=== PATIENT | male | born 1955 | race Caucasian/White ===

== ENCOUNTER 2018-06-02 15:22 | Outpatient (REF) | payer MEDICAID, SELFPAY ==
[2018-06-02 22:09] LABS: Anion Gap 8.7 mmol/L (3-11); BUN 23 mg/dL (7-18); CO2 32.3 mmol/L (21.0-32.0); CREATININE 1.41 mg/dL (0.70-1.30); Calcium 9.1 mg/dL (8.5-10.1); Chloride 97 mmol/L (98-107); Glucose 105 mg/dL (70-100); Sodium 138 mmol/L (136-145)
[2018-06-02 23:30] LABS: Potassium 2.8 mmol/L (3.5-5.1)
== END 2018-06-02 15:42 ==
LOC: NCHCN 15:22
PROVIDERS: PCP Internal Medicine; Visit Provider Internal Medicine
DX: I10 Essential (primary) hypertension (principal)
CPT/HCPCS: 80048

== ENCOUNTER 2019-07-18 10:21 | Outpatient (REF) | payer MEDICARE, SELFPAY ==
[2019-07-18 21:45] LABS: Anion Gap 7.8 mmol/L (3-11); BUN 19 mg/dL (7-18); CO2 28.2 mmol/L (21.0-32.0); CREATININE 1.02 mg/dL (0.70-1.30); Calcium 9.6 mg/dL (8.5-10.1); Chloride 104 mmol/L (98-107); Glucose 97 mg/dL (74-106); Potassium 4.5 mmol/L (3.5-5.1); Sodium 140 mmol/L (136-145)
== END 2019-07-18 10:41 ==
LOC: NCHCN 10:21
PROVIDERS: PCP Internal Medicine; Visit Provider Internal Medicine
DX: I10 Essential (primary) hypertension (principal); N40.0 Benign prostatic hyperplasia without lower urinary tract symptoms; M10.9 Gout, unspecified; N52.9 Male erectile dysfunction, unspecified
CPT/HCPCS: 80048

== ENCOUNTER 2019-09-12 19:37 | Outpatient (REF) | payer MEDICARE, SELFPAY ==
[2019-09-12 21:02] LABS: Uric Acid 7.8 mg/dL (3.5-7.2)
== END 2019-09-12 19:57 ==
LOC: NCHCN 19:37
PROVIDERS: PCP Internal Medicine; Visit Provider Nurse Practitioner Family
DX: M79.646 Pain in unspecified finger(s) (principal)
CPT/HCPCS: 84550

== ENCOUNTER 2019-09-21 09:30 | Outpatient (CLI) | payer MEDICARE, SELFPAY ==
--- NOTE | 2019-09-21 08:45 | DI.RAD_ITS ---
EXAM: XR FINGER RT RING INDICATION: RRF pain. COMPARISON: No exams were available for comparison TECHNIQUE: 2D digital imaging was performed. FINDINGS: There is a tiny osseous density adjacent to the head of the proximal phalanx of the right ring finger which may represent a small avulsed fracture. There is also deformity involving the base of the mid dle phalanx and a fracture cannot be excluded. There is soft tissue swelling of the ring finger. Pl ease correlate clinically.
== END 2019-09-21 09:50 ==
PROVIDERS: PCP Internal Medicine; Referring Provider Nurse Practitioner Family; Visit Provider Orthopaedic Surgery
DX: M79.644 Pain in right finger(s) (principal); M20.091 Other deformity of right finger(s); M79.89 Other specified soft tissue disorders; M10.9 Gout, unspecified; I10 Essential (primary) hypertension
CPT/HCPCS: 99203; 99214; 73140

== ENCOUNTER 2019-10-14 10:32 | Outpatient (REF) | payer MEDICARE, SELFPAY ==
[2019-10-14 13:19] LABS: ALT 32 U/L (16-63); AST 20 U/L (15-37); Albumin 3.8 g/dL (3.4-5.0); Alkaline Phosphatase 60 U/L (46-116); Anion Gap 6.7 mmol/L (3-11); BUN 14 mg/dL (7-18); Bilirubin, Total 0.6 mg/dL (0.2-1.0); CO2 29.3 mmol/L (21.0-32.0); CREATININE 1.06 mg/dL (0.70-1.30); Calcium 8.8 mg/dL (8.5-10.1); Chloride 104 mmol/L (98-107); Glucose 96 mg/dL (74-106); Potassium 4.4 mmol/L (3.5-5.1); Sodium 140 mmol/L (136-145); Uric Acid 6.7 mg/dL (3.5-7.2)
== END 2019-10-14 10:52 ==
LOC: NCHCN 10:32
PROVIDERS: PCP Internal Medicine; Visit Provider Nurse Practitioner Family
DX: E78.5 Hyperlipidemia, unspecified (principal); I10 Essential (primary) hypertension; M10.9 Gout, unspecified; M79.646 Pain in unspecified finger(s)
CPT/HCPCS: 80053; 84550

== ENCOUNTER 2021-06-03 12:19 | Outpatient (REF) | payer MEDICARE, SELFPAY ==
[2021-06-03 14:44] LABS: ALT 39 U/L (16-63); AST 16 U/L (15-37); Albumin 3.7 g/dL (3.4-5.0); Alkaline Phosphatase 62 U/L (46-116); Anion Gap 9.3 mmol/L (3-11); BUN 14 mg/dL (7-18); Bilirubin, Total 0.6 mg/dL (0.2-1.0); CO2 28.7 mmol/L (21.0-32.0); CREATININE 1.2 mg/dL (0.70-1.30); Calcium 8.9 mg/dL (8.5-10.1); Calculated LDL 198 mg/dL (<100); Chloride 105 mmol/L (98-107); Cholesterol 266 mg/dL (<200); Glucose 98 mg/dL (74-106); HDL Cholesterol 45 mg/dL (40-60); Potassium 4.4 mmol/L (3.5-5.1); Sodium 143 mmol/L (136-145); Total Protein 6.7 g/dL (6.4-8.2); Triglyceride 117 mg/dL (<150)
== END 2021-06-03 12:20 | disposition home or self-care (01) ==
LOC: NCHCN 12:19
PROVIDERS: PCP Internal Medicine; Visit Provider Nurse Practitioner Family
DX: Z12.5 Encounter for screening for malignant neoplasm of prostate (principal); I10 Essential (primary) hypertension; E78.5 Hyperlipidemia, unspecified; N40.0 Benign prostatic hyperplasia without lower urinary tract symptoms
CPT/HCPCS: 80053; 80061; 84153

== ENCOUNTER → 2021-07-04 10:55 | Outpatient (BNVA) | payer MEDICARE, MEDICAID, SELFPAY | PROVIDERS: PCP Nurse Practitioner Family; Referring Provider Internal Medicine; Visit Provider Urology | DX: R35.0 Frequency of micturition (principal); R39.89 Other symptoms and signs involving the genitourinary system; R97.20 Elevated prostate specific antigen [PSA] | CPT/HCPCS: 99214 ==

== ENCOUNTER 2021-08-12 15:10 | Outpatient (REF) | payer MEDICARE, MEDICAID, SELFPAY ==
[2021-08-12 22:42] LABS: PSA, Diagnostic 7.1 ng/mL (0.0-4.5)
== END 2021-08-12 15:11 | disposition home or self-care (01) ==
LOC: NCHCN 15:10
PROVIDERS: PCP Nurse Practitioner Family; Visit Provider Nurse Practitioner Family
DX: R97.20 Elevated prostate specific antigen [PSA] (principal)
CPT/HCPCS: 84153

== ENCOUNTER → 2021-08-29 09:48 | Outpatient (BNVA) | payer MEDICARE, MEDICAID, SELFPAY | PROVIDERS: PCP Nurse Practitioner Family; Referring Provider Nurse Practitioner Family; Visit Provider Nurse Practitioner Gerontology | DX: N40.1 Benign prostatic hyperplasia with lower urinary tract symptoms (principal); R39.89 Other symptoms and signs involving the genitourinary system; R97.20 Elevated prostate specific antigen [PSA] | CPT/HCPCS: 99214 ==

== ENCOUNTER 2021-11-27 04:42 | Outpatient (CLI) | payer MEDICARE, MEDICAID, SELFPAY ==
[2021-11-28 17:51] LABS: Free PSA/PSA Ratio 0.26 ratio
== END 2021-11-27 04:43 | disposition home or self-care (01) ==
LOC: LBO 04:43
PROVIDERS: PCP Nurse Practitioner Family; Visit Provider Nurse Practitioner Gerontology
DX: R97.20 Elevated prostate specific antigen [PSA] (principal)
CPT/HCPCS: 36415; 84154

== ENCOUNTER → 2021-12-04 08:24 | Outpatient (BNVA) | payer MEDICARE, MEDICAID, SELFPAY | PROVIDERS: PCP Nurse Practitioner Family; Visit Provider Nurse Practitioner Gerontology | DX: N40.1 Benign prostatic hyperplasia with lower urinary tract symptoms (principal); R35.1 Nocturia; R97.20 Elevated prostate specific antigen [PSA] | CPT/HCPCS: 99214 ==

== ENCOUNTER → 2022-01-16 14:51 | Outpatient (BNVA) | payer MEDICARE, MEDICAID, SELFPAY | PROVIDERS: PCP Nurse Practitioner Family; Referring Provider Nurse Practitioner Family; Visit Provider Nurse Practitioner Gerontology | DX: N40.1 Benign prostatic hyperplasia with lower urinary tract symptoms (principal); R35.0 Frequency of micturition; R30.0 Dysuria; R97.20 Elevated prostate specific antigen [PSA] | CPT/HCPCS: 51798; 99214 ==

== ENCOUNTER 2022-01-16 17:17 | Outpatient (REF) | payer MEDICARE, MEDICAID, SELFPAY ==
[2022-01-16 18:19] LABS: Bilirubin Negative (Negative); Blood Negative (Negative); Clarity Clear (Clear); Glucose Negative (Negative); Ketones Negative (Negative); Leukocyte Esterase Negative (Negative); Nitrite Negative (Negative); Specific Gravity >= 1.030 (1.005-1.025); Urobilinogen 0.2 EU/dL (Up TO 0.2); pH 5.5 (5-8)
== END 2022-01-16 17:18 | disposition home or self-care (01) ==
LOC: LBN 17:17
PROVIDERS: PCP Nurse Practitioner Family; Visit Provider Nurse Practitioner Gerontology
DX: R39.89 Other symptoms and signs involving the genitourinary system (principal)
CPT/HCPCS: 81003; 87086

== ENCOUNTER 2022-03-12 03:18 | Outpatient (CLI) | payer MEDICARE, MEDICAID, SELFPAY ==
[2022-03-12 18:15] LABS: PSA, Screening 9.9 ng/mL (<=4.5)
== END 2022-03-12 03:19 | disposition home or self-care (01) ==
LOC: LBO 03:18
PROVIDERS: PCP Nurse Practitioner Family; Visit Provider Nurse Practitioner Gerontology
DX: N40.0 Benign prostatic hyperplasia without lower urinary tract symptoms (principal); R97.20 Elevated prostate specific antigen [PSA]; Z12.5 Encounter for screening for malignant neoplasm of prostate
CPT/HCPCS: 36415; 84153

== ENCOUNTER → 2022-03-26 11:17 | Outpatient (BNVA) | payer MEDICARE, MEDICAID, SELFPAY | PROVIDERS: PCP Nurse Practitioner Family; Referring Provider Nurse Practitioner Family; Visit Provider Nurse Practitioner Gerontology | DX: N40.1 Benign prostatic hyperplasia with lower urinary tract symptoms (principal); R35.0 Frequency of micturition; R97.20 Elevated prostate specific antigen [PSA] | CPT/HCPCS: 36415; 51798; 99215 ==

== ENCOUNTER 2022-03-26 15:22 | Outpatient (REF) | payer MEDICARE, SELFPAY | END 2022-03-26 15:23 | disposition home or self-care (01) | LOC: LBN 15:22 | PROVIDERS: PCP Nurse Practitioner Family; Visit Provider Nurse Practitioner Gerontology | DX: R39.9 Unspecified symptoms and signs involving the genitourinary system (principal); R97.20 Elevated prostate specific antigen [PSA] | CPT/HCPCS: 82565 ==

== ENCOUNTER → 2022-04-30 09:00 | Outpatient (BNVA) | payer MEDICARE, MEDICAID, SELFPAY | PROVIDERS: PCP Nurse Practitioner Family; Referring Provider Nurse Practitioner Family; Visit Provider Nurse Practitioner Gerontology | DX: N40.1 Benign prostatic hyperplasia with lower urinary tract symptoms (principal); R39.89 Other symptoms and signs involving the genitourinary system; R97.20 Elevated prostate specific antigen [PSA]; N42.89 Other specified disorders of prostate | CPT/HCPCS: 99215 ==

== ENCOUNTER 2022-05-23 00:39 | Outpatient (CLI) | payer MEDICARE, MEDICAID, SELFPAY ==
--- OUTSIDE RECORDS SUMMARY | 2022-05-23 00:43 | XMS_ITS | Clinical Summary ---
:1955 Author Organization [facility] Address [address] [place] [address] Care Team Providers Name Role Phone Whitney Parker MD Primary Care Provider Encounters Date Type Specialty Care Team Description 03/12/2022 Lab Requisition Clinical Laboratory Outr Resulting Lab , Provider from Last 3 Months Social History Tobacco Use Types Packs/Day Years Used Date Never Assessed Sex Assigned at Date Recorded Not on file Plan of Treatment Health Maintenance Due Date Last Done Comments Hepatitis C Screen 1955 COVID-19 Vaccine (#1) 1955 Fall Risk Screening 2018 Procedures Procedure Name Priority Date/Time Associated Comments Diagnosis PSA TOTAL, Routine 03/12/2022 9:27 EDT Results for this DIAGNOSTIC procedure are i n the results section. from Last 3 Months Results (ABNORMAL) PSA TOTAL, DIAGNOSTIC (03/12/2022 9:27 EDT) Pathologist Sig nature PSA 9.9 (H) <=4.5 ng/mL [facility] Specimen Blood - Venous blood (substance) Narrative [facility] - 03/12/2022 18:10 EDT NOTE: Serum PSA concentration should not be in terpreted as absolute evidence for the presence or absence of malignant disease. Assayed on Siemens ADVIA Centaur XPT usi ng chemiluminescent technology.??Values obtained by using different assay methods cannot be used interchangeably. Performing Organization Address City/State/ZIP Code Phon e Number [facility] [address] [place] [address] SERVICES from Last 3 Months Care Teams Acoustic Intelligence Specialist Relationship Specialty Start Date End Date Whitney Parker MD PCP - General 04/12/13 [address] [place] [address]
--- OUTSIDE RECORDS SUMMARY | 2022-05-23 00:43 | XMS_ITS | Encounter Summary ---
:1955 Author Organization [facility] Address [address] [place] [address] Care Team Providers Name Role Phone Whitney Parker MD Primary Care Provider Encounter Details Date Type Department Care Team Description 03/12/2022 Lab Requisition [facility] Outr Resulting Lab, Pathology & Laboratory Provider [facility] [address] [id number] Social History Tobacco Use Types Packs/Day Years Used Date Never Assessed Sex Assigned at Date Recorded Not on file documented as of this encounter Plan of Treatment Not on filedocumented as of this encounter Procedures Procedure Name Priority Date/Time Associated Comments Diagnosis PSA TOTAL, Routine 03/12/2022 9:27 EDT Results for this DIAGNOSTIC procedure are i n the results section. documented in this encounter Results (ABNORMAL) PSA TOTAL, DIAGNOSTIC (03/12/2022 9:27 EDT) Pathologist Sig nature PSA 9.9 (H) <=4.5 ng/mL [facility] Specimen Blood - Venous blood (substance) Narrative [facility] - 03/12/2022 18:10 EDT NOTE: Serum PSA concentration should not be in terpreted as absolute evidence for the presence or absence of malignant disease. Assayed on Siemens ADVIA Centaur XPT usi ng chemiluminescent technology.??Values obtained by using different assay methods cannot be used interchangeably. Performing Organization Address City/State/ZIP Code Phon e Number [facility] [address] [place] [address] SERVICES documented in this encounter Visit Diagnoses Not on filedocumented in this encounter Care Teams Measurement And Sensing Technician Relationship Specialty Start Date End Date Whitney Parker MD PCP - General 04/12/13 [address] [place] [address] documented as of this encounter
--- OUTSIDE RECORDS SUMMARY | 2022-05-23 00:43 | XMS_ITS | Encounter Summary ---
:1955 Author Organization [facility] Address [address] [place] [address] Care Team Providers Name Role Phone Whitney Parker MD Primary Care Provider Encounter Details Date Type Department Care Team Description 06/03/2021 Lab Requisition [facility] Outr Resulting Lab, Pathology & Laboratory Provider [facility] [address] [id number] Social History Tobacco Use Types Packs/Day Years Used Date Never Assessed Sex Assigned at Date Recorded Not on file documented as of this encounter Plan of Treatment Not on filedocumented as of this encounter Procedures Procedure Name Priority Date/Time Associated Comments Diagnosis PSA TOTAL, Routine 06/03/2021 9:50 EDT Results for this DIAGNOSTIC procedure are i n the results section. documented in this encounter Results (ABNORMAL) PSA TOTAL, DIAGNOSTIC (06/03/2021 9:50 EDT) Pathologist Sig nature PSA 8.0 (H) 0.0 - 4.5 ng/mL [facility] Specimen Blood - Venous blood (substance) Narrative [facility] - 06/03/2021 22:22 EDT NOTE: Serum PSA concentration should not be in terpreted as absolute evidence for the presence or absence of malignant disease. Assayed on Siemens ADVIA Centaur XPT usi ng chemiluminescent technology.??Values obtained by using different assay methods cannot be used interchangeably. Performing Organization Address City/State/ZIP Code Phon e Number [facility] [address] [place] [address] SERVICES documented in this encounter Visit Diagnoses Not on filedocumented in this encounter Care Teams Template Checker Relationship Specialty Start Date End Date Whitney Parker MD PCP - General 04/12/13 [address] [place] [address] documented as of this encounter
--- OUTSIDE RECORDS SUMMARY | 2022-05-23 00:44 | XMS_ITS | Encounter Summary ---
:1955 Author Organization [facility] Address [address] [place] [address] Care Team Providers Name Role Phone Unavailable Primary Care Provider Unavailable Encounter Details Date Type Department Care Team Description 09/09/2005 Results Only [facility] - Steven Hernadez MD conversion [address] [place] [phone] Social History Tobacco Use Types Packs/Day Years Used Date Never Assessed Sex Assigned at Date Recorded Not on file documented as of this encounter Plan of Treatment Not on filedocumented as of this encounter Procedures Procedure Name Priority Date/Time Associated Diagnosis Comme nts SURGICAL PATHOLOGY Routine 09/09/2005 0:00 EST Re sults for this procedure are i n the results section. documented in this encounter Results SURGICAL PATHOLOGY (09/09/2005 0:00 EST) Pathology Report: SURGICAL PATHOLOGY REPORT [facility] Reports generated via electronic interface contain ken ginal data; LAB however they are lacking the format of the original re port. Caution should be taken when reading/interpreting unfo rmatted reports. Name: ? DHRUV MAJANO ? Accession #: ? [id number] ? : ? 1955 (Age: 50) ??M ? Collect Date: ? 09/09/2005 ? Location: ? [facility] ? Receive Date: ? 006 ? Provider: EVE SMITH MD Copy to: JORGE CARO MD ? Final Pathologic Diagnosis: A. ?Colon, 21 cm, polyp, biopsies: 1. ?Hyperplastic polyp. B. ?Colon, 17 cm, polyp, biopsy: 1. ?Tubular adenoma. C. ?Colon, 14 cm, polyp, biopsy: 1. ?Cauterized hyperplastic polyp. D. ?Colon, 12 cm, polyp, biopsy: 1. ?Colonic muc hernando with prominent lymphoid aggregate and focal surface hyperplastic changes. E. ?Colon, 8 cm, polyp, biopsy: 1. ?Colonic mucosa with no specific patho logic features. Document reviewed and electronically signed by: Vipul Bales MD Report ??Date: 09/12/2005 18:35 By the signature above, the attending physician certif ies that he/she has personally conducted a gross and/or microscopic examin ation of the described specimens and rendered or confirmed the above diagnosi s. Specimen(s) Received: A. ?Bx polyp 21 cm B. ?Bx polyp 17 cm C. ?Bx polyp 14 cm D. ?Bx polyp 12 cm E. ?Bx polyp 8 cm Clinical History: ? Follow up polyps, h/o tubular adenoma ([id number]) Gross Description: ? Received in Hollande' s fixative labelled Bird and bx polyp 21 cm are three craft-pink irregular soft tissue fra gments ranging from 0.2 x 0.2 x 0.1 cm to 0.3 x 0.2 x 0.2 cm. ??The specimen is entirely subm itted as (A). ?? Received in Hollande's fixative labelled Bird and b x polyp 17 cm is a craft-pink 0.3 x 0.2 x 0.2 cm soft tissue fragment. ??Th e specimen is entirely submitted as (B). Received in Hollande's fixat eren labelled Bird and polyp 14 cm is a craft-pink 0.3 x 0.2 x 0.2 cm soft tiss ue fragment. ??The specimen is entirely submitted as (C). ?? Received in Hollande's fixat eren labelled Bird and polyp 12 cm is a craft-pink 0.4 x 0.2 x 0.2 cm soft tiss ue fragment. ??The specimen is entirely submitted as (D). Received in Hollande's fixative labelled Bird and polyp 8 cm is a craft-pink 0.5 x 0.2 x 0.2 cm soft tiss ue fragment. ??The specimen is entirely submitted as (E). ??(Laina Garcia)/g End of Report Specimen Performing Organization Address City/State/ZIP Code Phon e Number [facility] [address] [place] [address] SERVICES [facility] [address] [place] [address] documented in this encounter Visit Diagnoses Not on filedocumented in this encounter
--- OUTSIDE RECORDS SUMMARY | 2022-05-23 00:44 | XMS_ITS | Encounter Summary ---
:1955 Author Organization [facility] system Address [address] [place] [address] Care Team Providers Name Role Phone Whitney Parker MD Primary Care Provider Encounter Details Date Type Department Care Team Description 08/14/2017 Results Only [facility]- Radha James DO [phone] [facility] [place], [place] [address] (Wo rk) Social History Tobacco Use Types Packs/Day Years Used Date Never Assessed Sex Assigned at Date Recorded Not on file documented as of this encounter Plan of Treatment Not on filedocumented as of this encounter Procedures Procedure Name Priority Date/Time Associated Diagnosis Comme [facility] SURGICAL PATHOLOGY Routine 08/14/2017 17:27 Resul ts for this EST procedure are i n the results section. documented in this encounter Results SURGICAL PATHOLOGY (08/14/2017 17:27 EST) Pathology Report: SURGICAL PATHOLOGY REPORT [facility] Reports generated via electronic interface contain ken ginal data; LABORATORY however they are lacking the format of the original re port. SERVICES Caution should be taken when reading/interpreting unfo rmatted reports. Name: ? DHRUV MAJANO ? Accession #: ? [id number] ? : ? 1955 (Age: 62) ??M ? Collect Date: ? 08/14/2017 ? Location: ? [facility] ? Receive Date: ? 08/14/19 18 ? Provider: RADHA OLMEDO DO Copy to: GABY VASQUEZ MD ? Final Pathologic Diagnosis: COLON, DISTAL SIGMOID POLYP, BIOPSY: - Colonic mucosa with prominent lymphoid aggregate. Se e comment. Comment: Deeper sections of this biopsy have been examined. Dr. Beltran 08/17/2017 6:04 PM Document reviewed and electronically signed by: AUBRIE BELTRAN MD Report ??Date: 08/18/2017 15:11 By the signature above, the attending physician certif ies that he/she has personally conducted a gross and/or microscopic examin ation of the described specimens and rendered or confirmed the above diagnosi s. Specimen(s) Received: Distal sigmoid polyp Clinical History: Hx of colon polyp; clinical diagnosis code: Z86.010 Gross Description: ? Received in formalin labelled with proper patient identification (initials B, D) and distal sigmoid co manny polyp is a single pink-craft tissue fragment (0.4 x 0.2 x 0.2 cm). Submitted intact in block 1. BE Ray ([facility]) 08/17/2017 7:36 AM End of Report Specimen Performing Organization Address City/State/ZIP Code Phon e Number [facility] [address] [place] [address] SERVICES documented in this encounter Visit Diagnoses Not on filedocumented in this encounter Care Teams Healthcare Or Medical Relationship Specialty Start Date End Date Whitney Parker MD PCP - General 04/12/13 [address] [place] [phone] documented as of this encounter
--- OUTSIDE RECORDS SUMMARY | 2022-05-23 00:44 | XMS_ITS | Encounter Summary ---
:1955 Author Organization [facility] Address [address] [place] [address] Care Team Providers Name Role Phone Whitney Parker MD Primary Care Provider Encounter Details Date Type Department Care Team Description 08/14/2017 Hospital Encounter [facility]- Latanya Unknown, Provider, [facility] [address] [facility] [phone] [place] [address] (Work) [phone] Social History Tobacco Use Types Packs/Day Years Used Date Never Assessed Sex Assigned at Date Recorded Not on file documented as of this encounter Discharge Disposition Disposition Code Departure Means Destination Home or Self Custodial documented in this encounter Plan of Treatment Not on filedocumented as of this encounter Visit Diagnoses Not on filedocumented in this encounter Care Teams Extension Course Counselor Relationship Specialty Start Date End Date Whitney Parker MD PCP - General 04/12/13 [address] [place] [address] documented as of this encounter
--- OUTSIDE RECORDS SUMMARY | 2022-05-23 00:44 | XMS_ITS | Encounter Summary ---
:1955 Author Organization [facility] [place] [address] Care Team Providers Name Role Phone RovertoCristel Nicci GREEN Primary Care Provider [phone] Reason for Referral Diagnostic Test (Routine) - Closed Specialty Diagnoses / Procedures Referred By Contact Refer red To Contact Radiology Diagnoses Elevated PSA Viktoriya Hendrickson APRN [facility] Rad Mri Procedures MRI Pelvis wwo (Prostate) [address] [place] [phone] Referral ID Status Reason Start Date Expiration Date Visits V isits Requested Authorized [id number] Closed Specialty 03/31/2022 10/01/2023 1 1 Service Requested Reason for Visit Diagnostic Test (Routine) - Closed Specialty Diagnoses / Procedures Referred By Contact Refer red To Contact Radiology Diagnoses Elevated PSA Viktoriya Hendrickson APRN [facility] Rad Mri Procedures MRI Pelvis wwo (Prostate) [address] [place] [id number] Referral ID Status Reason Start Date Expiration Date Visits V isits Requested Authorized [id number] Closed Specialty 03/31/2022 10/01/2023 1 1 Service Requested Encounter Details Date Type Department Care Team Description 04/16/2022 Hospital Encounter MRI at [facility] Viktoriya Hendrickson, Elevated PSA [facility] CHEMICAL EDUCATOR[address] [address] [place] [phone] (Wo rk) Social History Tobacco Use Types Packs/Day Years Used Date Never Assessed Sex Assigned at Date Recorded Not on file documented as of this encounter Plan of Treatment Not on filedocumented as of this encounter Procedures Procedure Name Priority Date/Time Associated Diagnosis Comme nts MRI PELVIS WWO Routine 04/16/2022 6:55 PM Elevated PSA Results for this (PROSTATE) EDT procedure are i n the results section. documented in this encounter Results MRI Pelvis wwo (Prostate) (04/16/2022 6:55 PM EDT) Anatomical Region Laterality Modality Pelvis Magnetic Resonance Specimen (Source) Anatomical Location Collection Method / Collectio n Time Received Time / Laterality Volume Impressions 04/17/2022 9:10 AM EDT Lesion 1 PZ: PI-RADS 5. Clinically signi ficant cancer is highly likely to be present. T2 location: axial series 11, i mage 20; sagittal ??series 10, image 21. Segmented in UroNav. PI-RADS v2.1 Assessment Categories PI-RADS 1 -- Very low (clinically signif icant cancer is highly unlikely to be present) PI-RADS 2 -- Low (clinically significant cancer is unlikely to be present) PI-RADS 3 -- Intermediate (the presence of clinically significant cancer is equivocal) PI-RADS 4 -- High (clinically significan t cancer is likely to be present) PI-RADS 5 -- Very high (clinically signi ficant cancer is highly likely to be present) References: Mekhoa S1, Lluvia JH1, Multani S1, Smi th C1, Carvajal J1, Czarniecki M1, Gold S1, Becerra G1, Rayn K1, Joey MJ1, Rosalio BJ1, Sebastian PA1, Seng PL1, Grayson B1. ??A Grading System for the Assessment of Ris k of Extraprostatic Extension of Prostate Cancer at Multiparametric MRI. Radiology. 2019 Oct;290(3):709-719. doi: 10.1148/radiol.4371624707. Epub 2018Aug 24. Thank you for letting us participate in the care of this patient. ??If you are a health care provider and have any questi ons regarding this report, please contact the number below. ??For patients who have questions please contact the health career and technology education teacher that requested your imaging first. ? Narrative 04/17/2022 9:10 AM EDT EXAMINATION: MRI PELVIS WWO (PROSTATE) CLINICAL HISTORY: Elevated PSA REASON FOR PROSTATE EXAM: HAS PATIENT HAD PREVIOUS BIOPSY?:No, MOST RECENT PSA LEVEL:9.9 CATHERINE SCORE: TECHNIQUE: Multiparametric MRI of the pr ostate prior to and following IV administration of 20 cc of Dotarem contr ast. ?? QUALITY: Meets PI-RADS technical criteri a. COMPARISON: None FINDINGS: Prostate dimensions: 6.3 x 5.8 x 6.5cm. Estimated prostate volume: 110cc (X x Y x Z x 0.52) PSA density: 0.09 (PSA/prostate volume > 0.15 susp, 0.25 highly susp) Peripheral zone: Lesion 1. Right posterior medial mid gla nd T2: Circumscribed, homogenous moderately hyp ointense mass, 1.6 x 1 cm axially, 1.8 cm craniocaudally. PI-RADs: 5. DWI: ??Focal markedly hypointense on ADC and markedly hyperintense on high b-value DWI. PI-RADs: 5. DCE-MRI: (+) focal early enhancement whi ch corresponds to the suspicious finding on T2WI and/or DWI.. ? Combined PI-RADs: 5. Transition zone: T2: Typical encapsulate d and homogenous circumscribed nodules. Median lobe hypertrophy. No focal lesions. Combined PI-RADs: 2. Extraprostatic disease: Seminal vesicle involvement:No Lymphadenopathy:No Sphincter involvement:No Bladder involvement:No Osseous metastases: No . MRI-derived Extraprostatic extension ris k: Grade 1: 24.3% (Curvilinear contact length) Other findings: None. Procedure Note Law Portillo MD - 04/17/2022For matting of this note might be different from the original. EXAMINATION: MRI PELVIS WWO (PROSTATE) CLINICAL HISTORY: Elevated PSA REASON FOR PROSTATE EXAM: HAS PATIENT HAD PREVIOUS BIOPSY?:No, MOST RECENT PSA LEVEL:9.9 CATHERINE SCORE: TECHNIQUE: Multiparametric MRI of the pr ostate prior to and following IV administration of 20 cc of Dotarem contr ast. QUALITY: Meets PI-RADS technical criteri a. COMPARISON: None FINDINGS: Prostate dimensions: 6.3 x 5.8 x 6.5cm. Estimated prostate volume: 110cc (X x Y x Z x 0.52) PSA density: 0.09 (PSA/prostate volume > 0.15 susp, 0.25 highly susp) Peripheral zone: Lesion 1. Right posterior medial mid gla nd T2: Circumscribed, homogenous moderately hyp ointense mass, 1.6 x 1 cm axially, 1.8 cm craniocaudally. PI-RADs: 5. DWI: Focal markedly hypointense on ADC a nd markedly hyperintense on high b-value DWI. PI-RADs: 5. DCE-MRI: (+) focal early enhancement whi ch corresponds to the suspicious finding on T2WI and/or DWI.. Combined PI-RADs: 5. Transition zone: T2: Typical encapsulate d and homogenous circumscribed nodules. Median lobe hypertrophy. No focal lesions. Combined PI-RADs: 2. Extraprostatic disease: Seminal vesicle involvement:No Lymphadenopathy:No Sphincter involvement:No Bladder involvement:No Osseous metastases: No . MRI-derived Extraprostatic extension ris k: Grade 1: 24.3% (Curvilinear contact length) Other findings: None. IMPRESSION Lesion 1 PZ: PI-RADS 5. Clinically signi ficant cancer is highly likely to be present. T2 location: axial series 11, i mage 20; sagittal series 10, image 21. Segmented in UroNav. PI-RADS v2.1 Assessment Categories PI-RADS 1 -- Very low (clinically signif icant cancer is highly unlikely to be present) PI-RADS 2 -- Low (clinically significant cancer is unlikely to be present) PI-RADS 3 -- Intermediate (the presence of clinically significant cancer is equivocal) PI-RADS 4 -- High (clinically significan t cancer is likely to be present) PI-RADS 5 -- Very high (clinically signi ficant cancer is highly likely to be present) References: Mehralivand S1, Lluvia JH1, Multani S1, Smi th C1, Carvajal J1, Czarniecki M1, Gold S1, Becerra G1, Rayn K1, Cook MJ1, Wood BJ1, Cortes PA1, Choyke PL1, Turkbejulio cesar B1. A Grading System for the Assessment of Ris k of Extraprostatic Extension of Prostate Cancer at Multiparametric MRI. Radiology. 2019 Oct;290(3):709-719. doi: 10.1148/radiol.2638618470. Epub 2018Aug 24. Thank you for letting us participate in the care of this patient. If you are a health care provider and have any questi ons regarding this report, please contact the number below. For patients w ho have questions please contact the health career and technology education teacher that requested your imaging first. Viktoriya Hendrickson APRN [facility] ORDERABLES documented in this encounter Visit Diagnoses Diagnosis Elevated PSA Elevated prostate specific antigen (PSA) documented in this encounter Administered Medications Inactive Administered Medications - up to 3 most recent administrations Medication Order MAR Action Action Date Dose Rate Site gadoterate meglumine (Dotarem) Given 04/16/2022 8:05 PM EDT 20 m Ls (0.5 mMol/mL) injection solution 0-100 mL 0-100 mL, Intravenous, ONCE PRN, 1 dose, Starting on Thu04/16/22 at 2004, Until Thu04/16/22 at 2004, Per Protocol, Radiology Contrast, Routine documented in this encounter Care Teams Muff Winder Relationship Specialty Start Date End Date Cristel Layne APRN PCP - General Family Medicine 03/31/22 [address] [place] [address] documented as of this encounter
--- OUTSIDE RECORDS SUMMARY | 2022-05-23 00:44 | XMS_ITS | Encounter Summary ---
:1955 Author Organization [facility] Address [address] [place] [address] Care Team Providers Name Role Phone Whitney Parker MD Primary Care Provider Encounter Details Date Type Department Care Team Description 06/17/2017 Results Only [facility]- Radha James DO [phone] [facility] [place], [place] [address] (Wo rk) Social History Tobacco Use Types Packs/Day Years Used Date Never Assessed Sex Assigned at Date Recorded Not on file documented as of this encounter Plan of Treatment Not on filedocumented as of this encounter Procedures Procedure Name Priority Date/Time Associated Diagnosis Comme [facility] SURGICAL PATHOLOGY Routine 06/17/2017 20:51 Resul ts for this EST procedure are i n the results section. documented in this encounter Results SURGICAL PATHOLOGY (06/17/2017 20:51 EST) Pathology Report: SURGICAL PATHOLOGY REPORT [facility] Reports generated via electronic interface contain ken ginal data; LABORATORY however they are lacking the format of the original re port. SERVICES Caution should be taken when reading/interpreting unfo rmatted reports. Name: ? DHRUV MAJANO ? Accession #: ? [id number] ? : ? 1955 (Age: 62) ??M ? Collect Date: ? 06/17/2017 ? Location: ? [facility] ? Receive Date: ? 017 ? Provider: RADHA OLMEDO DO Copy to: GABY VASQUEZ MD ? Final Pathologic Diagnosis: BREAST, LEFT, MASS, EXCISION: - Gynecomastia. Document reviewed and electronically signed by: ANDRÉS CHANCE MD Report ??Date: 06/26/2017 17:13 By the signature above, the attending physician certif ies that he/she has personally conducted a gross and/or microscopic examin ation of the described specimens and rendered or confirmed the above diagnosi s. Specimen(s) Received: Left breast mass Clinical History: Left breast mass; clinical diagnosis code: ??N63.0 Gross Description: ? Received in formalin labelled with proper patient identification (initials B, D) and left breast mass are two unoriented pieces of cauterized fibrofatty tissue (9.7 g, 5.2 x 3.6 x 2.2 cm in aggregate). The outer surfaces are inked blue. The cut surfaces are craft-pink rubbery and fibrot ic with no discernible lesion. The specimens are submitted entirely as follow s: BLOCK SMART 1- ??smaller piece, and, perpendicular 2-3- ??smaller piece, opposite end, perpendicular 4-5- ??smaller piece, central sections 6- ??larger piece, and, perpendicular 7-8- ??larger piece, opposite and perpendicular 9-12- ??larger piece, central sections Time removed from patient: ??06/17/2017 1005 hours Time in formalin: ??06/17/2017 1005 hours Time out of formalin: ??06/18/2017 1900 hrs. BE Sánchez ([facility]) 06/18/2017 2:45 PM End of Report Specimen Performing Organization Address City/State/ZIP Code Phon e Number [facility] [address] [place] [address] SERVICES documented in this encounter Visit Diagnoses Not on filedocumented in this encounter Care Teams Sheet Metal Apprentice Relationship Specialty Start Date End Date Whitney Parker MD PCP - General 04/12/13 [address] [place] [address] documented as of this encounter
--- OUTSIDE RECORDS SUMMARY | 2022-05-23 00:44 | XMS_ITS | Encounter Summary ---
:1955 Author Organization [facility] Address [address] [place] [address] Care Team Providers Name Role Phone Whitney Parker MD Primary Care Provider Encounter Details Date Type Department Care Team Description 04/11/2013 Results Only [facility] Don Herrera MD Laboratory Services - [address] [place] [address] [facility] [place] [address] [phone] Social History Tobacco Use Types Packs/Day Years Used Date Never Assessed Sex Assigned at Date Recorded Not on file documented as of this encounter Plan of Treatment Not on filedocumented as of this encounter Procedures Procedure Name Priority Date/Time Associated Diagnosis Comme [facility] SURGICAL PATHOLOGY Routine 04/11/2013 11:27 Resul ts for this EDT procedure are i n the results section. documented in this encounter Results SURGICAL PATHOLOGY (04/11/2013 11:27 EDT) Pathology Report: SURGICAL PATHOLOGY REPORT [facility] Reports generated via electronic interface contain ken ginal data; LAB however they are lacking the format of the original re port. Caution should be taken when reading/interpreting unfo rmatted reports. Name: ? DHRUV MAJANO ? Accession #: ? [id number] ? : ? 1955 (Age: 57) ??M ? Collect Date: ? 04/11/2013 ? Location: ? [facility] ? Receive Date: ? 013 ? Provider: DON HERRERA MD Copy to: WHITNEY PARKER MD ? Final Pathologic Diagnosis: A. COLON, TRANSVERSE, ? ??POLYPS, BIOPSIES: - ??Polypoid fragments of co lonic mucosa with prominent lymphoid aggregates and surface hyperplastic changes. B. COLON, SIGMOID, POLYPS, BIOPSIES: - ??Tubular adenoma. - ??Cauterized colonic mucos a with features suggestive of hyperplastic polyp(s). Document reviewed and electronically signed by: GLORIA KENNEY MD Report ??Date: 04/14/2013 15:34 By the signature above, the attending physician certif ies that he/she has personally conducted a gross and/or microscopic examin ation of the described specimens and rendered or confirmed the above diagnosi s. Specimen(s) Received: A. ? transverse colon polyps x3 B. ? Sigmoid polyps x3 Clinical History: H/O colon adenomas Gross Description: A. ?Received in formalin labelled with proper p atient identification (initials B, D) and 1. transverse colon polyps x3 are three pink-craft tissues (0.4 x 0.2 x 0.2 cm to 0.6 x 0.3 x 0.2 cm). Entirely s ubmitted in A1. B. ?Received in formalin labelled with proper p atient identification (initials B, D) and 2. sigm oid polyps x3 are four pink-craft tissues (0.3 x 0.2 x 0.2 cm to 0.5 x 0.5 x 0.2 cm). Entirely submitted in B1 and B2. Sera Lazo 04/12/2013 02:31 PM End of Report Specimen Performing Organization Address City/State/ZIP Code Phon e Number [facility] [address] [place] [address] SERVICES [facility] [address] [place] [address] documented in this encounter Visit Diagnoses Not on filedocumented in this encounter Care Teams Primary Care Pediatrician Relationship Specialty Start Date End Date Whitney Parker MD PCP - General 04/12/13 [address] [place] [address] documented as of this encounter
--- OUTSIDE RECORDS SUMMARY | 2022-05-23 00:44 | XMS_ITS | Clinical Summary ---
:1955 Author Organization [facility] [place] [address] Care Team Providers Name Role Phone Cristel Layne NORMA Primary Care Provider [phone] Encounters Date Type Specialty Care Team Description 04/16/2022 Hospital Encounter Radiology Viktoriya Hendrickson, APR N Elevated PSA from Last 3 Months Social History Tobacco Use Types Packs/Day Years Used Date Never Assessed Sex Assigned at Date Recorded Not on file Plan of Treatment Health Maintenance Due Date Last Done Comments Covid-19 Vaccine (#1) 1955 Hepatitis C Screening 1971 Lipid Screening 1971 Tdap adult 1972 Tetanus vaccine 1972 Colonoscopy 1998 Zoster vaccine (1 of 2) 2003 Advance Directive 2008 Pneumoccocal Vaccine: 65+ (1 - PCV) 2018 Influenza (Flu) vaccine (1 of 1 - Influenza standard 04/03/2022 series) Procedures Procedure Name Priority Date/Time Associated Diagnosis Comme nts MRI PELVIS WWO Routine 04/16/2022 6:55 PM Elevated PSA Results for this (PROSTATE) EDT procedure are i n the results section. ORDS - PROVIDER 03/31/2022 12:00 AM Resul ts for this CARE SCAN EDT procedure are i n the results section. from Last 3 Months Results MRI Pelvis wwo (Prostate) (04/16/2022 6:55 [...] is highly likely to be present) References: Robby S1, Lluvia JH1, Multani S1, Smi th C1, Carvajal J1, Czarniecki M1, Gold S1, Becerra G1, Raykiya K1, Joey MJ1, Rosalio BJ1, Sebastian PA1, Seng PL1, Grayson B1. ??A Grading System for the Assessment of Ris k of Extraprostatic Extension of Prostate Cancer at Multiparametric MRI. Radiology. 2019 Mar;290(3):709-719. doi: 10.1148/radiol.7163535947. Epub 2018Aug 24. Thank you for letting us participate in the care of this patient. ??If you are a health care provider and have any questi ons regarding this report, please contact the number below. ??For patients who have questions please contact the health medicare compliance auditor that requested your imaging first. ? Electronically signed by: Law wilson MD, [facility] ([phone]), at 04/17/2022 9:10 AM Narrative 04/17/2022 9:10 AM EDT EXAMINATION: MRI [...] is highly likely to be present) References: Robby S1, Lluvia JH1, Multani S1, Smi th C1, Carvajal J1, Czarnieckpatience M1, Gold S1, Becerra G1, Rayn K1, Joey MJ1, Rosalio BJ1, Cortes PA1, Seng PL1, Grayson B1. A Grading System for the Assessment of Ris k of Extraprostatic Extension of Prostate Cancer at Multiparametric MRI. Radiology. 2019 Oct;290(3):709-719. doi: 10.1148/radiol.6030051199. Epub 2018Aug 24. Thank you for letting us participate in the care of this patient. If you are a health care provider and have any questi ons regarding this report, please contact the number below. For patients w ho have questions please contact the health medicare compliance auditor that requested your imaging first. Viktoriyakiersten Personmitchazeem NORMA IMG MRI ORDERABLES SCAN DOC: ORDS - PROVIDER CARE (03/31/2022 12:00 AM EDT) Narrative 03/31/2022 12:00 AM EDT This result has an attachment that is no t available. Ordered by an unspecified provider. Scanning Provider MEDIA MGR SCAN EXT ORDR/RSLT from Last 3 Months Insurance Payer Benefit Plan / Subscriber ID Effective Phone Address T ype Group Dates MEDICARE MEDICARE PART A [id number] 2018-Pres [phone] [facility] [place] [phone] [facility] [id number] 2021-Pres [phone] [address] MEDICARE MEDICARE ent [address] [place], [place] [address] Care Teams Nickel Operator Relationship Specialty Start Date End Date Cristel Layne APRN PCP - General Family Medicine 03/31/22 [address] [place], [place] [id number]
--- NOTE | 2022-05-23 07:00 | DI.US_ITS ---
Exam(s) US PROSTATE BIOPSY EXAM: US PROSTATE BIOPSY CLINICAL HISTORY: elevated psa, prostate nodule, abnormal MRI,r97.20 TECHNIQUE: Ultrasound performed using standard protocol. COMPARISON: US CAROTID ULTRASOUND from 07/23/2015 FINDINGS: Ultrasound guidance was provided during prostate biopsy performed by the urologist. The radiologist was not present for this procedure. IMPRESSION: DATA REPOSITORY:
--- NOTE | 2022-05-23 09:15 | PROST_PTH ---
PATIENT: Vincent Oswald LOC: [facility] U#:[id number] AGE/SX: 66/M ROOM: RE05/23/[address]: Jomar Hensley MD : 1955 BED: DIS: 05/23/2022 SPEC #: [id number] RECD: 05/23/22 12:54 STATUS: YAMILE RE #: [id number] ISABELL: 05/23/22 09:[address]: Jomar Hensley DEPT: Surgical Specimen RECD BY: Francy Weaver ENTERED: 05/23/22 12:57 SP TYPE: PROST OTHR DR: Cristel Layne Tissues: 1 - PROSTATE NEEDLE BIOPSY 2 - PROSTATE NEEDLE BIOPSY 3 - PROSTATE NEEDLE BIOPSY 4 - PROSTATE NEEDLE BIOPSY 5 - PROSTATE NEEDLE BIOPSY 6 - PROSTATE NEEDLE BIOPSY 7 - PROSTATE NEEDLE BIOPSY 8 - PROSTATE NEEDLE BIOPSY 9 - PROSTATE NEEDLE BIOPSY 10 - PROSTATE NEEDLE BIOPSY 11 - PROSTATE NEEDLE BIOPSY 12 - PROSTATE NEEDLE BIOPSY Procedures: GROSS AND MICRO LEVEL 4 IMMUNOPEROXIDASE STAIN Comments: [id number]
--- NOTE | 2022-05-23 09:36 | W.PM.OP ---
Date of service: 05/23/22 Time of Service: 09:36 Operative Note Operative Note DATE OF PROCEDURE: 05/23/22 PRE-OP DIAGNOSIS: Elevated PSA POST-OP DIAGNOSIS: same PROCEDURE: Transrectal ultra sound guided biopsy of the prostate SURGEON: Jomar Hensley ANESTHESIA TYPE: Local By Surgeon Refer to Anesthesia Record ESTIMATED BLOOD LOSS: 10 PATHOLOGY: other (12 laterally directed biopsies of prostate) Patient was transported to: no change Patient's condition: stable Implants: none Indications: This is a 66-year-old gentleman who has a history of an elevated PSA which has been increasing over time. He has had a multiparameter prostate MRI which showed a highly suspicious area on the right posterior area of the prostate in the mid gland. He presents for ultrasound-guided biopsy of the prostate Findings: Hypoechoic area in the right mid gland peripheral zone Prostate volume 123 cc Procedure Description: The patient was brought to the radiology suite on 05/23/2022. He had been given a preprocedural antibiotic and mechanical bowel prep. He was placed in the left lateral position. Transrectal imaging of the prostate was performed using a variable megahertz transducer. The prostate was imaged in transverse and longitudinal planes. The prostatic volume was calculated at 123 cc. A hypoechoic area was seen in the peripheral zone on the right side of the prostate. The area was in the mid gland. No additional abnormal areas were identified. There were a few calcifications present in the transition zone. A periprosthetic nerve block was performed using 1% lidocaine. A total of 12 laterally directed biopsies were then taken from the prostate. Each of the biopsies was labeled and sent to pathology for permanent section. One of the biopsies was taken directly through the hypoechoic area previously described. The patient tolerated the procedure with no complications.
== END 2022-05-23 00:59 ==
PROVIDERS: PCP Nurse Practitioner Family; Visit Provider Urology
DX: C61 Malignant neoplasm of prostate (principal)
CPT/HCPCS: 88305; 76942; 88361

== ENCOUNTER → 2022-06-06 12:53 | Outpatient (BNVA) | payer MEDICARE, MEDICAID, SELFPAY | PROVIDERS: PCP Nurse Practitioner Family; Referring Provider Nurse Practitioner Family; Visit Provider Urology | DX: C61 Malignant neoplasm of prostate (principal) | CPT/HCPCS: 99215 ==

== ENCOUNTER 2022-07-21 16:30 | Outpatient (CLI) | payer MEDICARE, SELFPAY ==
[2022-07-22 12:07] LABS: PSA, Ultrasensitive 9.1 ng/mL (<= 4.5)
== END 2022-07-21 16:31 | disposition home or self-care (01) ==
LOC: LBO 16:31
PROVIDERS: PCP Nurse Practitioner Family; Visit Provider Radiology Radiation Oncology
DX: C61 Malignant neoplasm of prostate (principal)
CPT/HCPCS: 36415; 84153

== ENCOUNTER → 2022-11-27 14:53 | Outpatient (BNVA) | payer MEDICARE, SELFPAY | PROVIDERS: PCP Nurse Practitioner Family; Referring Provider Nurse Practitioner Family; Visit Provider Urology | DX: C61 Malignant neoplasm of prostate (principal) | CPT/HCPCS: 99213 ==

== ENCOUNTER 2022-11-27 17:33 | Outpatient (REF) | payer MEDICARE, SELFPAY ==
[2022-12-01 10:42] LABS: PSA, Ultrasensitive 12.7 ng/mL (<= 4.5)
== END 2022-11-27 17:34 | disposition home or self-care (01) ==
LOC: LBN 17:33
PROVIDERS: PCP Nurse Practitioner Family; Visit Provider Urology
DX: C61 Malignant neoplasm of prostate (principal)
CPT/HCPCS: 84153

== ENCOUNTER → 2022-12-11 10:58 | Outpatient (BNVA) | payer MEDICARE, SELFPAY | PROVIDERS: PCP Nurse Practitioner Family; Referring Provider Nurse Practitioner Family; Visit Provider Urology | DX: C61 Malignant neoplasm of prostate (principal) | CPT/HCPCS: 99214 ==

== ENCOUNTER 2023-02-05 12:30 | Outpatient (CLI) | payer MEDICARE, SELFPAY ==
[2023-02-05 20:15] LABS: PSA, Diagnostic 8.9 ng/mL (<=4.5)
== END 2023-02-05 12:31 | disposition home or self-care (01) ==
LOC: LBO 12:30
PROVIDERS: PCP Nurse Practitioner Family; Visit Provider Urology
DX: C61 Malignant neoplasm of prostate (principal)
CPT/HCPCS: 36415; 84153

== ENCOUNTER → 2023-02-19 13:29 | Outpatient (BNVA) | payer MEDICARE, SELFPAY | PROVIDERS: PCP Nurse Practitioner Family; Referring Provider Nurse Practitioner Family; Visit Provider Urology | DX: C61 Malignant neoplasm of prostate (principal) | CPT/HCPCS: 99442 ==

== ENCOUNTER 2023-04-17 13:52 | Outpatient (REF) | payer MEDICARE, SELFPAY ==
[2023-04-17 15:36] LABS: BUN 17 mg/dL (7-18); Calcium 9.1 mg/dL (8.5-10.1); Chloride 104 mmol/L (98-107); Estimated GFR 81.47 (mL/min/1.73m2); Folate 13.3 ng/mL (8.6-20.0); Glucose 96 mg/dL (74-106); Magnesium 1.7 mg/dL (1.8-2.4); Potassium 4.5 mmol/L (3.5-5.1); Sodium 139 mmol/L (136-145); Vitamin B12 362 pg/mL (193-986)
[2023-04-23 02:00] LABS: Thiamine (Vitamin B1), WB 180 nmol/L (70-180)
== END 2023-04-17 13:53 | disposition home or self-care (01) ==
LOC: NCHCN 13:52
PROVIDERS: PCP Nurse Practitioner Family; Visit Provider Nurse Practitioner Family
DX: E78.5 Hyperlipidemia, unspecified (principal); M10.9 Gout, unspecified; F10.20 Alcohol dependence, uncomplicated; K21.9 Gastro-esophageal reflux disease without esophagitis; M25.50 Pain in unspecified joint; C61 Malignant neoplasm of prostate; E66.9 Obesity, unspecified; I10 Essential (primary) hypertension
CPT/HCPCS: 80048; 82607; 82746; 83735; 84425

== ENCOUNTER 2023-05-13 14:11 | Outpatient (CLI) | payer MEDICARE, SELFPAY ==
[2023-05-13 19:24] LABS: PSA, Diagnostic 10.2 ng/mL (<=4.5)
== END 2023-05-13 14:12 | disposition home or self-care (01) ==
LOC: LBO 14:11
PROVIDERS: PCP Nurse Practitioner Family; Visit Provider Urology
DX: C61 Malignant neoplasm of prostate (principal)
CPT/HCPCS: 36415; 84153

== ENCOUNTER → 2023-05-22 08:51 | Outpatient (BNVA) | payer MEDICARE, SELFPAY | PROVIDERS: PCP Nurse Practitioner Family; Referring Provider Nurse Practitioner Family; Visit Provider Urology | DX: R39.89 Other symptoms and signs involving the genitourinary system (principal); C61 Malignant neoplasm of prostate; R97.20 Elevated prostate specific antigen [PSA] | CPT/HCPCS: 55700; 76942 ==

== ENCOUNTER 2023-05-22 09:33 | Outpatient (REF) | payer MEDICARE, SELFPAY ==
--- NOTE | 2023-05-22 09:20 | PROST_PTH ---
PATIENT: Vincent Oswald LOC: N U#:[id number] AGE/SX: 67/M ROOM: RE05/22/[address]: Jomar Hensley MD : 1955 BED: DIS: 05/22/2023 SPEC #: [id number] RECD: 05/22/23 12:25 STATUS: YAMILE RE #: [id number] ISABELL: 05/22/23 09:[address]: Jomar Hensley DEPT: Surgical Specimen RECD BY: Francy Weaver ENTERED: 05/22/23 12:27 SP TYPE: PROST OTHR DR: Cristel Layne Tissues: 1 - PROSTATE NEEDLE BIOPSY 2 - PROSTATE NEEDLE BIOPSY 3 - PROSTATE NEEDLE BIOPSY 4 - PROSTATE NEEDLE BIOPSY 5 - PROSTATE NEEDLE BIOPSY 6 - PROSTATE NEEDLE BIOPSY 7 - PROSTATE NEEDLE BIOPSY 8 - PROSTATE NEEDLE BIOPSY 9 - PROSTATE NEEDLE BIOPSY 10 - PROSTATE NEEDLE BIOPSY 11 - PROSTATE NEEDLE BIOPSY 12 - PROSTATE NEEDLE BIOPSY Procedures: GROSS AND MICRO LEVEL 4 IMMUNOPEROXIDASE STAIN Comments: [id number]
== END 2023-05-22 09:34 | disposition home or self-care (01) ==
LOC: LBN 09:33
PROVIDERS: PCP Nurse Practitioner Family; Visit Provider Urology
DX: C61 Malignant neoplasm of prostate (principal)
CPT/HCPCS: 88305; 88361

== ENCOUNTER → 2023-06-05 10:55 | Outpatient (BNVA) | payer MEDICARE, SELFPAY | PROVIDERS: PCP Nurse Practitioner Family; Referring Provider Nurse Practitioner Family; Visit Provider Urology | DX: C61 Malignant neoplasm of prostate (principal); R39.89 Other symptoms and signs involving the genitourinary system | CPT/HCPCS: 99214 ==

== ENCOUNTER 2023-08-26 02:54 | Outpatient (CLI) | payer MEDICARE, SELFPAY ==
[2023-08-26 23:01] LABS: PSA, Diagnostic 7.1 ng/mL (<=6.5)
== END 2023-08-26 02:55 | disposition home or self-care (01) ==
LOC: LBO 02:55
PROVIDERS: PCP Nurse Practitioner Family; Visit Provider Urology
DX: C61 Malignant neoplasm of prostate (principal)
CPT/HCPCS: 36415; 84153

== ENCOUNTER → 2023-09-04 07:50 | Outpatient (BNVA) | payer MEDICARE, SELFPAY | PROVIDERS: PCP Nurse Practitioner Family; Referring Provider Nurse Practitioner Family; Visit Provider Urology | DX: C61 Malignant neoplasm of prostate (principal); L98.9 Disorder of the skin and subcutaneous tissue, unspecified | CPT/HCPCS: 96402; J9217 ==

== ENCOUNTER → 2023-10-06 07:55 | Outpatient (BNVA) | payer MEDICARE, SELFPAY | PROVIDERS: PCP Nurse Practitioner Family; Referring Provider Nurse Practitioner Family; Visit Provider Urology | DX: C61 Malignant neoplasm of prostate (principal) | CPT/HCPCS: 99213 ==

== ENCOUNTER → 2023-11-17 08:57 | Outpatient (BNVA) | payer MEDICARE, SELFPAY | PROVIDERS: PCP Nurse Practitioner Family; Visit Provider Urology ==

== ENCOUNTER 2023-11-17 11:11 | Outpatient (CLI) | payer MEDICARE, SELFPAY ==
[2023-11-17 17:55] LABS: PSA, Diagnostic 5.4 ng/mL (<=6.5)
== END 2023-11-17 11:12 | disposition home or self-care (01) ==
LOC: LBO 11:13
PROVIDERS: PCP Nurse Practitioner Family; Visit Provider Urology
DX: C61 Malignant neoplasm of prostate (principal); N40.1 Benign prostatic hyperplasia with lower urinary tract symptoms; R97.20 Elevated prostate specific antigen [PSA]
CPT/HCPCS: 36415; 99213; 84153

== ENCOUNTER 2024-04-04 13:53 | Outpatient (REF) | payer MEDICARE, SELFPAY ==
--- OUTSIDE RECORDS SUMMARY | 2024-04-04 13:55 | XMS_ITS | Encounter Summary ---
Author Organization [facility] Address [address] [place] [address] Care Team Providers Care Operational Intelligence Analyst Name Role Phone Whitney Parker MD Primary Care Provider [phone] Encounter Details Date Type Department Care Team (Late st Contact Info) Description 08/14/2017 Results Only [facility]- [facility] [phone] Radha Baig, DO [address] [place] [address] Social History Tobacco Use Types Packs/Day Years Used Date Smoking Tobacco: Never Assessed Sex and Gender Information Value Date Recorded Sex Assigned at Not on file Gender Identity Not on file Sexual Orientation Not on file documented as of this encounter Plan of Treatment Not on file documented as of this encounter Procedures Procedure Name Priority Date/Time Associated Diagnosis Comments SURGICAL PATHOLOGY Routine 08/14/2017 17 :27 EST documented in this encounter Results * SURGICAL PATHOLOGY (08/14/2017 17:27 EST) Pathology Report: SURGICAL PATHOLOGY REPORT Reports generated via electronic interface contain original data; however they are lacking the format of the original report. Caution should be taken when reading/interpret ing unformatted reports. Name: ? DHRUV OSWALD ? Accession #: ? [id number] ? : ? 1955 (Age: 62) ??M ? Collect Date: ? 08/14/2017 ? Location: ? [facility] ? Receive Date: ? 08/14/2017 ? Provider: RADHA BAIG DO Copy to: GABY VASQUEZ MD ? Final Pathologic Diagnosis: COLON, DISTAL SIGMOID POLYP, BIOPSY: - Colonic mucosa with prominent lymphoid aggregate. See comment. Comment: Deeper sections of this biopsy have been examined. Dr. Beltran 08/17/2017 6:04 PM Document reviewed and electronically signed by: AUBRIE BELTRAN MD Report ??Date: 08/18/2017 15:11 By the signature above, the attending physician certifies that he/she has personally conducted a gross and/or microscopic examination of the described specimens and rendered or confirmed the above diagnosis. Specimen(s) Received: Distal sigmoid polyp Clinical History: Hx of colon polyp; clinical diagnosis code: Z86.010 Gross Description: ? Received in formalin labelled with proper patient identification (initials B, D) and distal sigmoid colon polyp is a single pink-craft tissue fragment (0.4 x 0.2 x 0.2 cm). Submitted intact in block 1. BE Ray (ASCP) 08/17/2017 7:36 AM End of Report [facility] 08/14/2017 17:2 7 EST 08/14/2017 17:27 EST Radha Baig DO PATHOLOGY ORDERABLES [facility] [address] [place] [address] documented in this encounter Visit Diagnoses Not on filedocumented in this encounter Care Teams Operational Intelligence Analyst Relationship Specialty Start Date End Date Whitney Parker MD [address] [place] [address] PCP - General 04/12/13 documented as of this encounter
--- OUTSIDE RECORDS SUMMARY | 2024-04-04 13:55 | XMS_ITS | Encounter Summary ---
Author Organization [facility] Address [address] [place] [address] Care Team Providers Care Economic Analyst Name Role Phone Whitney Parker MD Primary Care Provider [phone] Encounter Details Date Type Department Care Team (Late st Contact Info) Description 11/17/2023 Lab Requisition [facility] Pathology & Laboratory Medicine - [address] [address] Outr Resulting Lab, Provider Social History Tobacco Use Types Packs/Day Years Used Date Smoking Tobacco: Never Assessed Interpersonal Safety Answer Date Record ed Physically Hurt Never 03/04/2020 Verbally Threaten Not on file 03/04/2020 Sex and Gender Information Value Date Recorded Sex Assigned at Not on file Gender Identity Not on file Sexual Orientation Not on file documented as of this encounter Plan of Treatment Not on file documented as of this encounter Procedures Procedure Name Priority Date/Time Associated Diagnosis Comments PSA TOTAL, DIAGNOSTIC Routine 11/17/2023 9:52 EDT documented in this encounter Results * PSA TOTAL, DIAGNOSTIC (11/17/2023 9:52 EDT) PSA 5.4 <=6.5 ng/mL 11/17/2023 17:50 EDT [facility] Blood VENOUS BLOOD / Unknown 11/17/2023 9:52 EDT 11/17/2023 16:46 EDT Narrative [facility] - 11/17/2023 17:50 EDT NOTE: Serum PSA concentration should not be interpreted as absolute evidence for the presence or absence of malignant disease. Assayed on Siemens ADVIA Centaur XPT using chemiluminescent technology.??Values obtained by using different assay methods cannot be used interchangeably. Provider Outr Resulting Lab CHEMISTRY & BLOOD GAS ORDERABLES [facility] [address] [place] [address] documented in this encounter Visit Diagnoses Not on filedocumented in this encounter Care Teams Economic Analyst Relationship Specialty Start Date End Date Whitney Parker MD [address] [place] [phone] PCP - General 04/12/13 documented as of this encounter
--- OUTSIDE RECORDS SUMMARY | 2024-04-04 13:55 | XMS_ITS | Encounter Summary ---
Author Organization [facility] Address [address] [place] [address] Care Team Providers Care Early Childhood Education Worker Name Role Phone Whitney Parker MD Primary Care Provider [phone] Encounter Details Date Type Department Care Team (Late st Contact Info) Description 05/23/2022 Lab Requisition [facility] Pathology & Laboratory Medicine - [address] [address] Jomar Hensley MD [address] [place] [phone] Elevated prostate specific antigen (PSA) Social History Tobacco Use Types Packs/Day Years [...] Priority Date/Time Associated Diagnosis Comments SURGICAL PATHOLOGY Today 05/23/2022 9:15 EDT documented in this encounter Results * SURGICAL PATHOLOGY (05/23/2022 9:15 EDT) Note to Patient The following pathology results have been interpreted by your pathologist and may be available to you before your health provider has had the opportunity to review them. Please allow time for your provider to receive these results and explore management options, if applicable. 05/27/2022 11:56 EDT [facility] Final Diagnosis A. PROSTATE, RIGHT MID LATERAL, BIOPSY (1): - Atypical gland, suspicious for Wilbur pattern 3 adenocarcinoma (0.4 mm in 15.6 mm core). - Detached minute benign colorectal crypt. B. PROSTATE, RIGHT BASE LATERAL, BIOPSY (1): - Benign prostatic tissue. C. PROSTATE, RIGHT BASE MEDIAL, BIOPSY (1): - Benign prostatic tissue. D. PROSTATE, RIGHT MID MEDIAL, BIOPSY (1): - Prostatic adenocarcinoma, acinar type. - Core (14.2 mm): 3 + 3 = 6 (Grade Group 1), 1.5 mm (10% of core) E. PROSTATE, RIGHT APEX LATERAL, BIOPSY (1): - Focal atrophy. - Benign colorectal mucosa. F. PROSTATE, RIGHT APEX MEDIAL, BIOPSY (1): - Benign prostatic tissue. - Benign colorectal mucosa. G. PROSTATE, LEFT BASE LATERAL, BIOPSY (1): - Prostatic adenocarcinoma, acinar type. - Core (8.6 mm): 3 + 3 = 6 (Grade Group 1), 2.1 mm (25% of core) - Benign colorectal mucosa. - Benign urothelium. H. PROSTATE, LEFT BASE MEDIAL, BIOPSY (1): - Prostatic adenocarcinoma, acinar type. - Core (9.7 mm): 3 + 3 = 6 (Grade Group 1), 0.7 mm (10% of core) I. PROSTATE, LEFT MID LATERAL, BIOPSY (2): - Prostatic adenocarcinoma, acinar type, involving 1 of 2 cores; overall 5% involvement. - Core 1 (6.1 mm): 3 + 3 = 6 (Grade Group 1), 0.6 mm (10% of core) Atypical glands - Core 2 (7.8 mm): Focal atrophy J. PROSTATE, LEFT MID MEDIAL, BIOPSY (1): - Focal atrophy and focal chronic inflammation. K. PROSTATE, LEFT APEX LATERAL, BIOPSY (1): - Focal atrophy and focal chronic inflammation. - Benign colorectal mucosa. L. PROSTATE, LEFT APEX MEDIAL, BIOPSY (1): - Prostatic adenocarcinoma, acinar type. - Core (10.5 mm): 3 + 3 = 6 (Grade Group 1), 1.3 mm (15% of core) Overall Grade Group: Group 1 New Prostate Cancer Grading System*: This system was developed based on a study of greater than 20,000 prostate cancer cases treated with radical prostatectomy and greater than 5000 cases treated by radiation therapy. The system was developed to provide a smaller number of grades with the most significant prognostic differences, with Group 1 having the best prognosis and Group 5 the worst prognosis. The highest grade group is reported for each biopsy series on a patient. Grade Group 1 ([place] score ?6) Grade Group 2 (Wilbur score 3+4=7) Grade Group 3 ([place] score 4+3=7) Grade Group 4 ([place] score 8) Grade Group 5 (Wilbur scores 9-10) * Efren GARSIA et al: A Contemporary Prostate Cancer Grading System: A Validated Alternative to the Wilbur Score. Eur Uro 2015 69(3):428-435 05/27/2022 11:56 [facility] Diagnosis Comment Immunohistochemical study was performed on (G) and (I) to characterize atypical glands, and the immunoreactivity profiles support the diagnoses. IMMUNOHISTOCHEMISTRY: ANTIBODY(CLONE)(BLOCK ):RESULT PIN-4 (CK HMW + P63 + AMACR(RM)) (34BE12, 4A4, 13H4, Biocare) (G1): Basal cell markers: Negative AMACR: Positive PIN-4 (CK HMW + P63 + AMACR(RM)) (34BE12, 4A4, 13H4, Biocare) (I1): Basal cell markers: Negative AMACR: Weak positive NOTE: One or more of the reagents used in immunoperoxidase testing in this case may not have been cleared or approved by the U.S. Food and Drug Administration (FDA). The FDA has determined that such clearance or approval is not necessary. These tests are used for clinical purposes. They should not be regarded as investigational or for research. These reagents' performance characteristics have been determined by [facility] and/or by the referring laboratory. The positive and negative controls worked appropriately. If immunoperoxidase staining has been performed on alcohol fixed cytology specimens, which has not been fully validated, the assays should be interpreted with caution and correlated with clinical data. This laboratory is certified under the Clinical Laboratory Improvement Amendments of 1988 (CLIA-88) as qualified to perform high complexity clinical laboratory testing. 05/27/2022 11:56 [facility] Attestation There was significan t resident/fellow involvement in the diagnostic evaluation of this case. By the signature below, the attending physician certifies that they have personally conducted a gross and/or microscopic examination of the described specimens and rendered or confirmed the above diagnosis. 05/27/2022 11:56 [facility] at 1156 Clinical History Elevated PSA 9.9 with abnormal prostate MRI right posterior lateral 05/27/2022 11:56 [facility] Gross Description A. Received in formalin labelled with proper patient identification (initials B, D) and 1. RT mid lateral is a single craft-white tissue core (1.6 cm in length by less than 0.1 cm in diameter). Submitted intact in A1. B. Received in formalin labelled with proper patient identification (initials B, D) and 2. RT base lateral is a single craft-white tissue core (1.2 cm in length by less than 0.1 cm in diameter). Submitted intact in B1. C. Received in formalin labelled with proper patient identification (initials B, D) and 3. RT base medial is a single craft-white tissue core (1.0 cm in length by less than 0.1 cm in diameter). Submitted intact in C1. D. Received in formalin labelled with proper patient identification (initials B, D) and 4. RT mid medial is a single craft-white tissue core (1.6 cm in length by less than 0.1 cm in diameter). Submitted intact in D1. E. Received in formalin labelled with proper patient identification (initials B, D) and 5. RT apex lateral is a single craft-white tissue core (1.0 cm in length by less than 0.1 cm in diameter). Submitted intact in E1. F. Received in formalin labelled with proper patient identification (initials B, D) and 6. RT apex medial is a single craft-white tissue core (1.7 cm in length by less than 0.1 cm in diameter). Submitted intact in F1. G. Received in formalin labelled with proper patient identification (initials B, D) and 7. LT base lateral is a single craft-white tissue core (1.1 cm in length by less than 0.1 cm in diameter). Submitted intact in G1. H. Received in formalin labelled with proper patient identification (initials B, D) and 8. LT base medial is a single craft-white tissue core (0.9 cm in length by less than 0.1 cm in diameter). Submitted intact in H1. I. Received in formalin labelled with proper patient identification (initials B, D) and 9. LT mid lateral are two craft-white tissue cores (0.8 cm and 0.7 cm in length, and each less than 0.1 cm in diameter). Entirely submitted in I1. J. Received in formalin labelled with proper patient identification (initials B, D) and 10. LT mid medial is a single craft-white tissue core (1.3 cm in length x 0.1 cm in diameter). Submitted intact in J1. K. Received in formalin labelled with proper patient identification (initials B, D) and 11. LT apex lateral is a single craft-white tissue core (1.4 cm in length x 0.1 cm in diameter). Submitted intact in K1. L. Received in formalin labelled with proper patient identification (initials B, D) and 12. LT apex medial is a single craft-white tissue core (1.0 cm in length by less than 0.1 cm in diameter). Submitted intact in L1. BINA DRAKE 05/24/2022 14:15 05/27/2022 11:56 T [facility] Resident/Fell ow: Jeremi Lea MD 05/27/2022 11:56 [facility] Performing Lab [facility] 05/27/2022 11:56 T [facility] Scanned Images 05/27/2022 11:56 [facility] Tissue ENTIRE APEX OF PROSTATE / Unknown 05/23/2022 9:15 EDT 05/23/2022 19:53 EDT Tissue specimen (specimen) BASE OF PROSTATE / Unknown 05/23/2022 9:15 EDT 05/23/2022 19:53 EDT Tissue specimen (specimen) BASE OF PROSTATE / Unknown 05/23/2022 9:15 EDT 05/23/2022 19:53 EDT Tissue specimen (specimen) MIDDLE REGION OF PROSTATE / Unknown 05/23/2022 9:15 EDT 05/23/2022 19:53 EDT Tissue specimen (specimen) STRUCTURE OF APEX OF PROSTATE / Unknown 05/23/2022 9:15 EDT 05/23/2022 19:53 EDT Tissue specimen (specimen) STRUCTURE OF APEX OF PROSTATE / Unknown 05/23/2022 9:15 EDT 05/23/2022 19:53 EDT Tissue specimen (specimen) BASE OF PROSTATE / Unknown 05/23/2022 9:15 EDT 05/23/2022 19:53 EDT Tissue specimen (specimen) BASE OF PROSTATE / Unknown 05/23/2022 9:15 EDT 05/23/2022 19:53 EDT Tissue specimen (specimen) LEFT LATERAL MIDDLE PERIPHERAL ZONE OF PROSTATE / Unknown 05/23/2022 9:15 EDT 05/23/2022 19:53 EDT Tissue specimen (specimen) MIDDLE REGION OF PROSTATE / Unknown 05/23/2022 9:15 EDT 05/23/2022 19:53 EDT Tissue specimen (specimen) ENTIRE LEFT LATERAL LOBE OF PROSTATE / Unknown 05/23/2022 9:15 EDT 05/23/2022 19:53 EDT Tissue specimen (specimen) STRUCTURE OF APEX OF PROSTATE / Unknown 05/23/2022 9:15 EDT 05/23/2022 19:53 EDT Jomar Hensley MD PATHOLOGY ORDERAB LES [facility] [address] [place] [address] documented in this encounter Visit Diagnoses Diagnosis Elevated prostate specific antigen (PSA) documented in this encounter Care Teams Early Childhood Education Worker Relationship Specialty Start Date End Date Whitney Parker MD [address] [place] [address] PCP - General 04/12/13 documented as of this encounter
--- OUTSIDE RECORDS SUMMARY | 2024-04-04 13:55 | XMS_ITS | Referral Summary ---
Author Organization [facility] Address [address] [place] [address] Care Team Providers Care Wood Preparation Supervisor Name Role Phone Whitney Parker MD Primary Care Provider [phone] Social History Tobacco Use Types Packs/Day Years Used Date Smoking Tobacco: Never Assessed Interpersonal Safety Answer Date Record ed Physically Hurt Never 03/04/2020 Verbally Threaten Not on file 03/04/2020 Sex and Gender Information Value Date Recorded Sex Assigned at Not on file Gender Identity Not on file Sexual Orientation Not on file Plan of Treatment Not on file Care Teams Wood Preparation Supervisor Relationship Specialty Start Date End Date Whitney Parker MD [address] [place] [address] PCP - General 04/12/13
--- OUTSIDE RECORDS SUMMARY | 2024-04-04 13:55 | XMS_ITS | Encounter Summary ---
Author Organization [facility] Address [address] [place] [address] Care Team Providers Care Home Builder Name Role Phone Whitney Parker MD Primary Care Provider [phone] Encounter Details Date Type Department Care Team (Late st Contact Info) Description 02/05/2023 Lab Requisition [facility] Pathology & Laboratory Medicine - [address] [id number] Outr Resulting Lab, Provider Social History Tobacco [...] Associated Diagnosis Comments PSA TOTAL, DIAGNOSTIC Routine 02/05/2023 11:10 EDT documented in this encounter Results * (ABNORMAL) PSA TOTAL, DIAGNOSTIC (02/05/2023 11:10 EDT) PSA 8.9(H) <=4.5 ng/mL 02/05/2023 20:10 EDT [facility] Blood VENOUS BLOOD / Unknown 02/05/2023 11:10 EDT 02/05/2023 17:58 EDT Narrative [facility] - 02/05/2023 20:10 EDT NOTE: Serum PSA concentration should not be interpreted as absolute evidence for the presence or absence of malignant disease. Assayed on Siemens ADVIA [employer] XPT using chemiluminescent technology.??Values obtained by using different assay methods cannot be used interchangeably. Provider Outr Resulting Lab CHEMISTRY & BLOOD GAS ORDERABLES [facility] [address] [place] [address] documented in this encounter Visit Diagnoses Not on filedocumented in this encounter Care Teams Home Builder Relationship Specialty Start Date End Date Whitney Parker MD [address] [place] [address] PCP - General 04/12/13 documented as of this encounter
--- OUTSIDE RECORDS SUMMARY | 2024-04-04 13:55 | XMS_ITS | Encounter Summary ---
Author Organization [facility] Address [address] [place] [address] Care Team Providers Care Design Engineer Products Name Role Phone Unavailable Primary Care Provider Jesus e Encounter Details Date Type Department Care Team (Late st Contact Info) Description 09/09/2005 Results Only [facility] - Maple conversion [address] [place] [address] Steven Allen MD [address] [place] [phone] Social History Tobacco Use Types Packs/Day Years Used Date Smoking Tobacco: Never Assessed Sex and Gender Information Value Date Recorded Sex Assigned at Not on file Gender Identity Not on file Sexual Orientation Not on file documented as of this encounter Plan of Treatment Not on file documented as of this encounter Procedures Procedure Name Priority Date/Time Associated Diagnosis Comments SURGICAL PATHOLOGY Routine 09/09/2005 0:00 EST documented in this encounter Results * SURGICAL PATHOLOGY (09/09/2005 0:00 EST) Pathology Report: SURGICAL PATHOLOGY REPORT Reports generated via electronic interface contain original data; however they are lacking the format of the original report. Caution should be taken when reading/interpreti ng unformatted reports. Name: ? DHRUV MAJANO ? Accession #: ? [id number] ? : ? 1955 (Age: 50) ??M ? Collect Date: ? 09/09/2005 ? Location: ? [facility] ? Receive Date: ? 09/10/2005 ? Provider: EVE ALLEN MD Copy to: JORGE CARO MD ? Final Pathologic Diagnosis: A. ?Colon, 21 cm, polyp, biopsies: 1. ?Hyperplastic polyp. B. ?Colon, 17 cm, polyp, biopsy: 1. ?Tubular adenoma. C. ?Colon, 14 cm, polyp, biopsy: 1. ?Cauterized hyperplastic polyp. D. ?Colon, 12 cm, polyp, biopsy: 1. ?Colonic mucosa with prominent lymphoid aggregate and focal surface hyperplastic changes. E. ?Colon, 8 cm, polyp, biopsy: 1. ?Colonic mucosa with no specific pathologic features. Document reviewed and electronically signed by: Vipul Bales MD Report ??Date: 09/12/2005 18:35 By the signature above, the attending physician certifies that he/she has personally conducted a gross and/or microscopic examination of the described specimens and rendered or confirmed the above diagnosis. Specimen(s) Received: A. ?Bx polyp 21 cm B. ?Bx polyp 17 cm C. ?Bx polyp 14 cm D. ?Bx polyp 12 cm E. ?Bx polyp 8 cm Clinical History: ? Follow up polyps, h/o tubular adenoma ([id number]) Gross Description: ? Received in Hollande's fixative labelled Bird and bx polyp 21 cm are three craft-pink irregular soft tissue fragments ranging from 0.2 x 0.2 x 0.1 cm to 0.3 x 0.2 x 0.2 cm. ??The specimen is entirely submitted as (A). ?? Received in Hollande's fixative labelled Bird and bx polyp 17 cm is a craft-pink 0.3 x 0.2 x 0.2 cm soft tissue fragment. ??The specimen is entirely submitted as (B). Received in Hollande's fixative labelled Bird and polyp 14 cm is a craft-pink 0.3 x 0.2 x 0.2 cm soft tissue fragment. ??The specimen is entirely submitted as (C). ?? Received in Hollande's fixative labelled Bird and polyp 12 cm is a craft-pink 0.4 x 0.2 x 0.2 cm soft tissue fragment. ??The specimen is entirely submitted as (D). Received in Hollande's fixative labelled Bird and polyp 8 cm is a craft-pink 0.5 x 0.2 x 0.2 cm soft tissue fragment. ??The specimen is entirely submitted as (E). ??(Laina Garcia)/g End of Report ROBI RENE 09/09/2005 09/10/2005 15: 24 EST Steven Allen MD PATHOLOGY ORDERABLES Performing Organization Address City/State/[facility] Co de Phone Number ROBI RENE [address] [place] [address] documented in this encounter Visit Diagnoses Not on filedocumented in this encounter
--- OUTSIDE RECORDS SUMMARY | 2024-04-04 13:55 | XMS_ITS | Encounter Summary ---
Author Organization [facility] Address [address] [place] [address] Care Team Providers Care Paper Pattern Folder Name Role Phone Whitney Parker MD Primary Care Provider [phone] Encounter Details Date Type Department Care Team (Late st Contact Info) Description 03/12/2022 Lab Requisition [facility] Pathology & Laboratory Medicine - [address] [address] Outr Resulting Lab, Provider Social History Tobacco [...] Associated Diagnosis Comments PSA TOTAL, DIAGNOSTIC Routine 03/12/2022 9:27 EDT documented in this encounter Results * (ABNORMAL) PSA TOTAL, DIAGNOSTIC (03/12/2022 9:27 EDT) PSA 9.9(H) <=4.5 ng/mL 03/12/2022 18:[address] [facility] Blood VENOUS BLOOD / Unknown 03/12/2022 9:27 EDT 03/12/2022 17:34 EDT [address] [facility] - 03/12/2022 18:10 EDT NOTE: Serum PSA concentration should not be interpreted as absolute evidence for the presence or absence of malignant disease. Assayed on Siemens ADVIA [employer]ashiol[employer]aur XPT using chemiluminescent technology.??Values obtained by using different assay methods cannot be used interchangeably. Provider Outr Resulting Lab CHEMISTRY & BLOOD GAS ORDERABLES [facility] [address] [place] [address] documented in this encounter Visit Diagnoses Not on filedocumented in this encounter Care Teams Paper Pattern Folder Relationship Specialty Start Date End Date Whitney Parker MD [address] [place] [address] PCP - General 04/12/13 documented as of this encounter
--- OUTSIDE RECORDS SUMMARY | 2024-04-04 13:55 | XMS_ITS | Clinical Summary ---
Author Organization [facility] Address [facility] [place] [address] Care Team Providers Care Legal Transcriptionist Name Role Phone Cristel Layne Nicci GREEN Primary Care Provider [phone] Allergies Active Allergy Reactions Criticality Noted Date Comments Lisinopril Other (See Comments) Medium 07/21/2022 Lip Swelling Losartan Rash Low 07/21/2022 Terazosin Medium 07/21/2022 Medications Medication Sig Dispensed Refills Start Date End Date Status allopurinoL (Zyloprim) 100 mg Tablet Take 100 mg by mouth every 4 hours as needed. Active finasteride (Proscar) 5 mg Tablet Take 1 tablet by mouth daily. 90 tablet 3 07/21/2022 Active Active Problems Problem Noted Date Diagnosed Date Heart murmur, aortic 07/21/2022 Obesity 07/21/2022 Gastroesophageal reflux 07/21/2022 BPH (benign prostatic hyperplasia) 07/21/2022 Malignant neoplasm of prostate 07/20/2022 Cancer Staging:Clinical:Stage I(cT1c, cN0, cM0, PSA: 9.9, Grade Group: 1) - Signed by Joshua Stein MD on 07/20/2022 Encounters Date Type Department Care Team Description 03/23/2024 7:30 AM EDT - 03/23/2024 9:15 AM EDT Surgery Main OR at [address] [phone] Vito Charles MD CYSTO, LASER TURP (WRVU 12.15) 03/23/2024 7:23 AM EDT Anesthesia Event Main OR at [address] [phone] Jeremi Degroot, Brandon Katz, PERFUME COMPOUNDER 03/23/2024 6:24 AM EDT - 03/23/2024 10:05 AM EDT Hospital Encounter PACU at [address] [phone] Vito Charles MD Discharge Disposition: Home 03/14/2024 8:15 AM EDT Telephone Pre Admission Testing at [address] [address] 02/18/2024 1:20 PM EDT [place] [address] Vito Charles MD Benign prostatic hyperplasia, unspecified whether lower urinary tract symptoms present; Malignant neoplasm of prostate 02/18/2024 Travel 02/15/2024 Travel from Last 3 Months Family History Medical History Relation Comments Lung Cancer Father Heart Disease Mother Relation Status Comments Father Mother Social History Tobacco Use Types Packs/Day Years Used Date Smoking Tobacco: Never Smokeless Tobacco: Never Tobacco Cessation:Counseling Given: Not Answered Alcohol Use Standard Drinks/Week Comments Yes 10 (1 standard drink = 0.6 oz pu re alcohol) rum, 2-3 drinks a night Overall Financial Resource Strain (CARDIA) Answe r Date Recorded How hard is it for you to pa y for the very basics like food, housing, medical care, and heating? Not very hard 07/21/2022 Hunger Vital Sign Answer Date Recorded Within the past 12 months, y ou worried that your food would run out before you got the money to buy more. Never true 07/21/20 22 Within the past 12 months, t he food you bought just didn't last and you didn't have money to get more. Never true 07/21/2022 PRAPARE - Transportation Answer Date Re corded In the past 12 months, has l ack of transportation kept you from medical appointments or from getting medications? No 07/21/2022 Lack of Transportation (Non-Medical) Not on file 07/21/2022 Housing Stability Vital Sign Answer Catracho e Recorded In the last 12 months, was t here a time when you were not able to pay the mortgage or rent on time? No 07/21/2022 In the last 12 months, how many places have you lived? 1 07/21/2022 In the last 12 months, was t here a time when you did not have a steady place to sleep or slept in a nursing home (including now)? No 07/21/2022 Sex and Gender Information Value Date Recorded Sex Assigned at Not on file Gender Identity Not on file Sexual Orientation Not on file Last Filed Vital Signs Vital Sign Reading Time Taken Comments Blood Pressure 161/87 03/23/2024 9:50 AM EDT Pulse 50 03/23/2024 9:45 AM EDT Temperature 35.8 ??C (96.5 ??F) 03/23/2024 8:42 AM ED T Respiratory Rate 15 03/23/2024 9:45 AM EDT Oxygen Saturation 96% 03/23/2024 9:50 AM EDT Inhaled Oxygen Concentration - - Weight 105.1 kg (231 lb 9.6 oz) 03/23/2024 6:39 AM EDT Height 177.8 cm (5' 10) 03/23/2024 6:39 AM EDT Body Mass Index 33.23 03/23/2024 6:39 AM EDT Plan of Treatment Health Maintenance Due Date Last Done Comments CT Colonography 1955 Colonoscopy 1955 Colorectal Cancer Screening 1955 FIT DNA 1955 FIT 1955 Sigmoidoscopy (10 year) with FIT yearly 1955 Sigmoidoscopy 1955 Hepatitis C Screening 1971 Lipid Screening 1971 Tdap adult 1972 Tetanus vaccine 1972 Diabetes Screening (HgbA1C or Glucose) 1993 Zoster vaccine (1 of 2) 2003 Advance Directive 2008 Pneumoccocal Vaccine: 65+ (1 of 1 - PCV) 2018 Covid-19 Vaccine (1 - 2022-24 season) 2023 Influenza (Flu) vaccine (1 o f 1 - Influenza standard series) 04/03/2024 Procedures Procedure Name Priority Date/Time Associated Diagnosis Comments MODIFIER,GREENLIGHT LASER 03/23/2024 7:23 AM EDT BPH Laser Vaporization Surgery Prostate, Complete ([address]1933) 03/23/2024 7:23 AM EDT BPH URINE CULTURE Routine 02/18/2024 6:17 PM EDT Benign prostatic hyperplasia, unspecified whether lower urinary tract symptoms present from Last 3 Months Results * Urine culture Clean Catch Urine (02/18/2024 6:17 PM EDT) Urine Culture No growth (Less than 1,000 cfu/ml). [facility] Clean Catch Urine 02/18/2024 6:17 PM EDT 02/18/2024 6:17 PM EDT Narrative Resulting Agency Comment Spec In Lab Vito Charles MD MICROBIOLOGY - GENER AL ORDERABLES [facility] [address] [phone] from Last 3 Months Care Teams Legal Transcriptionist Relationship Specialty Start Date End Date Cristel Layne APRN [address] [place] [address] PCP - General Family Medicine 03/31/22
--- OUTSIDE RECORDS SUMMARY | 2024-04-04 13:55 | XMS_ITS | Encounter Summary ---
Author Organization [facility] Address [address] [place] [address] Care Team Providers Care Comedian Name Role Phone Whitney Parker MD Primary Care Provider [phone] Encounter Details Date Type Department Care Team (Latest Contact Info) Description 08/14/2017 11:11 EST - 08/14/2017 23:59 EST Hospital Encounter [address] [address] Unknown, Provider, Discharge Disposition: Home or Self Care Social History Tobacco Use Types Packs/Day Years Used Date Smoking Tobacco: Never Assessed Sex and Gender Information Value Date Recorded Sex Assigned at Not on file Gender Identity Not on file Sexual Orientation Not on file documented as of this encounter Discharge Disposition Disposition Code Departure Means Destination Home or Self Fdc documented in this encounter Plan of Treatment Not on file documented as of this encounter Visit Diagnoses Not on filedocumented in this encounter Care Teams Comedian Relationship Specialty Start Date End Date Whitney Parker MD [address] [place] [address] PCP - General 04/12/13 documented as of this encounter
--- OUTSIDE RECORDS SUMMARY | 2024-04-04 13:55 | XMS_ITS | Encounter Summary ---
Author Organization [facility] Address [address] [place] [address] Care Team Providers Care Cold Molding Press Operator Name Role Phone Whitney Parker MD Primary Care Provider Encounter Details Date Type Department Care Team (Late st Contact Info) Description 07/23/2022 Lab Requisition [facility] Pathology & Laboratory Medicine - [address] [address] Joshua Stein MD [address] [place] [address] [phone] Encounter for other general examination Social History Tobacco Use Types Packs/Day Years [...] Procedure Name Priority Date/Time Associated Diagnosis Comments HISTORICAL CASE UPDATE Today 07/23/2022 10:27 EST Encounter for other general examination documented in this encounter Results * HISTORICAL CASE UPDATE (07/23/2022 10:27 EST) Amendment Comment Report from [email or web address] [place] Specimen ID: [id number] Decipher Accession ID: [id number] Decipher Score: 0.45 Genomic Risk: intermediate 09/02/2022 7:07 EST EXTERNAL LAB Addendum Comment At the request of Dr. Joshua Stein, a block from [id number] (G1) was sent to [facility] for testing. Block (G1) was deemed insufficient; therefore, an additional block is requested and sent for testing. For Decipher results, please see scanned report in EPIC. 09/02/2022 7:07 EST EXTERNAL LAB Original (G1, L1) 09/02/2022 7:07 EST EXTERNAL LAB Original Case Specimen Source Prostate 09/02/2022 7:07 EST [facility] Original Case Date of Service 05/23/2022 09/02/2022 7:07 [facility] Attestation By the signature below, the attending physician certifies that they have 1) personally conducted a gross and/or microscopic examination of the described specimen(s), and/or personally interpreted the results of laboratory testing of the described specimen(s), and 2) personally rendered or confirmed the above diagnosis. 09/02/2022 7:07 [facility] at 0706 Surgical pathology service (qualifier value) ENTIRE PROSTATE / Unknown 07/23/2022 10:27 EST 07/23/2022 10:29 EST Surgical pathology service (qualifier value) DOCUMENTATION PROCEDURE / Unknown 07/23/2022 10:27 EST 07/23/2022 10:29 EST Surgical pathology service (qualifier value) DOCUMENTATION PROCEDURE / Unknown 07/23/2022 10:27 EST 07/23/2022 10:29 EST Surgical pathology service (qualifier value) DOCUMENTATION PROCEDURE / Unknown 07/23/2022 10:27 EST 07/23/2022 10:29 EST Surgical pathology service (qualifier value) DOCUMENTATION PROCEDURE / Unknown 07/23/2022 10:27 EST 07/23/2022 10:29 EST Surgical pathology service (qualifier value) DOCUMENTATION PROCEDURE / Unknown 07/23/2022 10:27 EST 07/23/2022 10:29 EST Surgical pathology service (qualifier value) BASE OF PROSTATE / Unknown 07/23/2022 10:27 EST 07/23/2022 10:29 EST Surgical pathology service (qualifier value) DOCUMENTATION PROCEDURE / Unknown 07/23/2022 10:27 EST 08/15/2022 11:39 EST Surgical pathology service (qualifier value) DOCUMENTATION PROCEDURE / Unknown 07/23/2022 10:27 EST 08/15/2022 11:39 EST Surgical pathology service (qualifier value) DOCUMENTATION PROCEDURE / Unknown 07/23/2022 10:27 EST 08/15/2022 11:39 EST Surgical pathology service (qualifier value) DOCUMENTATION PROCEDURE / Unknown 07/23/2022 10:27 EST 08/15/2022 11:39 EST Surgical pathology service (qualifier value) PROSTATIC STRUCTURE / Unknown 07/23/2022 10:27 EST 08/15/2022 11:39 EST Joshua Stein MD PATHOLOGY ORDERABLES EXTERNAL LAB [facility] [address] [place] [address] documented in this encounter Visit Diagnoses Diagnosis Encounter for other general examination documented in this encounter Care Teams Cold Molding Press Operator Relationship Specialty Start Date End Date Whitney Parker MD [address] [place] [address] PCP - General 04/12/13 documented as of this encounter
--- OUTSIDE RECORDS SUMMARY | 2024-04-04 13:55 | XMS_ITS | Encounter Summary ---
Author Organization [facility] Address [address] [place] [address] Care Team Providers Care Support Assistant Name Role Phone Whitney Parker MD Primary Care Provider [phone] Encounter Details Date Type Department Care Team (Late st Contact Info) Description 06/17/2017 Results Only [facility] [phone] Radha Baig, DO [address] [place] [address] Social History Tobacco Use Types [...] Date/Time Associated Diagnosis Comments SURGICAL PATHOLOGY Routine 06/17/2017 20 :51 EST documented in this encounter Results * SURGICAL PATHOLOGY (06/17/2017 20:51 EST) Pathology Report: SURGICAL PATHOLOGY REPORT Reports generated via electronic interface contain original data; however they are lacking the format of the original report. Caution should be taken when reading/interpret ing unformatted reports. Name: ? DHRUV OSWALD ? Accession #: ? [id number] ? : ? 1955 (Age: 62) ??M ? Collect Date: ? 06/17/2017 ? Location: ? [facility] ? Receive Date: ? 06/17/2017 ? Provider: RADHA BAIG DO Copy to: [...] or confirmed the above diagnosis. Specimen(s) Received: Left breast mass Clinical History: Left breast mass; clinical diagnosis code: ??N63.0 Gross Description: ? Received in formalin labelled with proper patient identification (initials B, D) and left breast mass are two unoriented pieces of cauterized fibrofatty tissue (9.7 g, 5.2 x 3.6 x 2.2 cm in aggregate). The outer surfaces are inked blue. The cut surfaces are craft-pink rubbery and fibrotic with no discernible lesion. The specimens are submitted entirely as follows: BLOCK SMART 1- ??smaller piece, and, perpendicular 2-3- ??smaller piece, opposite end, perpendicular 4-5- ??smaller piece, central sections 6- ??larger piece, and, perpendicular 7-8- ??larger piece, opposite and perpendicular 9-12- ??larger piece, central sections Time removed from patient: ??06/17/2017 1005 hours Time in formalin: ??06/17/2017 1005 hours Time out of formalin: ??06/18/2017 1900 hrs. BE Sánchez ([facility]) 06/18/2017 2:45 PM End of Report [facility] 06/17/2017 20:5 1 EST 06/17/2017 20:51 EST Radha Baig DO PATHOLOGY ORDERABLES [facility] [address] [place] [address] documented in this encounter Visit Diagnoses Not on filedocumented in this encounter Care Teams Support Assistant Relationship Specialty Start Date End Date Whitney Parker MD [address] [place] [address] PCP - General 04/12/13 documented as of this encounter
--- OUTSIDE RECORDS SUMMARY | 2024-04-04 13:55 | XMS_ITS | Encounter Summary ---
Author Organization [facility] Address [address] [place] [address] Care Team Providers Care Crate Builder Name Role Phone Whitney Parker MD Primary Care Provider [phone] Encounter Details Date Type Department Care Team (Late st Contact Info) Description 05/13/2023 Lab Requisition [facility] Pathology & Laboratory Medicine - [address] [address] Outr Resulting Lab, Provider Social History Tobacco [...] Associated Diagnosis Comments PSA TOTAL, DIAGNOSTIC Routine 05/13/2023 10:30 EDT documented in this encounter Results * (ABNORMAL) PSA TOTAL, DIAGNOSTIC (05/13/2023 10:30 EDT) PSA 10.2(H) <=4.5 ng/mL 05/13/2023 19:19 EDT [facility] Blood VENOUS BLOOD / Unknown 05/13/2023 10:30 EDT 05/13/2023 17:06 EDT Narrative [facility] - 05/13/2023 19:19 EDT NOTE: Serum PSA concentration should not be interpreted as absolute evidence for the presence or absence of malignant disease. Assayed on Siemens ADVIA Limitlesslaneaur XPT using chemiluminescent technology.??Values obtained by using different assay methods cannot be used interchangeably. Provider Outr Resulting Lab CHEMISTRY & BLOOD GAS ORDERABLES [facility] [address] [place] [address] documented in this encounter Visit Diagnoses Not on filedocumented in this encounter Care Teams Crate Builder Relationship Specialty Start Date End Date Whitney Parker MD [address] [place] [address] PCP - General 04/12/13 documented as of this encounter
--- OUTSIDE RECORDS SUMMARY | 2024-04-04 13:55 | XMS_ITS | Encounter Summary ---
Author Organization [facility] Address [address] [place] [address] Care Team Providers Care Residential Caregiver Name Role Phone Whitney Parker MD Primary Care Provider [phone] Encounter Details Date Type Department Care Team (Late st Contact Info) Description 05/22/2023 Lab Requisition [place] Pathology & Laboratory Medicine - [address] [address] Jomar Hensley MD [address] [place] [phone] Encounter for other general examination Social History [...] Date/Time Associated Diagnosis Comments SURGICAL PATHOLOGY Today 05/22/2023 9: 20 EDT Encounter for other general examination documented in this encounter Results * SURGICAL PATHOLOGY (05/22/2023 9:20 EDT) Note to Patient The following pathology results have been interpreted by your pathologist and may be available to you before your health provider has had the opportunity to review them. Please allow time for your provider to receive these results and explore management options, if applicable. 05/27/2023 7:15 EDT [facility] Final Diagnosis A. PROSTATE, RIGHT BASE LATERAL, BIOPSY: - Small focus of atypical gland, high-grade prostatic intraepithelial neoplasia (PIN) cannot be ruled out. B. PROSTATE, RIGHT BASE MEDIAL, BIOPSY: - Prostatic adenocarcinoma, acinar type, involving 40% (5.4 mm) of 1/1 core - Global Wilbur score: 3 + 4 = 7 (grade group 2), 40% [place] pattern 4 - Core (14.6 mm) C. PROSTATE, RIGHT MID LATERAL, BIOPSY: - Prostatic adenocarcinoma, acinar type, involving 45% (2.7 mm) of 1/1 core - Global Wilbur score: 3 + 3 = 6 (grade group 1) - Core (5.9 mm) D. PROSTATE, RIGHT MID MEDIAL, BIOPSY: - Focal atrophy and chronic inflammation. E. PROSTATE, RIGHT APEX LATERAL, BIOPSY: - Focal atrophy. F. PROSTATE, RIGHT APEX MEDIAL, BIOPSY: - Small focus of atypical small acinar proliferation ([place]), suspicious for Wilbur pattern 3 adenocarcinoma. - Core (9.9 mm): [place], 0.3 mm (3% of core) G. PROSTATE, LEFT BASE LATERAL, BIOPSY: - Small focus of atypical glands, suspicious for [place] patterns 3 and 4 adenocarcinoma. - Core (8.3 mm): Atypical glands, 0.2 mm (2.5% of core) H. PROSTATE, LEFT BASE MEDIAL. BIOPSY: - Prostatic adenocarcinoma, acinar type, involving 5% (1.0 mm) of 1/1 core - Global [place] score: 3 + 3 = 6 (grade group 1) - Core (15.8 mm) I. PROSTATE, LEFT MID LATERAL, BIOPSY: - Atypical small glands. See comment. J. PROSTATE, LEFT MID MEDIAL, BIOPSY: - Prostatic adenocarcinoma, acinar type, involving 15% (3.1 mm) of 1/1 core - Global Wilbur score: 3 + 4 = 7 (grade group 2), <5% Wilbur pattern 4 - Core (21.0 mm) K. PROSTATE, LEFT APEX LATERAL, BIOPSY: - Atypical glands suspicious for Wilbur pattern 3 adenocarcinoma. - Core (10.3 mm): Atypical glands, 0.1 mm (<1% of core) L. PROSTATE, LEFT APEX MEDIAL, BIOPSY: - Minute focus of atypical glands, suspicious but not diagnostic of adenocarcinoma. See comment. 05/27/2023 7:15 EDT [facility] Diagnosis Comment Specimen I (left mid lateral) shows 2 small foci of atypical small glands. One focus with a single atypical gland that shows negative immunoreactivity for basal cell markers and positive for AMACR (P504S) on immunohistochemical study. The immunoreactivity profile is suggestive of prostatic adenocarcinoma, however the number of gland (a single gland) is too small for definitive diagnosis. Another focus shows several atypical small glands in aggregate, some of them show patchy positive immunoreactivity for basal cell markers. Most of the atypical glands show weak AMACR (P504S) positivity. Because of positive immunoreactivity for basal cells, these atypical glands are not diagnosed as malignant. Specimen L (left apex medial) shows minute focus of atypical glands. On hematoxylin-eosin stain, these glands are suspicious for prostatic adenocarcinoma. Immunohistochemical study was attempted to characterize, but these atypical glands of interest were not present on the slide for immunohistochemistry, and no definitive diagnosis of malignancy was given to these glands. Immunohistochemical study was performed on (I1), (K1), (L1) to characterize atypical glands. IMMUNOHISTOCHEMISTRY: ANTIBODY(CLONE)(BLOCK ):RESULT PIN-4 (CK HMW + P63 + AMACR(RM)) (34BE12, 4A4, 13H4, Biocare) (I1): Basal cell markers: Negative in a single gland; patchy positive in an aggregate of atypical glands AMACR (P504S): Positive in a single gland; weak positive in an aggregate of atypical glands PIN-4 (CK HMW + P63 + AMACR(RM)) (34BE12, 4A4, 13H4, Biocare) (K1): Basal cell markers: Negative AMACR (P504S): Positive PIN-4 (CK HMW + P63 + AMACR(RM)) (34BE12, 4A4, 13H4, Biocare) (L1): Atypical cells of interest not present on slide NOTE: One or more of the reagents [...] performance characteristics have been determined by [facility] and/or by the referring laboratory. The positive and negative controls worked appropriately. If immunoperoxidase staining has been performed on alcohol fixed cytology specimens, which has not been fully validated, the assays should be interpreted with caution and correlated with clinical data. This laboratory is certified under the Clinical Laboratory Improvement Amendments of 1988 (CLIA-88) as qualified to perform high complexity clinical laboratory testing. 05/27/2023 7:15 [facility] Attestation There was significan t resident/fellow involvement in the diagnostic evaluation of this case. By the signature below, the attending physician certifies that they have personally conducted a gross and/or microscopic examination of the described specimens and rendered or confirmed the above diagnosis. 05/27/2023 7:15 [facility] at 0715 Clinical History Prostate cancer, prior biopsy 05/23/2022 05/27/2023 7:15 [facility] Gross Description A. Received in formalin labelled with proper patient identification (initials B, D) and 1. RT base Lat is a single craft-white tissue core (0.7 cm in length x less than 0.1 cm in diameter). Submitted intact in A1. B. Received in formalin labelled with proper patient identification (initials B, D) and 2. RT base med is a single craft-white tissue core (1.5 cm in length x 0.1 cm in diameter). Submitted intact in B1. C. Received in formalin labelled with proper patient identification (initials B, D) and 3. RT mid Lat is a single craft-white tissue core (0.6 cm in length x less than 0.1 cm in diameter). Submitted intact in C1. D. Received in formalin labelled with proper patient identification (initials B, D) and 4. RT mid med is a single craft-white tissue core (1.2 cm in length x 0.1 cm in diameter). Submitted intact in D1. E. Received in formalin labelled with proper patient identification (initials B, D) and 5. RT apex Lat is a single craft-white tissue core (2.0 cm in length x 0.1 cm in diameter). Submitted intact in E1. F. Received in formalin labelled with proper patient identification (initials B, D) and 6. RT apex med is a single craft-white tissue core (1.1 cm in length x less than 0.1 cm in diameter). Submitted intact in F1. G. Received in formalin labelled with proper patient identification (initials B, D) and 7. LT base Lat is a single craft-white tissue core (1.3 cm in length x less than 0.1 cm in diameter). Submitted intact in G1. H. Received in formalin labelled with proper patient identification (initials B, D) and 8. LT base med is a single craft-white tissue core (1.8 cm in length x less than 0.1 cm in diameter). Submitted intact in H1. I. Received in formalin labelled with proper patient identification (initials B, D) and 9. LT mid Lat are two craft-white tissue cores (1.4 cm and 0.6 cm in length, and each less than 0.1 cm in diameter). Entirely submitted in I1. J. Received in formalin labelled with proper patient identification (initials B, D) and 10. LT mid med is a single crfat-white tissue core (2.2 cm in length x 0.1 cm in diameter). Submitted intact in J1. K. Received in formalin labelled with proper patient identification (initials B, D) and 11. LT apex Lat is a single craft-white tissue core (1.5 cm in length x 0.1 cm in diameter). Submitted intact in K1. L. Received in formalin labelled with proper patient identification (initials B, D) and 12. LT apex med is a single craft-white tissue core (0.6 cm in length x less than 0.1 cm in diameter). Submitted intact in L1. Margarita Hernandez 05/23/2023 13:07 05/27/2023 7:15 T [facility] Resident/Fell ow: Jeremi Flores DO 05/27/2023 7:15 T [facility] Performing Lab [facility] 05/27/2023 7:15 T [facility] Scanned Images 05/27/2023 7:15 T [facility] Tissue STRUCTURE OF APEX OF PROSTATE / Unknown 05/22/2023 9:20 EDT 05/22/2023 17:23 EDT Tissue specimen (specimen) BASE OF PROSTATE / Unknown 05/22/2023 9:20 EDT 05/22/2023 17:23 EDT Tissue specimen (specimen) RIGHT LATERAL MIDDLE PERIPHERAL ZONE OF PROSTATE / Unknown 05/22/2023 9:20 EDT 05/22/2023 17:23 EDT Tissue specimen (specimen) MIDDLE REGION OF PROSTATE / Unknown 05/22/2023 9:20 EDT 05/22/2023 17:23 EDT Tissue specimen (specimen) STRUCTURE OF APEX OF PROSTATE / Unknown 05/22/2023 9:20 EDT 05/22/2023 17:23 EDT Tissue specimen (specimen) STRUCTURE OF APEX OF PROSTATE / Unknown 05/22/2023 9:20 EDT 05/22/2023 17:23 EDT Tissue specimen (specimen) BASE OF PROSTATE / Unknown 05/22/2023 9:20 EDT 05/22/2023 17:23 EDT Tissue specimen (specimen) BASE OF PROSTATE / Unknown 05/22/2023 9:20 EDT 05/22/2023 17:23 EDT Tissue specimen (specimen) LEFT LATERAL MIDDLE PERIPHERAL ZONE OF PROSTATE / Unknown 05/22/2023 9:20 EDT 05/22/2023 17:23 EDT Tissue specimen (specimen) MIDDLE REGION OF PROSTATE / Unknown 05/22/2023 9:20 EDT 05/22/2023 17:23 EDT Tissue specimen (specimen) ENTIRE LEFT LATERAL LOBE OF PROSTATE / Unknown 05/22/2023 9:20 EDT 05/22/2023 17:23 EDT Tissue specimen (specimen) STRUCTURE OF APEX OF PROSTATE / Unknown 05/22/2023 9:20 EDT 05/22/2023 17:23 EDT Jomar Hensley MD PATHOLOGY ORDERAB LES [facility] [address] [place] [address] documented in this encounter Visit Diagnoses Diagnosis Encounter for other general examination documented in this encounter Care Teams Residential Caregiver Relationship Specialty Start Date End Date Whitney Parker MD [address] [place] [phone] PCP - General 9/10/13 documented as of this encounter
--- OUTSIDE RECORDS SUMMARY | 2024-04-04 13:55 | XMS_ITS | Clinical Summary ---
Author Organization [facility] Address [address] [place] [address] Care Team Providers Care Japanese Tutor Name Role Phone Whitney Parker MD Primary Care Provider [phone] Social History Tobacco Use Types Packs/Day Years Used Date Smoking Tobacco: Never Assessed Interpersonal Safety Answer Date Record ed Physically Hurt Never 03/04/2020 Verbally Threaten Not on file 03/04/2020 Sex and Gender Information Value Date Recorded Sex Assigned at Not on file Gender Identity Not on file Sexual Orientation Not on file Plan of Treatment Health Maintenance Due Date Last Done Comments Hepatitis C Screen 1955 RSV Immunization ( o r 60+ Years) (1 - 1-dose 60+ series) 2013 Fall Risk Screening 2018 COVID-19 Vaccine ( season) 2023 Care Teams Japanese Tutor Relationship Specialty Start Date End Date Whiteny Parker MD [address] [place] [address] PCP - General 04/12/13
--- OUTSIDE RECORDS SUMMARY | 2024-04-04 13:55 | XMS_ITS | Encounter Summary ---
Author Organization [facility] Address [address] [place] [address] Care Team Providers Care Simulation Analyst Name Role Phone Whitney Parker MD Primary Care Provider [phone] Encounter Details Date Type Department Care Team (Late st Contact Info) Description 04/11/2013 Results Only [facility] Services - [facility] ([facility] [place]) [address], [place] [id number] Don Herrera MD [address], [place] [id number] Social History Tobacco Use Types Packs/Day Years Used Date Smoking Tobacco: Never Assessed Sex and Gender Information Value Date Recorded Sex Assigned at Not on file Gender Identity Not on file Sexual Orientation Not on file documented as of this encounter Plan of Treatment Not on file documented as of this encounter Procedures Procedure Name Priority Date/Time Associated Diagnosis Comments SURGICAL PATHOLOGY Routine 04/11/2013 11 :27 EDT documented in this encounter Results * SURGICAL PATHOLOGY (04/11/2013 11:27 EDT) Pathology Report: SURGICAL PATHOLOGY REPORT Reports generated via electronic interface contain original data; however they are lacking the format of the original report. Caution should be taken when reading/interpreti ng unformatted reports. Name: ? DHRUV MAJANO ? Accession #: ? [id number] ? : ? 1955 (Age: 57) ??M ? Collect Date: ? 04/11/2013 ? Location: ? [facility] ? Receive Date: ? 04/12/2013 ? Provider: DON HERRERA MD Copy to: WHITNEY PARKER MD ? Final Pathologic Diagnosis: A. COLON, TRANSVERSE, ? ??POLYPS, BIOPSIES: - ??Polypoid fragments of colonic mucosa with prominent lymphoid aggregates and surface hyperplastic changes. B. COLON, SIGMOID, POLYPS, BIOPSIES: - ??Tubular adenoma. - ??Cauterized colonic mucosa with features suggestive of hyperplastic polyp(s). Document reviewed and electronically signed by: GLORIA KENNEY MD Report ??Date: 04/14/2013 15:34 By the signature above, the attending physician certifies that he/she has personally conducted a gross and/or microscopic examination of the described specimens and rendered or confirmed the above diagnosis. Specimen(s) Received: A. ? transverse colon polyps x3 B. ? Sigmoid polyps x3 Clinical History: H/O colon adenomas Gross Description: A. ?Received in formalin labelled with proper patient identification (initials B, D) and 1. transverse colon polyps x3 are three pink-craft tissues (0.4 x 0.2 x 0.2 cm to 0.6 x 0.3 x 0.2 cm). Entirely submitted in A1. B. ?Received in formalin labelled with proper patient identification (initials B, D) and 2. sigmoid polyps x3 are four pink-craft tissues (0.3 x 0.2 x 0.2 cm to 0.5 x 0.5 x 0.2 cm). Entirely submitted in B1 and B2. Sera Lazo 04/12/2013 02:31 PM End of Report [facility] 04/11/2013 11:2 7 EDT 04/12/2013 11:27 EDT Don Herrera MD PATHOLOGY ORDERABLES [facility] [address] [place] [address] documented in this encounter Visit Diagnoses Not on filedocumented in this encounter Care Teams Simulation Analyst Relationship Specialty Start Date End Date Whitney Parker MD [address] [place] [address] PCP - General 04/12/13 documented as of this encounter
--- OUTSIDE RECORDS SUMMARY | 2024-04-04 13:55 | XMS_ITS | Encounter Summary ---
Author Organization [facility] Address [address] [place] [address] Care Team Providers Care Sign Writer Letterer Or Painter Name Role Phone Whitney Parker MD Primary Care Provider [phone] Encounter Details Date Type Department Care Team (Late st Contact Info) Description 06/03/2021 Lab Requisition [facility] Pathology & Laboratory Medicine - [address] [id number] Outr Resulting Lab, Provider Social History Tobacco [...] Associated Diagnosis Comments PSA TOTAL, DIAGNOSTIC Routine 06/03/2021 9:50 EDT documented in this encounter Results * (ABNORMAL) PSA TOTAL, DIAGNOSTIC (06/03/2021 9:50 EDT) PSA 8.0(H) 0.0 - 4.5 ng/mL 06/03/2021 22:22 EDT [facility] Blood VENOUS BLOOD / Unknown 06/03/2021 9:50 EDT 06/03/2021 21:06 EDT Narrative [facility] - 06/03/2021 22:22 EDT NOTE: Serum PSA concentration should not be interpreted as absolute evidence for the presence or absence of malignant disease. Assayed on Siemens [employer] Touch [employer] XPT using chemiluminescent technology.??Values obtained by using different assay methods cannot be used interchangeably. Provider Outr Resulting Lab CHEMISTRY & BLOOD GAS ORDERABLES [facility] [address] [place] [address] documented in this encounter Visit Diagnoses Not on filedocumented in this encounter Care Teams Sign Writer Letterer Or Painter Relationship Specialty Start Date End Date Whitney Parker MD [address] [place] [phone] PCP - General 04/12/13 documented as of this encounter
--- OUTSIDE RECORDS SUMMARY | 2024-04-04 13:55 | XMS_ITS | Encounter Summary ---
Author Organization [facility] Address [facility] [place] [address] Care Team Providers Care Unit Reactor Operator Name Role Phone Cristel Layne Nicci GREEN Primary Care Provider [phone] Encounter Details Date Type Department Care Team (Late st Contact Info) Description 03/23/2024 7:30 AM EDT - 03/23/2024 9:15 AM EDT Surgery Main OR at [address] [id number] Vito Charles MD [facility] [place] [address] CYSTO, LASER TURP (WRVU 12.15) Social History Tobacco Use Types Packs/Day Years Used Date Smoking Tobacco: Never Smokeless Tobacco: Never Alcohol Use Standard Drinks/Week Comments Yes 10 [...] place to sleep or slept in a fci (including now)? No 07/21/2022 Sex and Gender Information Value Date Recorded Sex Assigned at Not on file Gender Identity Not on file Sexual Orientation Not on file documented as of this encounter Last Filed Vital Signs Vital Sign Reading Time Taken Comments Blood Pressure 153/81 03/23/2024 9:15 AM EDT Pulse 52 03/23/2024 9:15 AM EDT Temperature 35.8 ??C (96.5 ??F) 03/23/2024 8:42 AM ED T Respiratory Rate 15 03/23/2024 9:15 AM EDT Oxygen Saturation 96% 03/23/2024 9:15 AM EDT Inhaled Oxygen Concentration - - Weight 105.1 kg (231 lb 9.6 oz) 03/23/2024 6:39 AM EDT Height 177.8 cm (5' 10) 03/23/2024 6:39 AM EDT Body Mass Index 33.23 03/23/2024 6:39 AM EDT documented in this encounter Discharge Instructions * Discharge Instructions* Aranza Lee RN - 03/23/2024 9:02 AM EDT Learning About Indwelling Urinary Catheter Care to Prevent Infection Overview A urinary catheter is a flexible plastic tube that's used to drain urine from your bladder when youcan't urinate on your own. The catheter allows urine to drain from the bladder into a bag. Two types of drainage bags may be used with a urinary catheter. A bedside bag is a large bag that you can hang on the side of your bed or on a chair. You can use it overnight or anytime you will be sitting or lying down for a long time. A leg bag is a small bag that you can use during the day. It is usually attached to your thigh or calf and hidden under your clothes. Having a urinary catheter increases your risk of getting a urinary tract infection. Germs may get on the catheter and cause an infection in your bladder or kidneys. The longer you have a catheter, the more likely it is that you will get an infection. You can help prevent this problem with good hygiene and careful handling of your catheter and drainage bags. How can you help prevent infection? Take care to stay clean Always wash your hands well before and after you handle your catheter. Clean the skin around the catheter daily using soap and water. Dry with a clean towel afterward. You can shower with your catheter and drainage bag in place unless your doctor told you not to. When you clean around the catheter, check the surrounding skin for signs of infection. Look for things like pus and irritated, swollen, red, or tender skin around the catheter. Be careful with your drainage bag Always keep the drainage bag below the level of your bladder. This will help keep urine from flowing back into your bladder. Check often to see that urine is flowing through the catheter into the drainage bag. Empty the drainage bag when it is half full. This will keep it from overflowing or backing up. When you empty the drainage bag, do not let the tubing or drain spout touch anything. Keep the cap that comes with the tubing, and cover the tip of the tubing when not in use. Be careful with your catheter Do not unhook the catheter from the drain tube until you are ready to change the tubing and bag. That could let germs get into the tube. Make sure that the catheter tubing does not get twisted or kinked. Do not tug or pull on the catheter. And make sure that the drainage bag does not drag or pull on the catheter. Do not put powder or lotion on the skin around the catheter. Talk with your doctor about your options for sexual intercourse while wearing a catheter. How do you empty the bag? If your doctor has asked you to keep a record, write down the amount of urine in the bag before youempty it. Wash your hands before and after you touch the bag. Remove the drain spout from its sleeve at the bottom of the drainage bag. Open the valve on the drain spout. Let the urine flow out into the toilet or a container. Be careful not to let the tubing or drain spout touch anything. After you empty the bag, close the valve. Then put the drain spout back into its sleeve at the bottom of the collection bag. How do you switch to a bedside bag for overnight use? Wash your hands before and after you handle the bags. Empty the leg bag that is attached to the tubing and catheter. Put a clean towel under the tubing attached to the leg bag. Use an alcohol wipe to clean the tip of the tubing attached to the bedside bag. To stop the flow of urine, pinch the catheter with your fingers just above the tubing connection. Use a twisting motion to disconnect the leg bag tubing from the catheter. Then securely connect the catheter to the tubing from the bedside bag. How do you clean a bedside bag? Many people clean their bedside bag in the morning if they switch to a leg bag. To clean a bedside drainage bag: Remove the bedside bag and attach the leg bag. Fill the bedside bag with 2 parts vinegar and 3 parts water. Let it stand for 20 minutes. Empty the bag, and let it air dry. When should you call for help? Call your doctor now or seek immediate medical care if: You have symptoms of a urinary infection. These may include: Pain or burning when you urinate. A frequent need to urinate without being able to pass much urine. Pain in the flank, which is just below the rib cage and above the waist on either side of the back. Blood in your urine. A fever. Your urine smells bad. You see large blood clots in your urine. No urine or very little urine is flowing into the bag for 4 or more hours. Watch closely for changes in your health, and be sure to contact your doctor if: The area around the catheter becomes irritated, swollen, red, or tender, or there is pus draining from it. Urine is leaking from the place where the catheter enters your body. Follow-up care is a gould part of your treatment and safety. Be sure to make and go to all appointments, and call your doctor if you are having problems. It's also a good idea to know your test resultsand keep a list of the medicines you take. Where can you learn more? Visit our health information library at https://www.[employer].net/dh/ You can also view health information on [employer], your personal patient account. Log in or sign uptoday. Learning About Removing a Keller Catheter at Home Overview An indwelling catheter helps drain your bladder. The most common type is a Keller catheter. The Keller catheter is a thin tube that goes into your urethra. It's held in your bladder by a smallballoon filled with fluid. The tube drains urine from your bladder into a bag or container. You mayhave had the catheter for a few days, weeks, or months. You can remove the catheter at home when your doctor says it's okay to remove it. How to get ready to remove a Keller catheter at home Before you remove your catheter, gather all of the supplies you will need, scissors and a towel. Empty the urine bag. You can empty it into the toilet or a container, as you normally do. Wash your hands. You can also wear disposable gloves if you want to. How to drain a Keller catheter's balloon- Make sure that you know which port is the balloon port. It's not the one where the urine usually comes out. 1.Remove the catheter securing device (the sticker device attached to your leg), be careful not to pull on the catheter once device is free. 2. Standing over toilet or sitting on the toilet cut the balloon port (which is the short tubing, not the one with urine flowing out) above the yellow plastic piece. 3. Allow the fluid to drain out. There is 30ml of fluid in the balloon, stay sitting or standing until liquid stops draining. The balloon in your bladder should be empty now, so that the keller catheter can come out. How to pull out a Keller catheter Gently pull the catheter out of your urethra as you take controlled breaths. Pull slowly and smoothly. Do not force the catheter out. Clean up. Wash your hands again. Throw away the catheter, the bag, and the absorbent pad, if you used one. You may also want to clean the area around your genitals again. How to care for yourself after you remove a Keller catheter Hydrate Urinate. Be prepared for some discomfort. Try a warm bath. When should you call for help? Call your doctor now or seek immediate medical care if: The catheter gets stuck or hurts when you remove it. The catheter looks like it's broken. You have problems urinating after the catheter comes out. You can't easily remove the catheter. Watch closely for changes in your health, and be sure to contact your doctor if you have any problems. * Patient Instructions* Vito Charles MD - 03/23/2024 8:41 AM EDT [facility] Urology Post-Operative Discharge Instructions PHOTO-SELECTIVE VAPORIZATION OF PROSTATE (PVP) Procedure: You have just had a photo-selective vaporization of the prostate, known as a PVP. During this procedure, the surgeon utilized a Greenlight laser to vaporize and remove prostate tissue. The purpose of this procedure is to widen the prostatic channel for easier passage of urine. Catheter - You may have the urge to urinate with the catheter in place. As long as there is urine going intothe bag, everything is functioning well. - You may have a bladder spasm that causes blood-tinged urine to leak around the catheter. As long as there is urine going into the bag, everything is functioning ok. - If no urine has drained into the bag for >1-2hrs, please call. - Remove your catheter by 7am on Thursday03/25/24. To do this, first cut the balloon port and wait for liquid to stop draining, then gently slide it out. Activity: For the first 4 weeks after surgery: Limit your exercise to short walks (< 3miles). Avoid jogging or heavy workouts. Avoid lifting objects >20 lbs. No strenuous yard work You may increase your level of activity after 4 weeks as long as urine is not bloody. Day after surgery: you may shower. 3 Days after surgery: you may drive as long as you are not taking narcotic medication. 1 Week after surgery: you may return to work. Please continue to follow lift restrictions. 3 Weeks after surgery: you may resume sexual activity. Diet: You may resume regular diet upon discharge from hospital. Drink at least 4 glasses of fluids daily for the first 6 weeks after surgery. Additional intake is necessary when blood is present in urine. Medication: Resume your daily medications the day after surgery. STOP tamsulosin Continue finasteride for 4 weeks, then STOP Please take Colace, a stool softener, twice a day as needed for constipation. Please take up to Tylenol 650 mg, every 6 hours as needed for pain control. NSAIDs can be taken in addition as needed (e.g. Ibuprofen 600mg every 8hrs with meals) Narcotics such as oxycodone are usually not required but can be used if necessary. Note: may cause constipation and drowsiness. Additional medication changes per Inpatient Team discharge instructions. In the next few weeks, you may experience some of the following signs or symptoms: Bleeding: Your urine may appear red due to blood originating from the lower urinary tract. It will range from pink to cranberry colored, which is normal. The bleeding may also be present at the beginning and/or at the end of urination. This may be present up to 6-8 weeks after surgery. As the internal wound heals, small amounts of bleeding are a normal part of the healing process. There is usually passage of small amount of clot/tissue with some bleeding 7-10 days after your surgery Please drink at least 4 glasses of water a day. This will dilute your urine and help prevent clots from forming. Avoid straining when moving your bowels as this puts pressure on the prostate and increase the riskof bleeding. Take a stool softener, such as Colace, as needed to minimize straining. When to be concerned: when urine is opaque red or persistent and difficult passage of large blood clots. Urination: You may also see brown or beige color pieces of tissue pass in your urine. This is a result of the normal healing process and is not cause for concern. You may have some urgency or frequency for the first few weeks. If these symptoms are severe, please call you doctor to discuss treatment options. Call your Doctor If: You are unable to pass your urine. You have a fever of 101 F or higher. You have pain which is not relieved by pain medication. Your urine becomes bloody (like the color of tomato juice). You are passing large blood clots in your urine. Follow Up: Please call [facility] at [phone] to make a routine follow-up appointment 4-6 weeks after your surgery. If you have any immediate questions or concerns, you may call the main [facility] line ([phone]) andask the link knitting machine operator for the ???Urology Resident electronics warfare technician?? . FOLLOW-UP APPOINTMENT Please see above. Call to make an appointment documented in this encounter Medications at Time of Discharge Medication Sig Dispensed Refills Start Date End Date allopurinoL (Zyloprim) 100 mg Tablet Take 100 mg by mouth every 4 hours as needed. finasteride (Proscar) 5 mg Tablet Take 1 tablet by mouth daily. 90 tablet 3 07/21/2022 documented as of this encounter Progress Notes * Aranza Lee RN - 03/23/2024 10:05 AM EDT The AVS/DC instructions have been reviewed at bedside with pt and family. Instructions included medications, activity, wound care, reportable signs and symptoms and follow up. Pt and family verbalizeunderstanding and were offered space for questions. No unanswered questions. PRN medications administered. Vital signs stable. Neuros benign, See flowsheets for all documentation per policy. Patient denies sob, cp, dizziness, lightheadedness, nausea and reports pain is currently at baseline/tolerable level. Pts pain assessed and pt reports pain tolerable at current level. Patient able to tolerate PO clears intake w/o cough or clearing and diet advanced per MD order. Patient able to ambulate and transfer. Patient able to demonstrate weight bearing status. IV removed, tip intact, pt states no discomfort at this time. No postop medications prescribed by MD, pt & family state understanding. Pt DC accompanied by staff to passenger side of vehicle. documented in this encounter H&P Notes * Vito Charles MD - 03/23/2024 7:20 AM EDT Patient Name: Vincent Oswald Patient Age: 68 y.o. Birthdate: 1955 Admit date: 03/23/2024 Attending Physician: Vito Charles MD History of Present Illness (carried forward for reference): Vincent Oswald is a 68 y.o. male who is referred for management of urinary symptoms. He was diagnosed with Worthington 6 prostate cancerin 05/2022. Consultation with radiation oncology and urology who both leaned toward recommending RALP instead of radiation given his BPH and LUTS. He was scheduled for RALP with Dr. Fry on 12/24/22, but canceled the procedure. He then followed with Dr. Hensley who did a repeat biopsy that found Wilbur 3+4 prostate cancer and was planning on ADT followed by radiation. He did not tolerate Lupron shots due to fatigue/myalgia/hot flashes. Now presents for consideration of a bladder outlet procedure prior to radiation. Denies dysuria or hematuria or urinary incontinence. He is currently taking flomax. IPSS score 17/35 (08/06/2/4//08/04); QOL 4/6. Prostate size on MRI was measured as 110cc. Bulky median lobe. Thick peripheral zone. 03/23/24 No changes to above Preop Ucx: no growth (02/18/24) Physical Examination: There were no vitals taken for this visit. Constitutional: The patient is well developed, well nourished, alert and oriented, and appears his stated age. Cardiovascular: Good peripheral pulses Respiratory: Breathing comfortably. No audible wheezes are appreciated. Abdomen: Mildly obese, soft, non-tender, non-distended. Extremities: Appear warm and well perfused. Neuro: Awake and alert. Oriented to person/place/time. No gross motor defects. PLAN Proceed with PVP as day surgery Remove catheter at home on POD2 Patient will wait 4 months to start radiation treatment Vito Charles MD 03/23/2024 7:22 AM documented in this encounter Miscellaneous Notes * Op Note - Vito Charles MD - 03/23/2024 7:38 AM EDT [facility] Operative Note [address] Patient Name: Vincent Oswald : [id number] MR#: [id number] Case Date: 03/23/2024 Case Scheduled Time: 0730 Surgeon: Surgeons and Role: * Vito Charles MD - Primary Preoperative diagnosis: BPH Postoperative diagnosis: BPH Procedure(s) (LRB): CYSTO, LASER TURP (WRVU 12.15) (N/A) MODIFIER,GREENLIGHT LASER (Midline) Anesthesia: Anesthesia type not filed in the log. Estimated Blood Loss: Specimens removed during surgery: None Drains: * No LDAs found * Surgical Closure: NA Disposition: awakened from anesthesia, extubated and taken to the recovery room in a stable condition, having suffered no apparent untoward event. Condition: doing well without problems Complications: None (Please see the Surgical Encounter Summary for any Implant and Specimen details pertinent to this patient.) Findings: Large trilobar prostate. Uncomplicated PVP Surgical Indications: 68M with Gleaston 3+4 prostate cancer and BPH who is awaiting radiation and presents for a bladder outlet procedure prior. Procedure Description: The patient was brought to the Procedure Room and placed in a supine position. General anesthesia was induced. Antibiotic prophylaxis was injected intravenously. The patient's position was changed tolithotomy and all the pressure sites were padded and protected. Prep and drape was performed in [facility] standard sterile fashion. With a 23.5French cystoscopy sheath and 30-degree lens, we entered the urethra. The entire urethra was scoped, which revealed Normal pendulous and bulbous urethra. We gently passed through this area without any mucosal disruption. The prostatic urethra was 6.0cm long and obstructed mainly due to elevated enlarged median lobe and coapting lateral lobes We entered the bladder. The bladder was scoped systematically. This revealed Moderate bladder trabeculation, otherwise unremarkable. Bladder mucosa was normal.. Ureteral orifices were in a normal shape and normal location. At this point, we used a Moxy Greenlight laser fiber with a setting of 120 to 180 cottrell for vaporization and 20 to 35 cottrell for coagulation, and started vaporizing the prostatic adenoma circumferentially from the bladder neck down to verumontanum. Special attention was drawn to avoid any thermal injury to the trigone and ureteral orifices proximally and external sphincter distally, by limiting the energy between the bladder neck and verumontanum. After adequate removal of obstructive prostatic adenoma and achieving adequate hemostasis, decision was made to conclude the procedure by removing the sheath and placing an 20 Hungarian 2-way Keller catheter. The drainage was clear. The patient tolerated the procedure very well and after adequate recovery, he was transferred to the Recovery Room in stable condition. ATTESTATION: I was present for the entirety of the case. No complication occurred throughout the procedure. TOTAL ENERGY USED: 334,167 joules. LASING TIME: 38 minutes and 51 seconds. TOTAL PROCEDURE TIME: 50 minutes. Vito Charles MD Section of Urology [facility] Office: [phone] Infection Bundle used? N/A Vito Charles MD 03/23/2024 documented in this encounter Plan of Treatment Not on file documented as of this encounter Procedures Procedure Name Priority Date/Time Associated Diagnosis Comments MODIFIER,GREENLIGHT LASER 2023 7:23 AM EDT BPH Laser Vaporization Surgery Prostate, Complete ([id number]) 03/23/2024 7:23 AM EDT BPH documented in this encounter Visit Diagnoses Not on filedocumented in this encounter Administered Medications Inactive Administered Medications - up to 3 most recent administrations Medication Order MAR Action Action Date Dose Rate Site acetaminophen (Tylenol) tablet 975 mg 975 mg, Oral, ONCE, 1 dose, On Thu03/23/24 at 0645, Prior to administration, confirm that patient has not taken acetaminophen within the preceding 8 hours. If patient has taken acetaminophen within the preceding 8 hours, hold dose & notify anesthesia. Administer with SIP of H2O only. Maximum dose of acetaminophen is 4,000 mg from all sources in 24 hours. When ordered for pain, acetaminophen should be given even when other ordered pain medications are included., Day of Surgery (Day of Procedure), Routine Given 03/23/2024 6:41 AM EDT 975 mg lactated ringers infusion 1,000 mL, Intravenous, CONTINUOUS, Starting on Thu03/23/24 at 0645, Until Thu03/23/24 at 1013, Day of Surgery (Day of Procedure) New Bag 03/23/2024 8:56 AM EDT New Bag 03/23/2024 8:40 AM EDT 1,000 mLs 125 mL/hr New Bag 03/23/2024 7:01 AM EDT 1,000 mLs 30 mL/hr lidocaine (Glydo) 2 % gel PRN, Starting on Thu03/23/24 at 0747, Until Thu03/23/24 at 1014, Intra-Operative (Intra-Procedure), Routine Given 03/23/2024 7:47 AM EDT 11 mLs documented in this encounter Active and Recently Administered Medications Times are shown in EDT. Scheduled Medication Order 03/21/2024 03/22/2024 03/23/2024 acetaminophen (Tylenol) tablet 975 mg (COMPLETED) 975 mg, Oral, ONCE, 1 dose, On Thu03/23/24 at 0645, Prior to administration, confirm that patient has not taken acetaminophen within the preceding 8 hours. If patient has taken acetaminophen within the preceding 8 hours, hold dose & notify anesthesia. Administer with SIP of H2O only. Maximum dose of acetaminophen is 4,000 mg from all sources in 24 hours. When ordered for pain, acetaminophen should be given even when other ordered pain medications are included., Day of Surgery (Day of Procedure), Routine 0641 (Given - Provid er: Nae Smith RN) ceFAZolin (Ancef) 2 g vial attach to sodium chloride 0.9% 100 mL Mini-Bag Plus (COMPLETED) 2 g, Intravenous, ONCE, 1 dose, On Thu03/23/24 at 0745, Administer over 30 Minutes, Indication for (Active or Suspected): Prophylaxis 0733 (New Bag - Prov ider: Jeremi Degroot CRNA) Continuous Medication Order 03/21/2024 03/22/2024 03/23/2024 lactated ringers infusion (CANCELED) 1,000 mL, Intravenous, CONTINUOUS, Starting on Thu03/23/24 at 0645, Until Thu03/23/24 at 1013, Day of Surgery (Day of Procedure) 0701 (New Bag - Prov ider: Nae Smith RN)0840 (New Bag - Provider: Aranza Lee RN - Comment: hung by SAMY Couch on admit to PACU)0855 (Paused - Provider: Jeremi Degroot CRNA - Comment: Switch to gravity)0856 (New Bag - Provider: Jeremi Degroot CRNA)1000 (Stopped - Provider: Aranza Lee RN) PRN Medication Order 03/21/2024 03/22/2024 03/23/2024 lidocaine (Glydo) 2 % gel (CANCELED) PRN, Starting on Thu03/23/24 at 0747, Until Thu03/23/24 at 1014, Intra-Operative (Intra-Procedure), Routine 0747 (Given - Provid er: Vito Charles MD - Comment: instilled at conclusion of cysto, prior to catheter insertion) documented in this encounter Care Teams Unit Reactor Operator Relationship Specialty Start Date End Date Cristel Layne APRN [address] [place] [address] PCP - General Family Medicine 03/31/22 documented as of this encounter
--- OUTSIDE RECORDS SUMMARY | 2024-04-04 13:55 | XMS_ITS | Encounter Summary ---
Author Organization [facility] Address [address] [place] [address] Care Team Providers Care Subway Operator Name Role Phone Whitney Parker MD Primary Care Provider [phone] Encounter Details Date Type Department Care Team (Late st Contact Info) Description 08/26/2023 Lab Requisition [facility] Pathology & Laboratory Medicine - [address] [id number] Outr Resulting Lab, Provider Social History Tobacco [...] Associated Diagnosis Comments PSA TOTAL, DIAGNOSTIC Routine 08/26/2023 12:34 EST documented in this encounter Results * (ABNORMAL) PSA TOTAL, DIAGNOSTIC (08/26/2023 12:34 EST) PSA 7.1(H) <=6.5 ng/mL 08/26/2023 22:56 EST [facility] Blood VENOUS BLOOD / Unknown 08/26/2023 12:34 EST 08/26/2023 21:22 EST Narrative [facility] - 08/26/2023 22:56 EST NOTE: Serum PSA concentration should not be interpreted as absolute evidence for the presence or absence of malignant disease. Assayed on Siemens ADVIA Xfireaur XPT using chemiluminescent technology.??Values obtained by using different assay methods cannot be used interchangeably. Provider Outr Resulting Lab CHEMISTRY & BLOOD GAS ORDERABLES [facility] [address] [place] [address] documented in this encounter Visit Diagnoses Not on filedocumented in this encounter Care Teams Subway Operator Relationship Specialty Start Date End Date Whitney Parker MD [address] [place] [id number] PCP - General 04/12/13 documented as of this encounter
--- OUTSIDE RECORDS SUMMARY | 2024-04-04 13:55 | XMS_ITS | Encounter Summary ---
Author Organization [facility] Address [address] [place] [address] Care Team Providers Care Spare Parts Clerk Name Role Phone Whitney Parker MD Primary Care Provider [phone] Encounter Details Date Type Department Care Team (Late st Contact Info) Description 08/12/2021 Lab Requisition [facility] Pathology & Laboratory Medicine - [address] [id number] Outr Resulting Lab, Provider Social History Tobacco [...] Associated Diagnosis Comments PSA TOTAL, DIAGNOSTIC Routine 08/12/2021 11:27 EST documented in this encounter Results * (ABNORMAL) PSA TOTAL, DIAGNOSTIC (08/12/2021 11:27 EST) PSA 7.1(H) 0.0 - 4.5 ng/mL 08/12/2021 22:37 EST [facility] Blood VENOUS BLOOD / Unknown 08/12/2021 11:27 EST 08/12/2021 21:21 EST Narrative [facility] - 08/12/2021 22:37 EST NOTE: Serum PSA concentration should not be interpreted as absolute evidence for the presence or absence of malignant disease. Assayed on Siemens ADVIA MyWantsaur XPT using chemiluminescent technology.??Values obtained by using different assay methods cannot be used interchangeably. Provider Outr Resulting Lab CHEMISTRY & BLOOD GAS ORDERABLES [facility] [address] [place] [address] documented in this encounter Visit Diagnoses Not on filedocumented in this encounter Care Teams Spare Parts Clerk Relationship Specialty Start Date End Date Whitney Parker MD [address] [place] [address] PCP - General 04/12/13 documented as of this encounter
--- OUTSIDE RECORDS SUMMARY | 2024-04-04 13:56 | XMS_ITS | Encounter Summary ---
[place] [address] Care Team Providers Care Consolidator Name Role Phone Cristel Layne APRN Primary Care Provider [phone] Reason for Referral * Consultation (Routine) - Authorized Specialty Diagnoses / Procedures Referred By Ok little Referred To Contact Urology Diagnoses Lower urinary tract symptoms (LUTS) Unspecified symptoms and signs involving the genitourinary system Malignant neoplasm of prostate Jomar Hensley MD [address] [place], [place] [address] [facility] [place] [address] Referral ID Status Reason Start Date Expiration Date Visits Requested Visits Authorized [id number] Authorized Consult, Test & Treat PCP Updated and/or Approved 11/17/2023 05/18/2024 6 6 Encounter Details Date Type Department Care Team (Latest Contact Info) Description 11/25/2023 Transcribe Orders eDH Incoming Referrals [phone] Jomar Hensley MD [address] [place], [place] [id number] Lower urinary tract symptoms (LUTS); History of prostate cancer; Unspecified symptoms and signs involving the genitourinary system; Malignant neoplasm of prostate Social History Tobacco Use Types Packs/Day Years Used Date Smoking Tobacco: Never Smokeless Tobacco: Never Alcohol Use Standard Drinks/Week Comments Yes 1 (1 standard drink = 0.6 oz pur e alcohol) rum, 2-3 drinks a night Overall [...] place to sleep or slept in a jail (including now)? No 07/21/2022 Sex and Gender Information Value Date Recorded Sex Assigned at Not on file Gender Identity Not on file Sexual Orientation Not on file documented as of this encounter Plan of Treatment Scheduled Referrals Name Type Priority Associated Diagnoses Orde r Schedule Referral to Urology Outpatient Referral Routine Lower urinary tract symptoms (LUTS) Unspecified symptoms and signs involving the genitourinary system Malignant neoplasm of prostate Ordered: 11/25/2023 documented as of this encounter Visit Diagnoses Diagnosis Lower urinary tract symptoms (LUTS) Other symptoms involving urinary system History of prostate cancer Personal history of malignant neoplasm of prostate Unspecified symptoms and signs involving the genitourinary system Malignant neoplasm of prostate documented in this encounter Care Teams Consolidator Relationship Specialty Start Date End Date Cristel Layne APRN [address] [place] [address] PCP - General Family Medicine 03/31/22 documented as of this encounter
--- OUTSIDE RECORDS SUMMARY | 2024-04-04 13:56 | XMS_ITS | Encounter Summary ---
Author Organization [facility] Address [facility] [place] [address] Care Team Providers Care Academic Dean Name Role Phone Cristel Layne APRN Primary Care Provider [phone] Encounter Details Date Type Department Care Team (Late st Contact Info) Description 03/14/2024 8:15 AM EDT Telephone Pre Admission Testing at [address] [address] Social History Tobacco Use Types Packs/Day Years [...] place to sleep or slept in a skilled nursing (including now)? No 07/21/2022 Sex and Gender Information Value Date Recorded Sex Assigned at Not on file Gender Identity Not on file Sexual Orientation Not on file documented as of this encounter Last Filed Vital Signs Vital Sign Reading Time Taken Comments Blood Pressure - - Pulse - - Temperature - - Respiratory Rate - - Oxygen Saturation - - Inhaled Oxygen Concentration - - Weight 101.2 kg (223 lb) 03/14/2024 8:00 AM EDT stated Height 177.8 cm (5' 10) 03/14/2024 8:00 AM EDT Body Mass Index 32 03/14/2024 8:00 AM EDT documented in this encounter Progress Notes * Barb Manley RN - 03/14/2024 8:13 AM EDT EXPOSURE: Have you been in contact with anyone suspected of or confirmed to have COVID-19 or any other communicable illness in the PAST 10 DAYS? No INFECTIOUS DISEASE SCREENING: In the past 10 days, have you had any of the following symptoms: [] Fever (subjective or documented fever) [] Chills [] Cough [] Shortness of breath or difficulty breathing [] Fatigue [] Muscle or body aches [] Headache [] New loss of taste or smell [] Sore throat [] Nausea or vomiting [] Diarrhea [x]NONE OF THE ABOVE Tested positive for Covid (within the past 6 weeks): No Upper respiratory symptoms: No Lower respiratory symptoms: No Other symptoms: no OTHER SCREENING Anticipated Disposition from PACU: Home/Same Day Discharge Transportation Plan To and From Hospital: Partner Fay Gamble Current Living Situation and Caregiver Support (Name, Relationship and Level of Engagement): Lives with Partner Fay Patient perceived Barriers to Discharge: None Patient Comments on health status: (recent hospital admission/illness etc) None Anticipated Post Op Home Support Needs: No Any Financial Concerns? No Any Medical or Medical Supply Concerns? No s understanding. Case Management [x] Patient reports unchanged d/c plan and services from previous office note, patient is planning on same day discharge. [] Patient does have first outpatient therapy appointment scheduled within a week of surgery [] Patient does not have first outpatient therapy appointment scheduled within a week of surgery documented in this encounter Plan of Treatment Not on file documented as of this encounter Visit Diagnoses Not on filedocumented in this encounter Care Teams Academic Dean Relationship Specialty Start Date End Date Cristel Layne APRN [address] [place] [address] PCP - General Family Medicine 03/31/22 documented as of this encounter
--- OUTSIDE RECORDS SUMMARY | 2024-04-04 13:56 | XMS_ITS | Encounter Summary ---
Author Organization [facility] Address [facility] [place] [address] Care Team Providers Care Jigger Artisan Name Role Phone Roverto Cristeljohn paul Grajeda APRN Primary Care Provider [phone] Encounter Details Date Type Department Care Team (Latest Contact Info) Description 08/14/2022 Travel Social History Tobacco Use Types Packs/Day Years [...] place to sleep or slept in a residential (including now)? No 07/21/2022 Sex and Gender Information Value Date Recorded Sex Assigned at Not on file Gender Identity Not on file Sexual Orientation Not on file documented as of this encounter Plan of Treatment Not on file documented as of this encounter Visit Diagnoses Not on filedocumented in this encounter Care Teams Jigger Artisan Relationship Specialty Start Date End Date Cristel Layne APRN [address] [place] [address] PCP - General Family Medicine 03/31/22 documented as of this encounter
--- OUTSIDE RECORDS SUMMARY | 2024-04-04 13:56 | XMS_ITS | Encounter Summary ---
Author Organization [place] [id number] Care Team Providers Care Drum Sprayer Name Role Phone Cristel Layne APRN Primary Care Provider [phone] Reason for Referral * Consultation (Routine) - Closed Specialty Diagnoses / Procedures Referred By Ok little Referred To Contact Urology Diagnoses Prostate cancer 06/10/22 - NEW DX PROSTATE CANCER Jomar Hensley MD [address] [place] [address] [facility] [place] [address] Referral ID Status Reason Start Date Expiration Date V isits Requested Visits Authorized [id number] Closed Consult, Test & Treat PCP Updated and/or Approved 06/09/2022 06/09/2023 6 6 Encounter Details Date Type Department Care Team (Late st Contact Info) Description 06/09/2022 Transcribe Orders eDH Incoming Referrals [phone] Jomar Hensley MD [address] [place] [address] Prostate cancer Social History Tobacco Use Types Packs/Day Years Used Date Smoking Tobacco: Never Assessed Sex and Gender Information Value Date Recorded Sex Assigned at Not on file Gender Identity Not on file Sexual Orientation Not on file documented as of this encounter Plan of Treatment Scheduled Referrals Name Type Priority Associated Diagnoses Orde r Schedule Referral to Urology Outpatient Referral Routine Prostate cancer Ordered: 06/09/2022 documented as of this encounter Visit Diagnoses Diagnosis Prostate cancer Malignant neoplasm of prostate documented in this encounter Care Teams Drum Sprayer Relationship Specialty Start Date End Date Cristel Layne APRN [address] [place] [address] PCP - General Family Medicine 03/31/22 documented as of this encounter
--- OUTSIDE RECORDS SUMMARY | 2024-04-04 13:56 | XMS_ITS | Encounter Summary ---
Author Organization [facility] Address [facility] [place] [address] Care Team Providers Care Courtesy Bus Driver Name Role Phone Roverto Cristeljohn paul Grajeda APRN Primary Care Provider [phone] Reason for Visit * Reason Onset Date Comments Prostate Cancer 09/12/2022 Encounter Details Date Type Department Care Team (Late st Contact Info) Description 09/12/2022 [place] [address] Ming Fry MD [facility] [place] [address] Malignant neoplasm of prostate; Lower urinary tract symptoms (LUTS); Prostate cancer Social History Tobacco Use Types [...] place to sleep or slept in a half-way (including now)? No 07/21/2022 Sex and Gender Information Value Date Recorded Sex Assigned at Not on file Gender Identity Not on file Sexual Orientation Not on file documented as of this encounter Patient Instructions * Patient Instructions* Ming Fry MD - 09/12/2022 3:05 PM EST Prostatectomy Patient Instructions Instructions Prior to Surgery Please stop taking any over the counter supplements one week before surgery. If you are on any blood thinners such as: Coumadin, Plavix, Aspirin, or Xarelto PLEASE check with the Urology Clinic if you did not receive any instructions on discontinuing them prior to surgery. Day Prior to Surgery Please shower 24 hours before AND the night before surgery. Please use a Chlorhexidene based antiseptic soap such as Hibiclens. You can buy Hibiclens over the counter at your pharmacy without a prescription or you can obtain it from the [facility] Same day program on the day of your preoperative visit. Bowel Preparation ?? Purchase one Fleets enema and take it the evening before surgery. ?? Please take only clear liquids by mouth from noon the day before surgery. ?? Continue to drink plenty of clear liquids to remain well hydrated for the remainder of the day and evening ?? Please take nothing by mouth from 2 hours before the time you have been told to report to the hospital. If you have any questions please call the [facility] at or documented in this encounter Progress Notes * Ming Fry MD - 09/12/2022 3:05 PM EST Received message from Dr. Stein and also spoke with the patient. His genomic test was more consistent with an intermediate risk prostate cancer and given his MRI findings PSA level and overall goodhealth he is decided he would like to proceed with treatment which I think is reasonable. We discussed outlet surgery followed by radiation versus radical prostatectomy and the pros and cons which we have previously reviewed. He would prefer radical prostatectomy which I think is a very reasonable choice. I will work on scheduling, he would ideally have this done in late December given his work schedule, I explained that we are booking into early December anyway at this point so that is completely reasonable sowe will get him on the books. I will plan to see him a few weeks prior to surgery for a telehealth visit to review the details ofthe procedure 1 more time before proceeding. documented in this encounter Plan of Treatment Not on file documented as of this encounter Visit Diagnoses Diagnosis Malignant neoplasm of prostate Lower urinary tract symptoms (LUTS) Other symptoms involving urinary system Prostate cancer Malignant neoplasm of prostate documented in this encounter Care Teams Courtesy Bus Driver Relationship Specialty Start Date End Date Cristel Layne APRN [address] [place] [address] PCP - General Family Medicine 03/31/22 documented as of this encounter
--- OUTSIDE RECORDS SUMMARY | 2024-04-04 13:56 | XMS_ITS | Encounter Summary ---
Author Organization [facility] [place] [address] Care Team Providers Care Loom Fixer Name Role Phone Cristel Layne APRN Primary Care Provider [phone] Encounter Details Date Type Department Care Team (Late st Contact Info) Description 07/18/2022 Telephone Radiation Oncology at [address] [address] Lilliam Restrepo Social History Tobacco Use Types Packs/Day Years Used Date Smoking Tobacco: Never Assessed Sex and Gender Information Value Date Recorded Sex Assigned at Not on file Gender Identity Not on file Sexual Orientation Not on file documented as of this encounter Miscellaneous Notes * Telephone Encounter - Lilliam Mayers - 07/18/2022 10:41 AM EST Nae left Vincent a voicemail on 07/11 to confirm he is aware of the time change on his appointment.She was unable to reach him so left him a voicemail and sent a letter with the updated time change. I left Vincent another voicemail today to confirm he is aware of the change. documented in this encounter Plan of Treatment Not on file documented as of this encounter Visit Diagnoses Not on filedocumented in this encounter Care Teams Loom Fixer Relationship Specialty Start Date End Date Cristel Layne APRN [address] [place], [place] [id number] PCP - General Family Medicine 03/31/22 documented as of this encounter
--- OUTSIDE RECORDS SUMMARY | 2024-04-04 13:56 | XMS_ITS | Encounter Summary ---
Author Organization [facility] Address [facility] [place] [address] Care Team Providers Care See Wheeler Name Role Phone Cristel Layne Nicci GREEN Primary Care Provider [phone] Encounter Details Date Type Department Care Team (Late st Contact Info) Description 03/23/2024 7:23 AM EDT Anesthesia Event Main OR at [address] [phone] Jeremi Degroot CRNA [address] [place] [address] [place] [address] Brandon Aparicio CRNA [place] [address] Anesthesia Record Procedure Summary Procedure Name Responsible Anesthesiologist Anesthesia Start Time Anesthesia Stop Time CYSTO, LASER TURP (WRVU 12.15) (Bladder) Jeremi Degroot CRNA 03/23/24 0723 03/23/24 0839 Events Date Time Event Comment 03/23/2024 0700 0723 AN Verify 0723 Start 0723 An Start Data 0730 An Induction 0731 An Intubation 0733 Anesthesia Ready 0837 Extubation/LMA Out 0837 an stop data 0838 Recovery or ICU Handoff Ilda ent care was transferred to the destination unit staff after review of the patient's medical history, current anesthetic/surgical status and plan, according to the Provider Handoff Checklist. 0839 Stop Meds Name Total IV Lidocaine 50 mg Propofol 600 mg Ondansetron 4 mg Dexamethasone 8 mg ceFAZolin (Ancef) 2 g vial a ttach to sodium chloride 0.9% 100 mL Mini-Bag Plus 2 g Propofol INF 154.44 mg lactated ringers infusion 1,000 mL * Agents Name O2 Air Desflurane (et) O2 Auxiliary Flowmeter 2 * Blood No blood administrations on file. Lines, Drains, and Airways Type Details Placement Removal Urethral Catheter 03/23/24; 0744; Urol ogic surgery; indwelling double lumen catheter; 100% silicone; 20; inserted at [facility] (inserted by Dr. Charles at conclusion of cysto laser TURP); 30; 30; intraurethral Xylocaine gel; drainage bag 03/23/24 0744 by Tanvi Chandra RN PIV 03/23/24; 0655; [id number] catheter system; 20 gauge; metacarpal vein (top of hand), right; Anatomical Landmarks; US Not Used; sm; distraction, tolerated well, appears comfortable; no longer indicated, catheter/device intact; 03/23/24; 1004 03/23/24 0655 by Nae Mccartney RN 03/23/24 1004 by Aranza Lee RN Supraglottic Mask Ventilation: Ang beltran (1); LMA Type: Unique; LMA Size: 5; Removal Date: 03/23/24; Removal Time: 0803/23/24 0731 by Jeremi Degroot CRNA 03/23/24 0837 by Jeremi Degroot RN HOME CARE documented in this encounter Social History Tobacco Use Types Packs/Day Years [...] place to sleep or slept in a group home (including now)? No 07/21/2022 Sex and Gender Information Value Date Recorded Sex Assigned at Not on file Gender Identity Not on file Sexual Orientation Not on file documented as of this encounter OR Notes * Anesthesia Postprocedure Evaluation - Jeremi Degroot CRNA - 03/23/2024 8:56 AM EDT Department of Anesthesiology Post-procedure Note Patient: Vincent Oswald Procedure Summary Date: 03/23/24 Room / Location: [facility] OR / [facility] MAIN OR Anesthesia Start: 722 Anesthesia Stop: 838 Procedures: CYSTO, LASER TURP (WRVU 1215) (Bladder) MODIFIER,GREENLIGHT LASER (Midline: Bladder) Diagnosis: (BPH) Surgeons: Vito Charles MD Responsible Provider: Jeremi Degroot CRNA Anesthesia Type: Not recorded ASA Status: Not recorded All Anesthesia Providers: SAMY Independent: Jeremi Degroot CRNA Vitals Value Taken Time BP 142/75 03/23/24 0850 Temp 35.8 ??C (96.5 ??F) 03/23/24 0842 Pulse 58 03/23/24 0855 Resp 20 03/23/24 0855 SpO2 99 % 03/23/24 0855 Pain Level 2 03/23/24 0852 Vitals shown include unfiled device data. Patient Location: PACU/[facility] Level of Consciousness: Awake and Alert Pain Management: Satisfactory Analgesia PONV: None Cardiovascular Status: At Baseline and Hemodynamically Stable Respiratory Status: At Baseline and Room Air Postoperative Fluid Status: Intravascular EUvolemia Possible Anesthetic Complications: NONE apparent at time of evaluation Final Primary Anesthesia Type: General (The anesthetic type performed was the same as planned.) Comments: Jeremi Degroot CRNA * Anesthesia Preprocedure Evaluation - Jeremi Degroot CRNA - 03/14/2024 9:41 AM EDT Pre-Anesthesia Evaluation for: Vincent Oswald a 68 y.o. male. Procedure(s): CYSTO, LASER TURP (WRVU 12.15) MODIFIER,GREENLIGHT LASER Patient Active Problem List Diagnosis Date Noted ??? Heart murmur, aortic 07/21/2022 ??? Obesity 07/21/2022 ??? Gastroesophageal reflux 07/21/2022 ??? BPH (benign prostatic hyperplasia) 07/21/2022 ??? Malignant neoplasm of prostate 07/20/2022 Past Medical History: Diagnosis Date ??? HTN (hypertension) ??? Hypercholesteremia ??? Hyperlipemia ??? Prostate cancer ??? Syncope ??? Tubular adenoma Past Surgical History: Procedure Laterality Date ??? COLONOSCOPY 08/14/2017 ??? KNEE ARTHROPLASTY Right ??? SOFT TISSUE BIOPSY gynecomastia Social History Tobacco Use ??? Smoking status: Never ??? Smokeless tobacco: Never Substance Use Topics ??? Alcohol use: Yes Alcohol/week: 10.0 standard drinks of alcohol Types: 10 Shots of liquor per week Comment: rum, 2-3 drinks a night Social History Substance and Sexual Activity Drug Use Never Allergies Allergen Reactions ??? Lisinopril Other (See Comments) Lip Swelling ??? Terazosin ??? Losartan Rash Medications: MAR and/or home medications have been reviewed. Physical Exam: Preprocedure Vitals Current as of 03/14/24 0941 No BP, pulse, respiration, SpO2, or temperature recorded. Height: 177.8 cm (5' 10) (03/14/24) Weight: 101.2 kg (223 lb) (03/14/24) BMI: 31.99 IBW: 73 kg (160 lb 15 oz) Airway Assessment: Mallampati: II TM distance: >3 FB Neck ROM: full Cardiovascular Assessment: system normal Pulmonary Assessment: pulmonary exam normal Dental Assessment: - normal exam Misc Assessment: Last Filed Perioperative Cognitive Screening None Anesthesia Plan: ASA 2 general, with a(n) intravenous induction Preliminary note based on chart review. This patient is scheduled for a PVP Past Medical History includes: Cardiovascular: HLD, HTN syncope r/t hypovolemia. Respiratory: Neurological: Endocrine: gout ( allopurinol) Gastrointestinal: prostate CA ( flomax, proscar_ Genitourinary: Hematology/Oncology: Musculoskeletal: Psychiatric/Social: EKG/Cardiac Testing: H&P/Pre-op PCP visit reviewed: Drug allergies: Lisinopril, terazosin, losartan Recent anesthetic record data: No recent anesthetic record to be reviewed. Medications reviewed: Labs: Most recent lab work 07/10/21- no concerns r/t anesthesia Plan for general anesthesia. Laina Aparicio CRNA NPO status verified Region - Other Informed Consent: Anesthetic plan and risks discussed with patient. Anesthesia Screening documented in this encounter Miscellaneous Notes * Addendum Note - Jeremi Degroot CRNA - 03/23/2024 9:58 AM EDT Addendum created 03/23/24957 by Jeremi Degroot CRNA Flowsheet accepted documented in this encounter Plan of Treatment Not on file documented as of this encounter Visit Diagnoses Not on filedocumented in this encounter Administered Medications Inactive Administered Medications - up to 3 most recent administrations Medication Order MAR Action Action Date Dose Rate Site ceFAZolin (Ancef) 2 g vial attach to sodium chloride 0.9% 100 mL Mini-Bag Plus 2 g, Intravenous, ONCE, 1 dose, On Thu03/23/24 at 0745, Administer over 30 Minutes, Indication for (Active or Suspected): Prophylaxis New Bag 03/23/2024 7:33 AM EDT 2 g dexAMETHasone (Decadron) injection Intravenous, PRN, Starting on Thu03/23/24 at 0742, Until Thu03/23/24 at 0855, Anesthesia Intra-op, Routine Given 03/23/2024 7:42 AM EDT 8 mg lactated ringers infusion 1,000 mL, Intravenous, CONTINUOUS, Starting on Thu03/23/24 at 0645, Until Thu03/23/24 at 1013, Day of Surgery (Day of Procedure) New Bag 03/23/2024 8:56 AM EDT New Bag 03/23/2024 8:40 AM EDT 1,000 mLs 125 mL/hr New Bag 03/23/2024 7:01 AM EDT 1,000 mLs 30 mL/hr lidocaine (pf) (Xylocaine) (20 mg/mL) 2% injection syringe Intravenous, PRN, Starting on Thu03/23/24 at 0730, Until Thu03/23/24 at 0855, Anesthesia Intra-op, Routine Given 03/23/2024 7:30 AM EDT 50 mg ondansetron (pf) (Zofran) (2 mg/mL) injection Intravenous, PRN, Starting on Thu03/23/24 at 0742, Until Thu03/23/24 at 0855, Anesthesia Intra-op, Routine Given 03/23/2024 7:42 AM EDT 4 mg propofoL (Diprivan) (10 mg/mL) infusion Intravenous, CONTINUOUS PRN, Starting on Thu03/23/24 at 0813, Until Thu03/23/24 at 0855, Anesthesia Intra-op, Routine New Bag 03/23/2024 8:13 AM EDT 100 mcg/kg/min 51.48 mL/hr propofoL (Diprivan) 10 mg/mL bolus injection (Anesthesia) Intravenous, PRN, Starting on Thu03/23/24 at 0730, Until Thu03/23/24 at 0855, Anesthesia Intra-op Given 03/23/2024 8:08 AM EDT 50 mg Given 03/23/2024 7:59 AM EDT 50 mg Given 03/23/2024 7:49 AM EDT 50 mg documented in this encounter Care Teams See Wheeler Relationship Specialty Start Date End Date Cristel Layne APRN [address] [place] [address] PCP - General Family Medicine 03/31/22 documented as of this encounter
--- OUTSIDE RECORDS SUMMARY | 2024-04-04 13:56 | XMS_ITS | Encounter Summary ---
Author Organization [facility] [place] [address] Care Team Providers Care Ell Tutor Name Role Phone Cristel Layne APRN Primary Care Provider [phone] Reason for Visit * Consultation (Routine) - Closed Specialty Diagnoses / Procedures Referred By Ok t Referred To Contact Urology Diagnoses Prostate cancer 06/10/22 - NEW DX PROSTATE CANCER Jomar Hensley MD [address] [place] [address] [facility] [place] [address] Referral ID Status Reason Start Date Expiration Date V isits Requested Visits Authorized [id number] Closed Consult, Test & Treat PCP Updated and/or Approved 06/09/2022 06/09/2023 6 6 Encounter Details Date Type Department Care Team (Late st Contact Info) Description 08/21/2022 3:00 PM EST Office Visit Hematology [place] [address] Ming Fry MD [facility] [place] [address] Malignant neoplasm of prostate Social History Tobacco [...] on file documented as of this encounter Progress Notes * Ming Fry MD - 08/21/2022 3:00 PM EST Images from the original note were not included. Patient Name: Vincent Oswald Date of Service: 08/21/2022 Referring Provider: [place] [address] Primary Care Provider: Cristel Layne APRN HPI: Vincent Oswald is a 67 y.o. y/o male here who presents today for evaluation of his newly diagnosed low risk prostate cancer. PSA History: 06/12/2022 - 8.0 Pathology: 06/12/2022 - TRUS Bx DIAGNOSIS CONSULTATION CASE Outside slides labeled [id number]; collection date, 05/23/2022. A - Prostatic core needle biopsy, right mid lateral: ? Microscopic atypical glandular focus, suspicious ? for grade 3 adenocarcinoma. B - Prostatic core needle biopsy, right base lateral: ? Benign prostatic tissue. C - Prostatic core needle biopsy, right base medial: ? Benign prostatic tissue. D - Prostatic core needle biopsy, right mid medial: ? Adenocarcinoma, grade group 1, [place] grade 3+3, ? involving 10% of the biopsy core. E - Prostatic core needle biopsy, right apex lateral: ? Benign prostatic tissue. F - Prostatic core needle biopsy, right apex medial: ? Benign prostatic tissue. G - Prostatic core needle biopsy, left lateral base: ? Adenocarcinoma, grade group 1, [place] grade 3+3, ? involving 25% of the biopsy core. H - Prostatic core needle biopsy, left base medial: ? Adenocarcinoma, grade group 1, [place] grade 3+3, ? involving 10% of the biopsy core. I - Prostatic core needle biopsies, left mid lateral: ? Adenocarcinoma, grade group 1, [place] grade 3+3, ? involving 1 of 2 core needle biopsies (approximately ? 5% of the total tissue submitted). J - Prostatic core needle biopsy, left mid medial: ? Benign prostatic tissue. K - Prostatic core needle biopsy, left apex lateral: ? Microscopic atypical glandular focus, suspicious ? for grade 3 adenocarcinoma. L - Prostatic core needle biopsy, left apex medial: ? Adenocarcinoma, grade group 1, Wilbur grade 3+3, ? involving 15% of the biopsy core. CR-0 Pertinent Imaging Studies, independently reviewed by myself and results discussed with the patient: 04/16/2022 - mpMRI showed a P5 leison in the posterior mid gland He is here to discuss treatment options. He has bothersome LUTS (frequency / urgency) Prostate IPSS and DIOGO(Pt Entered): last 5 values Prostate Today's Scores 07/21/2022 Sexual Health Inventory for Men 12 (Mild to Moderate ED) International Prostate Symptom Score 14 (Moderate LUTS) Appetite is good weight is stable. There is no bone pain. Past Medical History: Past Medical History: Diagnosis Date ??? HTN (hypertension) ??? Hypercholesteremia ??? Hyperlipemia ??? Prostate cancer ??? Syncope ??? Tubular adenoma Past Surgical History: Past Surgical History: Procedure Laterality Date ??? COLONOSCOPY 08/14/2017 ??? KNEE ARTHROPLASTY Right ??? SOFT TISSUE BIOPSY gynecomastia Family History: There is no family history of prostate cancer or other urologic malignancies. Social History: Social History Tobacco Use ??? Smoking status: Never ??? Smokeless tobacco: Never Vaping Use ??? Vaping Use: Never used Substance Use Topics ??? Alcohol use: Yes Alcohol/week: 1.0 standard drink Types: 1 Shots of liquor per week Comment: rum, 2-3 drinks a night ??? Drug use: Never Medications: Reviewed in EMR Allergies: Reviewed in EMR Systems review: REVIEW OF SYSTEMS 07/21/2022 Constitutional Weight gain Ear / nose / throat / mouth None of the above Eyes None of the above Respiratory None of the above Cardiovascular None of the above Gastrointestinal None of the above Skin, hair Dry skin Musculoskeletal Joint stiffness Neurological None of the above Hematologic / Lymphatic None of the above Genitourinary Frequent urination, Sexual problems, Dribbling, Decreased urinary flow Physical Exam: Vital Signs are reviewed. The patient appears healthy and in no distress. The skin is normal. Lab: Pertinent lab values are reviewed in the EMR and are per the HPI above. These were reviewed with the patient. Impression: #1: Low risk prostate cancer (Wilbur 3+3, PSA 8, cT1c) though fairly discrete tumor on mpMRI #2: Moderate LUTS #3: Minimal co-morbidity Plan: # Genomics with with Dr. Stein # If reassuring then I am OK with survellance +/- outlet surgery for LUTS # If genomics are concerning then recommend Surgery (RALP) vs TURP +EBRT I had a very lengthy and thorough discussion with Vincent Oswald regarding the characteristics of his cancer and the risks, benefits, rationale, implications and alternatives of the various management options. We either discussed or I gave access via [facility] to the below counseling information We spent the bulk of our time discussing three major options, which include radical prostatectomy, radiation therapy, and active surveillance with delayed curative intent. We discussed the rationale of radical prostatectomy performed via either a robotic or open technique. The concepts of the surgery are removal of the pelvic lymph nodes and prostate, with nerve-sparing as deemed appropriate. These have both diagnostic and therapeutic intent. When performed robotically it is through six small incisions and a 2.5 - 4 hour surgery associated with minimal blood loss, an overnight hospital stay, and 5-7 days of Johnson catheterization. Major risks of the surgery are rare but do include bleeding, infection, adjacent organ injury, lymphocele, positive margins, severe pain and standard operative risks such as myocardial infarction, stroke, DVT, pneumonia, PE and even a 0.2% chance of . We also discussed urinary incontinence following surgery. Approximately 10-20% of men will have nearly complete control of their urination when the catheter is removed, the median time to recovery is approximately 3-4 months but can take up to 12-18 months. Based on national data, approximately 85-90% of men will have control good urinary control at 2 years (may require safety pad etc. but are generally happy with voiding). In regards to sexual function, I explained the median time to recovery of functional erections is 6-8 months but can take up to 18 months. At 18 months following surgery, approximately 50% of men with quality erections prior to surgery who undergo aggressive bilateral nerve-sparing will have functional erections with or without medical therapy. Following surgery the PSA is expected to remain undetectable but if it does rise there is the possibility of salvage curative radiation therapy, if deemed appropriate. We also discussed the rationale of radiation therapy, which can be delivered via brachytherapy, external beam radiation therapy, or proton beam therapy. There is an excellent track record of success but can be associated with potential side effects which include urinary urgency, frequency, urethralstricture as well as the potential for erectile dysfunction and rectal irritation or frequency of jani wel movements. I explained there is an approximately 2% chance of serious bladder or rectal toxicity as well as a very low risk of inducing a secondary malignancy. The potential downside of radiationis the lack of complete pathologic review and lack of reliable salvage curative options. Active surveillance was described as a reasonable management strategy which has been associated with excellent short and intermediate term cancer control. The concept is to closely follow the cancer and intervene as needed at any meaningful sign of increased tumor volume or increased grade. Severalstudies have suggested delayed treatment has been associated with similar oncologic outcomes to immediate treatment in properly selected patients. Approximately 5% of patients per year require an intervention and discontinue active surveillance. I explained there is consistent data showing a 98% cancer-specific survival at 10 years following the diagnosis and in Very Low Risk patients there is less than 1% risk of progression to metastatic disease at 15 years but halfway data beyond this is not currently available. He understands there is a low but real chance of missing his window of curative opportunity. Lastly we discussed the rationale of a re-biopsy of his prostate if he is interested in this approach since approximately 20-30% of patients will have higher grade or higher volume disease which exclude them from considering active surveillance. At the completion of our discussion, multiple questions were answered to the best of my ability. Heappears to be very well informed about his cancer as well as the options. I explained to him there is no reynolds in making a decision, and the most important thing is that he feels comfortable and educated regarding his options and ultimate choice. I answered all the patient's questions to the best of my ability and he is satisfied with the plan as outlined above. I will be in touch with him regarding the above details and he knows that he can contact me at any time with any questions or concerns. documented in this encounter Plan of Treatment Scheduled Referrals Name Type Priority Associated Diagnoses Orde r Schedule Referral to Urology Outpatient Referral Routine Prostate cancer Ordered: 06/09/2022 documented as of this encounter Visit Diagnoses Diagnosis Malignant neoplasm of prostate documented in this encounter Care Teams Ell Tutor Relationship Specialty Start Date End Date Cristel Layne APRN [address] [place] [address] PCP - General Family Medicine 03/31/22 documented as of this encounter
--- OUTSIDE RECORDS SUMMARY | 2024-04-04 13:56 | XMS_ITS | Encounter Summary ---
Author Organization [facility] Address [facility] [place] [address] Care Team Providers Care Police Chief Deputy Name Role Phone Cristel Layne APRN Primary Care Provider [phone] Encounter Details Date Type Department Care Team (Latest Contact Info) Description 06/12/2022 4:41 PM EST - 06/12/2022 11:59 PM EST Hospital [place] [address] Discharge Disposition: Home Social History Tobacco Use Types Packs/Day Years Used Date Smoking Tobacco: Never Assessed Sex and Gender Information Value Date Recorded Sex Assigned at Not on file Gender Identity Not on file Sexual Orientation Not on file documented as of this encounter Medications at Time of Discharge Medication Sig Dispensed Refills Start Date End Date tamsulosin (Flomax) 0.4 mg Capsule Take 0.4 mg by mouth daily. 04/24/2022 03/23/2024 documented as of this encounter Plan of Treatment Not on file documented as of this encounter Procedures Procedure Name Priority Date/Time Associated Diagnosis Comments SURGICAL PATHOLOGY REPORT Routine 06/12/2022 4:41 PM EST documented in this encounter Results * Surgical Pathology Report (06/12/2022 4:41 PM EST) Final Diagnosis [id number] ? Location: [facility] The signing pathologist has (i) examined the relevant preparation(s) for the specimen(s) and (ii) rendered or confirmed the diagnosis(es). . ?Surgical Pathology DIAGNOSIS CONSULTATION CASE Outside slides labeled [id number]; collection date, 05/23/2022. A - Prostatic core needle biopsy, right mid lateral: ?Microscopic atypical glandular focus, suspicious ?for grade 3 adenocarcinoma. B - Prostatic core needle biopsy, right base lateral: ?Benign prostatic tissue. C - Prostatic core needle biopsy, right base medial: ?Benign prostatic tissue. D - Prostatic core needle biopsy, right mid medial: ?Adenocarcinoma, grade group 1, Goehner grade 3+3, ?involving 10% of the biopsy core. E - Prostatic core needle biopsy, right apex lateral: ?Benign prostatic tissue. F - Prostatic core needle biopsy, right apex medial: ?Benign prostatic tissue. G - Prostatic core needle biopsy, left lateral base: ?Adenocarcinoma, grade group 1, Wilbur grade 3+3, ?involving 25% of the biopsy core. H - Prostatic core needle biopsy, left base medial: ?Adenocarcinoma, grade group 1, Goehner grade 3+3, ?involving 10% of the biopsy core. I - Prostatic core needle biopsies, left mid lateral: ?Adenocarcinoma, grade group 1, Wilbur grade 3+3, ?involving 1 of 2 core needle biopsies (approximately ?5% of the total tissue submitted). J - Prostatic core needle biopsy, left mid medial: ?Benign prostatic tissue. K - Prostatic core needle biopsy, left apex lateral: ?Microscopic atypical glandular focus, suspicious ?for grade 3 adenocarcinoma. L - Prostatic core needle biopsy, left apex medial: ?Adenocarcinoma, grade group 1, Wilbur grade 3+3, ?involving 15% of the biopsy core. CR-0 Electronically signed by: ?Pietro SPENCER, Alirio Robbins Verified: ??06/23/2022 14:03 ??Pathologist Performed at: ??-[facility] Dept. of Pathology, [place] [address] Electrician Outside: Giles Paz MD, FCAP, ??CLIA Certificate: [id number] . DISCUSSION Scanned slides: [id number] D1-2 [id number] G1-2 [id number] H1-2 [id number] I1-2 [id number] K1-2 [id number] L1-2 SPECIMEN(S) SUBMITTED CONSULTATION CASE A - 26 slide(s) labeled [id number], collection date 05/23/2022. [id number] CARBON COPY: [facility] Surgical Pathology Department [facility], [facility], [address]nd Floor [address] [place], [place] ??[address] CLINICAL INFORMATION Elevated PSA 9.9 with abnormal prostate MRI right posterior lateral SPECIMEN PROCESSING [facility] ([facility]) pathology slide(s) are reviewed. ??Refer to Diagnosis and Specimen Submitted for specific case information. For the full text of the [facility] report(s) please refer to Non-DH Documentation Pathology in the electronic health record (eDH). 06/23/2022 2:03 PM EST [facility] Consult Case 06/12/2022 4:41 PM EST 06/12/2022 4:41 PM EST Joshua Stein MD PATHOLOGY/CYTOLOGY O RDERAISABEL Performing Organization Address City/State/[facility] Co de Phone Number [facility] [place] [phone] documented in this encounter Visit Diagnoses Not on filedocumented in this encounter Care Teams Police Chief Deputy Relationship Specialty Start Date End Date Cristel Layne APRN [address] [place] [address] PCP - General Family Medicine 03/31/22 documented as of this encounter
--- OUTSIDE RECORDS SUMMARY | 2024-04-04 13:56 | XMS_ITS | Encounter Summary ---
Author Organization [facility] Address [facility] [place] [address] Care Team Providers Care Upholsterer Inside Name Role Phone Roverto Cristeljohn paul Grajeda APRN Primary Care Provider [phone] [phone] Encounter Details Date Type Department Care Team (Latest Contact Info) Description 02/15/2024 Travel Social History Tobacco Use Types Packs/Day [...] place to sleep or slept in a intermediate (including now)? No 07/21/2022 Sex and Gender Information Value Date Recorded Sex Assigned at Not on file Gender Identity Not on file Sexual Orientation Not on file documented as of this encounter Plan of Treatment Not on file documented as of this encounter Visit Diagnoses Not on filedocumented in this encounter Care Teams Upholsterer Inside Relationship Specialty Start Date End Date Cristel Layne APRN [address] [place] [address] PCP - General Family Medicine 03/31/22 documented as of this encounter
--- OUTSIDE RECORDS SUMMARY | 2024-04-04 13:56 | XMS_ITS | Encounter Summary ---
Author Organization [facility] [place] [address] Care Team Providers Care Concrete Pouring Supervisor Name Role Phone Roverto Cristel Nicci GREEN Primary Care Provider [phone] [phone] Encounter Details Date Type Department Care Team (Late st Contact Info) Description 12/12/2022 [place] [id number] Ming Fry MD [facility] [place] [address] Social History Tobacco Use Types Packs/Day Years [...] place to sleep or slept in a prison (including now)? No 07/21/2022 Sex and Gender Information Value Date Recorded Sex Assigned at Not on file Gender Identity Not on file Sexual Orientation Not on file documented as of this encounter Miscellaneous Notes * Telephone Encounter - Padmini Turner - 12/12/2022 9:04 AM EDT PT called and stated he would like to postpone as he is going to be another bx with Dr. Olsen at end of summer and then go from there. He was supposed to be on for a Robotic Prostatectomy on 12/24. I am cancelling surgery at this time. Padmini documented in this encounter Plan of Treatment Not on file documented as of this encounter Visit Diagnoses Not on filedocumented in this encounter Care Teams Concrete Pouring Supervisor Relationship Specialty Start Date End Date Cristel Layne APRN [address] [place] [address] PCP - General Family Medicine 03/31/22 documented as of this encounter
--- OUTSIDE RECORDS SUMMARY | 2024-04-04 13:56 | XMS_ITS | Encounter Summary ---
Author Organization [facility] Address [facility] [place] [address] Care Team Providers Care Reliability Specialist Name Role Phone Roverto Cristeljohn paul Grajeda APRN Primary Care Provider [phone] [phone] Encounter Details Date Type Department Care Team (Latest Contact Info) Description 07/21/2022 Travel Social History Tobacco Use Types Packs/Day [...] place to sleep or slept in a senior living (including now)? No 07/21/2022 Sex and Gender Information Value Date Recorded Sex Assigned at Not on file Gender Identity Not on file Sexual Orientation Not on file documented as of this encounter Plan of Treatment Not on file documented as of this encounter Visit Diagnoses Not on filedocumented in this encounter Care Teams Reliability Specialist Relationship Specialty Start Date End Date Cristel Layne APRN [address] [place] [address] PCP - General Family Medicine 03/31/22 documented as of this encounter
--- OUTSIDE RECORDS SUMMARY | 2024-04-04 13:56 | XMS_ITS | Encounter Summary ---
Author Organization [facility] [place] [address] Care Team Providers Care Dynamite Cartridge Crimper Name Role Phone Cristle Layne APRN Primary Care Provider [phone] Reason for Visit * Consultation (Routine) - Closed Specialty Diagnoses / Procedures Referred By Contac t Referred To Contact Radiation Oncology Diagnoses Malignant neoplasm of prostate Malignant neoplasm of prostate Procedures consultation Jomar Hensley MD [address] [place] [address] St Rad Onc Office [address] [place] [phone] Referral ID Status Reason Start Date Expiration Date Visits Re quested Visits Authorized [id number] Closed 06/09/2022 06/09/2023 1 1 Encounter Details Date Type Department Care Team (Late st Contact Info) Description 07/21/2022 1:30 PM EST Office Visit Radiation Oncology at [address] [phone] Joshua Stein MD [address] [place] [address] [place] [address] Malignant neoplasm of prostate Social History Tobacco Use Types Packs/Day Years Used Date Smoking Tobacco: Never Smokeless Tobacco: Never Tobacco Cessation:Counseling Given: Not Answered Alcohol Use Standard Drinks/Week Comments Yes 1 [...] place to sleep or slept in a long-term (including now)? No 07/21/2022 Sex and Gender [...] - Inhaled Oxygen Concentration - - Weight 106.8 kg (235 lb 6.4 oz) 07/21/2022 1:00 PM EST Height - - Body Mass Index - - documented in this encounter Patient Instructions * Patient Instructions* Joshua Stein MD - 07/21/2022 1:30 PM EST Images from the original note were not included. Dear Mr. Oswald, Dr. Hensley asked for me to see you to discuss how radiation therapy can be used to treat your prostate cancer and this note is to recap our discussion regarding use of radiation treatments. As your radiation oncologist, I work closely with your other healthcare providers and most importantly, with you to make sure that the treatments we discuss and offer keep your personal preferences and goals in mind. We discussed the following next steps as part of your cancer evaluation and/or treatment: 1. The aggressiveness of your prostate cancer: You technically have low risk prostate cancer, which is a risk given to your cancer of coming back after treatment. This is based on three things 1. Your PSA (the blood test) was 9.9. PSA values below 10 are considered low risk and 10-20 are considered medium risk. 2. Your highest Keyser Group score was 1 (this is how aggressive your prostate cancer looks under the microscope). Keyser scores for cancer range from 1-5, and 1 is considered lowest risk, while 5 is highest risk. 3. How aggressive your prostate cancer felt when Dr. Hensley did the prostate exam (through the rectum) and how it looked on the MRI. He did not feel any cancer at all or see any evidence of cancer beyond the edge of the prostate. 2. Treatment Options for Low Risk prostate cancer: Overall, the decision to treat prostate cancer is based on both the risk that the cancer can kill you and your general overall health. There are several treatment options to consider, all with various advantages and disadvantages. A. One option is called 'active surveillance,' which means closely following your prostate cancer and treating it only if it becomes more aggressive. A typical active surveillance approach would involve repeated rectal exams (yearly) and PSA's (at least twice yearly), repeated biopsies (every 2 years or so, likely with an MRI). We would then watch your PSA closely and if it begins to rise quickly, if the rectal exam shows a prostate nodule, or if future biopsies show more aggressive disease, treatment would be offered and more strongly recommended than it is today. The benefit to this approach is that your prostate cancer may never become aggressive enough to shorten or even negatively impact your life. Avoiding treatment could spare you the side effects (and hassle) of going through radiation or surgery. If you are uncertain about proceeding with surveillance we could order a genetic test called [employer] Sport Highlights that gives us a score of 0-1 of how aggressive your prostate cancer seems to be. A lower score would be reassuring that we can safely watch this cancer. This is usually (but not always) covered by insurance, and costs about $400. If you choose to proceed with surveillance, the next step would be for me to refer you either back to Dr Hensley or to the Active Surveillance Clinic at [facility], which is run by our prostate cancer surgeons. B. External beam radiation or surgery: If you decline active surveillance and wish to pursue treatment, both radiation and surgery are excellent options with cure rates >90%. Our meeting here today is to review the external beam radiation option offered here, which involves daily radiation treatments, 5 days a week M- F for 5.5 weeks. C. Radioactive seed implants (brachytherapy): While the form of radiation which we offer here involves shooting radiation into your prostate from the outside, I can refer you to my colleague Dr. Mead in [place], who specializes in the placement of radioactive seeds into the prostate, which kitty one-time procedure. D. SBRT (radiosurgery): This is a relatively new way to treat prostate cancer, which involves just 5 very high dose radiation treatments. Side effects might be slightly higher with this treatment as compared to the 5.5 week approach. 3. Fiducial Marker and SpaceOAR gel implants: If you choose external beam radiation treatments, thefirst step is for you to return to our clinic so that we can place small gold markers (called fiducials) into the prostate, which help us visualize the prostate on a daily basis prior to treating youwith radiation. These small gold seeds are about the size of a grain of rice, and we will place oneinto each side of the prostate. At the same time as placing the prostate fiducial markers in your prostate, I will implant a gel called SpaceOAR, which involves an injection of the gel into the space between the prostate and rectum, to decrease the amount of radiation that goes to the rectum. These procedures will be performed here in our clinic, and our nursing team will provide you instructions with how to prepare yourself. 4. Radiation Therapy and Planning: Radiation therapy involves using high energy radiation which kills cancer but also normal healthy tissues. In order to make sure the radiation goes to the canceroustissues and to also avoid radiating the normal tissues, we design radiation beams beams into special shapes which come from various different directions. Because no two people and no two cancers are completely identical, the radiation plan we create for you will be unique to you and your body. In order to figure out how many beams to use, how much radiation to give, which angles they should come from, and how they should be shaped, we have asked you to undergo 2 mapping scans: one is done here in our department known as a CT simulation, or CT sim, for short. This is essentially a CAT-scan similar to scans which you may have received before, but slightly different in a few ways: First, it allows us to place you in the exact same position which you should expect to be placed during each of your radiation treatment sessions. Second, it lets us better understand where the radiation targets and the normal tissues that we want to avoid exist, in relation to each other and the radiation beams. The second scan is a prostate MRI which we do at [facility], that allows us to better see your prostate. Following these scans, we then perform additional calculations and measurements to create the absolute best plan possible for you. Depending on the complexity of the plan, these processes can take from just few hours to several days, and for that we ask for your patience. If you have any questions about the planning process or your custom radiation plan, I would be more than happy to review the plan with you during your first week of treatment. I anticipate you would receive 28 treatments total, daily Thursday-Thursday for 5.5 weeks. Your start date and time would be provided once the simulation scan is completed. During your radiation treatments, you can expect to see me once per week so that I can examine you to make sure you are tolerating radiation treatments and so that we can monitor your response to treatment. 5. Short Term Toxicity (Side Effects) of Radiation: We discussed some common temporary side effectsthat you may experience during radiation. Common side effects may include irritative symptoms of the bladder or prostate, which can result in more frequent urination or defecation. Other common side effects mahy include weakened urinary stream or burning with urination. If you experience any of these, please let us know so that we can help to treat them. These typically resolve within 4-6 weeks of completion radiation. 6. Senior Living Complications: These are more worrisome and are due to permanent damage of the radiated tissues, including the rectum/bowel, bladder, prostate and surrounding tissues. Potential serious injury is rare, but can include poor wound healing, bleeding, or destruction of healthy tissue that may require surgery to repair and may result in a colostomy (bag for defecation) or urostomy (bag for urination). There may be a slow, chcf decrease in your sexual function as well, which is partly due to the aging process but also partly due to radiation side effects. This is typically responsive to medications like Viagra. Finally, there is a risk that radiation to your prostate increases the chance of getting another cancer caused by radiation, possibly of the prostate, bladder, rectum or surrounding tissues. This risk is overall quite low (approximately 1% above your normal risk for each 10 years you are alive), but is something to be aware of. 7. Hormone therapy: For low risk prostate cancers such as yours, I do not routinely recommend a course of anti-testosterone therapy. However for patients with a PSA of 10 or higher (which you are very close to) and for patients with a large prostate, a short course of anti-testosterone treatment may be helpful in terms of increasing the effectiveness of radiation treatment and decreasing risk of urinary side effects described above. Another reason to consider anti- testosterone therapy may be based on Decipher testing (if you choose to do it), as a higher risk score would suggest you have a more aggressive prostate cancer than what we are seeing on biopsy and hormonal therapy would be helpful in treating it. A short course of anti testosterone therapy typically involves about 4-6 months of treatment, typically starting 2-3 months before radiation. This is usually given as a shot that lasts for 1 month at a time. The reason we recommend this is that the male hormone testosterone is used by prostate cancer as a fuel. By decreasing the body's production of testosterone, we can 'starve' the prostate cancer. The main side effects of hormone therapy include hot flashes, night sweats, weight gain, depressed mood, loss of sexual interest and impotence. There is also a very low risk of heart attack among men who have recently had a heart attack. These side effects usually reverse within 3-6 months of stopping the hormone therapy when testosterone recovers, although it can take up to a full year. Please do not hesitate to call me at [phone] with any other questions or concerns you have. IfI am not here, one of our radiation oncology nurses can assist you or help you get in touch with me. A Radiation Oncology doctor is also labor relations analyst after our normal hours and on weekends for urgent questions or concerns related to radiation treatments that can not wait until normal business hours. To reach the on-call doctor after-hours, just call and have the boom conveyor operator page the Radiation Oncologist labor relations analyst. And, as always, if you experience any life-threatening emergencies which any include the following,you need to seek emergency care immediately by calling 911: 1. Sudden and unexpected breathing difficulty without any exertion 2. Sudden onset of chest pain 3. Sudden onset of severe pain or uncontrolled pain 4. Sudden onset of severe weakness and/or unable to walk 5. Sudden new onset of a seizure 6. Fall resulting in injury 7. Uncontrollable bleeding Sincerely, Joshua Stein MD, MS Radiation Oncology documented in this encounter Progress Notes * Joshua Stein MD - 07/21/2022 1:30 PM EST Images from the original note were not included. Radiation Oncology Prostate Cancer Consult Note Joshua Stein MD, MS [facility] [phone] PATIENT IDENTIFICATION: PATIENT NAME: Vincent Oswald DATE OF : 1955 REFERRING PROVIDER: Jesus Hensley MD PRIMARY CARE PROVIDER: Cristel Layne APRN REASON FOR CONSULTATION : Cancer Staging Malignant neoplasm of prostate Staging form: Prostate, AJCC 8th Edition - Clinical: Stage I (cT1c, cN0, cM0, PSA: 9.9, Grade Group: 1) - Signed by Joshua Stein MD on 07/20/2022 HISTORY OF PRESENT ILLNESS: Vincent Oswald is a 67 y.o. male recently diagnosed with a low-risk prostate cancer. Presenting Symptoms / Duration: ePSA Prior consultations / recommendations: Dr Hensley office visit 06/06/22 - [facility] unremarkable; Patient would be a candidate for any of our definitive therapies including RP, EBRT or possibly even brachytherapy.... We also discussed an protocol. PSA History: 06/03/21 - 8.0 03/12/22 - 9.9 Pathology Results / Location: TRUS bx 05/23/22 Gl 3+3 x 5 (Bilat) Pertinent Imaging Studies: mpMRI 04/16/22 110 cc gland P5 lesion right / post / medial / mid PZ Gr1 risk HORACE, no LAD/SVI Vincent is here today to discuss radiation therapy for treatment of his recently diagnosed prostate cancer. REVIEW OF SYSTEMS: REVIEW OF SYSTEMS 07/21/2022 Constitutional Weight gain [...] urination, Sexual problems, Dribbling, Decreased urinary flow He has a lot of daytime urinary frequency / urgency which he finds very bothersome due to its impact on social functioning. He states that Dr Hensley has tested a PVR which showed that he able to void completely. Most recent colonoscopy was 2018. A comprehensive 14 point review of systems was conducted with this patient and is otherwise negative except as documented above. Baseline DIOGO and IPSS are as below: Prostate Scores and Responses 07/21/2022 Confidence, level - past 6 months Low Penetration - past 6 months Sometimes (about half the time) Penetration, maintain - past 6 months Sometimes (about half the time) Erection, maintain - past 6 months Difficult Sexual satisfaction - past 6 months Almost never or never Sexual Health in Men 12 (MILD TO MODERATE ED) Incomplete emptying Not at all Frequency More than half the time Intermittency Less than 1 time in 5 Urgency More than half the time Weak Stream More than half the time Straining Not at all Nocturia 1 time Quality of life Mixed - about equally satisfied and dissatisfied Total IPSS Score 14 (MODERATE LUTS) EPIC-PC Responses 07/21/2022 Urinary Incontinence Symptom Score 2 Urinary Irritation/Obstructive Symptom Score 2 Bowel Symptom Score 0 Vitality/Hormonal Symptom Score 0 Overall Prostate Cancer QOL Score 4 Urinary function problem Small problem Urinary control Occasional dribbling Urinary dripping/leakage problem Very small problem Weak urine stream/incomplete bladder emptying Small problem Rectal pain or urgency of bowel movements No problem Overall problems with your bowel movements No problem Bloody stools No problem Ability to reach orgasm Poor Quality of your erections Firm enough for masturbation and foreplay Problem with sexual function or lack of it Moderate problem Hot flashes or breast tenderness/enlargement No problem Feeling depressed No problem Lack of energy No problem PAST MEDICAL HISTORY Past Medical History: Diagnosis Date ??? HTN (hypertension) ??? Hypercholesteremia ??? Hyperlipemia ??? Prostate cancer ??? Syncope ??? Tubular adenoma Past Surgical History: Procedure Laterality Date ??? COLONOSCOPY 08/14/2017 ??? KNEE ARTHROPLASTY Right ??? SOFT TISSUE BIOPSY gynecomastia CONTRAINDICATIONS TO RADIATION THERAPY: None ?? Prior radiation therapy: No ?? Active Lupus: No ?? Systemic Scleroderma: No MEDICATIONS / ALLERGIES: Medications 07/21/22 1341 Medication Sig Taking? tamsulosin (Flomax) 0.4 mg Capsule Take 0.4 mg by mouth nightly. Yes allopurinoL (Zyloprim) 100 mg Tablet Take 100 mg by mouth every 4 hours as needed. Allergies Allergen Reactions ??? Lisinopril Other (See Comments) Lip Swelling ??? Terazosin ??? Losartan Rash SOCIAL HISTORY: [place]: [facility] Living Situation: Lives w g/f Transit [facility] to [facility]: 10 mins Employment history: Retired building supplies salesperson retail Smoking: Never Alcohol 3-4 rum cocktails / nt, more socially Illicits: Denies FAMILY HISTORY: Family History Problem Relation Age of Onset ??? Heart Disease Mother ??? Lung Cancer Father PHYSICAL EXAM Wt 106.8 kg (235 lb 6.4 oz) General: alert, well appearing, and in no distress sitting in exam room by himself [facility]: deferred TODAY'S PERFORMANCE STATUS: KPS Score ECOG Grade Definition XX 90-100 0 Fully active, able to carry on all pre-disease performance without restriction 70-80 1 Restricted in physically strenuous activity but ambulatory and able to carry out work of a light or sedentary nature, e.g., light house work, office work 50-60 2 Ambulatory and capable of all selfcare but unable to carry out any work activities; up and about more than 50% of waking hours 30-40 3 Capable of only limited selfcare; confined to bed or chair more than 50% of waking hours 10-20 4 Completely disabled; cannot carry on any selfcare; totally confined to bed or chair ASSESSMENT / PLAN: Vincent Oswald is a 67 y.o. man diagnosed with low-risk prostate cancer ([id number], Gl 3+3, PSA 9.9). Staging is complete though he has bothersome daytime LUTS. Today we reviewed the risks, benefits, rationale, implications and alternatives of the various management options, which include radical prostatectomy, radiation therapy, and active surveillance withdelayed curative intent. Regarding the latter, I reviewed details similar to Dr Hensley including molecular testing, a surveillance schedule, which would involve serial PSA and repeat biopsies in 1-2 years. He has a referral to see our surgeons - an appt w them is still pending, so we spent the remainder of the discussion focusing on radiation therapy. With regard to his radiation options, I reviewed primarily a course of moderately hypofractionated RT to the prostate if not standard fractionated therapy given his large gland size and LUTS. For those reasons, SBRT and brachytherapy were not discussed as first line treatment due to risk of added mo rbidity. A short course of ADT was discussed for prostate down-sizing prior to any radiotherapy. In the short term, I reviewed the common irritative bowel and bladder side effects associated with all forms of radiotherapy. In the chcf, I explained there is an approximately 2% chance of serious bladder or rectal toxicity as well as a very low risk of inducing a secondary malignancy. I alsoreviewed that with radiation there are few reliable salvage curative options. Logistics of external beam treatment were also reviewed, including the role of fiducial marker placement possibly with spaceOAR hydrogel placement (given risk of HORACE), simulation, and treatment. Logistics of brachytherapy were also reviewed, including the fact that I would refer his case to my collegue, Dr Mead at [facility] who routinely performs these implants. I also reviewed the role of short-term ADT and side effects associated with this treatment (per theresults of RTOG 0815). His PSA is technically on the border between low and medium risk disease, but given his gland size and LUTS at present a short course of ADT may lessen his risk of RT morbidity. We also discussed use of Decipher to assess molecular risk. If it returns as medium to high risk it would add further rationale to a short course of ADT. We reviewed side effects which can occur, including diminished libido, hot flashes, weight gain, mood swings, depression and/or osteoporosis. Clinical trials were also reviewed briefly. He is not a candidate for any currently open trials at [facility]. On balance, Vincent wishes to proceed with Decipher and likely a surveillance approach. Follow-up appointments will be made accordingly. He is also willing to meet with our urology team. He seems to be leaning towards a surveillance approach and if he does not receive RT would like to trial finasteride for prostate cytoreduction and improvement in LUTS. I discussed that it would be prudent to recheck PSA before starting this medication given it will depress his PSA going forward. All of his questions were answered to his satisfaction, and we have provided him with our contact information should any further questions or concerns arise. SUMMARY OF PLAN / RECOMMENDATION: 1. Intent of therapy: Curative 2. Clinical Trial Availability: No 3. Decipher --> RV to review results 4. Recheck PSA --> start proscar 5. Urology consultation Time Attestation: I certify spending at least 60 minutes in providing care to this patient today, 07/21/22 as reflected by the following activities: - review of his medical record in the chart, including interpretation of imaging, laboratory and pathologic studies referenced above - discussion of the above with the patient as part of shared medical decision making - documenting the outcome of today's visit as above JOSHUA STEIN MD, MS * Monse Reed RN - 07/21/2022 1:30 PM EST RADIATION ONCOLOGY NURSING INITIAL NURSING ASSESSMENT IDENTIFICATION: Vincent Oswald is a 67 y.o. year-old male with Proste Ca PRESENTING SYMPTOMS/CHIEF COMPLAINT: REVIEW OF SYSTEMS: Review of Systems - Oncology REVIEW OF SYSTEMS 07/21/2022 Constitutional Weight gain [...] urination, Sexual problems, Dribbling, Decreased urinary flow IN THE PAST 12 MONTHS HAVE YOU: Fallen more than one time? No Injured yourself as result of the fall? No Experienced difficulty with walking/problems with balance? No Do you use any assistive devices? No Any history of collagen vascular diseases:No Any Implanted Devices/Hardware: No If yes please put alert in ARIA patient summary Prior Radiotherapy: No Prior Chemotherapy: No Prior Hormone Therapy: No Other: Patient denies history of Scleroderma and Lupus LEARNING ASSESSMENT REVIEWED: Yes ADVANCED DIRECTIVE: Not discussed today. PAIN ASSESSMENT: [0] out of 10 *eD-H Adult PCS Flow Sheet if 4 or above SOCIAL ASSESSMENT: See [facility] social assessment information entered. Support Systems: yes, daughters Barriers to treatment: None Referrals/Interventions: damper worker visit on day per routine. RADIATION SPECIFIC TEACHING:Will provide the following information on day [facility] Radiation Therapy and You Site specific teaching : Other: PLAN: Per Answers for HPI/ROS submitted by the patient on 07/21/2022 Distress: 3 documented in this encounter Plan of Treatment Not on file documented as of this encounter Visit Diagnoses Diagnosis Malignant neoplasm of prostate documented in this encounter Care Teams Dynamite Cartridge Crimper Relationship Specialty Start Date End Date Cristel Layne APRN [address] [place] [address] PCP - General Family Medicine 03/31/22 documented as of this encounter
--- OUTSIDE RECORDS SUMMARY | 2024-04-04 13:56 | XMS_ITS | Encounter Summary ---
Author Organization [facility] Address [facility] [place] [address] Care Team Providers Care District Sales Representative Name Role Phone Roverto Cristeljohn paul Grajeda APRN Primary Care Provider +1 [phone] Encounter Details Date Type Department Care Team (Latest Contact Info) Description 02/18/2024 Travel Social History Tobacco Use Types Packs/Day [...] place to sleep or slept in a detention (including now)? No 07/21/2022 Sex and Gender Information Value Date Recorded Sex Assigned at Not on file Gender Identity Not on file Sexual Orientation Not on file documented as of this encounter Plan of Treatment Not on file documented as of this encounter Visit Diagnoses Not on filedocumented in this encounter Care Teams District Sales Representative Relationship Specialty Start Date End Date Cristel Layne APRN [address] [place] [address] PCP - General Family Medicine 03/31/22 documented as of this encounter
--- OUTSIDE RECORDS SUMMARY | 2024-04-04 13:56 | XMS_ITS | Encounter Summary ---
Author Organization [facility] Address [facility] [place] [address] Care Team Providers Care Managing Jeweler Name Role Phone Cristel Layne APRN Primary Care Provider [phone] [phone] Encounter Details Date Type Department Care Team (Late st Contact Info) Description 09/11/2022 1:00 PM EST TH Visit (TeleHealth) Radiation Oncology at [address] [address] Joshua Stein MD [address] [place] [address] [place] [address] Malignant neoplasm of prostate Social [...] place to sleep or slept in a assisted (including now)? No 07/21/2022 Sex and Gender Information Value Date Recorded Sex Assigned at Not on file Gender Identity Not on file Sexual Orientation Not on file documented as of this encounter Progress Notes * Joshua Stein MD - 09/11/2022 1:00 PM EST Radiation Oncology Telephone Visit ID: Vincent Oswald is a 67 y.o. with low risk prostate cancer ([id number], Gl 3+3, PSA 9.9). I am calling himtoday to discuss results of his Decipher test. Interval Subjective History: Ongoing LUTS, otherwise feels in his USOH Interval Objective History: Decipher 0.45 (medium risk) Assessment/Plan: Discussed that on balance I would recommend treatment, given the slightly elevated Decipher score. Given his ongoing LUTS and large gland size would slightly lean towards RALP over RT. He wants to have a further conversation with Dr Fry to review logistics / timing around surgery. He understands that if surgery is not feasible then we can proceed with RT, though I would recommend ADT for prostate downsizing if not also TURP prior to starting RT. Phone Encounter Attestation: I provided care to Mr. Oswald, who verbally consented to this telephone visit and understands that this visit may be billed, similar to a clinic office visit. Time Attestation: I certify spending at least 30 minutes in providing care to this patient today, 09/10/22 as reflected by the following activities: - review of his medical record in the chart, including interpretation of the laboratory study referenced above - discussion of the above with the patient as part of shared medical decision making - documenting the outcome of today's visit as above documented in this encounter Plan of Treatment Not on file documented as of this encounter Visit Diagnoses Diagnosis Malignant neoplasm of prostate documented in this encounter Care Teams Managing Jeweler Relationship Specialty Start Date End Date Cristel Layne APRN [address] [place] [address] PCP - General Family Medicine 03/31/22 documented as of this encounter
--- OUTSIDE RECORDS SUMMARY | 2024-04-04 13:56 | XMS_ITS | Encounter Summary ---
Author Organization [facility] Address [facility] [place] [address] Care Team Providers Care Vineyard Supervisor Name Role Phone Roverto Cristeljohn paul Grajeda APRN Primary Care Provider [phone] [phone] Encounter Details Date Type Department Care Team (Latest Contact Info) Description 08/21/2022 Travel Social History Tobacco Use Types Packs/Day [...] place to sleep or slept in a [place] [facility] facility (including now)? No 07/21/2022 Sex and Gender Information Value Date Recorded Sex Assigned at Not on file Gender Identity Not on file Sexual Orientation Not on file documented as of this encounter Plan of Treatment Not on file documented as of this encounter Visit Diagnoses Not on filedocumented in this encounter Care Teams Vineyard Supervisor Relationship Specialty Start Date End Date Cristel Layne APRN [address] [place] [address] PCP - General Family Medicine 03/31/22 documented as of this encounter
--- OUTSIDE RECORDS SUMMARY | 2024-04-04 13:56 | XMS_ITS | Encounter Summary ---
[place] [address] Care Team Providers Care Wheat Farmer Name Role Phone Cristel Layen APRN Primary Care Provider [phone] [phone] Reason for Referral * Diagnostic Test (Routine) - Closed Specialty Diagnoses / Procedures Referred By Contac t Referred To Contact Radiology Diagnoses Elevated PSA Procedures MRI Pelvis wwo (Prostate) Viktoriya Hendrickson APRN [address] [place] [address] [place] [address] Referral ID Status Reason Start Date Expiration Date V isits Requested Visits Authorized [id number] Closed Specialty Service Requested 03/31/2022 10/01/2023 1 1 Reason for Visit * Diagnostic Test (Routine) - Closed Specialty Diagnoses / Procedures Referred By Contac t Referred To Contact Radiology Diagnoses Elevated PSA Procedures MRI Pelvis wwo (Prostate) Viktoriya Hendrickson APRN [address] [place] [address] [place] [address] Referral ID Status Reason Start Date Expiration Date V isits Requested Visits Authorized [id number] Closed Specialty Service Requested 03/31/2022 10/01/2023 1 1 Encounter Details Date Type Department Care Team (Latest Contact Info) Description 04/16/2022 5:12 PM EDT - 04/16/2022 11:59 PM EDT [place] [address] RazaimtchazeemViktoriya APRN [address] [place] [address] Elevated PSA Discharge Disposition: Home Social History Tobacco Use Types Packs/Day Years Used Date Smoking Tobacco: Never Assessed Sex and Gender Information Value Date Recorded Sex Assigned at Not on file Gender Identity Not on file Sexual Orientation Not on file documented as of this encounter Plan of Treatment Not on file documented as of this encounter Procedures Procedure Name Priority Date/Time Associated Diagnosis Comments MRI PELVIS WWO (PROSTATE) Routine 04/16/2022 6:55 PM EDT Elevated PSA documented in this encounter Results * MRI Pelvis wwo (Prostate) (04/16/2022 6:55 PM EDT) Anatomical Region Laterality Modality Pelvis Magnetic Resonan ce Impressions 04/17/2022 9:10 AM EDT Lesion 1 PZ: PI-RADS 5. Clinically significant cancer is highly likely to be present. T2 location: axial series 11, image 20; sagittal ??series 10, image 21. Segmented in UroNav. PI-RADS v2.1 Assessment Categories PI-RADS 1 -- Very low (clinically significant cancer is highly unlikely to be present) PI-RADS 2 -- Low (clinically significant cancer is unlikely to be present) PI-RADS 3 -- Intermediate (the presence of clinically significant cancer is equivocal) PI-RADS 4 -- High (clinically significant cancer is likely to be present) PI-RADS 5 -- Very high (clinically significant cancer is highly likely to be present) References: Robby S1, Lluvia JH1, Multani S1, Johnson C1, Carvajal J1, Czarniecki M1, Gold S1, Becerra G1, Rayn K1, Cook MJ1, Wood BJ1, Cortes PA1, Chotrell PL1, Turkbey B1. ??A Grading System for the Assessment of Risk of Extraprostatic Extension of Prostate Cancer at Multiparametric MRI. Radiology. 2019 Mar;290(3):709-719. doi: 10.1148/radiol.3520651530. Epub 2018Aug 24. Thank you for letting us participate in the care of this patient. ??If you are a health care provider and have any questions regarding this report, please contact the number below. ??For patients who have questions please contact the health housekeeper caregiver that requested your imaging first. ? Electronically signed by: Law Portillo MD, [facility] ([phone]), at 04/17/2022 9:10 AM Narrative 04/17/2022 9:10 AM EDT EXAMINATION: MRI PELVIS WWO (PROSTATE) CLINICAL HISTORY: Elevated PSA REASON FOR PROSTATE EXAM: HAS PATIENT HAD PREVIOUS BIOPSY?:No, MOST RECENT PSA LEVEL:9.9 CATHERINE SCORE: TECHNIQUE: Multiparametric MRI of the prostate prior to and following IV administration of 20 cc of Dotarem contrast. ?? QUALITY: Meets PI-RADS technical criteria. COMPARISON: None FINDINGS: Prostate dimensions: 6.3 x 5.8 x 6.5cm. Estimated prostate volume: 110cc (X x Y x Z x 0.52) PSA density: 0.09 (PSA/prostate volume >0.15 susp, 0.25 highly susp) Peripheral zone: Lesion 1. Right posterior medial mid gland T2: Circumscribed, homogenous moderately hypointense mass, 1.6 x 1 cm axially, 1.8 cm craniocaudally. PI-RADs: 5. DWI: ??Focal markedly hypointense on ADC and markedly hyperintense on high b-value DWI. PI-RADs: 5. DCE-MRI: (+) focal early enhancement which corresponds to the suspicious finding on T2WI and/or DWI.. ? Combined PI-RADs: 5. Transition zone: T2: Typical encapsulated and homogenous circumscribed nodules. Median lobe hypertrophy. No focal lesions. Combined PI-RADs: 2. Extraprostatic disease: Seminal vesicle involvement:No Lymphadenopathy:No Sphincter involvement:No Bladder involvement:No Osseous metastases: No . MRI-derived Extraprostatic extension risk: Grade 1: 24.3% (Curvilinear contact length) Other findings: None. Procedure Note Law Portillo MD - 04/17/2022 EXAMINATION: MRI PELVIS WWO (PROSTATE) CLINICAL HISTORY: Elevated PSA REASON FOR PROSTATE EXAM: HAS PATIENT HAD PREVIOUS BIOPSY?:No, MOST RECENT PSA LEVEL:9.9 CATHERINE SCORE: TECHNIQUE: Multiparametric MRI of the prostate prior to and following IV administration of 20 cc of Dotarem contrast. QUALITY: Meets PI-RADS technical criteria. COMPARISON: None FINDINGS: Prostate dimensions: 6.3 x 5.8 x 6.5cm. Estimated prostate volume: 110cc (X x Y x Z x 0.52) PSA density: 0.09 (PSA/prostate volume >0.15 susp, 0.25 highly susp) Peripheral zone: Lesion 1. Right posterior medial mid gland T2: Circumscribed, homogenous moderately hypointense mass, 1.6 x 1 cm axially,1.8 cm craniocaudally. PI-RADs: 5. DWI: Focal markedly hypointense on ADC and markedly hyperintense onhigh b-value DWI. PI-RADs: 5. DCE-MRI: (+) focal early enhancement which corresponds to the suspiciousfinding on T2WI and/or DWI.. Combined PI-RADs: 5. Transition zone: T2: Typical encapsulated and homogenous circumscribednodules. Median lobe hypertrophy. No focal lesions. Combined PI-RADs: 2. Extraprostatic disease: Seminal vesicle involvement:No Lymphadenopathy:No Sphincter involvement:No Bladder involvement:No Osseous metastases: No . MRI-derived Extraprostatic extension risk: Grade 1: 24.3% (Curvilinearcontact length) Other findings: None. IMPRESSION Lesion 1 PZ: PI-RADS 5. Clinically significant cancer is highly likely rock present. T2 location: axial series 11, image 20; sagittal series 10,image 21. Segmented in UroNav. PI-RADS v2.1 Assessment Categories PI-RADS 1 -- Very low (clinically significant cancer is highly unlikely rock present) PI-RADS 2 -- Low (clinically significant cancer is unlikely to bepresent) PI-RADS 3 -- Intermediate (the presence of clinically significant canceris equivocal) PI-RADS 4 -- High (clinically significant cancer is likely to bepresent) PI-RADS 5 -- Very high (clinically significant cancer is highly likely rock present) References: Mekhoa S1, Lluvia JH1, Multani S1, Johnson C1, Carvajal J1, Czarniecki M1,Gold S1, Becerra G1, Raykiya K1, Joey MJ1, Rosalio BJ1, Sebastian PA1, Seng PL1, Grayson B1.A Grading System for the Assessment of Risk of Extraprostatic Extension of Prostate Cancer at Multiparametric MRI. Radiology. 2019Mar;290(3):709-719. doi: 10.1148/radiol.9576326717. Epub 2018Aug 24. Thank you for letting us participate in the care of this patient. If youare a health care provider and have any questions regarding this report,please contact the number below. For patients who have questions please contactthe health housekeeper caregiver that requested your imaging first. Viktoriya Hendrickson APRN [facility] [place] documented in this encounter Visit Diagnoses Diagnosis Elevated PSA Elevated prostate specific antigen (PSA) documented in this encounter Administered Medications Inactive Administered Medications - up to 3 most recent administrations Medication Order MAR Action Action Date Dose Rate Site gadoterate meglumine (Dotarem) (0.5 mMol/mL) injection solution 0-100 mL 0-100 mL, Intravenous, ONCE PRN, 1 dose, Starting on Thu04/16/22 at 2004, Until Thu04/16/22 at 2004, Per Protocol, Radiology Contrast, Routine Given 04/16/2022 8:05 PM EDT 20 mLs documented in this encounter Care Teams Wheat Farmer Relationship Specialty Start Date End Date Cristel Layne APRN [address] [place] [address] PCP - General Family Medicine 03/31/22 documented as of this encounter
--- OUTSIDE RECORDS SUMMARY | 2024-04-04 13:56 | XMS_ITS | Encounter Summary ---
Author Organization [facility] Address [facility] [place] [address] Care Team Providers Care Corporate Technical Recruiter Name Role Phone Cristel Layne APRN Primary Care Provider [phone] [phone] Reason for Visit * Consultation (Routine) - Authorized Specialty Diagnoses / Procedures Referred By Ok little Referred To Contact Urology Diagnoses Lower urinary tract symptoms (LUTS) Unspecified symptoms and signs involving the genitourinary system Malignant neoplasm of prostate Jomar Hensley MD [address] [place] [address] [facility] [place] [address] Referral ID Status Reason Start Date Expiration Date Visits Requested Visits Authorized [id number] Authorized Consult, Test & Treat PCP Updated and/or Approved 11/17/2023 05/18/2024 6 6 Encounter Details Date Type Department Care Team (Late st Contact Info) Description 02/18/2024 1:20 PM EDT Office [place] [address] Vito Charles MD [facility] [place] [address] Benign prostatic hyperplasia, unspecified whether lower urinary tract symptoms present; Malignant neoplasm of prostate Social History Tobacco [...] place to sleep or slept in a halfway (including now)? No 07/21/2022 Sex and Gender Information Value Date Recorded Sex Assigned at Not on file Gender Identity Not on file Sexual Orientation Not on file documented as of this encounter Last Filed Vital Signs Vital Sign Reading Time Taken Comments Blood Pressure 177/96 02/18/2024 1:22 PM EDT Pulse 67 02/18/2024 1:22 PM EDT Temperature - - Respiratory Rate - - Oxygen Saturation - - Inhaled Oxygen Concentration - - Weight - - Height - - Body Mass Index - - documented in this encounter Patient Instructions * Patient Instructions* Vito Charles MD - 02/18/2024 1:20 PM EDT Instructions Prior to Surgery Prior to this procedure it is important to have normal blood clotting. Please discuss with your Primary Care Provider or the provider managing your blood thinner medication(s) listed below, to stop your medications safely before your surgical procedure. Aspirin Coumadin (Warfarin) Plavix (Clopidogrel); Prasugrel (Effient); OR Ticagrelor (Brilinta) Xarelto (Rivaroxaban) OR Eliquis (Apixaban) Pradaxa (Dabigatran Etextilate) If you cannot confirm the safety of stopping your medications with your provider, or the provider does not approve of stopping these medications at an appropriate time frame, please contact the Urology Clinic to cancel the planned surgery and discuss other appropriate options. documented in this encounter Progress Notes * Vito Charles MD - 02/18/2024 1:20 PM EDT [facility] SECTION OF UROLOGY UROLOGY CLINIC VISIT Name: Vincent Oswald : 1955 Date: 02/18/2024 Referred by: Jomar Hensley Chief Complaint: LUTS, prostate cancer History of Present Illness (carried forward for reference): Vincent Oswald is a 68 y.o. male who is referred for management of urinary symptoms. He was diagnosed with Wilbur 6 prostate cancerin 05/2022. Consultation with radiation oncology and urology who both leaned toward recommending RALP instead of radiation given his BPH and LUTS. He was scheduled for RALP with Dr. Fry on 12/24/22, but canceled the procedure. He then followed with Dr. Hensley who did a repeat biopsy that found [place] 3+4 prostate cancer and was planning on ADT followed by radiation. He did not tolerate Lupron shots due to fatigue/myalgia/hot flashes. Now presents for consideration of a bladder outlet procedure prior to radiation. Denies dysuria or hematuria or urinary incontinence. He is currently taking flomax. IPSS score 17/35 (/4/2/4/3//2); QOL 4/6. Prostate size on MRI was measured as 110cc. Bulky median lobe. Thick peripheral zone. No reported bowel issues. Patient is currently not on any anticoagulation. Patient Active Problem List Diagnosis Code Malignant neoplasm of prostate C61 Heart murmur, aortic I35.8 Obesity E66.9 Gastroesophageal reflux K21.9 BPH (benign prostatic hyperplasia) N40.0 Past Surgical History: Procedure Laterality Date COLONOSCOPY 08/14/2017 KNEE ARTHROPLASTY Right SOFT TISSUE BIOPSY gynecomastia Physical Examination: There were no vitals taken for this visit. Constitutional: The patient is well developed, well nourished, alert and oriented, and appears his stated age. Cardiovascular: Good peripheral pulses Respiratory: Breathing comfortably. No audible wheezes are appreciated. Abdomen: Mildly obese, soft, non-tender, non-distended. Extremities: Appear warm and well perfused. Neuro: Awake and alert. Oriented to person/place/time. No gross motor defects. Review of Tests: No results found for: WBC, RBC, HGB, HCT, MCV, MCH, MCHC No results found for: NA, K, CL, CO2, BUN No results found for: PSA Radiology personally reviewed today: MRI prostate (see HPI) ASSESSMENT Vincent Oswald is a 68 y.o. male with BPH and prostate cancer. He is awaiting radiation for prostate cancer so that he can have a bladder outlet procedure prior. Discussed that a definitive outcome with a PVP or TURP makes the most sense, especially with the trilobar prostate. Reviewed the risks/benefits/recovery of the procedure. We will proceed with Greenlight photovaporization of the prostate. Discussed the issues of incontinence, retrograde ejaculation, erectile dysfunction, irritative voiding symptoms, injury to urethra and bladder, persistence of irritative voiding symptoms, infertilityand very rare need of conversion to open surgery. Specifically we discussed that I would not recommend starting radiation until 4 months after his procedure. PLAN - Schedule PVP as same day surgery at [facility] The patient expressed understanding and agreement with the above. Vito Charles MD Section of Urology [facility] Office: [phone] documented in this encounter Plan of Treatment Scheduled Orders Name Type Priority Associated Diagnoses Orde r Schedule SURGICAL CASE REQUEST NO POSTOP PAIN: CYSTO, LASER TURP (WRVU 12.15) Procedures Routine One Time for 1 Occurrences starting 02/18/2024 until 02/18/2024 documented as of this encounter Procedures Procedure Name Priority Date/Time Associated Diagnosis Comments URINE CULTURE Routine 02/18/2024 6:17 PM EDT Benign prostatic hyperplasia, unspecified whether lower urinary tract symptoms present documented in this encounter Results * Urine culture Clean Catch Urine (02/18/2024 6:17 PM EDT) Urine Culture No growth (Less than 1,000 cfu/ml). [facility] Clean Catch Urine 02/18/2024 6:17 PM EDT 02/18/2024 6:17 PM EDT Narrative Resulting Agency Comment Spec In Lab Vito Charles MD MICROBIOLOGY - GENER AL ORDERABLES [facility] [place] [address] documented in this encounter Visit Diagnoses Diagnosis Benign prostatic hyperplasia, unspecified whether lower urinary tract symptoms present Malignant neoplasm of prostate documented in this encounter Care Teams Corporate Technical Recruiter Relationship Specialty Start Date End Date Cristel Layne APRN [address] [place] [address] PCP - General Family Medicine 03/31/22 documented as of this encounter
--- OUTSIDE RECORDS SUMMARY | 2024-04-04 13:56 | XMS_ITS | Encounter Summary ---
Author Organization [facility] Address [facility] [place] [address] Care Team Providers Care Ornamental Brick Installer Name Role Phone Cristel Layne Nicci GREEN Primary Care Provider [phone] [phone] Encounter Details Date Type Department Care Team (Latest Contact Info) Description 03/23/2024 6:24 AM EDT - 03/23/2024 10:05 AM EDT Hospital Encounter PACU at [address] [id number] Vito Charles MD [facility] [address] Discharge Disposition: Home Social History Tobacco Use [...] more? Visit our health information library at [email or web address] You can also view health information on [email or web address], your personal patient account. Log in or [...] - 03/23/2024 8:41 AM EDT [facility] Urology Post-Operative Discharge Instructions PHOTO-SELECTIVE VAPORIZATION OF [...] in your urine. Follow Up: Please call [facility] at [phone] to make a routine follow-up appointment 4-6 weeks after your surgery. If you have any immediate questions or concerns, you may call the main [facility] line ([phone]) andask the shoelace tipping machine operator for the ???Urology Resident recreational therapist?? . FOLLOW-UP APPOINTMENT Please see above. Call [...] of urinary symptoms. He was diagnosed with [place] 6 prostate cancerin 05/2022. Consultation with radiation oncology and urology who both leaned toward recommending RALP instead of radiation given his BPH and LUTS. He was scheduled for RALP with Dr. Fry on 12/24/22, but canceled the procedure. He then followed with Dr. Hensley who did a repeat biopsy that found [place] 3+4 prostate cancer and was planning on [...] - 03/23/2024 7:38 AM EDT [facility] Operative Note [address] Patient Name: Vincent Oswald : [id number] MR#: [id number] Case Date: 03/23/2024 Case Scheduled Time: 729 Surgeon: Surgeons and Role: * Vito Charles [...] Prep and drape was performed in gene [facility] standard sterile fashion. With a 23.5French cystoscopy [...] removing the sheath and placing an 20 Spanish 2-way Keller catheter. The drainage was clear. [...] minutes. Vito Charles MD Section of Urology [facility] Office: [phone] Infection Bundle used? N/A Vito Charles MD 03/23/2024 documented in this encounter Plan of Treatment Not on file documented as of this encounter Procedures Procedure Name Priority Date/Time Associated Diagnosis Comments MODIFIER,GREENLIGHT LASER 2023 7:23 AM EDT BPH Laser Vaporization Surgery Prostate, Complete (21750) 03/23/2024 7:23 AM EDT BPH documented in [...] 7:01 AM EDT 1,000 mLs 30 mL/hr documented in this encounter Active and Recently Administered Medications Times are shown in EDT. Scheduled Medication Order 03/21/2024 03/22/2024 03/23/2024 acetaminophen (Tylenol) tablet 975 mg (COMPLETED) 975 mg, Oral, ONCE, 1 dose, On 8/21/24 at 0645, Prior to administration, confirm that [...] Jeremi Degroot CRNA)1000 (Stopped - Provider: Aranza Lee, [place]) PRN Medication Order 03/21/2024 03/22/2024 03/23/2024 lidocaine (Glydo) 2 % gel (CANCELED) PRN, Starting on Thu03/23/24 at 0747, Until Thu03/23/24 at 1014, Intra-Operative (Intra-Procedure), Routine 0747 (Given - Provid er: Vito Charles MD - Comment: instilled at conclusion of cysto, prior to catheter insertion) documented in this encounter Care Teams Ornamental Brick Installer Relationship Specialty Start Date End Date Cristel Layne APRN [address] [place] [address] PCP - General Family Medicine 03/31/22 documented as of this encounter
[2024-04-04 18:02] LABS: Uric Acid 7.6 mg/dL (3.5-7.2)
== END 2024-04-04 13:54 | disposition home or self-care (01) ==
LOC: LBN 13:53
PROVIDERS: PCP Nurse Practitioner Family; Visit Provider Nurse Practitioner Family
DX: M25.571 Pain in right ankle and joints of right foot (principal)
CPT/HCPCS: 84550

== ENCOUNTER 2024-04-19 12:42 | Outpatient (REF) | payer MEDICARE, SELFPAY ==
--- OUTSIDE RECORDS SUMMARY | 2024-04-19 12:44 | XMS_ITS | Encounter Summary ---
Author Organization [facility] Address [address] [place] [address] Care Team Providers Care Corporate Meeting Planner Name Role Phone Whitney Parker MD Primary Care Provider [phone] Encounter Details Date Type Department Care Team (Late st Contact Info) Description 05/22/[address] [facility] Pathology & Laboratory Medicine - [address] [address] Jomar Hensley MD [address] [place] [phone] Encounter for other general examination Social History [...] management options, if applicable. 05/27/2023 7:15 EDT [facility] Final Diagnosis A. PROSTATE, RIGHT BASE LATERAL, BIOPSY: - Small focus of atypical gland, high-grade prostatic intraepithelial neoplasia (PIN) cannot be ruled out. B. PROSTATE, RIGHT BASE MEDIAL, BIOPSY: - Prostatic adenocarcinoma, acinar type, involving 40% (5.4 mm) of 1/1 core - Global [place] score: 3 + 4 = 7 (grade group 2), 40% Wilbur pattern 4 - Core (14.6 mm) C. PROSTATE, RIGHT MID LATERAL, BIOPSY: - Prostatic adenocarcinoma, acinar type, involving 45% (2.7 mm) of 1/1 core - Global [place] score: 3 + 3 = 6 (grade [...] Small focus of atypical glands, suspicious for [place] patterns 3 and 4 adenocarcinoma. - Core (8.3 mm): Atypical glands, 0.2 mm (2.5% of core) H. PROSTATE, LEFT BASE MEDIAL. BIOPSY: - Prostatic adenocarcinoma, acinar type, involving 5% (1.0 mm) of 1/1 core - Global Wilbur [...] LATERAL, BIOPSY: - Atypical glands suspicious for [place] pattern 3 adenocarcinoma. - Core (10.3 mm): Atypical glands, 0.1 mm (<1% of core) L. PROSTATE, LEFT APEX MEDIAL, BIOPSY: - Minute focus of atypical glands, suspicious but not diagnostic of adenocarcinoma. See comment. 05/27/2023 7:15 EDT [facility] Diagnosis Comment Specimen I (left [...] performance characteristics have been determined by [facility] and/or by the referring laboratory. The [...] high complexity clinical laboratory testing. 05/27/2023 7:15 [facility] Attestation There was significan t resident/fellow involvement in the diagnostic evaluation of this case. By the signature below, the attending physician certifies that they have personally conducted a gross and/or microscopic examination of the described specimens and rendered or confirmed the above diagnosis. 05/27/2023 7:15 [facility] at 0715 Clinical History Prostate cancer, prior biopsy 05/23/2022 05/27/2023 7:15 [facility] Gross Description A. Received in [...] 10. LT mid med is a single craft-white tissue core (2.2 cm in length x [...] Margarita Hernandez 05/23/2023 13:07 05/27/2023 7:15 T [facility] Resident/Fell ow: Jeremi Flores DO 05/27/2023 7:15 T [facility] Performing Lab [facility] 05/27/2023 7:15 T [facility] Scanned Images 05/27/2023 7:15 T [facility] Tissue STRUCTURE OF APEX OF [...] EDT Jomar Hensley MD PATHOLOGY ORDERAB LES [facility] [address] [place] [address] documented in this encounter Visit Diagnoses Diagnosis Encounter for other general examination documented in this encounter Care Teams Corporate Meeting Planner Relationship Specialty Start Date End Date Whitney Parker MD [address] [place] [address] PCP - General 9/10/13 documented as of this encounter
--- OUTSIDE RECORDS SUMMARY | 2024-04-19 12:44 | XMS_ITS | Encounter Summary ---
Author Organization [facility] Address [address] [place] [address] Care Team Providers Care Vegetable Canner Name Role Phone Whitney Parker MD Primary Care Provider [phone] Encounter Details Date Type Department Care Team (Late st Contact Info) Description 05/13/2023 Lab Requisition [facility] Pathology & Laboratory Medicine - [address] [address] Outr Resulting Lab, Provider Social History Tobacco [...] PSA 10.2(H) <=4.5 ng/mL 05/13/2023 19:19 EDT [facility] Blood VENOUS BLOOD / Unknown 05/13/2023 10:30 EDT 05/13/2023 17:06 EDT Narrative [facility] - 05/13/2023 19:19 EDT NOTE: Serum PSA concentration should not be interpreted as absolute evidence for the presence or absence of malignant disease. Assayed on Siemens ADVIA [employer]adium [employer]aur XPT using chemiluminescent technology.??Values obtained by using different assay methods cannot be used interchangeably. Provider Outr Resulting Lab CHEMISTRY & BLOOD GAS ORDERABLES [facility] [address] [place] [address] documented in this encounter Visit Diagnoses Not on filedocumented in this encounter Care Teams Vegetable Canner Relationship Specialty Start Date End Date Whitney Parker MD [address] [place] [address] PCP - General 04/12/13 documented as of this encounter
--- OUTSIDE RECORDS SUMMARY | 2024-04-19 12:44 | XMS_ITS | Encounter Summary ---
Author Organization [facility] Address [address] [place] [address] Care Team Providers Care Phlebotomy Supervisor Name Role Phone Whitney Parker MD Primary Care Provider [phone] Encounter Details Date Type Department Care Team (Late st Contact Info) Description 05/23/2022 Lab Requisition [facility] Pathology & Laboratory Medicine - [address] [address] Jomar Hensley MD [address] [place] [phone] Elevated prostate specific antigen (PSA) Social History [...] management options, if applicable. 05/27/2022 11:56 EDT [facility] Final Diagnosis A. PROSTATE, RIGHT MID LATERAL, BIOPSY (1): - Atypical gland, suspicious for [place] pattern 3 adenocarcinoma (0.4 mm in 15.6 [...] series on a patient. Grade Group 1 (Wilbur score <=6) Grade Group 2 (Wilbur score 3+4=7) Grade Group 3 (Wilbur score 4+3=7) Grade Group 4 (Wilbur score 8) Grade Group 5 (Wilbur scores 9-10) * Efren GARSIA et al: A Contemporary Prostate Cancer Grading System: A Validated Alternative to the Wilbur Score. Eur Uro 2015 69(3):428-435 05/27/2022 11:56 [facility] Diagnosis Comment Immunohistochemical study was [...] performance characteristics have been determined by [facility] and/or by the referring laboratory. [...] high complexity clinical laboratory testing. 05/27/2022 11:56 [facility] Attestation There was significan t resident/fellow involvement in the diagnostic evaluation of this case. By the signature below, the attending physician certifies that they have personally conducted a gross and/or microscopic examination of the described specimens and rendered or confirmed the above diagnosis. 05/27/2022 11:56 [facility] at 1156 Clinical History Elevated PSA 9.9 with abnormal prostate MRI right posterior lateral 05/27/2022 11:56 [facility] Gross Description A. Received in [...] L1. BINA DRAKE 05/24/2022 14:15 05/27/2022 11:56 [facility] Resident/Fell ow: Jeremi Lea MD 05/27/2022 11:56 [facility] Performing Lab [facility] 05/27/2022 11:56 [facility] Scanned Images 05/27/2022 11:56 [facility] Tissue ENTIRE APEX OF PROSTATE [...] EDT Jomar Hensley MD PATHOLOGY ORDERAB LES [facility] [address] [place] [address] documented in this encounter Visit Diagnoses Diagnosis Elevated prostate specific antigen (PSA) documented in this encounter Care Teams Phlebotomy Supervisor Relationship Specialty Start Date End Date Whitney Parker MD [address] [place] [address] PCP - General 04/12/13 documented as of this encounter
--- OUTSIDE RECORDS SUMMARY | 2024-04-19 12:44 | XMS_ITS | Clinical Summary ---
Author Organization [facility] Address [address] [place] [address] Care Team Providers Care Printing Sales Representative Name Role Phone Whitney Parker MD Primary Care Provider [phone] Social History Tobacco Use Types Packs/Day Years [...] Risk Screening 2018 COVID-19 Vaccine ( season) 2024 Care Teams Printing Sales Representative Relationship Specialty Start Date End Date Whitney Parker MD [address] [place] [address] PCP - General 04/12/13
--- OUTSIDE RECORDS SUMMARY | 2024-04-19 12:44 | XMS_ITS | Encounter Summary ---
Author Organization [facility] Address [address] [place] [address] Care Team Providers Care Retail Client Manager Name Role Phone Whitney Parker MD Primary Care Provider [phone] Encounter Details Date Type Department Care Team (Late st Contact Info) Description 08/26/2023 Lab Requisition [facility] Pathology & Laboratory Medicine - [address] [address] Outr Resulting Lab, Provider Social History Tobacco [...] PSA 7.1(H) <=6.5 ng/mL 08/26/2023 22:56 EST [facility] Blood VENOUS BLOOD / Unknown 08/26/2023 12:34 EST 08/26/2023 21:22 EST Narrative [facility] - 08/26/2023 22:56 EST NOTE: Serum PSA concentration should not be interpreted as absolute evidence for the presence or absence of malignant disease. Assayed on Siemens ADVIA Iotumaur XPT using chemiluminescent technology.??Values obtained by using different assay methods cannot be used interchangeably. Provider Outr Resulting Lab CHEMISTRY & BLOOD GAS ORDERABLES [facility] [address] [place] [address] documented in this encounter Visit Diagnoses Not on filedocumented in this encounter Care Teams Retail Client Manager Relationship Specialty Start Date End Date Whitney Parker MD [address] [place] [phone] PCP - General 04/12/13 documented as of this encounter
--- OUTSIDE RECORDS SUMMARY | 2024-04-19 12:44 | XMS_ITS | Encounter Summary ---
Author Organization [facility] Address [address] [place] [address] Care Team Providers Care Microfilm Technician Name Role Phone Whitney Parker MD Primary Care Provider [phone] Encounter Details Date Type Department Care Team (Late st Contact Info) Description 02/05/2023 Lab Requisition [facility] Pathology & Laboratory Medicine - [address] [address] Outr Resulting Lab, Provider Social History Tobacco [...] PSA 8.9(H) <=4.5 ng/mL 02/05/2023 20:10 EDT [facility] Blood VENOUS BLOOD / Unknown 02/05/2023 11:10 EDT 02/05/2023 17:58 EDT Narrative [facility] - 02/05/2023 20:10 EDT NOTE: Serum PSA concentration should not be interpreted as absolute evidence for the presence or absence of malignant disease. Assayed on Siemens ADVIA Vivorteaur XPT using chemiluminescent technology.??Values obtained by using different assay methods cannot be used interchangeably. Provider Outr Resulting Lab CHEMISTRY & BLOOD GAS ORDERABLES [facility] [address] [place] [address] documented in this encounter Visit Diagnoses Not on filedocumented in this encounter Care Teams Microfilm Technician Relationship Specialty Start Date End Date Whitney Parker MD [address] [place] [address] PCP - General 04/12/13 documented as of this encounter
--- OUTSIDE RECORDS SUMMARY | 2024-04-19 12:44 | XMS_ITS | Referral Summary ---
Author Organization [facility] Address [address] [place] [address] Care Team Providers Care Skeet Operator Name Role Phone Whitney Parker MD Primary Care Provider [phone] Social History Tobacco Use Types Packs/Day Years Used Date Smoking Tobacco: Never Assessed Interpersonal Safety Answer Date Record ed Physically Hurt Never 03/04/2020 Verbally Threaten Not on file 03/04/2020 Sex and Gender Information Value Date Recorded Sex Assigned at Not on file Gender Identity Not on file Sexual Orientation Not on file Plan of Treatment Not on file Care Teams Skeet Operator Relationship Specialty Start Date End Date Whitney Parker MD [address] [place] [address] PCP - General 04/12/13
--- OUTSIDE RECORDS SUMMARY | 2024-04-19 12:44 | XMS_ITS | Encounter Summary ---
Author Organization [facility] Address [address] [place] [address] Care Team Providers Care Lithographic Plate Maker Name Role Phone Whitney Parker MD Primary Care Provider [phone] Encounter Details Date Type Department Care Team (Late st Contact Info) Description 11/17/2023 Lab Requisition [facility] Pathology & Laboratory Medicine - [address] [address] Outr Resulting Lab, Provider Social History Tobacco [...] PSA 5.4 <=6.5 ng/mL 11/17/2023 17:50 EDT [facility] Blood VENOUS BLOOD / Unknown 11/17/2023 9:52 EDT 11/17/2023 16:46 EDT Narrative [facility] - 11/17/2023 17:50 EDT NOTE: Serum PSA concentration should not be interpreted as absolute evidence for the presence or absence of malignant disease. Assayed on Siemens ADVIA Centaur XPT using chemiluminescent technology.??Values obtained by using different assay methods cannot be used interchangeably. Provider Outr Resulting Lab CHEMISTRY & BLOOD GAS ORDERABLES [facility] [address] [place] [address] documented in this encounter Visit Diagnoses Not on filedocumented in this encounter Care Teams Lithographic Plate Maker Relationship Specialty Start Date End Date Whitney Parker MD [address] [place] [phone] PCP - General 04/12/13 documented as of this encounter
--- OUTSIDE RECORDS SUMMARY | 2024-04-19 12:44 | XMS_ITS | Encounter Summary ---
Author Organization [facility] Address [address] [place] [address] Care Team Providers Care Spring Former Hand Name Role Phone Whitney Parker MD Primary Care Provider [phone] Encounter Details Date Type Department Care Team (Late st Contact Info) Description 07/23/2022 Lab Requisition [facility] Pathology & Laboratory Medicine - [address] [address] Joshua Stein MD [address] [place] [phone] Encounter for other general examination Social History [...] (07/23/2022 10:27 EST) Amendment Comment Report from [employer] Specimen ID: [id number] Decipher Accession ID: [id number] Decipher Score: 0.45 Genomic Risk: intermediate 09/02/2022 7:07 EST EXTERNAL LAB Addendum Comment At the request of Dr. Joshua Stein, a block from [id number] (G1) was sent to [facility] [facility] for testing. Block (G1) was deemed insufficient; therefore, an additional block is requested and sent for testing. For Decipher results, please see scanned report in EPIC. 09/02/2022 7:07 EST EXTERNAL LAB Original (G1, L1) 09/02/2022 7:07 EST EXTERNAL LAB Original Case Specimen Source Prostate 09/02/2022 7:07 EST [facility] Original Case Date of Service 05/23/2022 09/02/2022 7:07 [facility] Attestation By the signature below, the attending physician certifies that they have 1) personally conducted a gross and/or microscopic examination of the described specimen(s), and/or personally interpreted the results of laboratory testing of the described specimen(s), and 2) personally rendered or confirmed the above diagnosis. 09/02/2022 7:07 [facility] at 0706 Surgical pathology [...] Joshua Stein MD PATHOLOGY ORDERABLES EXTERNAL LAB [facility] [address] [place] [address] documented in this encounter Visit Diagnoses Diagnosis Encounter for other general examination documented in this encounter Care Teams Spring Former Hand Relationship Specialty Start Date End Date Whitney Parker MD [address] [place] [address] PCP - General 04/12/13 documented as of this encounter
--- OUTSIDE RECORDS SUMMARY | 2024-04-19 12:45 | XMS_ITS | Encounter Summary ---
Author Organization [facility] Address [facility] [place] [address] Care Team Providers Care Money Market Dealer Name Role Phone Cristel Layne Nicci GREEN Primary Care Provider [phone] Encounter Details Date Type Department Care Team (Late st Contact Info) Description 03/23/2024 7:23 AM EDT Anesthesia Event Main OR at [address] [phone] Jeremi Degroot CRNA [address] [place] [address] [place] [address] Brandon Aparicio CRNA [place] [address] Anesthesia Record Procedure Summary Procedure Name Responsible [...] lumen catheter; 100% silicone; 20; inserted at [facility] (inserted by Dr. Charles at conclusion of cysto laser TURP); 30; 30; intraurethral Xylocaine gel; drainage bag 03/23/24 0744 by Tanvi Chandra RN PIV 03/23/24; 0655; [id number]-[id number] catheter system; 20 gauge; metacarpal vein (top [...] Degroot CRNA 03/23/24 0837 by Jeremi Degroot BOOKMOBILE DRIVER documented in this encounter Social History Tobacco [...] place to sleep or slept in a mcc (including now)? No 07/21/2022 Sex and Gender Information Value Date Recorded Sex Assigned at Not on file Gender Identity Not on file Sexual Orientation Not on file documented as of this encounter OR Notes * Anesthesia Postprocedure Evaluation - Jeremi Degroot CRNA - 03/23/2024 8:56 AM EDT Department of Anesthesiology Post-procedure Note Patient: Vincent Oswald Procedure Summary Date: 03/23/24 Room / Location: [facility] OR / [facility] MAIN OR Anesthesia Start: 722 Anesthesia [...] shown include unfiled device data. Patient Location: PACU/[facility] Level of Consciousness: Awake and Alert Pain [...] mg documented in this encounter Care Teams Money Market Dealer Relationship Specialty Start Date End Date Cristel Layne APRN [address] [place] [address] PCP - General Family Medicine 03/31/22 documented as of this encounter
--- OUTSIDE RECORDS SUMMARY | 2024-04-19 12:45 | XMS_ITS | Encounter Summary ---
Author Organization [facility] Address [facility] [place] [address] Care Team Providers Care Multigraph Operator Name Role Phone Cristel Layne Nicci GREEN Primary Care Provider [phone] Encounter Details Date Type Department Care Team (Latest Contact Info) Description 03/23/2024 6:24 AM EDT - 03/23/2024 10:05 AM EDT Hospital Encounter PACU at [address] [phone] Vito Charles MD [facility] [address] [place] [address] Discharge Disposition: Home Social History Tobacco Use [...] place to sleep or slept in a alf (including now)? No 07/21/2022 Sex and Gender [...] more? Visit our health information library at [email or web address] You can also view health information on Viewabill, your personal patient account. Log in or [...] Charles MD - 03/23/2024 8:41 AM EDT [facility] Urology Post-Operative Discharge Instructions PHOTO-SELECTIVE VAPORIZATION OF [...] in your urine. Follow Up: Please call [facility] at [phone] to make a routine follow-up appointment 4-6 weeks after your surgery. If you have any immediate questions or concerns, you may call the main [facility] line ([phone]) andask the mule operator for the ???Urology Resident quality control assessor?? . FOLLOW-UP APPOINTMENT Please see above. Call [...] of urinary symptoms. He was diagnosed with Midland 6 prostate cancerin 05/2022. Consultation with radiation oncology and urology who both leaned toward recommending RALP instead of radiation given his BPH and LUTS. He was scheduled for RALP with Dr. Fry on 12/24/22, but canceled the procedure. He then followed with Dr. Hensley who did a repeat biopsy that found Midland 3+4 prostate cancer and was planning on [...] Charles MD - 03/23/2024 7:38 AM EDT [facility] Operative Note [address] Patient Name: Vincent Oswald : [id number] MR#: [id number] Case Date: 03/23/2024 Case Scheduled Time: 729 [...] Prep and drape was performed in [facility] standard sterile fashion. With a 23.5French [...] removing the sheath and placing an 20 Bahamian 2-way Keller catheter. The drainage was clear. [...] minutes. Vito Charles MD Section of Urology [facility] Office: [phone] Infection Bundle used? N/A Vito Charles MD 03/23/2024 documented in this encounter Plan of Treatment Not on file documented as of this encounter Procedures Procedure Name Priority Date/Time Associated Diagnosis Comments MODIFIER,GREENLIGHT LASER 2023 7:23 AM EDT BPH Laser Vaporization Surgery Prostate, Complete ([address]) 03/23/2024 7:23 AM EDT BPH documented in [...] insertion) documented in this encounter Care Teams Multigraph Operator Relationship Specialty Start Date End Date Cristel Layne APRN [address] [place] [address] PCP - General Family Medicine 03/31/22 documented as of this encounter
--- OUTSIDE RECORDS SUMMARY | 2024-04-19 12:45 | XMS_ITS | Encounter Summary ---
Author Organization Formerly [facility] [place] [address] Care Team Providers Care Diamond Polisher Name Role Phone Cristel Layne APRN Primary Care Provider [phone] Reason for Visit * Consultation (Routine) - Closed Specialty Diagnoses / Procedures Referred By Ok t Referred To Contact Urology Diagnoses Prostate cancer 06/10/22 - NEW DX PROSTATE CANCER Jomar Hensley MD [address] [place] [address] [facility] [place] [address] Referral ID Status Reason Start Date Expiration Date V isits Requested Visits Authorized [id number] Closed Consult, Test & Treat PCP Updated and/or Approved 06/09/2022 06/09/2023 6 6 Encounter Details Date Type Department Care Team (Late st Contact Info) Description 08/21/2022 3:00 PM EST Office Visit [place] [address] Ming Fry MD [facility] [place] [address] Malignant neoplasm of prostate Social [...] Service: 08/21/2022 Referring Provider: [place] [address] Primary Care Provider: Cristel Layne APRN HPI: Vincent Oswald is a 67 y.o. y/o male here who presents today for evaluation of his newly diagnosed low risk prostate cancer. PSA History: 06/12/2022 - 8.0 Pathology: 06/12/2022 - TRUS Bx DIAGNOSIS CONSULTATION CASE Outside slides labeled [id number]; collection date, 05/23/2022. A - Prostatic core needle biopsy, right mid lateral: ? Microscopic atypical glandular focus, suspicious ? for grade 3 adenocarcinoma. B - Prostatic core needle biopsy, right base lateral: ? Benign prostatic tissue. C - Prostatic core needle biopsy, right base medial: ? Benign prostatic tissue. D - Prostatic core needle biopsy, right mid medial: ? Adenocarcinoma, grade group 1, [place] grade 3+3, ? involving 10% of the biopsy core. E - Prostatic core needle biopsy, right apex lateral: ? Benign prostatic tissue. F - Prostatic core needle biopsy, right apex medial: ? Benign prostatic tissue. G - Prostatic core needle biopsy, left lateral base: ? Adenocarcinoma, grade group 1, Wilbur grade 3+3, ? involving 25% of the biopsy core. H - Prostatic core needle biopsy, left base medial: ? Adenocarcinoma, grade group 1, [place] grade 3+3, ? involving 10% of the biopsy core. I - Prostatic core needle biopsies, left mid lateral: ? Adenocarcinoma, grade group 1, [place] grade 3+3, ? involving 1 of 2 [...] apex medial: ? Adenocarcinoma, grade group 1, [place] grade 3+3, ? involving 15% of the [...] patient. Impression: #1: Low risk prostate cancer ([place] 3+3, PSA 8, cT1c) though fairly discrete [...] either discussed or I gave access via [facility] to the below counseling information We [...] to metastatic disease at 13 years but skilled nursing data beyond this is not currently available. [...] prostate documented in this encounter Care Teams Diamond Polisher Relationship Specialty Start Date End Date Cristel Layne APRN [address] [place] [address] PCP - General Family Medicine 03/31/22 documented as of this encounter
--- OUTSIDE RECORDS SUMMARY | 2024-04-19 12:45 | XMS_ITS | Encounter Summary ---
Author Organization [facility] Address [address] [place] [address] Care Team Providers Care Rib Cutter Name Role Phone Whitney Parker MD Primary Care Provider [phone] Encounter Details Date Type Department Care Team (Late st Contact Info) Description 08/14/2017 Results Only [facility] [phone] Radha Baig, DO [address] [place] [address] Social History Tobacco Use Types [...] ? DHRUV OSWALD ? Accession #: ? [id number] ? : ? 1955 (Age: 62) ??M [...] (ASCP) 08/17/2017 7:36 AM End of Report [facility] 08/14/2017 17:2 7 EST 08/14/2017 17:27 EST Radha Baig DO PATHOLOGY ORDERABLES [facility] [address] [place] [address] documented in this encounter Visit Diagnoses Not on filedocumented in this encounter Care Teams Rib Cutter Relationship Specialty Start Date End Date Whitney Parker MD [address] [place] [address] PCP - General 04/12/13 documented as of this encounter
--- OUTSIDE RECORDS SUMMARY | 2024-04-19 12:45 | XMS_ITS | Encounter Summary ---
Author Organization [facility] [place] [address] Care Team Providers Care Stick Inserter Name Role Phone Roverto Cristel Nicci GREEN Primary Care Provider [phone] Encounter Details Date Type Department Care Team (Late st Contact Info) Description 12/12/2022 [place] [id number] Ming Fry MD [facility] [place] [address] Social History Tobacco Use Types Packs/Day Years [...] place to sleep or slept in a fpc (including now)? No 07/21/2022 Sex and Gender [...] on filedocumented in this encounter Care Teams Stick Inserter Relationship Specialty Start Date End Date Cristel Layne APRN [address] [place] [address] PCP - General Family Medicine 03/31/22 documented as of this encounter
--- OUTSIDE RECORDS SUMMARY | 2024-04-19 12:45 | XMS_ITS | Encounter Summary ---
Author Organization [facility] Address [address] [place] [address] Care Team Providers Care Energy Conservation Representative Name Role Phone Whitney Parker MD Primary Care Provider [phone] Encounter Details Date Type Department Care Team (Latest Contact Info) Description 08/14/2017 11:11 EST - 08/14/2017 23:59 EST Hospital Encounter [address] [address] Unknown, Provider, Discharge Disposition: Home or Self Care Social History Tobacco Use Types Packs/Day Years Used Date Smoking Tobacco: Never Assessed Sex and Gender Information Value Date Recorded Sex Assigned at Not on file Gender Identity Not on file Sexual Orientation Not on file documented as of this encounter Discharge Disposition Disposition Code Departure Means Destination Home or Self [facility] documented in this encounter Plan of Treatment Not on file documented as of this encounter Visit Diagnoses Not on filedocumented in this encounter Care Teams Energy Conservation Representative Relationship Specialty Start Date End Date Whitney Parker MD [address] [place] [address] PCP - General 04/12/13 documented as of this encounter
--- OUTSIDE RECORDS SUMMARY | 2024-04-19 12:45 | XMS_ITS | Encounter Summary ---
Author Organization [facility] Address [facility] [place] [address] Care Team Providers Care Excel Vba Developer Name Role Phone Cristel Layne APRN Primary Care Provider [phone] Reason for Visit * Consultation (Routine) - Authorized Specialty Diagnoses / Procedures Referred By Ok little Referred To Contact Urology Diagnoses Lower urinary tract symptoms (LUTS) Unspecified symptoms and signs involving the genitourinary system Malignant neoplasm of prostate Jomar Hensley MD [address] [place] [address] [place] [address] Referral ID Status Reason Start Date Expiration Date Visits Requested Visits Authorized [id number] Authorized Consult, Test & Treat PCP Updated and/or Approved 11/17/2023 05/18/2024 6 6 Encounter Details Date Type Department Care Team (Late st Contact Info) Description 02/18/2024 1:20 PM EDT [place] [address] Vito Charles MD [facility] [place] [address] Benign prostatic hyperplasia, unspecified whether [...] place to sleep or slept in a snf (including now)? No 07/21/2022 Sex and Gender [...] Charles MD - 02/18/2024 1:20 PM EDT [facility] SECTION OF UROLOGY UROLOGY CLINIC VISIT [...] Schedule PVP as same day surgery at [facility] The patient expressed understanding and agreement with the above. Vito Charles MD Section of Urology [facility] Office: [phone] documented in this encounter Plan of Treatment [...] Culture No growth (Less than 1,000 cfu/ml). [facility] Clean Catch Urine 02/18/2024 6:17 PM EDT 02/18/2024 6:17 PM EDT Narrative Resulting Agency Comment Spec In Lab Vito Charles MD MICROBIOLOGY - GENER AL ORDERABLES [facility] [address] documented in this encounter Visit Diagnoses Diagnosis Benign prostatic hyperplasia, unspecified whether lower urinary tract symptoms present Malignant neoplasm of prostate documented in this encounter Care Teams Excel Vba Developer Relationship Specialty Start Date End Date Cristel Layne APRN [address] [place] [address] PCP - General Family Medicine 03/31/22 documented as of this encounter
--- OUTSIDE RECORDS SUMMARY | 2024-04-19 12:45 | XMS_ITS | Encounter Summary ---
Author Organization [facility] Address [address] [place] [address] Care Team Providers Care Obstetrics And Gynecology Professor Name Role Phone Unavailable Primary Care Provider Jesus e Encounter Details Date Type Department Care Team (Late st Contact Info) Description 09/09/2005 Results Only [facility] [address] [place] [address] Steven Allen MD [address] [place] [address] Social History Tobacco Use Types Packs/Day Years [...] ? DHRUV MAJANO ? Accession #: ? [id number] ? : ? 1955 (Age: 50) ??M [...] ? Follow up polyps, h/o tubular adenoma ([id number]) Gross Description: ? Received in Hollande's fixative [...] Allen MD PATHOLOGY ORDERABLES Performing Organization Address City/State/[facility] Co de Phone Number ROBI RENE [address] [place] [address] documented in this encounter Visit Diagnoses Not on filedocumented in this encounter
--- OUTSIDE RECORDS SUMMARY | 2024-04-19 12:45 | XMS_ITS | Encounter Summary ---
Author Organization [place] [id number] Care Team Providers Care Arborist Representative Name Role Phone Cristel Layne APRN Primary Care Provider [phone] Reason for Referral * Consultation (Routine) - Closed Specialty Diagnoses / Procedures Referred By Ok little Referred To Contact Urology Diagnoses Prostate cancer 06/10/22 - NEW DX PROSTATE CANCER Jomar Hensley MD [address] [place] [address] [facility] [place] [address] Referral ID Status Reason Start Date Expiration Date V isits Requested Visits Authorized [id number] Closed Consult, Test & Treat PCP Updated and/or Approved 06/09/2022 06/09/2023 6 6 Encounter Details Date Type Department Care Team (Late st Contact Info) Description 06/09/2022 Transcribe Orders eDH Incoming Referrals [phone] Jomar Hensley MD [address] [place] [address] Prostate cancer Social History Tobacco [...] prostate documented in this encounter Care Teams Arborist Representative Relationship Specialty Start Date End Date Cristel Layne APRN [address] [place] [address] PCP - General Family Medicine 03/31/22 documented as of this encounter
--- OUTSIDE RECORDS SUMMARY | 2024-04-19 12:45 | XMS_ITS | Encounter Summary ---
Author Organization [facility] Address [facility] [place] [address] Care Team Providers Care Awning Hanger Helper Name Role Phone Cristel Layne APRN Primary Care Provider [phone] Encounter Details Date Type Department Care Team (Late st Contact Info) Description 03/14/2024 8:15 AM EDT Telephone Pre Admission Testing at [address] [address] Social History Tobacco Use Types [...] on filedocumented in this encounter Care Teams Awning Hanger Helper Relationship Specialty Start Date End Date Cristel Layne APRN [address] [place] [address] PCP - General Family Medicine 03/31/22 documented as of this encounter
--- OUTSIDE RECORDS SUMMARY | 2024-04-19 12:45 | XMS_ITS | Encounter Summary ---
[place] [address] Care Team Providers Care Lead Systems Architect Name Role Phone Cristel Layne APRN Primary Care Provider [phone] Reason for Referral * Consultation (Routine) - Authorized Specialty Diagnoses / Procedures Referred By kO little Referred To Contact Urology Diagnoses Lower urinary tract symptoms (LUTS) Unspecified symptoms and signs involving the genitourinary system Malignant neoplasm of prostate Jomar Hensley MD [address] [place] [address] [facility] [place] [address] Referral ID Status Reason Start Date Expiration Date Visits Requested Visits Authorized [id number] Authorized Consult, Test & Treat PCP Updated and/or Approved 11/17/2023 05/18/2024 6 6 Encounter Details Date Type Department Care Team (Latest Contact Info) Description 11/25/2023 Transcribe Orders eDH Incoming Referrals [phone] Jomar Hensley MD [address] [place], [place] [id number] Lower urinary tract symptoms (LUTS); History of [...] prostate documented in this encounter Care Teams Lead Systems Architect Relationship Specialty Start Date End Date Cristel Layne APRN [address] [place] [address] PCP - General Family Medicine 03/31/22 documented as of this encounter
--- OUTSIDE RECORDS SUMMARY | 2024-04-19 12:45 | XMS_ITS | Encounter Summary ---
Author Organization [facility] Address [facility] [place] [address] Care Team Providers Care Station Helper Name Role Phone Roverto Cristeljohn paul Grajeda APRN Primary Care Provider [phone] Encounter Details Date Type Department Care Team [...] on filedocumented in this encounter Care Teams Station Helper Relationship Specialty Start Date End Date Cristel Layne APRN [address] [place] [address] PCP - General Family Medicine 03/31/22 documented as of this encounter
--- OUTSIDE RECORDS SUMMARY | 2024-04-19 12:45 | XMS_ITS | Encounter Summary ---
Author Organization [facility] Address [address] [place] [address] Care Team Providers Care Administrative Support Assoc Name Role Phone Whitney Parker MD Primary Care Provider Encounter Details Date Type Department Care Team (Late st Contact Info) Description 08/12/2021 Lab Requisition [facility] Pathology & Laboratory Medicine - [address] [address] Outr Resulting Lab, Provider Social History Tobacco [...] 0.0 - 4.5 ng/mL 08/12/2021 22:37 EST [facility] Blood VENOUS BLOOD / Unknown 08/12/2021 11:27 EST 08/12/2021 21:21 EST Narrative [facility] - 08/12/2021 22:37 EST NOTE: Serum PSA concentration should not be interpreted as absolute evidence for the presence or absence of malignant disease. Assayed on Siemens ADVIA Naehasaur XPT using chemiluminescent technology.??Values obtained by using different assay methods cannot be used interchangeably. Provider Outr Resulting Lab CHEMISTRY & BLOOD GAS ORDERABLES [facility] [address] [place] [address] documented in this encounter Visit Diagnoses Not on filedocumented in this encounter Care Teams Administrative Support Assoc Relationship Specialty Start Date End Date Whitney Parker MD [address] [place] [address] PCP - General 04/12/13 documented as of this encounter
--- OUTSIDE RECORDS SUMMARY | 2024-04-19 12:45 | XMS_ITS | Encounter Summary ---
Author Organization [facility] Address [address] [place] [address] Care Team Providers Care String Top Sealer Name Role Phone Whitney Parker MD Primary Care Provider [phone] Encounter Details Date Type Department Care Team (Late st Contact Info) Description 06/17/2017 Results Only [facility] PRISM [phone] Radha Baig, DO [address] [place] [address] Social History Tobacco Use Types [...] ? DHRUV OSWALD ? Accession #: ? [id number] ? : ? 1955 (Age: 62) ??M [...] PRESBYTERIAN) 06/18/2017 2:45 PM End of Report [facility] 06/17/2017 20:5 1 EST 06/17/2017 20:51 EST Radha Baig DO PATHOLOGY ORDERABLES [facility] [address] [place] [address] documented in this encounter Visit Diagnoses Not on filedocumented in this encounter Care Teams String Top Sealer Relationship Specialty Start Date End Date Whitney Parker MD [address] [place] [address] PCP - General 04/12/13 documented as of this encounter
--- OUTSIDE RECORDS SUMMARY | 2024-04-19 12:45 | XMS_ITS | Clinical Summary ---
Author Organization [facility] Address [facility] [place] [address] Care Team Providers Care Brine Tank Separator Operator Name Role Phone Cristel Layne Nicci GREEN Primary Care Provider [phone] Allergies Active Allergy Reactions Criticality Noted Date [...] 9:15 AM EDT Surgery Main OR at [address] [phone] Vito Charles MD CYSTO, LASER TURP (WRVU 12.15) 03/23/2024 7:23 AM EDT Anesthesia Event Main OR at [address] [address] Jeremi Degroot, Brandon Katz, SOFT SUGAR SUPERVISOR 03/23/2024 6:24 AM EDT - 03/23/2024 10:05 AM EDT Hospital Encounter PACU at [address] [address] Vito Charles MD Discharge Disposition: Home 03/14/2024 8:15 AM EDT Telephone Pre Admission Testing at [address] [address] 02/18/2024 1:20 PM EDT Office [place] [address] Vito Charles MD Benign prostatic hyperplasia, unspecified [...] - PCV) 2018 Covid-19 Vaccine (1 - 2022- season) 2024 Influenza (Flu) vaccine (1 o f 1 - Influenza standard series) 04/03/2024 Procedures Procedure Name Priority Date/Time Associated Diagnosis Comments MODIFIER,GREENLIGHT LASER 03/23/2024 7:23 AM EDT BPH Laser Vaporization Surgery Prostate, Complete ([id number]) 03/23/2024 7:23 AM EDT BPH URINE CULTURE Routine 02/18/2024 6:17 PM EDT Benign prostatic hyperplasia, unspecified whether lower urinary tract symptoms present from Last 3 Months Results * Urine culture Clean Catch Urine (02/18/2024 6:17 PM EDT) Urine Culture No growth (Less than 1,000 cfu/ml). [facility] Clean Catch Urine 02/18/2024 6:17 PM EDT 02/18/2024 6:17 PM EDT Narrative Resulting Agency Comment Spec In Lab Vito Charles MD MICROBIOLOGY - GENER AL ORDERABLES [facility] [address] [place] [phone] from Last 3 Months Care Teams Brine Tank Separator Operator Relationship Specialty Start Date End Date Cristel Layne APRN [address] [place] [address] PCP - General Family Medicine 03/31/22
--- OUTSIDE RECORDS SUMMARY | 2024-04-19 12:45 | XMS_ITS | Encounter Summary ---
Author Organization [facility] Address [address] [place] [address] Care Team Providers Care Seismograph Computer Name Role Phone Whitney Parker MD Primary Care Provider [phone] Encounter Details Date Type Department Care Team (Late st Contact Info) Description 03/12/[address] [facility] Pathology & Laboratory Medicine - [address] [address] Outr Resulting Lab, Provider Social History Tobacco [...] PSA 9.9(H) <=4.5 ng/mL 03/12/2022 18:10 EDT [facility] Blood VENOUS BLOOD / Unknown 03/12/2022 9:27 EDT 03/12/2022 17:34 EDT Narrative [facility] - 03/12/2022 18:10 EDT NOTE: Serum PSA concentration should not be interpreted as absolute evidence for the presence or absence of malignant disease. Assayed on Siemens ADVIA KidsLinkaur XPT using chemiluminescent technology.??Values obtained by using different assay methods cannot be used interchangeably. Provider Outr Resulting Lab CHEMISTRY & BLOOD GAS ORDERABLES [facility] [address] [place] [address] documented in this encounter Visit Diagnoses Not on filedocumented in this encounter Care Teams Seismograph Computer Relationship Specialty Start Date End Date Whitney Parker MD [address] [place] [address] PCP - General 04/12/13 documented as of this encounter
--- OUTSIDE RECORDS SUMMARY | 2024-04-19 12:45 | XMS_ITS | Encounter Summary ---
Author Organization [facility] Address [facility] [place] [address] Care Team Providers Care Herbarium Worker Name Role Phone Roverto Cristeljohn paul Grajeda APRN Primary Care Provider [phone] Encounter Details Date Type Department Care Team [...] place to sleep or slept in a long term (including now)? No 07/21/2022 Sex and Gender Information Value Date Recorded Sex Assigned at Not on file Gender Identity Not on file Sexual Orientation Not on file documented as of this encounter Plan of Treatment Not on file documented as of this encounter Visit Diagnoses Not on filedocumented in this encounter Care Teams Herbarium Worker Relationship Specialty Start Date End Date Cristel Layne APRN [address] [place] [address] PCP - General Family Medicine 03/31/22 documented as of this encounter
--- OUTSIDE RECORDS SUMMARY | 2024-04-19 12:45 | XMS_ITS | Encounter Summary ---
Author Organization [facility] Address [address] [place] [address] Care Team Providers Care Motor Mechanic Name Role Phone Whitney Parker MD Primary Care Provider [phone] Encounter Details Date Type Department Care Team (Late st Contact Info) Description 04/11/2013 Results Only [facility] Services - [facility] ([facility] [address] [place], [place] [address] Don Herrera MD [address] [place], [place] [id number] Social History Tobacco Use Types Packs/Day Years [...] ? DHRUV MAJANO ? Accession #: ? [id number] ? : ? 1955 (Age: 57) ??M [...] cm). Entirely submitted in B1 and B2. Srea Lazo 04/12/2013 02:31 PM End of Report [facility] 04/11/2013 11:2 7 EDT 04/12/2013 11:27 EDT Don Herrera MD PATHOLOGY ORDERABLES [facility] [address] [place] [address] documented in this encounter Visit Diagnoses Not on filedocumented in this encounter Care Teams Motor Mechanic Relationship Specialty Start Date End Date Whitney Parker MD [address] [place] [address] PCP - General 04/12/13 documented as of this encounter
--- OUTSIDE RECORDS SUMMARY | 2024-04-19 12:45 | XMS_ITS | Encounter Summary ---
Author Organization [facility] Address [address] [place] [address] Care Team Providers Care Machine Riveter Name Role Phone Whitney Parker MD Primary Care Provider [phone] Encounter Details Date Type Department Care Team (Late st Contact Info) Description 06/03/2021 Lab Requisition [facility] Pathology & Laboratory Medicine - [address] [address] Outr Resulting Lab, Provider Social History Tobacco [...] 0.0 - 4.5 ng/mL 06/03/2021 22:22 EDT [facility] Blood VENOUS BLOOD / Unknown 06/03/2021 9:50 EDT 06/03/2021 21:06 EDT Narrative [facility] - 06/03/2021 22:22 EDT NOTE: Serum PSA concentration should not be interpreted as absolute evidence for the presence or absence of malignant disease. Assayed on Siemens ADVIA SealPak Innovationsaur XPT using chemiluminescent technology.??Values obtained by using different assay methods cannot be used interchangeably. Provider Outr Resulting Lab CHEMISTRY & BLOOD GAS ORDERABLES [facility] [address] [place] [address] documented in this encounter Visit Diagnoses Not on filedocumented in this encounter Care Teams Machine Riveter Relationship Specialty Start Date End Date Whitney Parker MD [address] [place] [address] PCP - General 04/12/13 documented as of this encounter
--- OUTSIDE RECORDS SUMMARY | 2024-04-19 12:45 | XMS_ITS | Encounter Summary ---
Author Organization [facility] [place] [address] Care Team Providers Care Rvda Master Certified Rv Technician Name Role Phone Cristel Layne APRN Primary Care Provider [phone] Encounter Details Date Type Department Care Team (Late st Contact Info) Description 07/18/2022 Telephone Radiation Oncology at [address] [address] Lilliam Restrepo Social History Tobacco [...] on filedocumented in this encounter Care Teams Rvda Master Certified Rv Technician Relationship Specialty Start Date End Date Cristel Layne APRN [address] [place], [place] [id number] PCP - General Family Medicine 03/31/22 documented as of this encounter
--- OUTSIDE RECORDS SUMMARY | 2024-04-19 12:45 | XMS_ITS | Encounter Summary ---
Author Organization Formerly [facility] Address [facility] [place] [address] Care Team Providers Care Damage Adjuster Name Role Phone Roverto Cristeljohn paul Grajeda APRN Primary Care Provider +1 -[phone] Encounter Details Date Type Department Care Team [...] on filedocumented in this encounter Care Teams Damage Adjuster Relationship Specialty Start Date End Date Cristel Layne APRN [address] [place] [address] PCP - General Family Medicine 03/31/22 documented as of this encounter
--- OUTSIDE RECORDS SUMMARY | 2024-04-19 12:45 | XMS_ITS | Encounter Summary ---
Author Organization [facility] Address [facility] [place] [address] Care Team Providers Care Financial Systems Analyst Name Role Phone Cristel Layne Nicci GREEN Primary Care Provider +1 -[phone] Encounter Details Date Type Department Care Team (Late st Contact Info) Description 03/23/2024 7:30 AM EDT - 03/23/2024 9:15 AM EDT Surgery Main OR at [address] [phone] Vito Charles MD [facility] [place] [address] CYSTO, LASER TURP (WRVU 12.15) Social History [...] more? Visit our health information library at [email or web address] You can also view health information on [employer], your personal patient account. Log in or [...] - 03/23/2024 8:41 AM EDT [facility] Urology Post-Operative Discharge Instructions PHOTO-SELECTIVE VAPORIZATION OF [...] urine. Follow Up: Please call [facility] at [phone] to make a routine follow-up appointment 4-6 weeks after your surgery. If you have any immediate questions or concerns, you may call the main [facility] line ([phone]) andask the signal operator for the ???Urology Resident fire control technician g?? . FOLLOW-UP APPOINTMENT Please see above. Call [...] of urinary symptoms. 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 Consultation with radiation oncology and urology who both leaned toward recommending RALP instead of radiation given his BPH and LUTS. He was scheduled for RALP with Dr. Fry on 12/24/22, but canceled the procedure. He then followed with Dr. Hensley who did a repeat biopsy that found Greensburg 3+4 prostate cancer and was planning on [...] - 03/23/2024 7:38 AM EDT [facility] Operative Note [address] Patient Name: Vincent Oswald : [id number] MR#: [id number] Case Date: 03/23/2024 Case Scheduled Time: 0730 [...] Prep and drape was performed in [facility] standard sterile fashion. With a 23.5French cystoscopy [...] removing the sheath and placing an 20 Kittitian 2-way Keller catheter. The drainage was clear. [...] minutes. Vito Charles MD Section of Urology [facility] Office: [phone] Infection Bundle used? N/A Vito Charles MD 03/23/2024 documented in this encounter Plan of Treatment Not on file documented as of this encounter Procedures Procedure Name Priority Date/Time Associated Diagnosis Comments MODIFIER,GREENLIGHT LASER 2023 7:23 AM EDT BPH Laser Vaporization Surgery Prostate, Complete ([id number]) 03/23/2024 7:23 AM EDT BPH documented in [...] insertion) documented in this encounter Care Teams Financial Systems Analyst Relationship Specialty Start Date End Date Cristel Layne APRN [address] [place] [address] PCP - General Family Medicine 03/31/22 documented as of this encounter
--- OUTSIDE RECORDS SUMMARY | 2024-04-19 12:45 | XMS_ITS | Encounter Summary ---
Author Organization [facility] Address [facility] [place] [address] Care Team Providers Care Experimental Preflight Mechanic Name Role Phone Roverto Cristeljohn paul Grajeda APRN Primary Care Provider +1 -[phone] Reason for Visit * Reason Onset Date Comments Prostate Cancer 09/12/2022 Encounter Details Date Type Department Care Team ([facility] st Contact Info) Description 09/12/2022 [place] [address] Ming Fry MD [facility] [place] [address] Malignant neoplasm of prostate; Lower urinary tract [...] or you can obtain it from the [facility] Same day program on the day of [...] you have any questions please call the [facility] at or documented in [...] prostate documented in this encounter Care Teams Experimental Preflight Mechanic Relationship Specialty Start Date End Date Cristel Layne APRN [address] [place] [address] PCP - General Family Medicine 03/31/22 documented as of this encounter
--- OUTSIDE RECORDS SUMMARY | 2024-04-19 12:45 | XMS_ITS | Encounter Summary ---
[place] [address] Care Team Providers Care Rope Cutter Name Role Phone Cristel Layne APRN Primary Care Provider +1 -[phone] Reason for Referral * Diagnostic Test (Routine) - Closed Specialty Diagnoses / Procedures Referred By Contac t Referred To Contact Radiology Diagnoses Elevated PSA Procedures MRI Pelvis wwo (Prostate) Viktoriya Hendrickson APRN [address] [place] [address] [place] [address] Referral ID Status Reason Start Date Expiration Date V isits Requested Visits Authorized [id number] Closed Specialty Service Requested 03/31/2022 10/01/2023 1 1 Reason for Visit * Diagnostic Test (Routine) - Closed Specialty Diagnoses / Procedures Referred By Contac t Referred To Contact Radiology Diagnoses Elevated PSA Procedures MRI Pelvis wwo (Prostate) Viktoriya Hendrickson APRN [address] [place] [address] [place] [address] Referral ID Status Reason Start Date Expiration Date V isits Requested Visits Authorized [id number] Closed Specialty Service Requested 03/31/2022 10/01/2023 1 1 Encounter Details Date Type Department Care Team (Latest Contact Info) Description 04/16/2022 5:12 PM EDT - 04/16/2022 11:59 PM EDT Hospital [place] [address] RazamitchazeemViktoriya APRN [address] [place] [address] Elevated PSA Discharge Disposition: Home Social History [...] G1, Rayn K1, Cook MJ1, Wood BJ1, Cotres PA1, Chotrell PL1, Turkbey B1. ??A Grading System for the Assessment of Risk of Extraprostatic Extension of Prostate Cancer at Multiparametric MRI. Radiology. 2019 Mar;290(3):709-719. doi: 10.1148/radiol.2334233187. Epub 2018Aug 24. Thank you for letting us participate in the care of this patient. ??If you are a health care provider and have any questions regarding this report, please contact the number below. ??For patients who have questions please contact the health career and transition teacher that requested your imaging first. ? Electronically signed by: Law Portillo MD, [facility] ([phone]), at 04/17/2022 9:10 AM Narrative 04/17/2022 9:10 [...] Cancer at Multiparametric MRI. Radiology. 2019Mar;290(3):709-719. doi: 10.1148/radiol.8092944362. Epub 2018Aug 24. Thank you for letting us participate in the care of this patient. If youare a health care provider and have any questions regarding this report,please contact the number below. For patients who have questions please contactthe health career and transition teacher that requested your imaging first. Electronically signed by: Law Portillo MD, [facility]([phone]), at 04/17/2022 9:10 AM Viktoriya Hendrickson APRN [facility] MRI ORDERABLES documented in this encounter Visit [...] mLs documented in this encounter Care Teams Rope Cutter Relationship Specialty Start Date End Date Cristel Layne APRN [address] [place] [address] PCP - General Family Medicine 03/31/22 documented as of this encounter
--- OUTSIDE RECORDS SUMMARY | 2024-04-19 12:45 | XMS_ITS | Encounter Summary ---
Author Organization [facility] Address [facility] [place] [address] Care Team Providers Care Case Reviewer Name Role Phone Cristel Layne APRN Primary Care Provider +1 -[phone] Encounter Details Date Type Department Care Team (Late st Contact Info) Description 09/11/2022 1:00 PM EST TH Visit (TeleHealth) Radiation Oncology at [address] [address] Joshua Stein MD [address] [place] [address] [place] [address] Malignant neoplasm of prostate Social [...] place to sleep or slept in a custodial (including now)? No 07/21/2022 Sex and Gender Information Value Date Recorded Sex Assigned at Not on file Gender Identity Not on file Sexual Orientation Not on file documented as of this encounter Progress Notes * Joshua Stein MD - 09/11/2022 1:00 PM EST Radiation Oncology Telephone Visit ID: Vincent Oswald is a 67 y.o. with low risk prostate cancer ([id number], Gl 3+3, PSA 9.9). I am calling [...] prostate documented in this encounter Care Teams Case Reviewer Relationship Specialty Start Date End Date Cristel Layne APRN [address] [place] [address] PCP - General Family Medicine 03/31/22 documented as of this encounter
--- OUTSIDE RECORDS SUMMARY | 2024-04-19 12:45 | XMS_ITS | Encounter Summary ---
Author Organization [facility] Address [facility] [place] [address] Care Team Providers Care Technology Applications Engineer Name Role Phone Roverto Cristeljohn paul Grajeda APRN Primary Care Provider +1 -[phone] Encounter Details Date Type Department Care Team [...] place to sleep or slept in a chcf (including now)? No 07/21/2022 Sex and Gender Information Value Date Recorded Sex Assigned at Not on file Gender Identity Not on file Sexual Orientation Not on file documented as of this encounter Plan of Treatment Not on file documented as of this encounter Visit Diagnoses Not on filedocumented in this encounter Care Teams Technology Applications Engineer Relationship Specialty Start Date End Date Cristel Layne APRN [address] [place] [address] PCP - General Family Medicine 03/31/22 documented as of this encounter
--- OUTSIDE RECORDS SUMMARY | 2024-04-19 12:45 | XMS_ITS | Encounter Summary ---
Author Organization [facility] Address [facility] [place] [address] Care Team Providers Care Economic Development Director Name Role Phone Cristel Layne APRN Primary Care Provider +1 -[phone] Encounter Details Date Type Department Care Team (Latest Contact Info) Description 06/12/2022 4:41 PM EST - 06/12/2022 11:59 PM EST Hospital [place] [address] Discharge Disposition: Home Social History Tobacco Use [...] Report (06/12/2022 4:41 PM EST) Final Diagnosis [id number] ? Location: OPW The signing pathologist has (i) examined the relevant preparation(s) for the specimen(s) and (ii) rendered or confirmed the diagnosis(es). . ?Surgical Pathology DIAGNOSIS CONSULTATION CASE Outside slides labeled [id number]; collection date, 05/23/2022. A - Prostatic core needle biopsy, right mid lateral: ?Microscopic atypical glandular focus, suspicious ?for grade 3 adenocarcinoma. B - Prostatic core needle biopsy, right base lateral: ?Benign prostatic tissue. C - Prostatic core needle biopsy, right base medial: ?Benign prostatic tissue. D - Prostatic core needle biopsy, right mid medial: ?Adenocarcinoma, grade group 1, Wilbur grade 3+3, ?involving 10% of the biopsy core. E - Prostatic core needle biopsy, right apex lateral: ?Benign prostatic tissue. F - Prostatic core needle biopsy, right apex medial: ?Benign prostatic tissue. G - Prostatic core needle biopsy, left lateral base: ?Adenocarcinoma, grade group 1, Franklin grade 3+3, ?involving 25% of the biopsy core. H - Prostatic core needle biopsy, left base medial: ?Adenocarcinoma, grade group 1, Franklin grade 3+3, ?involving 10% of the biopsy core. I - Prostatic core needle biopsies, left mid lateral: ?Adenocarcinoma, grade group 1, Franklin grade 3+3, ?involving 1 of 2 core [...] Robbins Verified: ??06/23/2022 14:03 ??Pathologist Performed at: ??-[facility] Dept. of Pathology, [place] [address] Seamer Panty Hose: Giles Paz MD, FCAP, ??CLIA Certificate: [id number] . DISCUSSION Scanned slides: [id number] D1-2 [id number] G1-2 [id number] H1-2 [id number] I1-2 [id number] K1-2 [id number] L1-2 SPECIMEN(S) SUBMITTED CONSULTATION CASE A - 26 slide(s) labeled [id number], collection date 05/23/2022. [id number] CARBON COPY: [facility] Surgical Pathology Department [facility], [facility], 2nd Floor [address] [place], [place] ??[address] CLINICAL INFORMATION Elevated PSA 9.9 with abnormal prostate MRI right posterior lateral SPECIMEN PROCESSING [facility] ([facility]) pathology slide(s) are reviewed. ??Refer to Diagnosis and Specimen Submitted for specific case information. For the full text of the [facility] report(s) please refer to Non-DH Documentation Pathology in the electronic health record (eDH). 06/23/2022 2:03 PM EST [facility] Consult Case 06/12/2022 4:41 PM EST 06/12/2022 4:41 PM EST Joshua Stein MD PATHOLOGY/CYTOLOGY O RDERAISABEL Performing Organization Address City/State/[facility] Co de Phone Number [facility] [place] [phone] documented in this encounter Visit Diagnoses Not on filedocumented in this encounter Care Teams Economic Development Director Relationship Specialty Start Date End Date Cristel Layne APRN [address] [place] [address] PCP - General Family Medicine 03/31/22 documented as of this encounter
--- OUTSIDE RECORDS SUMMARY | 2024-04-19 12:45 | XMS_ITS | Encounter Summary ---
Author Organization [facility] [place] [address] Care Team Providers Care Underwater Hunter Trapper Name Role Phone Cristel Layne APRN Primary Care Provider +1 -[phone] Reason for Visit * Consultation (Routine) - Closed Specialty Diagnoses / Procedures Referred By Contac t Referred To Contact Radiation Oncology Diagnoses Malignant neoplasm of prostate Malignant neoplasm of prostate Procedures consultation Jomar Hensley MD [address] [place] [address] [address] Rad Onc Office [address] [place] [phone] Referral ID Status Reason Start Date Expiration Date Visits Re quested Visits Authorized [id number] Closed 06/09/2022 06/09/2023 1 1 Encounter Details Date Type Department Care Team (Late st Contact Info) Description 07/21/2022 1:30 PM EST Office Visit Radiation Oncology at [address] [address] Joshua Stein MD [address] [place] [address] [place] [address] Malignant neoplasm of prostate Social [...] are considered medium risk. 2. Your highest Wilbur Group score was 1 (this is how aggressive your prostate cancer looks under the microscope). Wilbur scores for cancer range from 1-5, and [...] we could order a genetic test called Subtext that gives us a score of 0-1 [...] or to the Active Surveillance Clinic at [facility], which is run by our [...] you to my colleague Dr. Mead in [place], who specializes in the placement of radioactive [...] a prostate MRI which we do at [facility], that allows us to better [...] within 4-6 weeks of completion radiation. 6. Retirement Complications: These are more worrisome and are [...] for urination). There may be a slow, usp decrease in your sexual function as well, [...] do not hesitate to call me at [phone] with any other questions or concerns you have. IfI am not here, one of our radiation oncology nurses can assist you or help you get in touch with me. A Radiation Oncology doctor is also telecommunications linesworker after our normal hours and on weekends for urgent questions or concerns related to radiation treatments that can not wait until normal business hours. To reach the on-call doctor after-hours, just call and have the universal grinder operator page the Radiation Oncologist telecommunications linesworker. And, as always, if you experience any [...] Cancer Consult Note Joshua Stein MD, MS [facility] [phone] PATIENT IDENTIFICATION: PATIENT NAME: Vincent Oswald DATE [...] ??? Terazosin ??? Losartan Rash SOCIAL HISTORY: [place]: [employer] Living Situation: Lives w g/f Transit [facility] to [facility]: 10 mins Employment history: Retired building custodian Smoking: Never Alcohol 3-4 rum cocktails / [...] y.o. man diagnosed with low-risk prostate cancer ([id number], Gl 3+3, PSA 9.9). Staging is complete [...] with all forms of radiotherapy. In the usp, I explained there is an approximately 2% [...] case to my collegue, Dr Mead at [facility] who routinely performs these implants. I also [...] candidate for any currently open trials at [facility]. On balance, Vincent wishes to [...] yes, daughters Barriers to treatment: None Referrals/Interventions: social worker aide visit on day per routine. RADIATION SPECIFIC [...] prostate documented in this encounter Care Teams Underwater Hunter Trapper Relationship Specialty Start Date End Date Cristel Layne APRN [address] [place] [address] PCP - General Family Medicine 03/31/22 documented as of this encounter
--- OUTSIDE RECORDS SUMMARY | 2024-04-19 12:45 | XMS_ITS | Encounter Summary ---
Author Organization [facility] Address [facility] [place] [address] Care Team Providers Care Command And Control Systems Integrator Name Role Phone Roverto Rcisteljohn paul Grajeda APRN Primary Care Provider +1 -[phone] Encounter Details Date Type Department Care Team [...] on filedocumented in this encounter Care Teams Command And Control Systems Integrator Relationship Specialty Start Date End Date Cristel Layne APRN [address] [place] [address] PCP - General Family Medicine 03/31/22 documented as of this encounter
[2024-04-19 16:14] LABS: Abs Immature Grans 0.05 10^3/uL (0.0-0.06); Absolute Basophil Count 0.06 10^3/uL (0.0-0.2); Absolute Eosinophil Count 0.25 10^3/uL (0.0-0.7); Absolute Lymphocyte Count 2.29 10^3/uL (1.2-3.4); Absolute Monocyte Count 1.05 10^3/uL (0.1-0.8); Absolute Neutrophil Count 5.62 10^3/uL (1.2-6.7); Basophils % 0.6 %; Eosinophils % 2.7 %; HCT 47.6 % (40.0-50.0); HGB 16.1 g/dL (13.5-17.5); Immature Grans % 0.5 %; Lymphocytes % 24.6 %; MCH 33.7 pg (27.0-33.0); MCHC 33.8 % (32.0-36.0); MCV 100 fL (80-95); MPV 10.9 fL (8.0-11.0); Monocytes % 11.3 %; Neutrophils % 60.3 %; Platelet Count 253 10^3/uL (130-400); RBC 4.78 10^6/uL (4.36-5.78); RDW 12.7 % (11.8-14.1); RDW-SD 46.4 fL; WBC 9.32 10^3/uL (4.4-10.8)
[2024-04-19 16:43] LABS: ALT 36 U/L (16-63); AST 15 U/L (15-37); Albumin 3.5 g/dL (3.4-5.0); Alkaline Phosphatase 76 U/L (46-116); Anion Gap 6.8 mmol/L (3-11); BUN 15 mg/dL (7-18); Bilirubin, Total 0.94 mg/dL (0.2-1.0); CO2 29.2 mmol/L (21.0-32.0); CREATININE 1.1 mg/dL (0.70-1.30); Calcium 9.6 mg/dL (8.5-10.1); Chloride 104 mmol/L (98-107); Estimated GFR 72.22 (mL/min/1.73m2); Glucose 93 mg/dL (74-106); Magnesium 1.6 mg/dL (1.8-2.4); Potassium 4.4 mmol/L (3.5-5.1); Sodium 140 mmol/L (136-145); TSH (W/Ref FT4) 0.84 uIU/mL (0.36-3.74); Total Protein 6.8 g/dL (6.4-8.2)
[2024-04-19 17:02] LABS: COMMENT (LAB VIEW ONLY) 157.34 mg/dL; Microalb ug/mg Crea 28.5 ug/mg Cr
[2024-04-19 17:26] LABS: Hemoglobin A1C 5.7 % (<5.7)
[2024-04-19 17:29] LABS: Bilirubin Negative (Negative); Blood Moderate (Negative); Clarity Clear (Clear); Glucose Negative (Negative); Ketones Negative (Negative); Leukocyte Esterase Moderate (Negative); Nitrite Negative (Negative); Urobilinogen 0.2 mg/dL (Up to 0.2); pH 5.5 (5-8)
[2024-04-19 17:40] LABS: Bacteria Few HPF (Negative); C & S Indicated? Yes; Casts Negative LPF (Negative); Crystals Negative HPF (Negative); Epithelial Cells Few HPF (Negative); Mucus Trace (Negative)
== END 2024-04-19 12:43 | disposition home or self-care (01) ==
LOC: NCHCN 12:42
PROVIDERS: PCP Nurse Practitioner Family; Visit Provider Nurse Practitioner Family
DX: I10 Essential (primary) hypertension (principal)
CPT/HCPCS: 80053; 81003; 81015; 82043; 82570; 83036; 83735; 84443; 85025; 87086

== ENCOUNTER 2024-05-11 14:29 | Outpatient (CLI) | payer MEDICARE, SELFPAY ==
--- NOTE | 2024-05-11 09:30 | DI.RAD_ITS ---
Exam(s) XR ANKLE RT COMPLETE EXAM: XR ANKLE RT COMPLETE CLINICAL HISTORY: RIGHT ANKLE PAIN. TECHNIQUE: 2D digital imaging was performed. COMPARISON: No exams were available for comparison FINDINGS: 3 views There is no evidence of acute fracture or widening the ankle mortise. There is subarticular lucency in the lateral aspect of the talar dome and slight cortical irregularity at this level. Possible ost eochondral defect. Medial aspect of the talar dome appears unremarkable. There are mild-moderate de generative changes in the tibiotalar ankle joint. Prominent inferior calcaneal spur is noted. Calci fication is noted posteriorly at the insertional aspect of the Achilles tendon on the posterior calca neus. There is a large posterior talar process noted. There appears to be an ankle joint effusion. IMPRESSION: Multilevel radiographic findings in the ankle, as described above. DATA REPOSITORY: RADIATION DOSE DELIVERED:
== END 2024-05-11 14:30 | disposition home or self-care (01) ==
LOC: DIORS 14:29
PROVIDERS: PCP Nurse Practitioner Family; Referring Provider Nurse Practitioner Family; Visit Provider Student in an Organized Health Care Education/Training Program
DX: M25.571 Pain in right ankle and joints of right foot (principal); M25.521 Pain in right elbow; M10.9 Gout, unspecified
CPT/HCPCS: 99214; 73610

== ENCOUNTER 2024-05-25 15:02 | Outpatient (CLI) | payer MEDICARE, SELFPAY ==
--- OUTSIDE RECORDS SUMMARY | 2024-05-25 15:11 | XMS_ITS | Encounter Summary ---
Author Organization [facility] Address [address] [place] [address] Care Team Providers Care Analytical Technician Name Role Phone Whitney Parker MD Primary Care Provider eJsus e Encounter Details Date Type Department Care Team (Latest Contact Info) Description 08/14/2017 11:11 EST - 08/14/2017 23:59 EST Hospital Encounter [address] [address] Unknown, Provider, Discharge Disposition: Home or Self Care Social History Tobacco Use Types Packs/Day Years Used Date Smoking Tobacco: Never Assessed Sex and Gender Information Value Date Recorded Sex Assigned at Not on file Gender Identity Not on file Sexual Orientation Not on file documented as of this encounter Discharge Disposition Disposition Code Departure Means Destination Home or Self Usp documented in this encounter Plan of Treatment Not on file documented as of this encounter Visit Diagnoses Not on filedocumented in this encounter Care Teams Analytical Technician Relationship Specialty Start Date End Date Whitney Parker MD PCP - General 04/12/13 05/23/24 documented as of this encounter
--- OUTSIDE RECORDS SUMMARY | 2024-05-25 15:11 | XMS_ITS | Clinical Summary ---
Author Organization [facility] Address [facility] [place] [address] Care Team Providers Care Concrete Mixer Truck Driver Name Role Phone Cristel Layne Nicci GREEN Primary Care Provider +1 -[phone] Allergies Active Allergy Reactions Criticality Noted Date [...] 9:15 AM EDT Surgery Main OR at [address] [phone] Vito Charles MD CYSTO, LASER TURP (WRVU 12.15) 03/23/2024 7:23 AM EDT Anesthesia Event Main OR at [address] [address] Jeremi Degroot, Brandon Katz, AQUATIC DIRECTOR 03/23/2024 6:24 AM EDT - 03/23/2024 10:05 AM EDT Hospital Encounter PACU at [address] [address] Vito Charles MD Discharge Disposition: Home 03/14/2024 8:15 AM EDT Telephone Pre Admission Testing at [address] [address] from Last 3 Months Family History Medical [...] Hepatitis C Screening 1971 Lipid Screening 1971 Tetanus/Diphtheria/Pertussis Vaccines (1 - Tdap) 06/14 Diabetes Screening (HgbA1C or Glucose) 1993 Zoster vaccine (1 of 2) 2003 Advance Directive 2008 Pneumoccocal Vaccine: 65+ (1 of 1 - PCV) 2018 Covid-19 Vaccine (1 - 2022- season) 2024 Influenza (Flu) vaccine (1 o f 1 - Influenza standard series) 04/03/2024 Procedures Procedure Name Priority Date/Time Associated Diagnosis Comments MODIFIER,GREENLIGHT LASER 2023 7:23 AM EDT BPH Laser Vaporization Surgery Prostate, Complete ([id number]) 03/23/2024 7:23 AM EDT BPH from Last 3 Months Care Teams Concrete Mixer Truck Driver Relationship Specialty Start Date End Date Cristel Layne APRN [address] [place] [address] PCP - General Family Medicine 03/31/22
--- OUTSIDE RECORDS SUMMARY | 2024-05-25 15:11 | XMS_ITS | Encounter Summary ---
Author Organization [facility] Address [facility] [place] [address] Care Team Providers Care Stroboroma Operator Name Role Phone Roverto Cristeljohn paul Grajeda APRN Primary Care Provider +1 -[phone] Encounter Details Date Type Department Care Team [...] place to sleep or slept in a mcfp (including now)? No 07/21/2022 Sex and Gender Information Value Date Recorded Sex Assigned at Not on file Gender Identity Not on file Sexual Orientation Not on file documented as of this encounter Plan of Treatment Not on file documented as of this encounter Visit Diagnoses Not on filedocumented in this encounter Care Teams Stroboroma Operator Relationship Specialty Start Date End Date Crisetl Layne APRN [address] [place] [address] PCP - General Family Medicine 03/31/22 documented as of this encounter
--- OUTSIDE RECORDS SUMMARY | 2024-05-25 15:11 | XMS_ITS | Encounter Summary ---
Author Organization [facility] Address [address] [place] [address] Care Team Providers Care Musculoskeletal Physiotherapist Name Role Phone Whitney Parker MD Primary Care Provider Jesus young Encounter Details Date Type Department Care Team (Late st Contact Info) Description 05/13/2023 Lab Requisition [facility] Pathology & Laboratory Medicine - [address] [address] Outr Resulting Lab, Provider Social History Tobacco [...] <=4.5 ng/mL 05/13/2023 19:[address] [facility] Blood VENOUS BLOOD / Unknown 05/13/2023 10:30 EDT 05/13/2023 17:06 EDT Narrative [facility] - 05/13/2023 19:19 EDT NOTE: Serum PSA concentration should not be interpreted as absolute evidence for the presence or absence of malignant disease. Assayed on Siemens ADVIA Blitz X Performance Instrumentsaur XPT using chemiluminescent technology.??Values obtained by using different assay methods cannot be used interchangeably. Provider Outr Resulting Lab CHEMISTRY & BLOOD GAS ORDERABLES [facility] [address] [place] [address] documented in this encounter Visit Diagnoses Not on filedocumented in this encounter Care Teams Musculoskeletal Physiotherapist Relationship Specialty Start Date End Date Whitney Parker MD PCP - General 04/12/13 05/23/24 documented as of this encounter
--- OUTSIDE RECORDS SUMMARY | 2024-05-25 15:11 | XMS_ITS | Encounter Summary ---
Author Organization [facility] Address [address] [place] [address] Care Team Providers Care Sales And Marketing Executive Name Role Phone Whitney Parker MD Primary Care Provider Jesus e Encounter Details Date Type Department Care Team (Late st Contact Info) Description 05/23/2022 Lab Requisition [facility] Pathology & Laboratory Medicine - [address] [address] Jomar Hensley MD [address] [place] [phone] Elevated prostate specific antigen (PSA) Social History [...] management options, if applicable. 05/27/2022 11:56 EDT [facility] Final Diagnosis A. PROSTATE, [...] 1 (Wilbur score <=6) Grade Group 2 (Blaine score 3+4=7) Grade Group 3 (Blaine score 4+3=7) Grade Group 4 (Wilbur score 8) Grade Group 5 (Wilbur scores 9-10) * Efren GARSIA et al: A Contemporary Prostate Cancer Grading System: A Validated Alternative to the Wilbur Score. Eur Uro 2015 69(3):428-435 05/27/2022 11:56 [facility] Diagnosis Comment Immunohistochemical study [...] performance characteristics have been determined by [facility] and/or by the referring laboratory. [...] high complexity clinical laboratory testing. 05/27/2022 11:56 [facility] Attestation There was significan t resident/fellow involvement in the diagnostic evaluation of this case. By the signature below, the attending physician certifies that they have personally conducted a gross and/or microscopic examination of the described specimens and rendered or confirmed the above diagnosis. 05/27/2022 11:56 [facility] at 1156 Clinical History Elevated PSA 9.9 with abnormal prostate MRI right posterior lateral 05/27/2022 11:56 [facility] Gross Description A. Received [...] L1. BINA DRAKE 05/24/2022 14:15 05/27/2022 11:56 [facility] Resident/Fell ow: Jeremi Lea MD 05/27/2022 11:56 [facility] Performing Lab [facility] 05/27/2022 11:56 [facility] Scanned Images 05/27/2022 11:56 [facility] Tissue ENTIRE APEX OF [...] EDT Jomar Hensley MD PATHOLOGY ORDERAB LES [facility] [address] [place] [address] documented in this encounter Visit Diagnoses Diagnosis Elevated prostate specific antigen (PSA) documented in this encounter Care Teams Sales And Marketing Executive Relationship Specialty Start Date End Date Whitney Parker MD PCP - General 04/12/13 05/23/24 documented as of this encounter
--- OUTSIDE RECORDS SUMMARY | 2024-05-25 15:11 | XMS_ITS | Encounter Summary ---
Author Organization [facility] Address [address] [place] [address] Care Team Providers Care Video Machines Mechanic Name Role Phone Whitney Parker MD Primary Care Provider Jesus young Encounter Details Date Type Department Care Team (Late st Contact Info) Description 06/03/2021 Lab Requisition [facility] Pathology & Laboratory Medicine - [address] [id number] Outr Resulting Lab, Provider Social History Tobacco [...] 0.0 - 4.5 ng/mL 06/03/2021 22:22 EDT [facility] Blood VENOUS BLOOD / Unknown 06/03/2021 9:50 EDT 06/03/2021 21:06 EDT Narrative [facility] - 06/03/2021 22:22 EDT NOTE: Serum PSA concentration should not be interpreted as absolute evidence for the presence or absence of malignant disease. Assayed on Siemens ADVIA [employer] XPT using chemiluminescent technology.??Values obtained by using different assay methods cannot be used interchangeably. Provider Outr Resulting Lab CHEMISTRY & BLOOD GAS ORDERABLES [facility] [address] [place] [address] documented in this encounter Visit Diagnoses Not on filedocumented in this encounter Care Teams Video Machines Mechanic Relationship Specialty Start Date End Date Whitney Parker MD PCP - General 04/12/13 05/23/24 documented as of this encounter
--- OUTSIDE RECORDS SUMMARY | 2024-05-25 15:11 | XMS_ITS | Encounter Summary ---
Author Organization [facility] Address [address] [place] [address] Care Team Providers Care Agricultural Produce Packer Name Role Phone Whitney Parker MD Primary Care Provider Jesus young Encounter Details Date Type Department Care Team (Late st Contact Info) Description 08/14/2017 Results Only [facility] [phone] Radha Baig, DO [address] [place] [address] Social History Tobacco Use Types [...] reading/interpret ing unformatted reports. Name: ? DHRUV MAJANO ? Accession #: ? [id number] ? : ? 1955 (Age: 62) ??M [...] (ASCP) 08/17/2017 7:36 AM End of Report [facility] 08/14/2017 17:2 7 EST 08/14/2017 17:27 EST Radha Baig DO PATHOLOGY ORDERABLES [facility] [address] [place] [address] documented in this encounter Visit Diagnoses Not on filedocumented in this encounter Care Teams Agricultural Produce Packer Relationship Specialty Start Date End Date Whitney Parker MD PCP - General 04/12/13 05/23/24 documented as of this encounter
--- OUTSIDE RECORDS SUMMARY | 2024-05-25 15:11 | XMS_ITS | Encounter Summary ---
Author Organization [facility] [place] [address] Care Team Providers Care Studio Operator Name Role Phone Cristel Layne APRN Primary Care Provider +1 [phone] Encounter Details Date Type Department Care Team (Late st Contact Info) Description 07/18/2022 Telephone Radiation Oncology at [address] [phone] Lilliam Restrepo Social History Tobacco [...] on filedocumented in this encounter Care Teams Studio Operator Relationship Specialty Start Date End Date Cristel Layne APRN [address] [place], [place] [id number] PCP - General Family Medicine 03/31/22 documented as of this encounter
--- OUTSIDE RECORDS SUMMARY | 2024-05-25 15:11 | XMS_ITS | Encounter Summary ---
Author Organization [facility] Address [address] [place] [address] Care Team Providers Care Aircraft Launch And Recovery Technician Name Role Phone Whitney Parker MD Primary Care Provider Jesus young Encounter Details Date Type Department Care Team (Late st Contact Info) Description 08/26/[address] [facility] Pathology & Laboratory Medicine - [address] [address] Outr Resulting Lab, Provider Social History Tobacco [...] PSA 7.1(H) <=6.5 ng/mL 08/26/2023 22:56 EST [facility] Blood VENOUS BLOOD / Unknown 08/26/2023 12:34 EST 08/26/2023 21:22 EST Narrative [facility] - 08/26/2023 22:56 EST NOTE: Serum PSA concentration should not be interpreted as absolute evidence for the presence or absence of malignant disease. Assayed on Siemens ADVIA Centaur XPT using chemiluminescent technology.??Values obtained by using different assay methods cannot be used interchangeably. Provider Outr Resulting Lab CHEMISTRY & BLOOD GAS ORDERABLES [facility] [address] [place] [address] documented in this encounter Visit Diagnoses Not on filedocumented in this encounter Care Teams Aircraft Launch And Recovery Technician Relationship Specialty Start Date End Date Whitney Parker MD PCP - General 04/12/13 05/23/24 documented as of this encounter
--- OUTSIDE RECORDS SUMMARY | 2024-05-25 15:11 | XMS_ITS | Encounter Summary ---
Author Organization [facility] [place] [address] Care Team Providers Care Die Developer Name Role Phone Cristel Layne APRN Primary Care Provider [phone] [phone] Reason for Visit * Consultation (Routine) - Closed Specialty Diagnoses / Procedures Referred By Contac t Referred To Contact Radiation Oncology Diagnoses Malignant neoplasm of prostate Malignant neoplasm of prostate Procedures consultation Jomar Hensley MD [address] [place] [address] [facility] [address] [place] [phone] Referral ID Status Reason Start Date Expiration Date Visits Re quested Visits Authorized [id number] Closed 06/09/2022 06/09/2023 1 1 Encounter Details Date Type Department Care Team (Late st Contact Info) Description 07/21/2022 1:30 PM EST Office Visit Radiation Oncology at [address] [address] Joshua Stein MD [address] [place] [address] [place] [address] Malignant neoplasm of prostate Social [...] to sleep or slept in a senior care (including now)? No 07/21/2022 Sex and Gender [...] are considered medium risk. 2. Your highest Lamona Group score was 1 (this is how aggressive your prostate cancer looks under the microscope). Lamona scores for cancer range from 1-5, and [...] we could order a genetic test called [employer] that gives us a score of 0-1 [...] or to the Active Surveillance Clinic at [facility], which is run by our [...] you to my colleague Dr. Mead in [place], who specializes in the placement of radioactive [...] a prostate MRI which we do at [facility], that allows us to better [...] within 4-6 weeks of completion radiation. 6. Golf Instructor Complications: These are more worrisome and are [...] for urination). There may be a slow, exterminator decrease in your sexual function as well, [...] do not hesitate to call me at [phone] with any other questions or concerns you have. IfI am not here, one of our radiation oncology nurses can assist you or help you get in touch with me. A Radiation Oncology doctor is also lion trainer after our normal hours and on weekends for urgent questions or concerns related to radiation treatments that can not wait until normal business hours. To reach the on-call doctor after-hours, just call and have the jig operator page the Radiation Oncologist lion trainer. And, as always, if you experience any [...] Cancer Consult Note Joshua Stein MD, MS [facility] [phone] PATIENT IDENTIFICATION: PATIENT NAME: Vincent Oswald DATE [...] ??? Terazosin ??? Losartan Rash SOCIAL HISTORY: [place]: [employer] Living Situation: Lives w g/f Transit time to [facility]-N: 10 mins Employment history: Retired building construction superintendent Smoking: Never Alcohol 3-4 rum cocktails / [...] y.o. man diagnosed with low-risk prostate cancer ([id number], Gl 3+3, PSA 9.9). Staging is complete [...] with all forms of radiotherapy. In the exterminator, I explained there is an approximately 2% [...] case to my collegue, Dr Mead at [facility] who routinely performs these implants. I also [...] candidate for any currently open trials at [facility]. On balance, Vincent wishes to [...] yes, daughters Barriers to treatment: None Referrals/Interventions: torpedo worker visit on day per routine. RADIATION [...] prostate documented in this encounter Care Teams Die Developer Relationship Specialty Start Date End Date Cristel Layne APRN [address] [place] [address] PCP - General Family Medicine 03/31/22 documented as of this encounter
--- OUTSIDE RECORDS SUMMARY | 2024-05-25 15:11 | XMS_ITS | Encounter Summary ---
Author Organization [facility] Address [facility] [place] [address] Care Team Providers Care Customer Care Associate Name Role Phone Cristel Layne APRN Primary Care Provider [phone] [phone] Reason for Visit * Consultation (Routine) - Closed Specialty Diagnoses / Procedures Referred By Ok little Referred To Contact Urology Diagnoses Lower urinary tract symptoms (LUTS) Unspecified symptoms and signs involving the genitourinary system Malignant neoplasm of prostate Jomar Hensley MD [address] [place] [address] [facility] [place] [address] Referral ID Status Reason Start Date Expiration Date V isits Requested Visits Authorized [id number] Closed Consult, Test & Treat PCP Updated and/or Approved 11/17/2023 05/18/2024 6 6 Encounter Details Date Type Department Care Team (Late st Contact Info) Description 02/18/2024 1:20 PM EDT [place] [address] Vito Charles MD [facility] [place] [address] Benign prostatic hyperplasia, unspecified whether [...] Charles MD - 02/18/2024 1:20 PM EDT [facility] SECTION OF UROLOGY UROLOGY CLINIC VISIT Name: Vincent Oswald : 1955 Date: 02/18/2024 Referred by: Jomar Hensley Chief Complaint: LUTS, prostate cancer History of Present Illness (carried forward for reference): Vincent Oswald is a 68 y.o. male who is referred for management of urinary symptoms. He was diagnosed with [place] 6 prostate cancerin 05/2022. Consultation with radiation [...] is currently taking flomax. IPSS score 17/35 (4/2/4/3//2); QOL 4/6. Prostate size on MRI was [...] Schedule PVP as same day surgery at [facility] The patient expressed understanding and agreement with the above. Vito Charles MD Section of Urology [facility] Office: [phone] documented in this encounter Plan of Treatment [...] Culture No growth (Less than 1,000 cfu/ml). [facility] Clean Catch Urine 02/18/2024 6:17 PM EDT 02/18/2024 6:17 PM EDT Narrative Resulting Agency Comment Spec In Lab Vito Charles MD MICROBIOLOGY - GENER AL ORDERABLES [facility] [place] [address] documented in this encounter Visit Diagnoses Diagnosis Benign prostatic hyperplasia, unspecified whether lower urinary tract symptoms present Malignant neoplasm of prostate documented in this encounter Care Teams Customer Care Associate Relationship Specialty Start Date End Date Cristel Layne APRN [address] [place] [address] PCP - General Family Medicine 03/31/22 documented as of this encounter
--- OUTSIDE RECORDS SUMMARY | 2024-05-25 15:11 | XMS_ITS | Encounter Summary ---
Author Organization [facility] Address [facility] [place] [address] Care Team Providers Care Ledger Clerk Name Role Phone Cristel Layne APRN Primary Care Provider [phone] [phone] Encounter Details Date Type Department Care Team (Latest Contact Info) Description 06/12/2022 4:41 PM EST - 06/12/2022 11:59 PM EST [place] [address] Discharge Disposition: Home Social History Tobacco Use [...] Report (06/12/2022 4:41 PM EST) Final Diagnosis [id number] ? Location: OPW The signing pathologist has (i) examined the relevant preparation(s) for the specimen(s) and (ii) rendered or confirmed the diagnosis(es). . ?Surgical Pathology DIAGNOSIS CONSULTATION CASE Outside slides labeled [id number]; collection date, 05/23/2022. A - Prostatic core [...] left base medial: ?Adenocarcinoma, grade group 1, [place] grade 3+3, ?involving 10% of the biopsy core. I - Prostatic core needle biopsies, left mid lateral: ?Adenocarcinoma, grade group 1, [place] grade 3+3, ?involving 1 of 2 core [...] Robbins Verified: ??06/23/2022 14:03 ??Pathologist Performed at: ??-[facility] Dept. of Pathology, [place] [address] Shear Operator Automatic: Giles Paz MD, FCAP, ??CLIA Certificate: [id number] . DISCUSSION Scanned slides: [id number] D1-2 [id number] G1-2 [id number] H1-2 [id number] I1-2 [id number] K1-2 [id number] L1-2 SPECIMEN(S) SUBMITTED CONSULTATION CASE A - 26 slide(s) labeled [id number], collection date 05/23/2022. [id number] CARBON COPY: [facility] Surgical Pathology Department [facility], 2nd Floor [address] [place], [place] ??[address] CLINICAL INFORMATION Elevated PSA 9.9 with abnormal prostate MRI right posterior lateral SPECIMEN PROCESSING [facility] ([facility]) pathology slide(s) are reviewed. ??Refer to Diagnosis and Specimen Submitted for specific case information. For the full text of the [facility] report(s) please refer to Non-DH Documentation Pathology in the electronic health record (eDH). 06/23/2022 2:03 PM EST [facility] Consult Case 06/12/2022 4:41 PM EST 06/12/2022 4:41 PM EST Joshua Stein MD PATHOLOGY/CYTOLOGY O RDERAISABEL Performing Organization Address City/State/[facility] Co de Phone Number [facility] [place] [phone] documented in this encounter Visit Diagnoses Not on filedocumented in this encounter Care Teams Ledger Clerk Relationship Specialty Start Date End Date Cristel Layne APRN [address] [place] [address] PCP - General Family Medicine 03/31/22 documented as of this encounter
--- OUTSIDE RECORDS SUMMARY | 2024-05-25 15:11 | XMS_ITS | Clinical Summary ---
Author Organization [facility] Address [address] [place] [address] Care Team Providers Care Pen Or Pencil Assembly Machine Operator Name Role Phone Unavailable Primary Care Provider Unavailabl e Social History Tobacco Use Types Packs/Day Years [...]
--- OUTSIDE RECORDS SUMMARY | 2024-05-25 15:11 | XMS_ITS | Encounter Summary ---
Author Organization [facility] [place] [address] Care Team Providers Care Inlayer Silver Name Role Phone Roverto Cristel Nicci GREEN Primary Care Provider +1 -[phone] Encounter Details Date Type Department Care Team (Late st Contact Info) Description 12/12/2022 [place] [phone] Ming Fry MD [facility] [place] [address] Social History Tobacco Use Types Packs/Day Years [...] on filedocumented in this encounter Care Teams Inlayer Silver Relationship Specialty Start Date End Date Cristel Layne APRN [address] [place] [address] PCP - General Family Medicine 03/31/22 documented as of this encounter
--- OUTSIDE RECORDS SUMMARY | 2024-05-25 15:11 | XMS_ITS | Encounter Summary ---
Author Organization [facility] Address [facility] [place] [address] Care Team Providers Care Bevel Polisher Name Role Phone Roverto Cristeljohn paul Grajeda APRN Primary Care Provider +1 -[phone] Encounter Details Date Type Department Care Team [...] on filedocumented in this encounter Care Teams Bevel Polisher Relationship Specialty Start Date End Date Cristel Layne APRN [address] [place] [address] PCP - General Family Medicine 03/31/22 documented as of this encounter
--- OUTSIDE RECORDS SUMMARY | 2024-05-25 15:11 | XMS_ITS | Encounter Summary ---
Author Organization [facility] Address [address] [place] [address] Care Team Providers Care Assurance Senior Name Role Phone Whitney Parker MD Primary Care Provider Jesus e Encounter Details Date Type Department Care Team (Late st Contact Info) Description 07/23/2022 Lab Requisition [facility] Pathology & Laboratory Medicine - [address] [address] Joshua Stein MD [address] [place] [phone] Encounter for other general examination Social History [...] (07/23/2022 10:27 EST) Amendment Comment Report from [employer] [place] Specimen ID: [id number] Decipher Accession ID: [id number] Decipher Score: 0.45 Genomic Risk: intermediate 09/02/2022 7:07 EST EXTERNAL LAB Addendum Comment At the request of Dr. Joshua Stein, a block from [id number] (G1) was sent to [facility] for testing. Block (G1) was deemed insufficient; therefore, an additional block is requested and sent for testing. For [facility] results, please see scanned report in EPIC. 09/02/2022 7:07 EST EXTERNAL LAB Original (G1, L1) 09/02/2022 7:07 EST EXTERNAL LAB Original Case Specimen Source Prostate 09/02/2022 7:07 [facility] Original Case Date of Service 05/23/2022 09/02/2022 7:07 [facility] Attestation By the signature below, the attending physician certifies that they have 1) personally conducted a gross and/or microscopic examination of the described specimen(s), and/or personally interpreted the results of laboratory testing of the described specimen(s), and 2) personally rendered or confirmed the above diagnosis. 09/02/2022 7:07 [facility] at 0706 Surgical pathology service [...] Joshua Stein MD PATHOLOGY ORDERABLES EXTERNAL LAB [facility] [address] [place] [address] documented in this encounter Visit Diagnoses Diagnosis Encounter for other general examination documented in this encounter Care Teams Assurance Senior Relationship Specialty Start Date End Date Whitney Parker MD PCP - General 04/12/13 05/23/24 documented as of this encounter
--- OUTSIDE RECORDS SUMMARY | 2024-05-25 15:11 | XMS_ITS | Encounter Summary ---
Author Organization [facility] Address [address] [place] [address] Care Team Providers Care English Teacher Name Role Phone Whitney Parker MD Primary Care Provider Jesus young Encounter Details Date Type Department Care Team (Late st Contact Info) Description 11/17/2023 Lab Requisition [facility] Pathology & Laboratory Medicine - [address] [address] Outr Resulting Lab, Provider Social History Tobacco [...] PSA 5.4 <=6.5 ng/mL 11/17/2023 17:50 EDT [facility] Blood VENOUS BLOOD / Unknown 11/17/2023 9:52 EDT 11/17/2023 16:46 EDT Narrative [facility] - 11/17/2023 17:50 EDT NOTE: Serum PSA concentration should not be interpreted as absolute evidence for the presence or absence of malignant disease. Assayed on Siemens ADVIA Centaur XPT using chemiluminescent technology.??Values obtained by using different assay methods cannot be used interchangeably. Provider Outr Resulting Lab CHEMISTRY & BLOOD GAS ORDERABLES [facility] [address] [place] [phone] documented in this encounter Visit Diagnoses Not on filedocumented in this encounter Care Teams English Teacher Relationship Specialty Start Date End Date Whitney Parker MD PCP - General 04/12/13 05/23/24 documented as of this encounter
--- OUTSIDE RECORDS SUMMARY | 2024-05-25 15:11 | XMS_ITS | Encounter Summary ---
Author Organization [facility] Address [address] [place] [address] Care Team Providers Care Audio Visual Specialist Name Role Phone Whitney Parker MD Primary Care Provider Jesus young Encounter Details Date Type Department Care Team (Late st Contact Info) Description 06/17/2017 Results Only [facility] [[email or web address] [phone] Radha Baig, DO [address] [place] [address] Social History Tobacco Use Types [...] ? DHRUV MAJANO ? Accession #: ? [id number] ? : ? 1955 (Age: 62) ??M [...] of formalin: ??06/18/2017 1900 hrs. BE Sánchez ([facility]) 06/18/2017 2:45 PM End of Report [facility] 06/17/2017 20:5 1 EST 06/17/2017 20:51 EST Radha Baig DO PATHOLOGY ORDERABLES [facility] [address] [id number] documented in this encounter Visit Diagnoses Not on filedocumented in this encounter Care Teams Audio Visual Specialist Relationship Specialty Start Date End Date Whitney Parker MD PCP - General 04/12/13 05/23/24 documented as of this encounter
--- OUTSIDE RECORDS SUMMARY | 2024-05-25 15:11 | XMS_ITS | Encounter Summary ---
Author Organization [facility] Address [address] [place] [address] Care Team Providers Care Music Assistant Name Role Phone Unavailable Primary Care Provider Jesus e Encounter Details Date Type Department Care Team (Late st Contact Info) Description 09/09/2005 Results Only [facility] - [facility] [address] [place] [address] Steven Allen MD [address] [place] [phone] Social History Tobacco Use Types Packs/Day Years [...] ? DHRUV MAJANO ? Accession #: ? [id number] ? : ? 1955 (Age: 50) ??M [...] ? Follow up polyps, h/o tubular adenoma ([id number]) Gross Description: ? Received in Hollande's fixative [...] Allen MD PATHOLOGY ORDERABLES Performing Organization Address City/State/[facility] Co de Phone Number ROBI RENE [address] [place] [address] documented in this encounter Visit Diagnoses Not on filedocumented in this encounter
--- OUTSIDE RECORDS SUMMARY | 2024-05-25 15:11 | XMS_ITS | Encounter Summary ---
[place] [address] Care Team Providers Care Mechanic General Operational Test Name Role Phone Cristel Lanye APRN Primary Care Provider +1 -[phone] Reason for Referral * Diagnostic Test (Routine) - Closed Specialty Diagnoses / Procedures Referred By Contac t Referred To Contact Radiology Diagnoses Elevated PSA Procedures MRI Pelvis wwo (Prostate) Viktoriya Hendrickson APRN [address] [place] [address] [place] [address] Referral ID Status Reason Start Date Expiration Date V isits Requested Visits Authorized [id number] Closed Specialty Service Requested 03/31/2022 10/01/2023 1 1 Reason for Visit * Diagnostic Test (Routine) - Closed Specialty Diagnoses / Procedures Referred By Contac t Referred To Contact Radiology Diagnoses Elevated PSA Procedures MRI Pelvis wwo (Prostate) Viktoriya Hendrickson APRN [address] [place] [address] [place] [address] Referral ID Status Reason Start Date Expiration Date V isits Requested Visits Authorized [id number] Closed Specialty Service Requested 03/31/2022 10/01/2023 1 1 Encounter Details Date Type Department Care Team (Latest Contact Info) Description 04/16/2022 5:12 PM EDT - 04/16/2022 11:59 PM EDT [place] [address] RazamitchazeemViktoriya APRN [address] [place] [address] Elevated PSA Discharge Disposition: Home Social History [...] at [facility] MRI. Radiology. 2019 Mar;290(3):709-719. doi: [id number]. Epub 2018Aug 24. Thank you for letting us participate in the care of this patient. ??If you are a health care provider and have any questions regarding this report, please contact the number below. ??For patients who have questions please contact the health tree care foreman that requested your imaging first. ? Electronically signed by: Law Portillo MD, [facility] ([phone]), at 04/17/2022 9:10 AM Narrative 04/17/2022 9:10 [...] Cancer at [facility]. Radiology. 2019Mar;290(3):709-719. doi: [id number]/[email or web address].[id number]. Epub 2018Aug 24. Thank you for letting us participate in the care of this patient. If youare a health care provider and have any questions regarding this report,please contact the number below. For patients who have questions please contactthe health tree care foreman that requested your imaging first. Viktoriya Hendrickson APRN [facility] MRI ORDERABLES documented in this encounter Visit [...] mLs documented in this encounter Care Teams Mechanic General Operational Test Relationship Specialty Start Date End Date Cristel Layne APRN [address] [place] [address] PCP - General Family Medicine 03/31/22 documented as of this encounter
--- OUTSIDE RECORDS SUMMARY | 2024-05-25 15:11 | XMS_ITS | Encounter Summary ---
Author Organization [facility] Address [facility] [place] [address] Care Team Providers Care Automatic Drilling Machine Operator Name Role Phone Roverto Cristeljohn paul Grajeda APRN Primary Care Provider +1 -[phone] Encounter Details Date Type Department Care Team [...] on filedocumented in this encounter Care Teams Automatic Drilling Machine Operator Relationship Specialty Start Date End Date Crisetl Layne APRN [address] [place] [address] PCP - General Family Medicine 03/31/22 documented as of this encounter
--- OUTSIDE RECORDS SUMMARY | 2024-05-25 15:11 | XMS_ITS | Encounter Summary ---
Author Organization [place] [id number] Care Team Providers Care Winder Helper Name Role Phone Cristel Layne APRN Primary Care Provider +1 -[phone] Reason for Referral * Consultation (Routine) - Closed Specialty Diagnoses / Procedures Referred By Ok little Referred To Contact Urology Diagnoses Prostate cancer 06/10/22 - NEW DX PROSTATE CANCER Jomar Hensley MD [address] [place] [address] [facility] [place] [place] [address] Referral ID Status Reason Start Date Expiration Date V isits Requested Visits Authorized [id number] Closed Consult, Test & Treat PCP Updated and/or Approved 06/09/2022 06/09/2023 6 6 Encounter Details Date Type Department Care Team (Late st Contact Info) Description 06/09/2022 Transcribe Orders eDH Incoming Referrals [phone] Jomar Hensley MD [address] [place] [address] Prostate cancer Social History Tobacco [...] prostate documented in this encounter Care Teams Winder Helper Relationship Specialty Start Date End Date Cristel Layne APRN [address] [place] [address] PCP - General Family Medicine 03/31/22 documented as of this encounter
--- OUTSIDE RECORDS SUMMARY | 2024-05-25 15:11 | XMS_ITS | Encounter Summary ---
Author Organization [facility] Address [facility] [place] [address] Care Team Providers Care Attending Urologist Name Role Phone Cristel Layne APRN Primary Care Provider +1 -[phone] Encounter Details Date Type Department Care Team (Late st Contact Info) Description 03/14/2024 8:15 AM EDT Telephone Pre Admission Testing at [address] [address] Social History Tobacco Use Types [...] on filedocumented in this encounter Care Teams Attending Urologist Relationship Specialty Start Date End Date Cristel Layne APRN [address] [place] [address] PCP - General Family Medicine 03/31/22 documented as of this encounter
--- OUTSIDE RECORDS SUMMARY | 2024-05-25 15:11 | XMS_ITS | Encounter Summary ---
Author Organization [facility] Address [facility] [place] [address] Care Team Providers Care Emergency Room Tech Name Role Phone Roverto Cristeljohn paul Grajeda APRN Primary Care Provider +1 -[phone] Reason for Visit * Reason Onset Date Comments Prostate Cancer 09/12/2022 Encounter Details Date Type Department Care Team ([facility] st Contact Info) Description 09/12/2022 Orders [place] [address] Ming Fry MD [facility] [place] [address] Malignant neoplasm of prostate; Lower urinary tract [...] or you can obtain it from the [facility] Same day program on the day of [...] you have any questions please call the [facility] at or documented in [...] prostate documented in this encounter Care Teams Emergency Room Tech Relationship Specialty Start Date End Date Cristel Layne APRN [address] [place] [address] PCP - General Family Medicine 03/31/22 documented as of this encounter
--- OUTSIDE RECORDS SUMMARY | 2024-05-25 15:11 | XMS_ITS | Encounter Summary ---
[place] [address] Care Team Providers Care Print Shop Assistant Name Role Phone Cristel Layne APRN Primary Care Provider [phone] -[phone] Reason for Referral * Consultation (Routine) - Closed Specialty Diagnoses / Procedures Referred By Ok little Referred To Contact Urology Diagnoses Lower urinary tract symptoms (LUTS) Unspecified symptoms and signs involving the genitourinary system Malignant neoplasm of prostate Jomar Hensley MD [address] [place] [address] [facility] [place] [address] Referral ID Status Reason Start Date Expiration Date V isits Requested Visits Authorized [id number] Closed Consult, Test & Treat PCP Updated and/or Approved 11/17/2023 05/18/2024 6 6 Encounter Details Date Type Department Care Team (Latest Contact Info) Description 11/25/2023 Transcribe Orders eDH Incoming Referrals [phone] Jomar Hensley MD [address] [place], [place] [id number] Lower urinary tract symptoms (LUTS); History of [...] prostate documented in this encounter Care Teams Print Shop Assistant Relationship Specialty Start Date End Date Cristel Layne APRN [address] [place] [address] PCP - General Family Medicine 03/31/22 documented as of this encounter
--- OUTSIDE RECORDS SUMMARY | 2024-05-25 15:11 | XMS_ITS | Encounter Summary ---
Author Organization [facility] [place] [address] Care Team Providers Care Part Maker Name Role Phone Cristel Layne APRN Primary Care Provider +1 -[phone] Reason for Visit * Consultation (Routine) - Closed Specialty Diagnoses / Procedures Referred By Ok t Referred To Contact Urology Diagnoses Prostate cancer 06/10/22 - NEW DX PROSTATE CANCER Jomar Hensley MD [address] [place] [address] [facility] [place] [address] Referral ID Status Reason Start Date Expiration Date V isits Requested Visits Authorized [id number] Closed Consult, Test & Treat PCP Updated and/or Approved 06/09/2022 06/09/2023 6 6 Encounter Details Date Type Department Care Team (Late st Contact Info) Description 08/21/2022 3:00 PM EST Office Visit [place] [address] Ming Fry MD [facility] [place] [address] Malignant neoplasm of prostate Social [...] Service: 08/21/2022 Referring Provider: [place] [address] Primary Care Provider: Cristel Layne APRN HPI: Vincent Oswald is a 67 y.o. y/o male here who presents today for evaluation of his newly diagnosed low risk prostate cancer. PSA History: 06/12/2022 - 8.0 Pathology: 06/12/2022 - TRUS Bx DIAGNOSIS CONSULTATION CASE Outside slides labeled [id number]; collection date, 05/23/2022. A - Prostatic core needle biopsy, right mid lateral: ? Microscopic atypical glandular focus, suspicious ? for grade 3 adenocarcinoma. B - Prostatic core needle biopsy, right base lateral: ? Benign prostatic tissue. C - Prostatic core needle biopsy, right base medial: ? Benign prostatic tissue. D - Prostatic core needle biopsy, right mid medial: ? Adenocarcinoma, grade group 1, [place] grade 3+3, ? involving 10% of the [...] base medial: ? Adenocarcinoma, grade group 1, Wilbur grade 3+3, ? involving 10% of the biopsy core. I - Prostatic core needle biopsies, left mid lateral: ? Adenocarcinoma, grade group 1, [place] grade 3+3, ? involving 1 of 2 [...] patient. Impression: #1: Low risk prostate cancer ([place] 3+3, PSA 8, cT1c) though fairly discrete [...] either discussed or I gave access via [facility] to the below counseling information We [...] to metastatic disease at 13 years but manager intermediate data beyond this is not currently available. [...] prostate documented in this encounter Care Teams Part Maker Relationship Specialty Start Date End Date Cristel Layne APRN [address] [place] [address] PCP - General Family Medicine 03/31/22 documented as of this encounter
--- OUTSIDE RECORDS SUMMARY | 2024-05-25 15:11 | XMS_ITS | Encounter Summary ---
Author Organization [facility] Address [facility] [place] [address] Care Team Providers Care Consultant Rn Name Role Phone Cristel Layne APRN Primary Care Provider +1 -[phone] Encounter Details Date Type Department Care Team (Late st Contact Info) Description 09/11/2022 1:00 PM EST TH Visit (TeleHealth) Radiation Oncology at [address] [address] Joshua Stein MD [address] [place] [address] [place] [address] Malignant neoplasm of prostate Social [...] place to sleep or slept in a correction (including now)? No 07/21/2022 Sex and Gender Information Value Date Recorded Sex Assigned at Not on file Gender Identity Not on file Sexual Orientation Not on file documented as of this encounter Progress Notes * Joshua Stein MD - 09/11/2022 1:00 PM EST Radiation Oncology Telephone Visit ID: Vincent Oswald is a 67 y.o. with low risk prostate cancer ([id number], Gl 3+3, PSA 9.9). I am calling [...] prostate documented in this encounter Care Teams Consultant Rn Relationship Specialty Start Date End Date Cristel Layne APRN [address] [place] [address] PCP - General Family Medicine 03/31/22 documented as of this encounter
--- OUTSIDE RECORDS SUMMARY | 2024-05-25 15:11 | XMS_ITS | Encounter Summary ---
Author Organization [facility] Address [facility] [place] [address] Care Team Providers Care Woodworking Belt Sander Name Role Phone Roverto Cristeljohn paul Grajeda APRN Primary Care Provider +1 -[phone] Encounter Details Date Type Department Care Team [...] place to sleep or slept in a care home (including now)? No 07/21/2022 Sex and Gender Information Value Date Recorded Sex Assigned at Not on file Gender Identity Not on file Sexual Orientation Not on file documented as of this encounter Plan of Treatment Not on file documented as of this encounter Visit Diagnoses Not on filedocumented in this encounter Care Teams Woodworking Belt Sander Relationship Specialty Start Date End Date Cristel Layne APRN [address] [place] [address] PCP - General Family Medicine 03/31/22 documented as of this encounter
--- OUTSIDE RECORDS SUMMARY | 2024-05-25 15:11 | XMS_ITS | Encounter Summary ---
Author Organization [facility] Address [facility] [place] [address] Care Team Providers Care Clinical Dietician Name Role Phone Roverto Cristeljohn paul Grajeda APRN Primary Care Provider +1 -[phone] Encounter Details Date Type Department Care Team [...] place to sleep or slept in a longterm (including now)? No 07/21/2022 Sex and Gender Information Value Date Recorded Sex Assigned at Not on file Gender Identity Not on file Sexual Orientation Not on file documented as of this encounter Plan of Treatment Not on file documented as of this encounter Visit Diagnoses Not on filedocumented in this encounter Care Teams Clinical Dietician Relationship Specialty Start Date End Date Cristel Layne APRN [address] [place] [address] PCP - General Family Medicine 03/31/22 documented as of this encounter
--- OUTSIDE RECORDS SUMMARY | 2024-05-25 15:11 | XMS_ITS | Encounter Summary ---
Author Organization [facility] Address [address] [place] [address] Care Team Providers Care Floatlight Loading Supervisor Name Role Phone Whitney Parker MD Primary Care Provider Jesus young Encounter Details Date Type Department Care Team (Late st Contact Info) Description 08/12/2021 Lab Requisition [facility] Pathology & Laboratory Medicine - [address] [address] Outr Resulting Lab, Provider Social History Tobacco [...] 0.0 - 4.5 ng/mL 08/12/2021 22:37 EST [facility] Blood VENOUS BLOOD / Unknown 08/12/2021 11:27 EST 08/12/2021 21:21 EST Narrative [facility] - 08/12/2021 22:37 EST NOTE: Serum PSA concentration should not be interpreted as absolute evidence for the presence or absence of malignant disease. Assayed on Siemens ADVIA Centaur XPT using chemiluminescent technology.??Values obtained by using different assay methods cannot be used interchangeably. Provider Outr Resulting Lab CHEMISTRY & BLOOD GAS ORDERABLES [facility] [address] [place] [address] documented in this encounter Visit Diagnoses Not on filedocumented in this encounter Care Teams Floatlight Loading Supervisor Relationship Specialty Start Date End Date Whitney Parker MD PCP - General 04/12/13 05/23/24 documented as of this encounter
--- OUTSIDE RECORDS SUMMARY | 2024-05-25 15:11 | XMS_ITS | Encounter Summary ---
Author Organization [facility] Address [address] [place] [address] Care Team Providers Care Social Worker Assistant Name Role Phone Whitney Parker MD Primary Care Provider Jesus young Encounter Details Date Type Department Care Team (Late st Contact Info) Description 02/05/2023 Lab Requisition [facility] Pathology & Laboratory Medicine - [address] [address] Outr Resulting Lab, Provider Social History Tobacco [...] PSA 8.9(H) <=4.5 ng/mL 02/05/2023 20:10 EDT [facility] Blood VENOUS BLOOD / Unknown 02/05/2023 11:10 EDT 02/05/2023 17:58 EDT Narrative [facility] - 02/05/2023 20:10 EDT NOTE: Serum PSA concentration should not be interpreted as absolute evidence for the presence or absence of malignant disease. Assayed on Siemens ADVIA nookedaur XPT using chemiluminescent technology.??Values obtained by using different assay methods cannot be used interchangeably. Provider Outr Resulting Lab CHEMISTRY & BLOOD GAS ORDERABLES [facility] [address] [place] [address] documented in this encounter Visit Diagnoses Not on filedocumented in this encounter Care Teams Social Worker Assistant Relationship Specialty Start Date End Date Whitney Parker MD PCP - General 04/12/13 05/23/24 documented as of this encounter
--- OUTSIDE RECORDS SUMMARY | 2024-05-25 15:11 | XMS_ITS | Encounter Summary ---
Author Organization [facility] Address [facility] [place] [address] Care Team Providers Care Extruding Department Supervisor Name Role Phone Cristel Layne Nicci GREEN Primary Care Provider +1 -[phone] Encounter Details Date Type Department Care Team (Latest Contact Info) Description 03/23/2024 6:24 AM EDT - 03/23/2024 10:05 AM EDT Hospital Encounter PACU at [address] [phone] Vito Charles MD [facility] [place] [address] Discharge Disposition: Home Social History Tobacco Use [...] more? Visit our health information library at [email or web address] You can also view health information on [email or web address], your personal patient account. Log in or [...] Charles MD - 03/23/2024 8:41 AM EDT [facility] Urology Post-Operative Discharge Instructions PHOTO-SELECTIVE VAPORIZATION [...] in your urine. Follow Up: Please call [facility] at [phone] to make a routine follow-up appointment 4-6 weeks after your surgery. If you have any immediate questions or concerns, you may call the main [facility] line ([phone]) andask the blending machine operator for the ???Urology Resident composition weatherboard installer?? . FOLLOW-UP APPOINTMENT Please see above. Call [...] of urinary symptoms. He was diagnosed with Le[place]worth 6 prostate cancerin 05/2022. Consultation with radiation oncology and urology who both leaned toward recommending RALP instead of radiation given his BPH and LUTS. He was scheduled for RALP with Dr. Fry on 12/24/22, but canceled the procedure. He then followed with Dr. Hensley who did a repeat biopsy that found [place]worth 3+4 prostate cancer and was planning on [...] Charles MD - 03/23/2024 7:38 AM EDT [facility] Operative Note [address] Patient Name: Vincent Oswald : [id number] MR#: [id number] Case Date: 03/23/2024 Case Scheduled Time: 729 [...] Prep and drape was performed in gene [facility] standard sterile fashion. With a 23.5French cystoscopy [...] removing the sheath and placing an 20 Welsh 2-way Keller catheter. The drainage was clear. [...] minutes. Vito Charles MD Section of Urology [facility] Office: [phone] Infection Bundle used? N/A Vito Charles MD 03/23/2024 documented in this encounter Plan of Treatment Not on file documented as of this encounter Procedures Procedure Name Priority Date/Time Associated Diagnosis Comments MODIFIER,GREENLIGHT LASER 2023 7:23 AM EDT BPH Laser Vaporization Surgery Prostate, Complete (24851) 03/23/2024 7:23 AM EDT BPH documented in [...] insertion) documented in this encounter Care Teams Extruding Department Supervisor Relationship Specialty Start Date End Date Cristel Layne APRN [address] [place] [address] PCP - General Family Medicine 03/31/22 documented as of this encounter
--- OUTSIDE RECORDS SUMMARY | 2024-05-25 15:11 | XMS_ITS | Encounter Summary ---
Author Organization [facility] Address [facility] [place] [address] Care Team Providers Care Aircraft Machinist Helper Name Role Phone Cristel Layne Nicci GREEN Primary Care Provider +1 -[phone] Encounter Details Date Type Department Care Team (Late st Contact Info) Description 03/23/2024 7:23 AM EDT Anesthesia Event Main OR at [address] [address] Jeremi Degroot CRNA [address] [place] [address] [place] [address] Brandon Aparicio CRNA ANESTHESIOLOGY [place] [address] Anesthesia Record Procedure Summary Procedure Name Responsible [...] lumen catheter; 100% silicone; 20; inserted at [facility] (inserted by Dr. Charles at conclusion of cysto laser TURP); 30; 30; intraurethral Xylocaine gel; drainage bag 03/23/24 0744 by Tanvi Chandra RN PIV 03/23/24; 0655; sups-rop-mxgahd catheter system; 20 gauge; metacarpal vein (top [...] Degroot CRNA 03/23/24 0837 by Jeremi Degroot PUG MACHINE OPERATOR documented in this encounter Social History Tobacco [...] Procedure Summary Date: 03/23/24 Room / Location: [facility] OR / [facility] MAIN OR Anesthesia Start: 722 Anesthesia [...] shown include unfiled device data. Patient Location: PACU/[facility] Level of Consciousness: Awake and Alert [...] mg documented in this encounter Care Teams Aircraft Machinist Helper Relationship Specialty Start Date End Date Cristel Layne APRN [address] [place] [address] PCP - General Family Medicine 03/31/22 documented as of this encounter
--- OUTSIDE RECORDS SUMMARY | 2024-05-25 15:11 | XMS_ITS | Referral Summary ---
Author Organization [facility] Address [address] [place] [address] Care Team Providers Care Spine Surgeon Name Role Phone Unavailable Primary Care Provider [...] file Plan of Treatment Not on file Vincent Oswald Personal/Family Self [address] [place] [phone] Vincent Oswald Personal/Family Self [address] [place] [phone]
--- OUTSIDE RECORDS SUMMARY | 2024-05-25 15:11 | XMS_ITS | Encounter Summary ---
Author Organization [facility] Address [facility] [place] [address] Care Team Providers Care Gravity Manager Name Role Phone Cristel Layne Nicci GREEN Primary Care Provider +1 -[phone] Encounter Details Date Type Department Care Team (Late st Contact Info) Description 03/23/2024 7:30 AM EDT - 03/23/2024 9:15 AM EDT Surgery Main OR at [address] [phone] Vito Charles MD [facility] [place] [address] CYSTO, LASER TURP (WRVU 12.15) Social History [...] more? Visit our health information library at [email or web address] You can also view health information on [employer], your personal patient account. Log in or [...] - 03/23/2024 8:41 AM EDT [facility] Urology Post-Operative Discharge Instructions PHOTO-SELECTIVE VAPORIZATION OF [...] your urine. Follow Up: Please call [facility] at [phone] to make a routine follow-up appointment 4-6 weeks after your surgery. If you have any immediate questions or concerns, you may call the main [facility] line ([phone]) andask the keypunch operators supervisor for the ???Urology Resident service liaison representative?? . FOLLOW-UP APPOINTMENT Please see above. Call [...] who did a repeat biopsy that found Ball 3+4 prostate cancer and was planning on [...] - 03/23/2024 7:38 AM EDT [facility] Operative Note [address] Patient Name: Vincent Oswald : [id number] MR#: [id number] Case Date: 03/23/2024 Case Scheduled Time: 0730 [...] Prep and drape was performed in [facility] standard sterile fashion. With a 23.5French [...] removing the sheath and placing an 20 Argentine 2-way Keller catheter. The drainage was clear. [...] minutes. Vito Charles MD Section of Urology [facility] Office: [phone] Infection Bundle used? N/A Vito Charles MD 03/23/2024 documented in this encounter Plan of Treatment Not on file documented as of this encounter Procedures Procedure Name Priority Date/Time Associated Diagnosis Comments MODIFIER,GREENLIGHT LASER 2023 7:23 AM EDT BPH Laser Vaporization Surgery Prostate, Complete (84240) 03/23/2024 7:23 AM EDT BPH documented in [...] insertion) documented in this encounter Care Teams Gravity Manager Relationship Specialty Start Date End Date Cristel Layne APRN [address] [place] [address] PCP - General Family Medicine 03/31/22 documented as of this encounter
--- OUTSIDE RECORDS SUMMARY | 2024-05-25 15:11 | XMS_ITS | Encounter Summary ---
Author Organization [facility] Address [address] [place] [address] Care Team Providers Care Buttonhole Facer Name Role Phone Whitney Parker MD Primary Care Provider Jesus e Encounter Details Date Type Department Care Team (Late st Contact Info) Description 05/22/2023 Lab Requisition [facility] Pathology & Laboratory Medicine - [address] [address] Jomar Hensley MD [address] [place] [phone] Encounter for other general examination Social History [...] management options, if applicable. 05/27/2023 7:15 EDT [facility] Final Diagnosis A. PROSTATE, [...] (2.7 mm) of 1/1 core - Global De Peyster score: 3 + 3 = 6 (grade [...] Small focus of atypical glands, suspicious for De Peyster patterns 3 and 4 adenocarcinoma. - Core [...] LATERAL, BIOPSY: - Atypical glands suspicious for De Peyster pattern 3 adenocarcinoma. - Core (10.3 mm): Atypical glands, 0.1 mm (<1% of core) L. PROSTATE, LEFT APEX MEDIAL, BIOPSY: - Minute focus of atypical glands, suspicious but not diagnostic of adenocarcinoma. See comment. 05/27/2023 7:15 EDT [facility] Diagnosis Comment Specimen I [...] performance characteristics have been determined by [facility] and/or by the referring laboratory. [...] complexity clinical laboratory testing. 05/27/2023 7:15 [facility] Attestation There was significan t resident/fellow involvement in the diagnostic evaluation of this case. By the signature below, the attending physician certifies that they have personally conducted a gross and/or microscopic examination of the described specimens and rendered or confirmed the above diagnosis. 05/27/2023 7:15 [facility] at 0715 Clinical History Prostate cancer, prior biopsy 05/23/2022 05/27/2023 7:15 [facility] Gross Description A. Received in [...] L1. Margarita Hernandez 05/23/2023 13:07 05/27/2023 7:15 EDT [facility] Resident/Fell ow: Jeremi Flores DO 05/27/2023 7:15 T [facility] Performing Lab [facility] 05/27/2023 7:15 T [facility] Scanned Images 05/27/2023 7:15 EDT [facility] Tissue STRUCTURE OF APEX [...] EDT Jomar Hensley MD PATHOLOGY ORDERAB LES [facility] [address] [place] [address] documented in this encounter Visit Diagnoses Diagnosis Encounter for other general examination documented in this encounter Care Teams Buttonhole Facer Relationship Specialty Start Date End Date Whitney Parker MD PCP - General 04/12/13 05/23/24 documented as of this encounter
--- OUTSIDE RECORDS SUMMARY | 2024-05-25 15:11 | XMS_ITS | Encounter Summary ---
Author Organization [facility] Address [address] [place] [address] Care Team Providers Care Health Management Consultant Name Role Phone Whitney Parker MD Primary Care Provider Jesus young Encounter Details Date Type Department Care Team (Late st Contact Info) Description 04/11/2013 Results Only [facility] - [facility] [address] [place], [place] [id number] [place] [address] [place] [address] [id number] Social History Tobacco Use Types Packs/Day Years [...] ? DHRUV MAJANO ? Accession #: ? [id number] ? : ? 1955 (Age: 57) ??M [...] Lazo 04/12/2013 02:31 PM End of Report [facility] 04/11/2013 11:2 7 EDT 04/12/2013 11:27 EDT Don Herrera MD PATHOLOGY ORDERABLES Performing Organization Address City/State/[facility] Co de Phone Number [facility] [address] [place] [address] documented in this encounter Visit Diagnoses Not on filedocumented in this encounter Care Teams Health Management Consultant Relationship Specialty Start Date End Date Whitney Parker MD PCP - General 04/12/13 05/23/24 documented as of this encounter
--- OUTSIDE RECORDS SUMMARY | 2024-05-25 15:11 | XMS_ITS | Encounter Summary ---
Author Organization [facility] Address [address] [place] [address] Care Team Providers Care Flight Controls Engineer Name Role Phone Whitney Parker MD Primary Care Provider Jesus young Encounter Details Date Type Department Care Team (Late st Contact Info) Description 03/12/2022 Lab Requisition [facility] Pathology & Laboratory Medicine - [address] [address] Outr Resulting Lab, Provider Social History Tobacco [...] ng/mL 03/12/2022 18:[address] [facility] Blood VENOUS BLOOD / Unknown 03/12/2022 9:27 EDT 03/12/2022 17:34 EDT [address]arrative [facility] - 03/12/2022 18:10 EDT NOTE: Serum PSA concentration should not be interpreted as absolute evidence for the presence or absence of malignant disease. Assayed on Siemens ADVIA Piqniqaur XPT using chemiluminescent technology.??Values obtained by using different assay methods cannot be used interchangeably. Provider Outr Resulting Lab CHEMISTRY & BLOOD GAS ORDERABLES [facility] [address] [place] [address] documented in this encounter Visit Diagnoses Not on filedocumented in this encounter Care Teams Flight Controls Engineer Relationship Specialty Start Date End Date Whitney Parker MD PCP - General 04/12/13 05/23/24 documented as of this encounter
[2024-05-25 22:56] LABS: PSA, Diagnostic 6.2 ng/mL (<=6.5)
== END 2024-05-25 15:03 | disposition home or self-care (01) ==
LOC: LBO 15:04
PROVIDERS: PCP Nurse Practitioner Family; Visit Provider Urology
DX: R97.20 Elevated prostate specific antigen [PSA] (principal); R39.9 Unspecified symptoms and signs involving the genitourinary system
CPT/HCPCS: 36415; 84153

== ENCOUNTER → 2024-05-31 15:17 | Outpatient (BNVA) | payer MEDICARE, SELFPAY | PROVIDERS: PCP Nurse Practitioner Family; Referring Provider Nurse Practitioner Family; Visit Provider Urology | DX: R39.89 Other symptoms and signs involving the genitourinary system (principal); C61 Malignant neoplasm of prostate | CPT/HCPCS: 99214 ==

== ENCOUNTER 2024-06-01 11:50 | Outpatient (CLI) | payer MEDICARE, SELFPAY ==
--- NOTE | 2024-06-01 08:30 | DI.RAD_ITS ---
Exam(s) XR ELBOW RT LIMITED EXAM: XR ELBOW RT LIMITED CLINICAL HISTORY: RIGHT ELBOW LUMP. TECHNIQUE: 2D digital imaging was performed. Three views. COMPARISON: CR RIGHT ELBOW COMPLETE from 10/19/2013 FINDINGS: BONES: No acute fracture is present. No bony destructive lesion is seen. Prominent olecranon spur. JOINTS: The elbow is normally aligned. No joint effusion is seen. Degenerative changes at the elbow joint. SOFT TISSUE: Focal nodular areas of soft tissue swelling dorsal to the olecranon. IMPRESSION: Prominent posterior soft tissue swelling. Degenerative changes and olecranon spur. DATA REPOSITORY: RADIATION DOSE DELIVERED:
== END 2024-06-01 11:51 | disposition home or self-care (01) ==
LOC: DIORS 11:51
PROVIDERS: PCP Nurse Practitioner Family; Referring Provider Nurse Practitioner Family; Visit Provider Student in an Organized Health Care Education/Training Program
DX: M10.9 Gout, unspecified (principal)
CPT/HCPCS: 99213; 73070

== ENCOUNTER 2024-06-16 22:32 | Outpatient (REF) | payer MEDICARE, SELFPAY ==
--- OUTSIDE RECORDS SUMMARY | 2024-06-16 22:34 | XMS_ITS | Encounter Summary ---
Author Organization [facility] Address [facility] [place] [address] Care Team Providers Care Weigher Bulker Name Role Phone Cristel Layne NORMA Primary Care Provider +1 [phone] Encounter Details Date Type Department Care Team [...] as of this encounter Plan of Treatment Upcoming Encounters Date Type Department Care Team (Late st Contact Info) Description 06/22/2024 11:30 AM EST Scheduled View Only Radiation Oncology at [address] [phone] [facility] Nurse Peyman 06/22/2024 12:00 PM EST Procedure visit Radiation Oncology at [address] [phone] Joshua Stein MD [address] [place] [address] DR RADIATION ONCOLOGY [place], [place] [id number] 06/22/2024 12:00 PM EST Scheduled View Only Radiation Oncology at [address] [phone] 06/27/2024 7:30 AM EST [place] [phone] Joshua Stein MD [address] [place] [address] DR RADIATION ONCOLOGY [place], [place] [id number] 06/27/2024 9:30 AM EST Scheduled View Only [place] [phone] 06/27/2024 10:00 AM EST Ancillary Appointment [place] [phone] Joshua Stein MD [address] [place] [address] DR RADIATION ONCOLOGY [place], [place] [id number] 06/27/2024 10:00 AM EST Scheduled View [place] [phone] documented as of this encounter Visit Diagnoses Not on filedocumented in this encounter Care Teams Weigher Bulker Relationship Specialty Start Date End Date Cristel Layne APRN [address] [place] [address] PCP - General Family Medicine 03/31/22 documented as of this encounter
--- OUTSIDE RECORDS SUMMARY | 2024-06-16 22:34 | XMS_ITS | Encounter Summary ---
Author Organization [facility] Address [facility] [place] [address] Care Team Providers Care Alteration Tailor Apprentice Name Role Phone RovertoCristel orlando NORMA Primary Care Provider +1 [phone] Encounter Details Date Type Department Care Team (Late st Contact Info) Description 03/23/2024 7:30 AM EDT - 03/23/2024 9:15 AM EDT Surgery Main OR at [address] [address] Vito Charles MD [facility] [place] [address] CYSTO, LASER TURP (WRVU 12.15) Social History [...] more? Visit our health information library at [email or web address] You can also view health information on [employer], your personal patient account. Log in or [...] Charles MD - 03/23/2024 8:[address] [facility] Urology Post-Operative Discharge Instructions PHOTO-SELECTIVE VAPORIZATION [...] in your urine. Follow Up: Please call [facility] at [phone] to make a routine follow-up appointment 4-6 weeks after your surgery. If you have any immediate questions or concerns, you may call the main [facility] line ([phone]) andask the novelty twister operator for the ???Urology Resident safety and health consultant?? . FOLLOW-UP APPOINTMENT Please see above. Call [...] who did a repeat biopsy that found Geraldine 3+4 prostate cancer and was planning on [...] Charles MD - 03/23/2024 7:[address] [facility] Operative Note [address] Patient Name: Vincent Oswald : [id number] MR#: [id number] Case Date: 03/23/2024 Case Scheduled Time: 729 [...] Prep and drape was performed in [facility] standard sterile fashion. With a 23.5French [...] removing the sheath and placing an 20 Marshallese 2-way Keller catheter. The drainage was clear. [...] minutes. Vito Charles MD Section of Urology [facility] Office: [phone] Infection Bundle used? N/A Vito Charles MD 03/23/2024 documented in this encounter Plan of Treatment Upcoming Encounters Date Type Department Care Team (Late st Contact Info) Description 06/22/2024 11:30 AM EST Scheduled View Only Radiation Oncology at [address] [phone] Rad Nurse, [facility] 06/22/2024 12:00 PM EST Procedure visit Radiation Oncology at [address] [phone] Joshua Stein MD [address] [place] [address] DR RADIATION ONCOLOGY [place], [place] [id number] 06/22/2024 12:00 PM EST Scheduled View Only Radiation Oncology at [address] [phone] 06/27/2024 7:30 AM [place] [address] Joshua Stein MD [address] [place] [address] DR RADIATION ONCOLOGY [place], [place] [id number] 06/27/2024 9:30 AM EST Scheduled View [place] [address] 06/27/2024 10:00 AM EST Ancillary Appointment [place] [address] Joshua Stein MD [address] [place] [address] DR RADIATION ONCOLOGY [place], [place] [address] 06/27/2024 10:00 AM EST Scheduled View Only [facility] [place] [address] documented as of this encounter Procedures Procedure Name Priority Date/Time Associated Diagnosis Comments MODIFIER,GREENLIGHT LASER 2023 7:23 AM EDT BPH Laser Vaporization Surgery Prostate, Complete (09368) 03/23/2024 7:23 AM EDT BPH documented in [...] insertion) documented in this encounter Care Teams Alteration Tailor Apprentice Relationship Specialty Start Date End Date Cristel Layne APRN [address] [place] [address] PCP - General Family Medicine 03/31/22 documented as of this encounter
--- OUTSIDE RECORDS SUMMARY | 2024-06-16 22:34 | XMS_ITS | Encounter Summary ---
Author Organization [facility] Address [facility] [place] [address] Care Team Providers Care Bellmaker Name Role Phone Cristel Layne NORMA Primary Care Provider +1 [phone] Encounter Details Date Type Department Care Team (Late st Contact Info) Description 03/23/2024 7:23 AM EDT Anesthesia Event Main OR at [address] [phone] Jeremi Degroot CRNA [address] [place] [address] [place] [address] Brandon Aparicio CRNA [address] [place] [address] Anesthesia Record Procedure Summary Procedure Name Responsible [...] lumen catheter; 100% silicone; 20; [facility] (inserted by Dr. Charles at conclusion of cysto laser TURP); 30; 30; intraurethral Xylocaine gel; drainage bag 03/23/24 0744 by Tanvi Chandra RN PIV 03/23/24; 0655; [id number] catheter system; 20 gauge; metacarpal vein (top of hand), right; Anatomical Landmarks; US Not Used; sm; distraction, tolerated well, appears comfortable; no longer indicated, catheter/device intact; 03/23/24; 1004 03/23/24 0655 by Nae Mccartney RN 03/23/24 1004 by Aranza Lee RN Supraglottic Mask Ventilation: Ang beltran (1); LMA Type: Unique; LMA Size: 5; Removal Date: 03/23/24; Removal Time: 83603/23/24 0731 by Jeremi Degroot CRNA 03/23/24 0837 by Jeremi Degroot CRNA documented in this encounter Social History Tobacco [...] Procedure Summary Date: 03/23/24 Room / Location: [facility] OR Anesthesia Start: 722 Anesthesia Stop: 838 Procedures: CYSTO, LASER TURP (WRVU 12.15) (Bladder) MODIFIER,GREENLIGHT LASER (Midline: Bladder) Diagnosis: (BPH) [...] shown include unfiled device data. Patient Location: PACU/[facility] Level of Consciousness: Awake and [...] - 03/23/2024 9:58 AM EDT Addendum created 03/23/24 0958 by Jeremi Degroot CRNA Flowsheet accepted documented in this encounter Plan of Treatment Upcoming Encounters Date Type Department Care Team (Late st Contact Info) Description 06/22/2024 11:30 AM EST Scheduled View Only Radiation Oncology at [address] [phone] [facility] 06/22/2024 12:00 PM EST Procedure visit Radiation Oncology at [address] [phone] Joshua Stein MD [address] [place] [address] [place] [address] 06/22/2024 12:00 PM EST Scheduled View Only Radiation Oncology at [address] [phone] 06/27/2024 7:30 AM [place] [address] Joshua Stein MD [address] [place] [address] [place] [address] 06/27/2024 9:30 AM EST Scheduled View Only [place] [address] 06/27/2024 10:00 AM EST Ancillary Appointment [place] [phone] Joshua Stein MD [address] [place] [address] [place] [address] 06/27/2024 10:00 AM EST Scheduled View Only [place] [address] documented as of this encounter Visit Diagnoses [...] mg documented in this encounter Care Teams Bellmaker Relationship Specialty Start Date End Date Cristel Layne APRN [address] [place] [address] PCP - General Family Medicine 03/31/22 documented as of this encounter
--- OUTSIDE RECORDS SUMMARY | 2024-06-16 22:34 | XMS_ITS | Encounter Summary ---
Author Organization [facility] Address [facility] [place] [address] Care Team Providers Care Information Architect Name Role Phone RovertoCristel orlando NORMA Primary Care Provider [phone] [phone] Encounter Details Date Type Department Care Team (Late st Contact Info) Description 12/12/2022 Telephone Urology at [facility] [place] [phone] Ming Fry MD [facility] [place] [address] Social History Tobacco Use Types Packs/Day Years [...] EST Scheduled View Only Radiation Oncology at [address] [phone] Rad [facility] 06/22/2024 12:00 PM EST Procedure visit Radiation Oncology at [address] [phone] Joshua Stein MD [address] [place] [address] [place] [address] 06/22/2024 12:00 PM EST Scheduled View Only Radiation Oncology at [address] [phone] 06/27/2024 7:30 AM [place] [phone] Joshua Stein MD [address] [place] [address] [place] [address] 06/27/2024 9:30 AM EST Scheduled View [place] [address] 06/27/2024 10:00 AM EST Ancillary Appointment [place] [phone] Joshua Stein MD [address] [place] [address] [place] [address] 06/27/2024 10:00 AM EST Scheduled View Only [place] [phone] documented as of this encounter Visit Diagnoses Not on filedocumented in this encounter Care Teams Information Architect Relationship Specialty Start Date End Date Cristel Layne APRN [address] [place] [address] PCP - General Family Medicine 03/31/22 documented as of this encounter
--- OUTSIDE RECORDS SUMMARY | 2024-06-16 22:34 | XMS_ITS | Clinical Summary ---
Author Organization Formerly [facility], Later [facility] Address [facility] [place] [address] Care Team Providers Care Patent Lawyer Name Role Phone Cristel Layne APRN Primary Care Provider [phone] [phone] Allergies Active Allergy Reactions Criticality Noted Date [...] mouth daily. 90 tablet 3 07/21/2022 Active valsartan (Diovan) 40 mg tablet Take 1 tablet by mouth Daily at Noon. 05/03/2024 Active dexAMETHasone (Decadron) 2 mg tabletIndications:Ma lignant neoplasm of prostate 2 mg twice a day for 3 days (Start day of procedure, once you get back home after procedure, take with food) then, 2 mg once a day for 3 days. 9 tablet 06/15/2024 Active levoFLOXacin (Levaquin) 500 mg tabletIndications:Ma lignant neoplasm of prostate 1 tablet 1 hour before the procedure 1 tablet 06/15/2024 Active LORazepam (Ativan) 1 mg tabletIndications:Ma lignant neoplasm of prostate Take 1 tablet 1 hour prior to the procedure and bring the second tablet with you to the procedure incase you need a repeat dose. 2 tablet 06/15/2024 Active Active Problems Problem Noted Date Diagnosed Date Heart murmur, aortic 07/21/2022 Obesity 07/21/2022 Gastroesophageal reflux 07/21/2022 BPH (benign prostatic hyperplasia) 07/21/2022 Malignant neoplasm of prostate 07/20/2022 Cancer Staging:Clinical:Stage I(cT1c, cN0, cM0, PSA: 9.9, Grade Group: 1) - Signed by Joshua Stein MD on 07/20/2022 Encounters Date Type Department Care Team Description 06/15/2024 Telephone Radiation Oncology at [address] [phone] Bernadine Welsh RN Pre Procedure Call 06/08/2024 1:30 PM EST Office Visit Radiation Oncology at [address] [phone] Joshua Stein MD Malignant neoplasm of prostate 06/08/2024 Travel 06/03/2024 Travel 06/02/2024 Telephone Radiation Oncology at [address] [phone] Lurdes Garrison 06/02/2024 Orders Only Radiation Oncology at [address] [address] Joshua Stein MD Malignant neoplasm of prostate 03/23/2024 7:30 AM EDT - 03/23/2024 9:15 AM EDT Surgery Main OR at [address] [address] Vito Charles MD CYSTO, LASER TURP (WRVU 12.15) 03/23/2024 7:23 AM EDT Anesthesia Event Main OR at [address] [phone] Jeremi Degroot, Brandon Katz, CAVALRY SCOUT 03/23/2024 6:24 AM EDT - 03/23/2024 10:05 AM EDT Hospital Encounter PACU at [address] [address] Vito Charles MD Discharge Disposition: Home from Last 3 Months Family History Medical [...] Sign Reading Time Taken Comments Blood Pressure 168/88 06/08/2024 1:31 PM EST white coat Pulse 92 06/08/2024 1:31 PM EST Temperature 37.2 ??C (99 ??F) 06/08/2024 1:3 1 PM EST Respiratory Rate 16 06/08/2024 1:31 PM EST Oxygen Saturation 99% 06/08/2024 1:3 1 PM EST Inhaled Oxygen Concentration - - Weight 105.4 kg (232 lb 6.4 oz) 024 1:31 PM EST Height 177.8 cm (5' 10) 03/23/2024 6:3 9 AM EDT Body Mass Index 33.35 03/23/2024 6:39 AM EDT Plan of Treatment Upcoming Encounters Date Type Department Care Team (Late st Contact Info) Description 06/22/2024 11:30 AM EST Scheduled View Only Radiation Oncology at [address] [phone] Rad [facility] 06/22/2024 12:00 PM EST Procedure visit Radiation Oncology at [address] [phone] Joshua Stein MD [address] [place] [address] DR RADIATION ONCOLOGY [place], [place] [address] 06/22/2024 12:00 PM EST Scheduled View Only Radiation Oncology at [address] [phone] 06/27/2024 7:30 AM [place] [phone] Joshua Stein MD [address] [place] [address] DR RADIATION ONCOLOGY [place], [place] [id number] 06/27/2024 9:30 AM EST Scheduled View [place] [phone] 06/27/2024 10:00 AM EST Ancillary Appointment [place] [phone] Joshua Stein MD [address] [place] [address] DR RADIATION ONCOLOGY [place] [address] 06/27/2024 10:00 AM EST Scheduled View [place] [phone] Health Maintenance Due Date Last Done Comments CT Colonography 1955 Colonoscopy 1955 Colorectal Cancer Screening 1955 FIT DNA 1955 FIT 1955 Sigmoidoscopy (10 year) with FIT yearly 1955 Sigmoidoscopy 1955 Hepatitis C Screening 1971 Lipid Screening 1971 Tetanus/Diphtheria/Pertussis Vaccines (1 - Tdap) 06/14 Zoster vaccine (1 of 2) 2003 Advance Directive 2008 Pneumoccocal Vaccine: 65+ (1 of 1 - PCV) 2018 Covid-19 Vaccine (1 - season) 2024 Influenza (Flu) vaccine (1 o f 1 - Influenza standard series) 04/03/2024 Procedures Procedure Name Priority Date/Time Associated Diagnosis Comments MODIFIER,GREENLIGHT LASER 2023 7:23 AM EDT BPH Laser Vaporization Surgery Prostate, Complete ([id number]) 03/23/2024 7:23 AM EDT BPH from Last 3 Months Care Teams Patent Lawyer Relationship Specialty Start Date End Date Cristel Layne APRN [address] [place], [place] [address] PCP - General Family Medicine 03/31/22
--- OUTSIDE RECORDS SUMMARY | 2024-06-16 22:34 | XMS_ITS | Encounter Summary ---
Author Organization [facility] Address [facility] [place] [address] Care Team Providers Care Recycle Driver Name Role Phone Cristel Layne APRN Primary Care Provider [phone] [phone] Reason for Visit * Reason Onset Date Comments Pre Procedure Call 06/15/2024 Encounter Details Date Type Department Care Team (Late st Contact Info) Description 06/15/2024 Telephone Radiation Oncology at [address] [phone] Bernadine Welsh RN Pre Procedure Call Social History Tobacco Use Types Packs/Day Years [...] encounter Miscellaneous Notes * Telephone Encounter - AnithaBernadine RN - 06/15/2024 3:40 PM EST Radiation Oncology Nurse Note [place], [place] Patient Information for Prostate Fiducial (Gold Coil) Placement Procedure Date: 06/22/24 Arrival Time: 1130 Time of Procedure: 1200 Location: [place], [place] Why Fiducial Placement or also known as ???gold coils?? ? You and your doctor have discussed treatment options and have decided that prostate fiducial placement, ???Gold coils, would be helpful in your external beam radiation treatment. The coil is a very small, 24-karat gold coil that will sit within the prostate and help to locate it on the planning CT scan. Usually 3 coils are inserted in the gland. INSTRUCTIONS PRIOR TO YOUR PROCEDURE One week prior to the day of your procedure: STOP TAKING BLOOD THINNERS Stop taking medications that might thin your blood (anticoagulants) 1 week before your Gold coil isscheduled to be placed i.e.; aspirin, ibuprofen, gingko biloba, Coumadin, Lovenox, etc. Please ask if you are not sure about any of your medications. For you this means stop taking : [ N/A ] Prescriptions to get filled: Giulia Damico Prescription for Antibiotic: to prevent infection [ Yes ] Levofloxacin 500 mg 1 hour before the procedure. Prescription to help you relax (optional, if needed) [ Yes ] Lorazepam 1 mg po 1 hour prior to procedure. Bring 2nd pill with you to procedure in case you need a repeat dose. You must have someone drive you home if you take this medication due to its sedative properties. [ Yes ]2 fleet enemas- you will need to pick this up over the counter. No prescription needed. Prescription for steroid: to prevent swelling at implant site. [ Yes ] dexamethasone: 2 mg twice a day for 3 days > Start day of procedure, once you get back home after procedure, take with food, then, 2 mg once a day for 3 days. THE DAY BEFORE THE PROCEDURE: Eat a normal dinner (evening meal) Administer one fleets enema before bedtime THE MORNING AND DAY OF THE PROCEDURE: Administer the second fleets enema (2-3 hours prior to scheduled time of procedure) Eat a normal meal and take your usual daily medications (except for anticoagulants) Take your prescribed antibiotic, levofloxacin 1 hour prior to procedure. If ordered: take Lorazepam 1 mg, po 1 hour prior to procedure. Plan to arrive in the Radiation/Oncology Department 30 minutes before scheduled procedure. See above arrival time. You will be asked to change in to a hospital gown (remove everything from your waist down.) How is the procedure done? You will be brought into a procedure room and asked to lie on your back with your legs placed in leg supports. After application of lidocaine lubricant, an ultrasound probe will be inserted into your rectum in order to visualize your prostate gland. After you are given a local anesthetic, the 2 needles containing the coils will be gently inserted through the skin into your prostate gland. AFTER THE GOLD COIL IMPLANT PROCEDURE: You may resume normal activity ( no bike riding, horseback riding, snowmobiling, or ATV riding for a couple days to avoid discomfort) You may resume sexual intercourse in 1 week. You may take extra-strength or regular Tylenol for any discomfort. Start dexamethasone as directed. 1 pill twice a day for 3 days, then 1 pill once a day for 3 days. Always take this medication with food. Avoid taking too late in the evening as it may causes insomnia. It may cause temporary elevation of blood sugar for diabetic patients. You may resume any NSAIDs 48 hours after the procedure. Call us if you notice any unusual swelling, difficulty with urination, pain or if you have any other concerns. Future Appointments: MRI : You will receive separate instructions specifically from the hospital concerning your exact arrival time and what you need to do to prepare for this. Date: Your planning session (simulation) will be done at : [ X ] [facility] at the Radiation Oncology Department section 2K [ ] [facility] [place], [place] [Date: 06/27/24 ] [Time: arrive at 0730 ] For proper visualization of prostate, it is required that you have a moderately full bladder. This will require you to arrive 30 minutes before scheduled appointment and drink 2 glasses of water upon arrival. There are no restrictions with eating. How to reach us: [facility] [phone] For weekends and after hours: Call [facility] ask for the adjunct physical education instructor radiation oncologist Patient was provided a printed copy of these instructions. This was reviewed with him. He states his questions have been answered and he verbalized understanding of these instructions. documented in this encounter Plan of Treatment Upcoming Encounters Date Type Department Care Team (Late st Contact Info) Description 06/22/2024 11:30 AM EST Scheduled View Only Radiation Oncology at [address] [phone] Rad Nurse[facility] 06/22/2024 12:00 PM EST Procedure visit Radiation Oncology at [address] [phone] Joshua Stein MD [address] [place] [address] DR RADIATION ONCOLOGY [place], [place] [id number] 06/22/2024 12:00 PM EST Scheduled View Only Radiation Oncology at [address] [phone] 06/27/2024 7:30 AM [place] [address] Joshua Stein MD [address] [place] [address] DR RADIATION ONCOLOGY [place], [place] [id number] 06/27/2024 9:30 AM EST Scheduled View Only [place] [address] 06/27/2024 10:00 AM EST Ancillary Appointment [place] [address] Joshua Stein MD [address] [place] [address] DR RADIATION ONCOLOGY [place], [place] [address] 06/27/2024 10:00 AM EST Scheduled View Only Radiation [place] [address] documented as of this encounter Visit Diagnoses Diagnosis Malignant neoplasm of prostate- Primary documented in this encounter Care Teams Recycle Driver Relationship Specialty Start Date End Date Cristel Layne APRN [address] [place] [address] PCP - General Family Medicine 03/31/22 documented as of this encounter
--- OUTSIDE RECORDS SUMMARY | 2024-06-16 22:34 | XMS_ITS | Encounter Summary ---
Author Organization [facility] Address [facility] [place] [address] Care Team Providers Care Veterinarian Helper Name Role Phone RovertoSahara orlandohrmaurice Grajeda NORMA Primary Care Provider [phone] [phone] Encounter Details Date Type Department Care Team (Latest Contact Info) Description 06/08/2024 Travel Social History Tobacco Use Types Packs/Day [...] EST Scheduled View Only Radiation Oncology at [address] [phone] [place] Nurse Peyman 06/22/2024 12:00 PM EST Procedure visit Radiation Oncology at [address] [phone] Joshua Stein MD [address] [place] [address] DR RADIATION ONCOLOGY [place], [place] [address] 06/22/2024 12:00 PM EST Scheduled View Only Radiation Oncology at [address] [phone] 06/27/2024 7:30 AM EST [place] [phone] Joshua Stein MD [address] [place] [address] DR RADIATION ONCOLOGY [place], [place] [id number] 06/27/2024 9:30 AM EST Scheduled View Only Radiation [place] [phone] 06/27/2024 10:00 AM EST Ancillary Appointment [place] [phone] Joshua Stein MD [address] [place] [address] DR RADIATION ONCOLOGY [place], [place] [id number] 06/27/2024 10:00 AM EST Scheduled View Only [place] [phone] documented as of this encounter Visit Diagnoses Not on filedocumented in this encounter Care Teams Veterinarian Helper Relationship Specialty Start Date End Date Cristel Layne APRN [address] [place] [address] PCP - General Family Medicine 03/31/22 documented as of this encounter
--- OUTSIDE RECORDS SUMMARY | 2024-06-16 22:34 | XMS_ITS | Encounter Summary ---
Author Organization [facility] Address [facility] [place] [address] Care Team Providers Care Lasting Machine Operator Hand Method Name Role Phone Cristel Layne APRN Primary Care Provider [phone] [phone] Encounter Details Date Type Department Care Team (Late st Contact Info) Description 06/02/2024 Telephone Radiation Oncology at [address] [phone] Lurdes Garrison Social History Tobacco Use Types Packs/Day Years [...] EST Scheduled View Only Radiation Oncology at [address] [phone] Rad Nurse[facility] 06/22/2024 12:00 PM EST Procedure visit Radiation Oncology at [address] [phone] Joshua Stein MD [address] [place] [address] [place] [address] 06/22/2024 12:00 PM EST Scheduled View Only Radiation Oncology at [address] [phone] 06/27/2024 7:30 AM [place] [address] Joshua Stein MD [address] [place] [address] DR RADIATION ONCOLOGY [place], [place] [address] 06/27/2024 9:30 AM EST Scheduled View Only [place] [address] 06/27/2024 10:00 AM EST Ancillary Appointment [place] [phone] Joshua Stein MD [address] [place] [address] [place] [address] 06/27/2024 10:00 AM EST Scheduled View [place] [address] documented as of this encounter Visit Diagnoses Not on filedocumented in this encounter Care Teams Lasting Machine Operator Hand Method Relationship Specialty Start Date End Date Cristel Layne APRN [address] [place] [address] PCP - General Family Medicine 03/31/22 documented as of this encounter
--- OUTSIDE RECORDS SUMMARY | 2024-06-16 22:34 | XMS_ITS | Encounter Summary ---
Author Organization [facility] Address [address] [place] [address] Care Team Providers Care Shuttle Spotter Name Role Phone Whitney Parker MD Primary Care Provider Jesus e Encounter Details Date Type Department Care Team (Latest Contact Info) Description 08/14/2017 11:11 EST - 08/14/2017 23:59 EST Hospital Encounter [address] [address] Unknown, Provider, Discharge Disposition: Home or Self Care Social History Tobacco Use Types Packs/Day Years Used Date Smoking Tobacco: Never Assessed Sex and Gender Information Value Date Recorded Sex Assigned at Not on file Legal Sex Male 18:18 EST Gender Identity Not on file Sexual Orientation Not on file documented as of this encounter Discharge Disposition Disposition Code Departure Means Destination Home or Self Detention documented in this encounter Plan of Treatment Not on file documented as of this encounter Visit Diagnoses Not on filedocumented in this encounter Care Teams Shuttle Spotter Relationship Specialty Start Date End Date Whitney Parker MD PCP - General 04/12/13 05/23/24 documented as of this encounter
--- OUTSIDE RECORDS SUMMARY | 2024-06-16 22:34 | XMS_ITS | Encounter Summary ---
Author Organization [facility] Address [address] [place] [address] Care Team Providers Care Creative Director Name Role Phone Whitney Parker MD Primary Care Provider Jesus young Encounter Details Date Type Department Care Team (Late st Contact Info) Description 08/12/2021 Lab Requisition [facility] Pathology & Laboratory Medicine - [address] [phone] Outr Resulting Lab, Provider Social History Tobacco [...] 0.0 - 4.5 ng/mL 08/12/2021 22:37 EST [facility] Blood VENOUS BLOOD / Unknown 08/12/2021 11:27 EST 08/12/2021 21:21 EST Narrative [facility] - 08/12/2021 22:37 EST NOTE: Serum PSA concentration should not be interpreted as absolute evidence for the presence or absence of malignant disease. Assayed on Siemens ADVIA OuiCaraur XPT using chemiluminescent technology.??Values obtained by using different assay methods cannot be used interchangeably. us Provider Outr Resulting Lab CHEMISTRY & BLOOD GA S ORDERABLES Final Result [facility] [address] [place] [address] documented in this encounter Visit Diagnoses Not on filedocumented in this encounter Care Teams Creative Director Relationship Specialty Start Date End Date Whitney Parker MD PCP - General 04/12/13 05/23/24 documented as of this encounter
--- OUTSIDE RECORDS SUMMARY | 2024-06-16 22:34 | XMS_ITS | Encounter Summary ---
Author Organization [facility] Address [address] [place] [address] Care Team Providers Care Barrel Charrer Helper Name Role Phone Whitney Parker MD Primary Care Provider Jesus young Encounter Details Date Type Department Care Team (Late st Contact Info) Description 04/11/2013 Results Only [facility] Laboratory Services - [facility] ([facility] [address] [place], [place] [phone] [place] [address] [place] [id number] Social History Tobacco Use Types Packs/Day Years [...] ? DHRUV MAJANO ? Accession #: ? [id number] ? : ? 1955 (Age: 57) ??M [...] 04/11/2013 11:2 7 EDT 04/12/2013 11:27 EDT us Don Herrera MD PATHOLOGY ORDERABLES Final Resul t [facility] [address] [place] [address] documented in this encounter Visit Diagnoses Not on filedocumented in this encounter Care Teams Barrel Charrer Helper Relationship Specialty Start Date End Date Whitney Parker MD PCP - General 04/12/13 05/23/24 documented as of this encounter
--- OUTSIDE RECORDS SUMMARY | 2024-06-16 22:34 | XMS_ITS | Encounter Summary ---
[place] [address] Care Team Providers Care Lead Data Entry Operator Name Role Phone Cristel Layne APRN Primary Care Provider [phone] [phone] Reason for Referral * Diagnostic Test (Routine) - Authorized Specialty Diagnoses / Procedures Referred By Ok t Referred To Contact Radiology Diagnoses Malignant neoplasm of prostate Procedures MRI Pelvis wo (Prostate) Joshua Stein MD [address] [place] [address] [place] [address] [place] [address] Referral ID Status Reason Start Date Expiration Date Visits Requested Visits Authorized [id number] Authorized Specialty Service Requested 11/30/2025 1 1 * Consultation (Routine) - Authorized Specialty Diagnoses / Procedures Referred By Ok little Referred To Contact Radiation Oncology Diagnoses Malignant neoplasm of prostate Procedures Simulation for Radiation Therapy Planning Joshua Stein MD [address] [place] [address] [place] [address] [facility] Rad Onc [facility] [address] [place] [phone] Referral ID Status Reason Start Date Expiration Date Visits Requested Visits Authorized [id number] Authorized Consult, Test & Treat 06/27/2024 08/02/2024 29 29 Encounter Details Date Type Department Care Team (Late Contact Info) Description 06/02/2024 Orders Only Radiation Oncology at [address] [place] [phone] Joshua Stein MD [address] [place] [address] [place] [address] Malignant neoplasm of prostate Social [...] Encounters Date Type Department Care Team (Late Contact Info) Description 06/22/2024 11:30 AM EST Scheduled View Only Radiation Oncology at [address] [phone] Rad NurseSt [facility] 06/22/2024 12:00 PM EST Procedure visit Radiation Oncology at [address] [phone] Joshua Stein MD [address] [place] [address] [place] [address] 06/22/2024 12:00 PM EST Scheduled View Only Radiation Oncology at [address] [phone] 06/27/2024 7:30 AM [place] [address] Joshua Stein MD [address] [place] [address] DR RADIATION ONCOLOGY [place] [address] 06/27/2024 9:30 AM EST Scheduled View Only [place] [address] 06/27/2024 10:00 AM EST Ancillary Appointment [place] [address] Joshua Stein MD [address] [place] [address] [place] [address] 06/27/2024 10:00 AM EST Scheduled View Only [place] [address] Scheduled Orders Name Type Priority Associated Diagnoses Orde r Schedule Simulation for Radiation Therapy Planning Radiation Oncology Routine Malignant neoplasm of prostate Expected: 06/02/2024, Expires: 12/02/2024 MRI Pelvis wo (Prostate) Imaging Routine Malignant neoplasm of prostate Expected: 06/30/2024 (Approximate), Expires: 12/30/2024 documented as of this encounter Visit Diagnoses Diagnosis Malignant neoplasm of prostate documented in this encounter Care Teams Lead Data Entry Operator Relationship Specialty Start Date End Date Cristel Layne APRN [address] [place] [address] PCP - General Family Medicine 03/31/22 documented as of this encounter
--- OUTSIDE RECORDS SUMMARY | 2024-06-16 22:34 | XMS_ITS | Encounter Summary ---
Author Organization [facility] Address [address] [place] [address] Care Team Providers Care Raise Miner Name Role Phone Whitney Parker MD Primary Care Provider Jesus e Encounter Details Date Type Department Care Team (Late st Contact Info) Description 05/22/2023 Lab Requisition [facility] Pathology & Laboratory Medicine - [address] [address] Jomar Hensley MD [address] [place] [phone] Encounter for other general examination Social History [...] applicable. 05/27/2023 7:15 EDT [facility] Final Diagnosis A. PROSTATE, RIGHT BASE LATERAL, BIOPSY: - Small focus of atypical gland, high-grade prostatic intraepithelial neoplasia (PIN) cannot be ruled out. B. PROSTATE, RIGHT BASE MEDIAL, BIOPSY: - Prostatic adenocarcinoma, acinar type, involving 40% (5.4 mm) of 1/1 core - Global [place]ville score: 3 + 4 = 7 (grade group 2), 40% [place] pattern 4 - Core (14.6 mm) C. PROSTATE, RIGHT MID LATERAL, BIOPSY: - Prostatic adenocarcinoma, acinar type, involving 45% (2.7 mm) of 1/1 core - Global [place] score: 3 + 3 = 6 (grade [...] Small focus of atypical glands, suspicious for [place] patterns 3 and 4 adenocarcinoma. - Core [...] (3.1 mm) of 1/1 core - Global [place] score: 3 + 4 = 7 (grade group 2), <5% [place] pattern 4 - Core (21.0 mm) K. PROSTATE, LEFT APEX LATERAL, BIOPSY: - Atypical glands suspicious for Wilbur pattern 3 adenocarcinoma. - Core (10.3 mm): Atypical glands, 0.1 mm (<1% of core) L. PROSTATE, LEFT APEX MEDIAL, BIOPSY: - Minute focus of atypical glands, suspicious but not diagnostic of adenocarcinoma. See comment. 05/27/2023 7:15 EDT [facility] Diagnosis Comment Specimen I [...] performance characteristics have been determined by [facility] and/or by the referring laboratory. [...] high complexity clinical laboratory testing. 05/27/2023 7:15 [facility] Attestation There was significan t resident/fellow involvement in the diagnostic evaluation of this case. By the signature below, the attending physician certifies that they have personally conducted a gross and/or microscopic examination of the described specimens and rendered or confirmed the above diagnosis. 05/27/2023 7:15 [facility] at 0715 Clinical History Prostate cancer, prior biopsy 05/23/2022 05/27/2023 7:15 [facility] Gross Description A. Received [...] Margarita Hernandez 05/23/2023 13:07 05/27/2023 7:15 EDT [facility] Resident/Fell ow: Jeremi Flores DO 05/27/2023 7:15 EDT [facility] Performing Lab [facility] 05/27/2023 7:15 EDT [facility] Scanned Images 05/27/2023 7:15 T [facility] Tissue STRUCTURE OF APEX [...] Unknown 05/22/2023 9:20 EDT 05/22/2023 17:23 EDT [facility] Carmelo Hensley MD PATHOLOGY ORDERABLES Patience l Result [facility] [address] [place] [address] documented in this encounter Visit Diagnoses Diagnosis Encounter for other general examination documented in this encounter Care Teams Raise Miner Relationship Specialty Start Date End Date Whitney Parker MD PCP - General 04/12/13 05/23/24 documented as of this encounter
--- OUTSIDE RECORDS SUMMARY | 2024-06-16 22:34 | XMS_ITS | Encounter Summary ---
Author Organization [facility] Address [facility] [place] [address] Care Team Providers Care Community Chest Officer Name Role Phone Cristel Layne APRN Primary Care Provider [phone] Reason for Visit * Consultation (Routine) - Closed Specialty Diagnoses / Procedures Referred By Ok little Referred To Contact Urology Diagnoses Prostate cancer 06/10/22 - NEW DX PROSTATE CANCER Jomar Hensley MD [address] [place] [address] [facility] [place] [address] Referral ID Status Reason Start Date Expiration Date V isits Requested Visits Authorized [id number] Closed Consult, Test & Treat PCP Updated and/or Approved 06/09/2022 06/09/2023 6 6 Encounter Details Date Type Department Care Team (Late st Contact Info) Description 08/21/2022 3:00 PM EST Office Visit H[place] [phone] Ming Fry MD [facility] [place] [address] Malignant neoplasm of prostate Social [...] place to sleep or slept in a retirement (including now)? No 07/21/2022 Sex and Gender [...] Service: 08/21/2022 Referring Provider: Jomar Hensley MD [address] [place] [address] Primary Care Provider: Cristel Layne APRN HPI: Vincent Oswald is a 67 y.o. y/o male here who presents today for evaluation of his newly diagnosed low risk prostate cancer. PSA History: 06/12/2022 - 8.0 Pathology: 06/12/2022 - TRUS Bx DIAGNOSIS CONSULTATION CASE Outside slides labeled [id number]; collection date, 05/23/2022. A - Prostatic core needle biopsy, right mid lateral: ? Microscopic atypical glandular focus, suspicious ? for grade 3 adenocarcinoma. B - Prostatic core needle biopsy, right base lateral: ? Benign prostatic tissue. C - Prostatic core needle biopsy, right base medial: ? Benign prostatic tissue. D - Prostatic core needle biopsy, right mid medial: ? Adenocarcinoma, grade group 1, Wilbur [...] base medial: ? Adenocarcinoma, grade group 1, [place] grade 3+3, ? involving 10% of the biopsy core. I - Prostatic core needle biopsies, left mid lateral: ? Adenocarcinoma, grade group 1, Wilbur grade 3+3, ? involving 1 of 2 [...] apex medial: ? Adenocarcinoma, grade group 1, [place] grade 3+3, ? involving 15% of the [...] patient. Impression: #1: Low risk prostate cancer ([place] 3+3, PSA 8, cT1c) though fairly discrete [...] either discussed or I gave access via [facility] to the below counseling information We spent [...] to metastatic disease at 13 years but alf data beyond this is not currently available. [...] EST Scheduled View Only Radiation Oncology at [address] [phone] [facility] 06/22/2024 12:00 PM EST Procedure visit Radiation Oncology at [address] [phone] Joshua Stein MD [address] [place] [address] [place] [address] 06/22/2024 12:00 PM EST Scheduled View Only Radiation Oncology at [address] [phone] 06/27/2024 7:30 AM [place] [address] Joshua Stein MD [address] [place] [address] DR RADIATION ONCOLOGY [place] [id number] 06/27/2024 9:30 AM EST Scheduled View [place] [address] 06/27/2024 10:00 AM EST Ancillary Appointment [place] [phone] Joshua Stein MD [address] [place] [address] DR RADIATION ONCOLOGY [place], [place] [address] 06/27/2024 10:00 AM EST Scheduled View [place] [phone] Scheduled Referrals Name Type Priority Associated Diagnoses Orde r Schedule Referral to Urology Outpatient Referral Routine Prostate cancer Ordered: 06/09/2022 documented as of this encounter Visit Diagnoses Diagnosis Malignant neoplasm of prostate documented in this encounter Care Teams Community Chest Officer Relationship Specialty Start Date End Date Cristel Layne APRN [address] [place] [address] PCP - General Family Medicine 03/31/22 documented as of this encounter
--- OUTSIDE RECORDS SUMMARY | 2024-06-16 22:34 | XMS_ITS | Encounter Summary ---
Author Organization [facility] Address [address] [place] [address] Care Team Providers Care Cigar Making Machine Supervisor Name Role Phone Whitney Parker MD Primary Care Provider Jesus e Encounter Details Date Type Department Care Team (Late st Contact Info) Description 07/23/2022 Lab Requisition [facility] Pathology & Laboratory Medicine - [address] [address] Joshua Stein MD [address] [place] [id number] Encounter for other general examination Social History [...] (07/23/2022 10:27 EST) Amendment Comment Report from [employer] Specimen ID: [id number] Decipher Accession ID: [id number] Decipher Score: 0.45 Genomic Risk: intermediate 09/02/2022 7:07 EST EXTERNAL LAB Addendum Comment At the request of Dr. Joshua Stein, a block from [id number] (G1) was sent to [employer] [employer] for testing. Block (G1) was deemed insufficient; therefore, an additional block is requested and sent for testing. For Decipher results, please see scanned report in EPIC. 09/02/2022 7:07 EST EXTERNAL LAB Original (G1, L1) 09/02/2022 7:07 EST EXTERNAL LAB Original Case Specimen Source Prostate 09/02/2022 7:07 EST [facility] Original Case Date of Service 05/23/2022 09/02/2022 7:07 [facility] Attestation By the signature below, the attending physician certifies that they have 1) personally conducted a gross and/or microscopic examination of the described specimen(s), and/or personally interpreted the results of laboratory testing of the described specimen(s), and 2) personally rendered or confirmed the above diagnosis. 09/02/2022 7:07 [facility] at 0706 Surgical pathology [...] Unknown 07/23/2022 10:27 EST 08/15/2022 11:39 EST us Joshua Stein MD PATHOLOGY ORDERABLES Final Resu lt EXTERNAL LAB [facility] [address] [place] [address] documented in this encounter Visit Diagnoses Diagnosis Encounter for other general examination documented in this encounter Care Teams Cigar Making Machine Supervisor Relationship Specialty Start Date End Date Whitney Parker MD PCP - General 04/12/13 05/23/24 documented as of this encounter
--- OUTSIDE RECORDS SUMMARY | 2024-06-16 22:34 | XMS_ITS | Encounter Summary ---
Author Organization [facility] Address [facility] [place] [address] Care Team Providers Care Gem Cutter Name Role Phone RovertoCristel orlando NORMA Primary Care Provider [phone] [phone] Encounter Details Date Type Department Care Team (Latest Contact Info) Description 03/23/2024 6:24 AM EDT - 03/23/2024 10:05 AM EDT Hospital Encounter PACU at [address] [phone] Vito Charles MD [facility] [place] [address] Discharge Disposition: Home Social History Tobacco Use [...] more? Visit our health information library at [email or web address] You can also view health information on [employer], your personal patient account. Log in or [...] Charles MD - 03/23/2024 8:41 AM EDT [facility] Urology Post-Operative Discharge Instructions PHOTO-SELECTIVE VAPORIZATION [...] in your urine. Follow Up: Please call [facility] at [phone] to make a routine follow-up appointment 4-6 weeks after your surgery. If you have any immediate questions or concerns, you may call the main [facility] line ([phone]) andask the landfill gas collection system operator for the ???Urology Resident construction executive?? . FOLLOW-UP APPOINTMENT Please see above. Call [...] who did a repeat biopsy that found [place] 3+4 prostate cancer and was planning on ADT followed by radiation. He did not tolerate Lupron shots due to fatigue/myalgia/hot flashes. Now presents for consideration of a bladder outlet procedure prior to radiation. Denies dysuria or hematuria or urinary incontinence. He is currently taking flomax. IPSS score 17/35 (08/06/2/4/3/08/04); QOL 4/6. Prostate size on MRI was [...] Charles MD - 03/23/2024 7:38 AM EDT [facility] Operative Note [address] Patient Name: Vincent sOwald : [id number] MR#: [id number] Case Date: 03/23/2024 Case Scheduled Time: 07 Surgeon: Surgeons and Role: * Vito Charles [...] Prep and drape was performed in gene ral standard sterile fashion. With a 23.5French cystoscopy [...] removing the sheath and placing an 20 Sudanese 2-way Keller catheter. The drainage was clear. [...] minutes. Vito Charles MD Section of Urology [facility] Office: [phone] Infection Bundle used? N/A Vito Charles MD 03/23/2024 documented in this encounter Plan of Treatment Upcoming Encounters Date Type Department Care Team (Late st Contact Info) Description 06/22/2024 11:30 AM EST Scheduled View Only Radiation Oncology at [address] [phone] Rad Nurse, [facility] 06/22/2024 12:00 PM EST Procedure visit Radiation Oncology at [address] [phone] Joshua Stein MD [address] [place] [address] DR RADIATION ONCOLOGY [place], [place] [address] 06/22/2024 12:00 PM EST Scheduled View Only Radiation Oncology at [address] [phone] 06/27/2024 7:30 AM [place] [phone] Joshua Stein MD [address] [place] [address] DR RADIATION ONCOLOGY [place], [place] [address] 06/27/2024 9:30 AM EST Scheduled View [place] [address] 06/27/2024 10:00 AM EST Ancillary Appointment [place] [phone] Joshua Stein MD [address] [place] [address] DR RADIATION ONCOLOGY [place], [place] [address] 06/27/2024 10:00 AM EST Scheduled View [place] [address] documented as of this encounter Procedures Procedure Name Priority Date/Time Associated Diagnosis Comments MODIFIER,GREENLIGHT LASER 2023 7:23 AM EDT BPH Laser Vaporization Surgery Prostate, Complete (77790) 03/23/2024 7:23 AM EDT BPH documented in [...] Routine 0641 (Given - Provid er: Nae Mccartney I RN) ceFAZolin (Ancef) 2 g vial attach [...] insertion) documented in this encounter Care Teams Gem Cutter Relationship Specialty Start Date End Date Cristel Layne APRN [address] [place] [address] PCP - General Family Medicine 03/31/22 documented as of this encounter
--- OUTSIDE RECORDS SUMMARY | 2024-06-16 22:34 | XMS_ITS | Encounter Summary ---
[place] [address] Care Team Providers Care Clinical Support Nurse Name Role Phone Cristel Layne APRN Primary Care Provider [phone] [phone] Reason for Referral * Consultation (Routine) - Closed Specialty Diagnoses / Procedures Referred By Ok little Referred To Contact Urology Diagnoses Lower urinary tract symptoms (LUTS) Unspecified symptoms and signs involving the genitourinary system Malignant neoplasm of prostate Jomar Hensley MD [address] [place] [address] [facility] [place] [address] Referral ID Status Reason Start Date Expiration Date V isits Requested Visits Authorized [id number] Closed Consult, Test & Treat PCP Updated and/or Approved 11/17/2023 05/18/2024 6 6 Encounter Details Date Type Department Care Team (Latest Contact Info) Description 11/25/2023 Transcribe Orders eDH Incoming Referrals [phone] Jomar Hensley MD [address] [place] [address] Lower urinary tract symptoms (LUTS); History of [...] EST Scheduled View Only Radiation Oncology at [address] [phone] [facility] 06/22/2024 12:00 PM EST Procedure visit Radiation Oncology at [address] [phone] Joshua Stein MD [address] [place] [address] DR RADIATION ONCOLOGY [place], [place] [phone] 06/22/2024 12:00 PM EST Scheduled View Only Radiation Oncology at [address] [phone] 06/27/2024 7:30 AM [place] [address] Joshua Stein MD [address] [place] [address] [place] [address] 06/27/2024 9:30 AM EST Scheduled View Only [place] [address] 06/27/2024 10:00 AM EST Ancillary Appointment [place] [address] Joshua Stein MD [address] [place] [address] [place] [address] 06/27/2024 10:00 AM EST Scheduled View Only [place] [address] Scheduled Referrals Name Type Priority Associated Diagnoses [...] prostate documented in this encounter Care Teams Clinical Support Nurse Relationship Specialty Start Date End Date Cristel Layne APRN [address] [place] [address] PCP - General Family Medicine 03/31/22 documented as of this encounter
--- OUTSIDE RECORDS SUMMARY | 2024-06-16 22:34 | XMS_ITS | Encounter Summary ---
Author Organization [facility] Address [address] [place] [address] Care Team Providers Care Near East Archeology Professor Name Role Phone Whitney Parker MD Primary Care Provider Jesus young Encounter Details Date Type Department Care Team (Late st Contact Info) Description 02/05/2023 Lab Requisition [facility] Pathology & Laboratory Medicine - [address] [address] Outr Resulting Lab, Provider Social History Tobacco [...] PSA 8.9(H) <=4.5 ng/mL 02/05/2023 20:10 EDT [facility] Blood VENOUS BLOOD / Unknown 02/05/2023 11:10 EDT 02/05/2023 17:58 EDT Narrative [facility] - 02/05/2023 20:10 EDT NOTE: Serum PSA concentration should not be interpreted as absolute evidence for the presence or absence of malignant disease. Assayed on Siemens [employer]aur XPT using chemiluminescent technology.??Values obtained by using different assay methods cannot be used interchangeably. us Provider Outr Resulting Lab CHEMISTRY & BLOOD GA S ORDERABLES Final Result [facility] [address] [place] [address] documented in this encounter Visit Diagnoses Not on filedocumented in this encounter Care Teams Near East Archeology Professor Relationship Specialty Start Date End Date Whitney Parker MD PCP - General 04/12/13 05/23/24 documented as of this encounter
--- OUTSIDE RECORDS SUMMARY | 2024-06-16 22:34 | XMS_ITS | Encounter Summary ---
Author Organization [facility] Address [address] [place] [address] Care Team Providers Care Digital Account Manager Name Role Phone Whitney Parker MD Primary Care Provider Jesus young Encounter Details Date Type Department Care Team (Late st Contact Info) Description 05/13/2023 Lab Requisition [facility] Pathology & Laboratory Medicine - [address] [address] Outr Resulting Lab, Provider Social History Tobacco [...] <=4.5 ng/mL 05/13/2023 19:19 EDT [facility] Blood VENOUS BLOOD / Unknown 05/13/2023 10:30 EDT 05/13/2023 17:06 EDT Narrative [facility] - 05/13/2023 19:19 EDT NOTE: Serum PSA concentration should not be interpreted as absolute evidence for the presence or absence of malignant disease. Assayed on [employer] XPT using chemiluminescent technology.??Values obtained by using different assay methods cannot be used interchangeably. us Provider Outr Resulting Lab CHEMISTRY & BLOOD GA S ORDERABLES Final Result [facility] [address] [place] [address] documented in this encounter Visit Diagnoses Not on filedocumented in this encounter Care Teams Digital Account Manager Relationship Specialty Start Date End Date Whitney Parker MD PCP - General 04/12/13 05/23/24 documented as of this encounter
--- OUTSIDE RECORDS SUMMARY | 2024-06-16 22:34 | XMS_ITS | Encounter Summary ---
Author Organization [facility] Address [facility] [place] [address] Care Team Providers Care Awning Maker Name Role Phone Cristel Layne NORMA Primary Care Provider [phone] Encounter Details Date Type Department Care Team [...] EST Scheduled View Only Radiation Oncology at [address] [phone] [facility] 06/22/2024 12:00 PM EST Procedure visit Radiation Oncology at [address] [phone] Joshua Stein MD [address] [place] [address] DR RADIATION ONCOLOGY [place], [place] [address] 06/22/2024 12:00 PM EST Scheduled View Only Radiation Oncology at [address] [phone] 06/27/2024 7:30 AM [place] [phone] Joshua Stein MD [address] [place] [address] DR RADIATION ONCOLOGY [place], [place] [id number] 06/27/2024 9:30 AM EST Scheduled View [place] [phone] 06/27/2024 10:00 AM EST Ancillary Appointment [place] [phone] Joshua Stein MD [address] [place] [address] DR RADIATION ONCOLOGY [place], [place] [id number] 06/27/2024 10:00 AM EST Scheduled View Only [place] [phone] documented as of this encounter Visit Diagnoses Not on filedocumented in this encounter Care Teams Awning Maker Relationship Specialty Start Date End Date Cristel Layne APRN [address] [place] [address] PCP - General Family Medicine 03/31/22 documented as of this encounter
--- OUTSIDE RECORDS SUMMARY | 2024-06-16 22:34 | XMS_ITS | Encounter Summary ---
Author Organization [facility] Address [address] [place] [address] Care Team Providers Care Carbide Operator Name Role Phone Unavailable Primary Care Provider Unavailabl e Encounter Details Date Type Department Care Team (Late st Contact Info) Description 05/25/2024 Lab Requisition [facility] Pathology & Laboratory Medicine - [address] [address] Outr Resulting Lab, Provider Social History Tobacco [...] Associated Diagnosis Comments PSA TOTAL, DIAGNOSTIC Routine 05/25/2024 14:40 EDT documented in this encounter Results * PSA TOTAL, DIAGNOSTIC (05/25/2024 14:40 EDT) PSA 6.2 <=6.5 ng/mL 05/25/2024 22:51 EDT [facility] Blood VENOUS BLOOD / Unknown 05/25/2024 14:40 EDT 05/25/2024 21:37 EDT Narrative [facility] - 05/25/2024 22:51 EDT NOTE: Serum PSA concentration should not be interpreted as absolute evidence for the presence or absence of malignant disease. Assayed on [employer]aur XPT using chemiluminescent technology.??Values obtained by using different assay methods cannot be used interchangeably. us Provider Outr Resulting Lab CHEMISTRY & BLOOD GA S ORDERABLES Final Result [facility] [address] [place] [address] documented in this encounter Visit Diagnoses Not on filedocumented in this encounter
--- OUTSIDE RECORDS SUMMARY | 2024-06-16 22:34 | XMS_ITS | Encounter Summary ---
Author Organization [facility] Address [address] [place] [address] Care Team Providers Care Research Chemist Name Role Phone Unavailable Primary Care Provider Unavailabl e Encounter Details Date Type Department Care Team (Late st Contact Info) Description 09/09/2005 Results Only [facility] [address] [place] [address] Steven Allen MD [address] [place] [phone] Social History Tobacco Use Types Packs/Day Years [...] ? DHRUV MAJANO ? Accession #: ? [id number] ? : ? 1955 (Age: 50) ??M [...] ? Follow up polyps, h/o tubular adenoma ([id number]) Gross Description: ? Received in Hollande's fixative [...] specimen is entirely submitted as (E). ??(Laina Garcia)/[facility] End of Report ROBI RENE 09/09/2005 09/10/2005 15: 24 EST us Steven Allen MD PATHOLOGY ORDERABLES Final Res ult ROBI RENE [address] [place] [address] documented in this encounter Visit Diagnoses Not on filedocumented in this encounter
--- OUTSIDE RECORDS SUMMARY | 2024-06-16 22:34 | XMS_ITS | Encounter Summary ---
Author Organization [facility] Address [address] [place] [address] Care Team Providers Care Insect Control Aide Name Role Phone Whitney Parker MD Primary Care Provider Jesus young Encounter Details Date Type Department Care Team (Late st Contact Info) Description 11/17/2023 Lab Requisition [facility] Pathology & Laboratory Medicine - [address] [address] Outr Resulting Lab, Provider Social History Tobacco [...] PSA 5.4 <=6.5 ng/mL 11/17/2023 17:50 EDT [facility] Blood VENOUS BLOOD / Unknown 11/17/2023 9:52 EDT 11/17/2023 16:46 EDT Narrative [facility] - 11/17/2023 17:50 EDT NOTE: Serum PSA concentration should not be interpreted as absolute evidence for the presence or absence of malignant disease. Assayed on Siemens [employer] Probiodrugaur XPT using chemiluminescent technology.??Values obtained by using different assay methods cannot be used interchangeably. us Provider Outr Resulting Lab CHEMISTRY & BLOOD GA S ORDERABLES Final Result [facility] [address] [place], [place] [id number] documented in this encounter Visit Diagnoses Not on filedocumented in this encounter Care Teams Insect Control Aide Relationship Specialty Start Date End Date Whitney Parker MD PCP - General 04/12/13 05/23/24 documented as of this encounter
--- OUTSIDE RECORDS SUMMARY | 2024-06-16 22:34 | XMS_ITS | Encounter Summary ---
Author Organization [facility] Address [facility] [place] [address] Care Team Providers Care Sales Solutions Associate Name Role Phone RovertoSaharaCristel Nicci GREEN Primary Care Provider +1 [phone] Encounter Details Date Type Department Care Team (Late st Contact Info) Description 06/08/2024 1:30 PM EST Office Visit Radiation Oncology at [address] [phone] Joshua Stein MD [address] [place] [address] [place] [address] Malignant neoplasm of prostate Social [...] 6.4 oz) 024 1:31 PM EST Height - - Body Mass Index 33.35 03/23/2024 6:39 AM EDT documented in this encounter Patient Instructions * Patient Instructions* Joshua Stein MD - 06/08/2024 1:30 PM EST Images from the original note were not included. Dear Vincent, 1. The aggressiveness of your prostate cancer: You technically have low risk prostate cancer, which is a risk given to your cancer of coming back after treatment. This is based on three things 1. Your PSA (the blood test) was 10 when we met and today is 6.2. PSA values below 10 are considered low risk and 10-20 are considered medium risk. 2. Your highest Wilbur Group score was 1 (this is how aggressive your prostate cancer looks under the microscope). Omak scores for cancer range from 1-5, and 1 is considered lowest risk, while 5 is highest risk. 3. How aggressive your prostate cancer felt when Dr. Fry did the prostate exam (through the rectum) [...] we could order a genetic test called Decipher that gives us a score of 0-1 of how aggressive your prostate cancer seems to be. A lower score would be reassuring that we can safely watch this cancer. This is usually (but not always) covered by insurance, and costs about $400. If you choose to proceed with surveillance, the next step would be for me to refer you either back to Dr Fry or to the Active Surveillance Clinic at [facility], which is run by our prostate cancer surgeons. B. External beam radiation or surgery: If you decline active surveillance and wish to pursue treatment, both radiation and surgery are excellent options with cure rates >90%. Our meeting here today is to review the external beam radiation option offered here, which involves daily radiation treatments, 5 days a week M- F for 5.5 weeks. There are ways to go faster with radiation but because you had the TURP there is some uncertainty about whether it is safe. 3. Fiducial Marker implants: If you choose external beam radiation treatments, the first step is for you to return to our clinic so that we can place small gold markers (called fiducials) into the prostate, which help us visualize the prostate on a daily basis prior to treating you with radiation. These small gold seeds are about the size of a grain of rice, and we will place one into each side of the prostate. These procedures will be performed here in [...] a prostate MRI which we do at [facility], that allows us to better see your [...] within 4-6 weeks of completion radiation. 6. Horticulture Supervisor Complications: These are more worrisome and are [...] for urination). There may be a slow, terminal gauger supervisor decrease in your sexual function as well, [...] but is something to be aware of. Please do not hesitate to call me at [phone] with any other questions or concerns you have. IfI am not here, one of our radiation oncology nurses can assist you or help you get in touch with me. A Radiation Oncology doctor is also production grip after our normal hours and on weekends for urgent questions or concerns related to radiation treatments that can not wait until normal business hours. To reach the on-call doctor after-hours, just call and have the corrugated box machine operator page the Radiation Oncologist production grip. And, as always, if you experience any [...] Progress Notes * Joshua Stein MD - 06/08/2024 1:30 PM EST Images from the original note were not included. Radiation Oncology Established Patient Follow Up Note Joshua Stein MD, MS [employer] PATIENT IDENTIFICATION: PATIENT NAME: Vincent Oswald DATE OF : 1955 PRIMARY CARE PROVIDER: Cristel Layne APRN DATE OF SERVICE: 06/08/2024 PATIENT SUMMARY: Vincent is a 68 y.o.M with low risk prostate cancer (GG1, PSA 10, cT1c) but IR by Decipher (0.45) previously seen in consultation. INTERVAL SUBJECTIVE HISTORY: Since last seen 09/11/22, Vincent met with Dr Fry and opted for RALP. He had an OR date of 12/24/22 but canceled this in favor of continued surveillance with Dr Hensley. He had a repeat TRUS biopsy with Dr Hensley 05/22/23 that showed GG2 disease in 2 cores, which was a pathologic upstage. Along with his known IR Decipher, he opted to proceed with definitive therapy. At some point the decision was made to proceed towards ADT/RT as opposed to surgery although I have not seen Vincent since Sep 2022. After his biopsy Vincent stated that he started on Lupron to cytoreduce this gland and improve LUTS ahead of RT. He was treated for about 2 months in early 2023. Vincent states that his most recent injection was October 2023 and that his LUTS did not improve and overall he did not tolerate ADT, suffering from diffuse pain and arthralgia. Given persistent LUTS, he was referred for Greenlight laser TURP 03/23/[address] Charles. His LUTS have essentially resolved postop and he feels to be in his usual state of good health. Dr Hensley called me about 2 weeks ago to let me know that Vincent would like to proceed w definitive RT, ideally w/o ADT. He presents today to further discuss the treatment plan for his prostate cancer. INTERVAL OBJECTIVE HISTORY: Date PSA Testosterone 03/12/22 9.9 05/23/22 TRUS Bx: GG1 dx 02/05/23 8.9 05/13/23 10.2 05/22/23 TRUS Bx: GG2 dx 08/26/23 7.1 11/17/23 5.4 03/23/24 Laser TURP 05/25/24 6.2 PHYSICAL EXAM: BP 168/88 (Patient Position: Sitting) Comment: white coat Pulse 92 Temp 37.2 ??C (99 ??F) (Temporal) Resp 16 Wt 105.4 kg (232 lb 6.4 oz) SpO2 99% BMI 33.35 kg/m?? General: alert, appears stated age, and in no distress sitting in exam room with partner Fay at side TODAY'S PERFORMANCE STATUS: KPS Score ECOG Grade [...] to bed or chair ASSESSMENT / PLAN: 68 y.o.M with FIR prostate cancer (PSA 6, cT1c, GG2). He has Decipher IR disease (0.45) and received some ADT earlier this year, from which he has clinically recovered although we do not have a recent testosterone. He had previously opted for RALP but changed his mind. Today I confirmed that he would like to proceed with definitive therapy. He prefers RT over surgeryand we reviewed his decision making in that regard. He does not wish to pursue ADT given how poorlyhe tolerated it previously. Given his relatively indolent disease I think it is reasonable to proceed with definitive RT alone. We reviewed various modalities of administering RT, including brachytx, EBRT and SBRT. Given his recent TURP, I would recommend EBRT over the other options given the theoretical risk of urethral necrosis, which Vincent understands. Logistics, toxicities and complications of prostatic radiation were then reviewed with Vincent today. Afterwards, informed consent for fiducial marker, CT simulation and exte rnal beam radiotherapy was obtained. Nursing staff will provide additional teaching with regard to pre and post procedure medications. All of Vincent's questions were answered to his fullest satisfaction, and we have provided him with our contact information should any further questions or concerns arise. TIME ATTESTATION: I certify spending at least 40 minutes in providing care to this patient today, 06/08/24 as reflected by the following activities: - review of his medical record in the chart, including interpretation of imaging, laboratory and pathologic studies referenced above - discussion of the above with the patient as part of shared medical decision making - documenting the outcome of today's visit as above JOSHUA STEIN MD, MS documented in this encounter Plan of Treatment Upcoming Encounters Date Type Department Care Team (Late st Contact Info) Description 06/22/2024 11:30 AM EST Scheduled View Only Radiation Oncology at [address] [phone] Rad NurseSt Morley 06/22/2024 12:00 PM EST Procedure visit Radiation Oncology at [address] [phone] Joshua Stein MD [address] [place] [address] [place] [address] 06/22/2024 12:00 PM EST Scheduled View Only Radiation Oncology at [address] [phone] 06/27/2024 7:30 AM [place] [address] Joshua Stein MD [address] [place] [address] DR RADIATION ONCOLOGY [place], [place] [id number] 06/27/2024 9:30 AM EST Scheduled View [place] [address] 06/27/2024 10:00 AM EST Ancillary Appointment [place] [address] Joshua Stein MD [address] [place] [address] DR RADIATION ONCOLOGY [place], [place] [address] 06/27/2024 10:00 AM EST Scheduled View Only [place] [address] documented as of this encounter Visit Diagnoses Diagnosis Malignant neoplasm of prostate documented in this encounter Care Teams Sales Solutions Associate Relationship Specialty Start Date End Date Cristel Layne APRN [address] [place] [address] PCP - General Family Medicine 03/31/22 documented as of this encounter
--- OUTSIDE RECORDS SUMMARY | 2024-06-16 22:34 | XMS_ITS | Encounter Summary ---
Author Organization [facility] Address [address] [place] [address] Care Team Providers Care Research Manager Name Role Phone Whitney Parker MD Primary Care Provider Jesus young Encounter Details Date Type Department Care Team (Late st Contact Info) Description 08/14/2017 Results Only [facility] [phone] Radha Baig, DO [address] [place] [address] Social History Tobacco Use Types [...] ? DHRUV OSWALD ? Accession #: ? [id number] ? : ? 1955 (Age: 62) ??M ? Collect Date: ? 08/14/2017 ? Location: ? [facility] ? Receive Date: ? 08/14/2017 ? Provider: RADHA BAIG DO Copy to: GBAY VASQUEZ MD ? Final Pathologic Diagnosis: COLON, [...] Submitted intact in block 1. BE Ray ([facility]) 08/17/2017 7:36 AM End of Report [facility] 08/14/2017 17:2 7 EST 08/14/2017 17:27 EST us Radha Baig DO PATHOLOGY ORDERABLES Final Res ult [facility] [address] [place] [address] documented in this encounter Visit Diagnoses Not on filedocumented in this encounter Care Teams Research Manager Relationship Specialty Start Date End Date Whitney Parker MD PCP - General 04/12/13 05/23/24 documented as of this encounter
--- OUTSIDE RECORDS SUMMARY | 2024-06-16 22:34 | XMS_ITS | Encounter Summary ---
Author Organization [facility] Address [facility] [place] [address] Care Team Providers Care Data Security Administrator Name Role Phone Cristel Layne NORMA Primary Care Provider [phone] Encounter Details Date Type Department Care Team [...] EST Scheduled View Only Radiation Oncology at [address] [phone] [facility] Nurse Peyman 06/22/2024 12:00 PM EST Procedure visit Radiation Oncology at [address] [phone] Joshua Stein MD [address] [place] [address] DR RADIATION ONCOLOGY [place], [place] [address] 06/22/2024 12:00 PM EST Scheduled View Only Radiation Oncology at [address] [phone] 06/27/2024 7:30 AM [place] [phone] Joshua Stein MD [address] [place] [address] DR RADIATION ONCOLOGY [place], [place] [id number] 06/27/2024 9:30 AM EST Scheduled View Only [place] [phone] 06/27/2024 10:00 AM EST Ancillary Appointment [place] [phone] Joshua Stein MD [address] [place] [address] DR RADIATION ONCOLOGY [place], [place] [id number] 06/27/2024 10:00 AM EST Scheduled View [place] [phone] documented as of this encounter Visit Diagnoses Not on filedocumented in this encounter Care Teams Data Security Administrator Relationship Specialty Start Date End Date Cristel Layne APRN [address] [place] [address] PCP - General Family Medicine 03/31/22 documented as of this encounter
--- OUTSIDE RECORDS SUMMARY | 2024-06-16 22:34 | XMS_ITS | Encounter Summary ---
Author Organization [facility] Address [address] [place] [address] Care Team Providers Care Lead Network Architect Name Role Phone Whitney Parker MD Primary Care Provider Jesus e Encounter Details Date Type Department Care Team (Late st Contact Info) Description 08/26/2023 Lab Requisition [facility] Pathology & Laboratory Medicine - [address] [phone] Outr Resulting Lab, Provider Social History Tobacco [...] PSA 7.1(H) <=6.5 ng/mL 08/26/2023 22:56 EST [facility] Blood VENOUS BLOOD / Unknown 08/26/2023 12:34 EST 08/26/2023 21:22 EST Narrative [facility] - 08/26/2023 22:56 EST NOTE: Serum PSA concentration should not be interpreted as absolute evidence for the presence or absence of malignant disease. Assayed on Siemens [employer]IA [employer] XPT using chemiluminescent technology.??Values obtained by using different assay methods cannot be used interchangeably. us Provider Outr Resulting Lab CHEMISTRY & BLOOD GA S ORDERABLES Final Result [facility] [address] [place] [address] documented in this encounter Visit Diagnoses Not on filedocumented in this encounter Care Teams Lead Network Architect Relationship Specialty Start Date End Date Whitney Parker MD PCP - General 04/12/13 05/23/24 documented as of this encounter
--- OUTSIDE RECORDS SUMMARY | 2024-06-16 22:34 | XMS_ITS | Encounter Summary ---
Author Organization [facility] Address [address] [place] [address] Care Team Providers Care Rivet Hammer Machine Operator Name Role Phone Whitney Parker MD Primary Care Provider Jesus e Encounter Details Date Type Department Care Team (Late st Contact Info) Description 05/23/2022 Lab Requisition [facility] Pathology & Laboratory Medicine - [address] [address] Jomar Hensley MD [address] [place] [phone] Elevated prostate specific antigen (PSA) Social History [...] management options, if applicable. 05/27/2022 11:56 EDT [facility] Final Diagnosis A. PROSTATE, RIGHT MID LATERAL, BIOPSY (1): - Atypical gland, suspicious for [place] pattern 3 adenocarcinoma (0.4 mm in 15.6 [...] 1 (Wilbur score <=6) Grade Group 2 ([place] score 3+4=7) Grade Group 3 ([place] score 4+3=7) Grade Group 4 (Wilbur score 8) Grade Group 5 (Wilbur scores 9-10) * Efren GARSIA et al: A Contemporary Prostate Cancer Grading System: A Validated Alternative to the Wilbur Score. Eur Uro 2015 69(3):428-435 05/27/2022 11:56 [facility] Diagnosis Comment Immunohistochemical study was [...] performance characteristics have been determined by [facility] and/or by the referring laboratory. The [...] high complexity clinical laboratory testing. 05/27/2022 11:56 [facility] Attestation There was significan t resident/fellow involvement in the diagnostic evaluation of this case. By the signature below, the attending physician certifies that they have personally conducted a gross and/or microscopic examination of the described specimens and rendered or confirmed the above diagnosis. 05/27/2022 11:56 [facility] at 1156 Clinical History Elevated PSA 9.9 with abnormal prostate MRI right posterior lateral 05/27/2022 11:56 [facility] Gross Description A. Received in [...] BINA DRAKE 05/24/2022 14:15 05/27/2022 11:56 T [facility] Resident/Fell ow: Jeremi Lea MD 05/27/2022 11:56 [facility] Performing Lab [facility] 05/27/2022 11:56 [facility] Scanned Images 05/27/2022 11:56 [facility] Tissue ENTIRE APEX OF PROSTATE [...] Unknown 05/23/2022 9:15 EDT 05/23/2022 19:53 EDT [facility] Carmelo Hensley MD PATHOLOGY ORDERABLES Patience l Result [facility] [address] [place] [address] documented in this encounter Visit Diagnoses Diagnosis Elevated prostate specific antigen (PSA) documented in this encounter Care Teams Rivet Hammer Machine Operator Relationship Specialty Start Date End Date Whitney Parker MD PCP - General 04/12/13 05/23/24 documented as of this encounter
--- OUTSIDE RECORDS SUMMARY | 2024-06-16 22:34 | XMS_ITS | Encounter Summary ---
Author Organization [facility] Address [address] [place] [address] Care Team Providers Care Finance Attorney Name Role Phone Whitney Parker MD Primary Care Provider Jesus young Encounter Details Date Type Department Care Team (Late st Contact Info) Description 03/12/2022 Lab Requisition [facility] Pathology & Laboratory Medicine - [address] [address] Outr Resulting Lab, Provider Social History Tobacco [...] PSA 9.9(H) <=4.5 ng/mL 03/12/2022 18:10 EDT [facility] Blood VENOUS BLOOD / Unknown 03/12/2022 9:27 EDT 03/12/2022 17:34 EDT Narrative [facility] - 03/12/2022 18:10 EDT NOTE: Serum PSA concentration should not be interpreted as absolute evidence for the presence or absence of malignant disease. Assayed on Siemens ADVIA [employer]aur XPT using chemiluminescent technology.??Values obtained by using different assay methods cannot be used interchangeably. us Provider Outr Resulting Lab CHEMISTRY & BLOOD GA S ORDERABLES Final Result [facility] [address] [place] [address] documented in this encounter Visit Diagnoses Not on filedocumented in this encounter Care Teams Finance Attorney Relationship Specialty Start Date End Date Whitney Parker MD PCP - General 04/12/13 05/23/24 documented as of this encounter
--- OUTSIDE RECORDS SUMMARY | 2024-06-16 22:34 | XMS_ITS | Encounter Summary ---
Author Organization [facility] Address [facility] [place] [address] Care Team Providers Care Product Management Internship Name Role Phone RovertoSahara orlandohryn Nicci GREEN Primary Care Provider [phone] Encounter Details Date Type Department Care Team (Late st Contact Info) Description 03/14/2024 8:15 AM EDT Telephone Pre Admission Testing at [address] [phone] Social History Tobacco Use Types [...] Scheduled View Only Radiation Oncology at [address] [phone] Rad NurseSt [facility]ley 06/22/2024 12:00 PM EST Procedure visit Radiation Oncology at [address] [phone] Joshua Stein MD [address] [place] [address] DR RADIATION ONCOLOGY [place], [place] [address] 06/22/2024 12:00 PM EST Scheduled View Only Radiation Oncology at [address] [phone] 06/27/2024 7:30 AM [place] [phone] Joshua Stein MD [address] [place] [address] DR RADIATION ONCOLOGY [place], [place] [id number] 06/27/2024 9:30 AM EST Scheduled View [place] [phone] 06/27/2024 10:00 AM EST Ancillary Appointment [place] [address] Joshua Stein MD [address] [place] [address] DR RADIATION ONCOLOGY [place], [place] [id number] 06/27/2024 10:00 AM EST Scheduled View Only [place] [phone] documented as of this encounter Visit Diagnoses Not on filedocumented in this encounter Care Teams Product Management Internship Relationship Specialty Start Date End Date Cristel Layne, NORMA [address] [place] [address] PCP - General Family Medicine 03/31/22 documented as of this encounter
--- OUTSIDE RECORDS SUMMARY | 2024-06-16 22:34 | XMS_ITS | Encounter Summary ---
Author Organization [facility] Address [facility] [place] [address] Care Team Providers Care Herbologist Name Role Phone RovertoSahara orlandohrmaurice Grajeda NORMA Primary Care Provider [phone] Encounter Details Date Type Department Care Team (Latest Contact Info) Description 06/03/2024 Travel Social History Tobacco Use Types Packs/Day [...] place to sleep or slept in a fdc (including now)? No 07/21/2022 Sex and Gender Information Value Date Recorded Sex Assigned at Not on file Gender Identity Not on file Sexual Orientation Not on file documented as of this encounter Plan of Treatment Upcoming Encounters Date Type Department Care Team (Late st Contact Info) Description 06/22/2024 11:30 AM EST Scheduled View Only Radiation Oncology at [address] [phone] [facility] Nurse Peyman 06/22/2024 12:00 PM EST Procedure visit Radiation Oncology at [address] [phone] Joshua Stein MD [address] [place] [address] DR RADIATION ONCOLOGY [place], [place] [address] 06/22/2024 12:00 PM EST Scheduled View Only Radiation Oncology at [address] [phone] 06/27/2024 7:30 AM [place] [phone] Joshua Stein MD [address] [place] [address] DR RADIATION ONCOLOGY [place], [place] [id number] 06/27/2024 9:30 AM EST Scheduled View Only [place] [phone] 06/27/2024 10:00 AM EST Ancillary Appointment [place] [phone] Joshua Stein MD [address] [place] [address] DR RADIATION ONCOLOGY [place], [place] [id number] 06/27/2024 10:00 AM EST Scheduled View Only [place] [phone] documented as of this encounter Visit Diagnoses Not on filedocumented in this encounter Care Teams Herbologist Relationship Specialty Start Date End Date Cristel Layne APRN [address] [place] [address] PCP - General Family Medicine 03/31/22 documented as of this encounter
--- OUTSIDE RECORDS SUMMARY | 2024-06-16 22:34 | XMS_ITS | Encounter Summary ---
Author Organization [facility] Address [facility] [place] [address] Care Team Providers Care Gore Maker Name Role Phone Cristel Layne APRN Primary Care Provider +1 [phone] Reason for Visit * Consultation (Routine) - Closed Specialty Diagnoses / Procedures Referred By Ok little Referred To Contact Urology Diagnoses Lower urinary tract symptoms (LUTS) Unspecified symptoms and signs involving the genitourinary system Malignant neoplasm of prostate Jomar Hensley MD [address] [place] [address] [facility] [place] [address] Referral ID Status Reason Start Date Expiration Date V isits Requested Visits Authorized [id number] Closed Consult, Test & Treat PCP Updated and/or Approved 11/17/2023 05/18/2024 6 6 Encounter Details Date Type Department Care Team ([facility] st Contact Info) Description 02/18/2024 1:20 PM EDT [place] [address] Vito Charles MD [facility] [place] [address] Benign prostatic hyperplasia, unspecified whether [...] MD - 02/18/2024 1:20 PM EDT [facility] SECTION OF UROLOGY UROLOGY CLINIC VISIT Name: Vincent Oswald : 1955 Date: 02/18/2024 Referred by: Jomar Hensley Chief Complaint: LUTS, prostate cancer History of Present Illness (carried forward for reference): Vincent Oswald is a 68 y.o. male who is referred for management of urinary symptoms. He was diagnosed with Wlibur 6 prostate cancerin 05/2022. Consultation with radiation [...] is currently taking flomax. IPSS score 17/35 (1/4/2/4/3//2); QOL 4/6. Prostate size on MRI was [...] as same day surgery at [facility] The patient expressed understanding and agreement with the above. Vito Charles MD Section of Urology [facility] Office: [phone] documented in this encounter Plan of Treatment Upcoming Encounters Date Type Department Care Team (Late st Contact Info) Description 06/22/2024 11:30 AM EST Scheduled View Only Radiation Oncology at [address] [phone] [facility] 06/22/2024 12:00 PM EST Procedure visit Radiation Oncology at [address] [phone] Joshua Stein MD [address] [place] [address] DR RADIATION ONCOLOGY [place], [place] [address] 06/22/2024 12:00 PM EST Scheduled View Only Radiation Oncology at [address] [phone] 06/27/2024 7:30 AM [place] [address] Joshua Stein MD [address] [place] [address] [place] [address] 06/27/2024 9:30 AM EST Scheduled View [place] [address] 06/27/2024 10:00 AM EST Ancillary Appointment [place] [address] Joshua Stein MD [address] [place] [address] [place] [address] 06/27/2024 10:00 AM EST Scheduled View [place] [address] Scheduled Orders Name Type Priority Associated Diagnoses [...] Culture No growth (Less than 1,000 cfu/ml). [facility] Clean Catch Urine 02/18/2024 6:17 PM EDT 02/18/2024 6:17 PM EDT Narrative Resulting Agency Comment Spec In Lab Vito Charles MD MICROBIOLOGY - GENER AL ORDERABLES [facility] [place] [address] documented in this encounter Visit Diagnoses Diagnosis Benign prostatic hyperplasia, unspecified whether lower urinary tract symptoms present Malignant neoplasm of prostate documented in this encounter Care Teams Gore Maker Relationship Specialty Start Date End Date Cristel Layne APRN [address] [place] [address] PCP - General Family Medicine 03/31/22 documented as of this encounter
--- OUTSIDE RECORDS SUMMARY | 2024-06-16 22:34 | XMS_ITS | Encounter Summary ---
Author Organization [facility] Address [facility] [place] [address] Care Team Providers Care General Surgery Physician Assistant Name Role Phone RovertoSaharaCristel Nicci GREEN Primary Care Provider +1 [phone] Encounter Details Date Type Department Care Team (Late st Contact Info) Description 09/11/2022 1:00 PM EST TH Visit (TeleHealth) Radiation Oncology at [address] [address] Joshua Stein MD [address] [place] [address] [place] [address] Malignant neoplasm of prostate Social [...] 67 y.o. with low risk prostate cancer ([id number], Gl 3+3, PSA 9.9). I am calling [...] EST Scheduled View Only Radiation Oncology at [address] [phone] [facility] 06/22/2024 12:00 PM EST Procedure visit Radiation Oncology at [address] [phone] Joshua Stein MD [address] [place] [address] [place] [address] 06/22/2024 12:00 PM EST Scheduled View Only Radiation Oncology at [address] [phone] 06/27/2024 7:30 AM EST [place] [phone] Joshua Stein MD [address] [place] [address] DR RADIATION ONCOLOGY [place], [place] [address] 06/27/2024 9:30 AM EST Scheduled View Only [place] [address] 06/27/2024 10:00 AM EST Ancillary Appointment [place] [address] Joshua Stein MD [address] [place] [address] [place] [address] 06/27/2024 10:00 AM EST Scheduled View [place] [address] documented as of this encounter Visit Diagnoses Diagnosis Malignant neoplasm of prostate documented in this encounter Care Teams General Surgery Physician Assistant Relationship Specialty Start Date End Date Cristel Layne APRN [address] [place] [address] PCP - General Family Medicine 03/31/22 documented as of this encounter
--- OUTSIDE RECORDS SUMMARY | 2024-06-16 22:34 | XMS_ITS | Referral Summary ---
Author Organization [facility] Address [address] [place] [address] Care Team Providers Care Cuffing Machine Operator Name Role Phone Unavailable Primary Care Provider Unavailabl e Encounters Date Type Department Care Team Description 05/25/2024 Lab Requisition [facility] Pathology & Laboratory Medicine - [facility] [address] [place] [address] Outr Resulting Lab, Provider from Last 3 Months Social History [...] file Plan of Treatment Not on file Procedures Procedure Name Priority Date/Time Associated Diagnosis Comments PSA TOTAL, DIAGNOSTIC Routine 05/25/2024 14:40 EDT from Last 3 Months Results * PSA TOTAL, DIAGNOSTIC (05/25/2024 14:40 EDT) PSA 6.2 <=6.5 ng/mL 05/25/2024 22:51 EDT [facility] Blood VENOUS BLOOD / Unknown 05/25/2024 14:40 EDT 05/25/2024 21:37 EDT Narrative [facility] - 05/25/2024 22:51 EDT NOTE: Serum PSA concentration should not be interpreted as absolute evidence for the presence or absence of malignant disease. Assayed on Siemens ADVIA Gingraur XPT using chemiluminescent technology.??Values obtained by using different assay methods cannot be used interchangeably. us Provider Outr Resulting Lab CHEMISTRY & BLOOD GA S ORDERABLES Final Result [facility] [address] [place] [address] from Last 3 Months [place]
--- OUTSIDE RECORDS SUMMARY | 2024-06-16 22:34 | XMS_ITS | Encounter Summary ---
Author Organization [facility] Address [address] [place] [address] Care Team Providers Care Field Training Agent Name Role Phone Whitney Parker MD Primary Care Provider Jesus young Encounter Details Date Type Department Care Team (Late st Contact Info) Description 06/03/2021 Lab Requisition [facility] Pathology & Laboratory Medicine - [address] [id number] Outr Resulting Lab, Provider Social History Tobacco [...] 0.0 - 4.5 ng/mL 06/03/2021 22:22 EDT [facility] Blood VENOUS BLOOD / Unknown 06/03/2021 9:50 EDT 06/03/2021 21:06 EDT Narrative [facility] - 06/03/2021 22:22 EDT NOTE: Serum PSA concentration should not be interpreted as absolute evidence for the presence or absence of malignant disease. Assayed on Siemens ADVIA Hightoweraur XPT using chemiluminescent technology.??Values obtained by using different assay methods cannot be used interchangeably. us Provider Outr Resulting Lab CHEMISTRY & BLOOD GA S ORDERABLES Final Result Performing Organization Address City/State/[facility] Co de Phone Number [facility] [address] [place] [address] documented in this encounter Visit Diagnoses Not on filedocumented in this encounter Care Teams Field Training Agent Relationship Specialty Start Date End Date Whitney Parker MD PCP - General 04/12/13 05/23/24 documented as of this encounter
--- OUTSIDE RECORDS SUMMARY | 2024-06-16 22:35 | XMS_ITS | Encounter Summary ---
Author Organization [facility] [place] [address] Care Team Providers Care Inside Sales Trainer Name Role Phone RovertoCristel orlando NORMA Primary Care Provider +1 [phone] Encounter Details Date Type Department Care Team (Latest Contact Info) Description 06/12/2022 4:41 PM EST - 06/12/2022 11:59 PM EST Hospital [place] [phone] Discharge Disposition: Home Social History Tobacco Use [...] EST Scheduled View Only Radiation Oncology at [address] [phone] [facility] 06/22/2024 12:00 PM EST Procedure visit Radiation Oncology at [address] [phone] Joshua Stein MD [address] [place] [address] DR RADIATION ONCOLOGY [place], [place] [id number] 06/22/2024 12:00 PM EST Scheduled View Only Radiation Oncology at [address] [phone] 06/27/2024 7:30 AM [place] [phone] Joshua Stein MD [address] [place] [address] DR RADIATION ONCOLOGY [place], [place] [id number] 06/27/2024 9:30 AM EST Scheduled View Only [place] [phone] 06/27/2024 10:00 AM EST Ancillary Appointment [place] [phone] Joshua Stein MD [address] [place] [address] DR RADIATION ONCOLOGY [place], [place] [id number] 06/27/2024 10:00 AM EST Scheduled View Only [place] [phone] documented as of this encounter Procedures Procedure Name Priority Date/Time Associated Diagnosis Comments SURGICAL PATHOLOGY REPORT Routine 06/12/2022 4:41 PM EST documented in this encounter Results * Surgical Pathology Report (06/12/2022 4:41 PM EST) Final Diagnosis [id number] ? Location: [facility]W The signing pathologist has (i) examined the relevant preparation(s) for the specimen(s) and (ii) rendered or confirmed the diagnosis(es). . ?Surgical Pathology DIAGNOSIS CONSULTATION CASE Outside slides labeled [id number]; collection date, 05/23/2022. A - Prostatic core needle biopsy, right mid lateral: ?Microscopic atypical glandular focus, suspicious ?for grade 3 adenocarcinoma. B - Prostatic core needle biopsy, right base lateral: ?Benign prostatic tissue. C - Prostatic core needle biopsy, right base medial: ?Benign prostatic tissue. D - Prostatic core needle biopsy, right mid medial: ?Adenocarcinoma, grade group 1, Hoople grade 3+3, ?involving 10% of the biopsy core. E - Prostatic core needle biopsy, right apex lateral: ?Benign prostatic tissue. F - Prostatic core needle biopsy, right apex medial: ?Benign prostatic tissue. G - Prostatic core needle biopsy, left lateral base: ?Adenocarcinoma, grade group 1, Hoople grade 3+3, ?involving 25% of the biopsy core. H - Prostatic core needle biopsy, left base medial: ?Adenocarcinoma, grade group 1, Wilbur grade [...] biopsy core. CR-0 Electronically signed by: ?Pietro SPENECR, Alirio Robbins Verified: ??06/23/2022 14:03 ??Pathologist Performed at: ??-[facility] Dept. of Pathology, [place] [address] Coin Machine Collector Supervisor: Giles Paz MD, AP, ??CLIA Certificate: [id number] . DISCUSSION Scanned slides: [id number] D1-2 [id number] G1-2 [id number] H1-2 [id number] I1-2 [id number] K1-2 [id number] L1-2 SPECIMEN(S) SUBMITTED CONSULTATION CASE A - 26 slide(s) labeled [id number], collection date 05/23/2022. [id number] CARBON COPY: [facility] Surgical Pathology Department [facility] [address] [place], [place] ??[address] CLINICAL INFORMATION Elevated PSA 9.9 with abnormal prostate MRI right posterior lateral SPECIMEN PROCESSING [facility] ([facility]) pathology slide(s) are reviewed. ??Refer to Diagnosis and Specimen Submitted for specific case information. For the full text of the [facility] report(s) please refer to Non-DH Documentation Pathology in the electronic health record (eDH). 06/23/2022 2:03 PM EST [facility] Consult Case 06/12/2022 4:41 PM EST 06/12/2022 4:41 PM EST Joshua Stein MD PATHOLOGY/CYTOLOGY O RDERABLES Performing Organization Address City/State/[facility] Co de Phone Number [facility] [place] [address] documented in this encounter Visit Diagnoses Not on filedocumented in this encounter Care Teams Inside Sales Trainer Relationship Specialty Start Date End Date Cristel Layne APRN [address] [place] [address] PCP - General Family Medicine 03/31/22 documented as of this encounter
--- OUTSIDE RECORDS SUMMARY | 2024-06-16 22:35 | XMS_ITS | Encounter Summary ---
[place] [address] Care Team Providers Care Photovoltaic Technician Name Role Phone Cristel Layne APRN Primary Care Provider [phone] [phone] Reason for Referral * Consultation (Routine) - Closed Specialty Diagnoses / Procedures Referred By Ok little Referred To Contact Urology Diagnoses Prostate cancer 06/10/22 - NEW DX PROSTATE CANCER Jomar Hensley MD [address] [place] [address] [facility] [place] [address] Referral ID Status Reason Start Date Expiration Date V isits Requested Visits Authorized [id number] Closed Consult, Test & Treat PCP Updated and/or Approved 06/09/2022 06/09/2023 6 6 Encounter Details Date Type Department Care Team (Late Contact Info) Description 06/09/2022 Transcribe Orders eDH Incoming Referrals [phone] Jomar Hensley MD [address] [place], [place] [phone] Prostate cancer Social History Tobacco Use Types [...] Scheduled View Only Radiation Oncology at [address] [phone] [facility] 06/22/2024 12:00 PM EST Procedure visit Radiation Oncology at [address] [phone] Joshua Stein MD [address] [place] [address] DR RADIATION ONCOLOGY [place], [place] [id number] 06/22/2024 12:00 PM EST Scheduled View Only Radiation Oncology at [address] [phone] 06/27/2024 7:30 AM EST [place] [address] Joshua Stein MD [address] [place] [address] DR RADIATION ONCOLOGY [place], [place] [id number] 06/27/2024 9:30 AM EST Scheduled View Only [place] [phone] 06/27/2024 10:00 AM EST Ancillary Appointment [place] [phone] Joshua Stein MD [address] [place] [address] DR RADIATION ONCOLOGY [place], [place] [id number] 06/27/2024 10:00 AM EST Scheduled View Only [place] [phone] Scheduled Referrals Name Type Priority Associated Diagnoses Orde r Schedule Referral to Urology Outpatient Referral Routine Prostate cancer Ordered: 06/09/2022 documented as of this encounter Visit Diagnoses Diagnosis Prostate cancer Malignant neoplasm of prostate documented in this encounter Care Teams Photovoltaic Technician Relationship Specialty Start Date End Date Cristel Layne APRN [address] [place] [address] PCP - General Family Medicine 03/31/22 documented as of this encounter
--- OUTSIDE RECORDS SUMMARY | 2024-06-16 22:35 | XMS_ITS | Encounter Summary ---
Author Organization [facility] [place] [address] Care Team Providers Care Shipping And Receiving Supervisor Name Role Phone Cristel Layne APRN Primary Care Provider [phone] Reason for Referral * Diagnostic Test (Routine) - Closed Specialty Diagnoses / Procedures Referred By Contac t Referred To Contact Radiology Diagnoses Elevated PSA Procedures MRI Pelvis wwo (Prostate) Viktoriya Hendrickson APRN [address] [place] [address] [place] [address] Referral ID Status Reason Start Date Expiration Date V isits Requested Visits Authorized [id number] Closed Specialty Service Requested 03/31/2022 10/01/2023 1 1 Reason for Visit * Diagnostic Test (Routine) - Closed Specialty Diagnoses / Procedures Referred By Contac t Referred To Contact Radiology Diagnoses Elevated PSA Procedures MRI Pelvis wwo (Prostate) Viktoriya Hendrickson APRN [address] [place] [address] [place] [address] Referral ID Status Reason Start Date Expiration Date V isits Requested Visits Authorized [id number] Closed Specialty Service Requested 03/31/2022 10/01/2023 1 1 Encounter Details Date Type Department Care Team (Latest Contact Info) Description 04/16/2022 5:12 PM EDT - 04/16/2022 11:59 PM EDT Hospital [place] [address] Viktoriya Hendrickson APRN [address] [place] [address] Elevated PSA Discharge Disposition: Home Social History [...] EST Scheduled View Only Radiation Oncology at [address] [address] [facility] 06/22/2024 12:00 PM EST Procedure visit Radiation Oncology at [address] [address] Joshua Stein MD [address] [place] [address] [place] [address] 06/22/2024 12:00 PM EST Scheduled View Only Radiation Oncology at [address] [address] 06/27/2024 7:30 AM [place] [address] Joshua Stein MD [address] [place] [address] [place] [address] 06/27/2024 9:30 AM EST Scheduled View Only [place] [address] 06/27/2024 10:00 AM EST Ancillary Appointment [place] [address] Joshua Stein MD [address] [place] [address] [place] [address] 06/27/2024 10:00 AM EST Scheduled View [place] [address] documented as of this encounter Procedures Procedure [...] be present) References: Robby S1, Lluvia JH1, Rangel S1, Johnson C1, Carvajal J1, Neerajniabby M1, Gold S1, Becerra G1, Rayn K1, Joey MJ1, Rosalio BJ1, Cortes PA1, Seng PL1, Grayson B1. ??A Grading System for the Assessment of Risk of Extraprostatic Extension of Prostate Cancer at Multiparametric MRI. Radiology. 2019 Mar;290(3):709-719. doi: 10.1148/radiol.1736523771. Epub 2018Aug 24. Thank you for letting us participate in the care of this patient. ??If you are a health care provider and have any questions regarding this report, please contact the number below. ??For patients who have questions please contact the health manager home healthcare that requested your imaging first. ? Narrative [...] cancer is highly likely rock present) References: Mehralilina S1, Lluvia JH1, Multani S1, Johnson C1, Carvajal J1, Czarniecki M1,Gold S1, Becerra G1, Rayn K1, Cook MJ1, Wood BJ1, Cortes PA1, Chotrell PL1, Turkolu B1.A Grading System for the Assessment of Risk of Extraprostatic Extension of Prostate Cancer at Multiparametric MRI. Radiology. 2019Mar;290(3):709-719. doi: 10.1148/radiol.7502229646. Epub 2018Aug 24. Thank you for letting us participate in the care of this patient. If youare a health care provider and have any questions regarding this report,please contact the number below. For patients who have questions please contactthe health manager home healthcare that requested your imaging first. Viktoriya Hendrickson APRN IMRocio MRI ORDERABLES documented in this encounter Visit [...] mLs documented in this encounter Care Teams Shipping And Receiving Supervisor Relationship Specialty Start Date End Date Cristel Layne APRN [address] [place] [address] PCP - General Family Medicine 03/31/22 documented as of this encounter
--- OUTSIDE RECORDS SUMMARY | 2024-06-16 22:35 | XMS_ITS | Encounter Summary ---
Author Organization [facility] Address [facility] [place] [address] Care Team Providers Care Radiology Transporter Name Role Phone Cristel Layne NORMA Primary Care Provider [phone] [phone] Encounter Details Date Type Department Care Team [...] Scheduled View Only Radiation Oncology at [address] [phone] [facility] 06/22/2024 12:00 PM EST Procedure visit Radiation Oncology at [address] [phone] Joshua Stein MD [address] [place] [address] DR RADIATION ONCOLOGY [place], [place] [address] 06/22/2024 12:00 PM EST Scheduled View Only Radiation Oncology at [address] [phone] 06/27/2024 7:30 AM [place] [phone] Joshua Stein MD [address] [place] [address] DR RADIATION ONCOLOGY [place], [place] [id number] 06/27/2024 9:30 AM EST Scheduled View [place] [phone] 06/27/2024 10:00 AM EST Ancillary Appointment [place] [phone] Joshua Stein MD [address] [place] [address] DR RADIATION ONCOLOGY [place], [place] [id number] 06/27/2024 10:00 AM EST Scheduled View [place] [phone] documented as of this encounter Visit Diagnoses Not on filedocumented in this encounter Care Teams Radiology Transporter Relationship Specialty Start Date End Date Cristel Layne APRN [address] [place] [address] PCP - General Family Medicine 03/31/22 documented as of this encounter
--- OUTSIDE RECORDS SUMMARY | 2024-06-16 22:35 | XMS_ITS | Encounter Summary ---
Author Organization [facility] Address [facility] [place] [address] Care Team Providers Care Director Of Home Health Services Name Role Phone Cristel Layne APRN Primary Care Provider [phone] Reason for Visit * Consultation (Routine) - Closed Specialty Diagnoses / Procedures Referred By Ok little Referred To Contact Radiation Oncology Diagnoses Malignant neoplasm of prostate Malignant neoplasm of prostate Procedures consultation Jomar Hensley MD [address] [place] [address] Stj Rad Onc Office [address] [place] [phone] Referral ID Status Reason Start Date Expiration Date Visits Re quested Visits Authorized [id number] Closed 06/09/2022 06/09/2023 1 1 Encounter Details Date Type Department Care Team (Late st Contact Info) Description 07/21/2022 1:30 PM EST Office Visit Radiation Oncology at [address] [phone] Joshua Stein MD [address] [place] [address] [place] [address] Malignant neoplasm of prostate Social History Tobacco Use Types Packs/Day Years Used Date Smoking Tobacco: Never Smokeless Tobacco: Never Tobacco Cessation:Counseling Given: Not Answered Alcohol Use Standard Drinks/Week Comments Yes 1 (1 standard drink = 0.6 oz pur e alcohol) rum, 2-3 drinks a night Overall Financial Resource Strain (CARDIA) Amitae r Date Recorded How hard is it [...] your prostate cancer looks under the microscope). Spring scores for cancer range from 1-5, and [...] or to the Active Surveillance Clinic at [facility], which is run by our prostate [...] you to my colleague Dr. Mead in [place], who specializes in the placement of radioactive [...] a prostate MRI which we do at [facility], that allows us to better see [...] within 4-6 weeks of completion radiation. 6. Correction Complications: These are more worrisome and are [...] for urination). There may be a slow, alf decrease in your sexual function as well, [...] do not hesitate to call me at [phone] with any other questions or concerns you have. IfI am not here, one of our radiation oncology nurses can assist you or help you get in touch with me. A Radiation Oncology doctor is also induction coordination power engineer after our normal hours and on weekends for urgent questions or concerns related to radiation treatments that can not wait until normal business hours. To reach the on-call doctor after-hours, just call and have the streetcar operator page the Radiation Oncologist induction coordination power engineer. And, as always, if you experience any [...] Cancer Consult Note Joshua Stein MD, MS [facility] [phone] PATIENT IDENTIFICATION: PATIENT NAME: Vincent Oswald DATE [...] ??? Terazosin ??? Losartan Rash SOCIAL HISTORY: [place]: [employer] Living Situation: Lives w g/f Transit time to [facility]: 10 mins Employment history: Retired building manager Smoking: Never Alcohol 3-4 rum cocktails / [...] y.o. man diagnosed with low-risk prostate cancer ([id number], Gl 3+3, PSA 9.9). Staging is complete [...] with all forms of radiotherapy. In the stripping cutter and winder, I explained there is an approximately 2% [...] case to my collegue, Dr Mead at [facility] who routinely performs these implants. [...] candidate for any currently open trials at [facility]. On balance, Vincent wishes to proceed with [...] yes, daughters Barriers to treatment: None Referrals/Interventions: sound installation worker visit on per routine. RADIATION SPECIFIC TEACHING:Will provide the following information on day [facility]iation [facility] and You Site specific teaching : Other: PLAN: Per Answers for HPI/ROS submitted by the patient on 07/21/2022 Distress: 3 documented in this encounter Plan of Treatment Upcoming Encounters Date Type Department Care Team (Late st Contact Info) Description 06/22/2024 11:30 AM EST Scheduled View Only Radiation Oncology at [address] [phone] Rad Nurse, [facility] 06/22/2024 12:00 PM EST Procedure visit Radiation Oncology at [address] [phone] Joshua Stein MD [address] [place] [address] [place] [address] 06/22/2024 12:00 PM EST Scheduled View Only Radiation Oncology at [address] [phone] 06/27/2024 7:30 AM [place] [phone] Joshua Stein MD [address] [place] [address] [place] [address] 06/27/2024 9:30 AM EST Scheduled View [place] [phone] 06/27/2024 10:00 AM EST Ancillary Appointment [place] [phone] Joshua Setin MD [address] [place] [address] [place] [address] 06/27/2024 10:00 AM EST Scheduled View [place] [phone] documented as of this encounter Visit Diagnoses Diagnosis Malignant neoplasm of prostate documented in this encounter Care Teams Director Of Home Health Services Relationship Specialty Start Date End Date Cristel Layne APRN [address] [place] [address] PCP - General Family Medicine 03/31/22 documented as of this encounter
--- OUTSIDE RECORDS SUMMARY | 2024-06-16 22:35 | XMS_ITS | Encounter Summary ---
Author Organization [facility] Address [facility] [address] Care Team Providers Care Leather Cutter Name Role Phone Cristel Layne NORMA Primary Care Provider [phone] Encounter Details Date Type Department Care Team [...] place to sleep or slept in a usp (including now)? No 07/21/2022 Sex and Gender Information Value Date Recorded Sex Assigned at Not on file Gender Identity Not on file Sexual Orientation Not on file documented as of this encounter Plan of Treatment Upcoming Encounters Date Type Department Care Team (Late st Contact Info) Description 06/22/2024 11:30 AM EST Scheduled View Only Radiation Oncology at [address] [phone] [place] Nurse Peyman 06/22/2024 12:00 PM EST Procedure visit Radiation Oncology at [address] [phone] Joshua Stein MD [address] [place] [address] DR RADIATION ONCOLOGY [place], [place] [address] 06/22/2024 12:00 PM EST Scheduled View Only Radiation Oncology at [address] [phone] 06/27/2024 7:30 AM [place] [phone] Joshua Stein MD [address] [place] [address] DR RADIATION ONCOLOGY [place], [place] [id number] 06/27/2024 9:30 AM EST Scheduled View [place] [phone] 06/27/2024 10:00 AM EST Ancillary Appointment [place] [phone] Joshua Stein MD [address] [place] [address] DR RADIATION ONCOLOGY [place], [place] [id number] 06/27/2024 10:00 AM EST Scheduled View [place] [phone] documented as of this encounter Visit Diagnoses Not on filedocumented in this encounter Care Teams Leather Cutter Relationship Specialty Start Date End Date Cristel Layne APRN [address] [place] [address] PCP - General Family Medicine 03/31/22 documented as of this encounter
--- OUTSIDE RECORDS SUMMARY | 2024-06-16 22:35 | XMS_ITS | Encounter Summary ---
Author Organization [facility] [place] [address] Care Team Providers Care Surgical Services Coordinator Name Role Phone RovertoCristel orlando NORMA Primary Care Provider [phone] Encounter Details Date Type Department Care Team (Late Contact Info) Description 07/18/2022 Telephone Radiation Oncology at [address] [phone] Lilliam Restrepo Social History Tobacco [...] EST Scheduled View Only Radiation Oncology at [address] [phone] [facility] 06/22/2024 12:00 PM EST Procedure visit Radiation Oncology at [address] [phone] Joshua Stein MD [address] [place] [address] DR RADIATION ONCOLOGY [place], [place] [address] 06/22/2024 12:00 PM EST Scheduled View Only Radiation Oncology at [address] [phone] 06/27/2024 7:30 AM [place] [address] Joshua Stein MD [address] [place] [address] DR RADIATION ONCOLOGY [place], [place] [id number] 06/27/2024 9:30 AM EST Scheduled View [place] [address] 06/27/2024 10:00 AM EST Ancillary Appointment [place] [phone] Joshua Stein MD [address] [place] [address] DR RADIATION ONCOLOGY [place], [place] [address] 06/27/2024 10:00 AM EST Scheduled View Only [place]iation [place] [phone] documented as of this encounter Visit Diagnoses Not on filedocumented in this encounter Care Teams Surgical Services Coordinator Relationship Specialty Start Date End Date Cristel Layne APRN [address] [place] [address] PCP - General Family Medicine 03/31/22 documented as of this encounter
[2024-06-16 22:53] LABS: BUN 18 mg/dL (7-18); CREATININE 1.2 mg/dL (0.70-1.30); Calcium 9.3 mg/dL (8.5-10.1); Chloride 106 mmol/L (98-107); Estimated GFR 64.65 (mL/min/1.73m2); Glucose 103 mg/dL (74-106); Potassium 4.6 mmol/L (3.5-5.1); Sodium 144 mmol/L (136-145)
== END 2024-06-16 22:33 | disposition home or self-care (01) ==
LOC: NCHCN 22:32
PROVIDERS: PCP Nurse Practitioner Family; Visit Provider Nurse Practitioner Family
DX: I10 Essential (primary) hypertension (principal)
CPT/HCPCS: 80048

== ENCOUNTER 2024-07-21 03:00 | Outpatient (CLI) | payer MEDICARE, SELFPAY ==
[2024-07-21 15:26] LABS: Uric Acid 5.4 mg/dL (3.5-7.2)
== END 2024-07-21 03:01 | disposition home or self-care (01) ==
PROVIDERS: PCP Nurse Practitioner Family; Visit Provider Nurse Practitioner Family
DX: M10.9 Gout, unspecified (principal)
CPT/HCPCS: 36415; 84550

== ENCOUNTER 2024-09-15 17:59 | Outpatient (REF) | payer MEDICARE, SELFPAY ==
[2024-09-15 15:58] LABS: Bilirubin Negative (Negative); Blood Negative (Negative); Clarity Clear (Clear); Glucose 100 mg/dL (Negative); Ketones Negative (Negative); Leukocyte Esterase Negative (Negative); Nitrite Positive (Negative); Specific Gravity <= 1.005 (1.005-1.025); Urobilinogen 0.2 mg/dL (Up to 0.2)
[2024-09-15 16:45] LABS: Bacteria Negative HPF (Negative); C & S Indicated? No; Casts Negative LPF (Negative); Crystals Negative HPF (Negative); Epithelial Cells Negative HPF (Negative); Mucus Negative (Negative); Other Cells Negative (Negative); RBC Negative HPF (0-2); WBC 0-2 HPF (0-5)
== END 2024-09-15 18:00 | disposition home or self-care (01) ==
LOC: LBN 17:59
PROVIDERS: PCP Nurse Practitioner Family; Visit Provider Radiology Radiation Oncology
DX: R30.0 Dysuria (principal)
CPT/HCPCS: 81003; 81015

== ENCOUNTER 2024-09-16 13:42 | Emergency (ER) | payer MEDICARE, SELFPAY ==
[2024-09-16 13:44] VITALS: BP 184/94; PULSE 107; RESP 20; TEMP 36.7; O2SAT 97
[2024-09-16 14:20] LABS: Clarity Clear (Clear); Specific Gravity 1.012 (1.005-1.025)
[2024-09-16 14:21] LABS: Bilirubin Color Interference (Negative); Blood Color Interference (Negative); Glucose Color Interference mg/dL (Negative); Ketones Color Interference mg/dL (Negative); Leukocyte Esterase Color Interference (Negative); Nitrite Color Interference (Negative); Urobilinogen Color Interference mg/dL (Up to 0.2)
[2024-09-16 14:41] LABS: Bacteria Negative HPF (Negative); C & S Indicated? C&S Done As Ordered; Casts Negative LPF (Negative); Crystals Negative HPF (Negative); Epithelial Cells Rare HPF (Negative); Mucus Negative (Negative); Other Cells Rare Transitional (Negative); RBC 20-50 HPF (0-2)
[2024-09-16 15:08] VITALS: BP 175/79; PULSE 72; RESP 18; O2SAT 94
--- NOTE | 2024-09-16 15:42 | W.ED.GENAD ---
Discharge Plan Disposition Patient Disposition: Home Condition: Stable Discharge Details Clinical Impression: Dysuria, Status post radiation therapy Primary Care Provider: Cristel Layne ED Provider: Barbra Moore Home Meds and New Rx's Prescriptions: New oxybutynin chloride 5 mg tablet 5 mg PO TID Qty: 30 0RF No Action valsartan 40 mg tablet 40 mg PO DAILY allopurinol 100 mg tablet 100 mg PO DAILY indomethacin 50 mg capsule 50 mg PO TID PRN Rx Instructions: administer with food or milk omeprazole 20 mg capsule,delayed release(DR/EC) 20 mg PO DAILY PRN dexamethasone 4 mg tablet 4 mg PO DAILY Patient Comments: TAKE TWO TABLETS BY MOUTH EVERY DAY WITH FOOD FOR 3 DAYS; THEN TAKE ONE TABLET BY MOUTH ONCE DAILY WITH FOOD FOR 4 DAYS AND THENS TOP finasteride 5 mg tablet 5 mg PO DAILY phenazopyridine 200 mg tablet 200 mg PO TID PRN Patient Comments: TAKE ONE TABLET BY MOUTH THREE TIMES A DAY NEEDED FOR PAIN FOR UP TO 7 DAYS tamsulosin 0.4 mg capsule 0.4 mg PO HS Patient Comments: TAKE ONE CAPSULE BY MOUTH EVERY NIGHT Discharge Instructions Additional Instructions: Symptoms today are consistent with what is to be expected after radiation therapy Continue to drink lots of water You do not have any significant signs of infection in the urinalysis today, no bacteria. A culture has been sent to confirm that there is not an infection present. If you start to have fever chills nausea or vomiting, please return for reevaluation Continue the medication as prescribed by your oncology team. I have sent a new medication to the pharmacy to help with your symptoms. Please schedule follow-up appointment with Dr. Hensley for managing any additional symptoms. [facility] General Date/Time Provider Initiated Documentation: 09/16/24 13:52. Limitations to Documentation: no limitations. Information obtained by: patient. HPI Narrative: 69-year-old gentleman with past medical history of prostate cancer status post oral therapy and radiation. Just completed radiation therapy 10 days prior. Reports since that time he has been having difficulty urinating. He feels a lot of spasm in his pelvis. He is been using the Azo prescription which helps some, but does not relieve all of the burning. He reports some difficulty with bowel movements. Denies any abdominal pain, nausea vomiting or fever. Denies any bloody diarrhea. He reports that his urine is discolored from the medication he has taken and has not noted any blood in it. Related Data Home Medications ?Medication ?Instructions ?Recorded ?Confirmed indomethacin 50 mg capsule 50 mg PO TID PRN 04/04/24 09/16/24 omeprazole 20 mg capsule,delayed 20 mg PO DAILY PRN 04/21/24 09/16/24 release valsartan 40 mg tablet 40 mg PO DAILY 05/11/24 09/16/24 allopurinol 100 mg tablet 100 mg PO DAILY 06/01/24 09/16/24 dexamethasone 4 mg tablet 4 mg PO DAILY 09/16/24 09/16/24 finasteride 5 mg tablet 5 mg PO DAILY 09/16/24 09/16/24 oxybutynin chloride 5 mg tablet 5 mg PO TID #30 tabs 09/16/24 phenazopyridine 200 mg tablet 200 mg PO TID PRN 09/16/24 09/16/24 tamsulosin 0.4 mg capsule 0.4 mg PO HS 09/16/24 09/16/24 Previous Rx's ?Medication ?Instructions ?Recorded oxybutynin chloride 5 mg tablet 5 mg PO TID #30 tabs 09/16/24 Allergies Allergy/AdvReac Type Severity Reaction Status Date / Time lisinopril Allergy Intermediate lip Verified 09/16/24 13:50 swelling terazosin Allergy Intermediate unknown Verified 09/16/24 13:50 losartan Allergy Mild unknown Verified 09/16/24 13:50 General Stated Complaint: Urinary CHELA: 3 Exam Narrative Exam Narrative: Review of Systems: All systems reviewed & are unremarkable except as noted in HPI and below Well-developed, no acute distress NCAT RRR no murmur Unlabored respiratory effort CTAB Nondistended abdomen soft nt no focal neurologic deficits Appropriate mood and affect Course Vital Signs Vital signs: Vital Signs Temperature 36.7 C 09/16/24 13:44 Pulse 107 H 09/16/24 13:44 Respiratory Rate 20 09/16/24 13:44 Blood Pressure 184/94 H 09/16/24 13:44 Pulse Oximetry 97 09/16/24 13:44 Temperature 36.7 C 09/16/24 13:44 Temperature Source Oral 09/16/24 13:44 Pulse 72 09/16/24 15:08 Respiratory Rate 18 09/16/24 15:08 Blood Pressure 175/79 H 09/16/24 15:08 Blood Pressure Position Sitting 09/16/24 13:44 Pulse Oximetry 94 09/16/24 15:08 Oxygen Delivery Method Room Air 09/16/24 13:44 Oxygen Flow Rate 0 09/16/24 13:44 Pain Level 6 09/16/24 13:59 Lab/Test Results Lab/Test Results: 09/16/24 14:00 Urine - Clean Catch Urine Culture - Pending Laboratory Tests Range/Units 09/16/24 14:00 Urine Color (Yellow) [place] Urine Clarity (Clear) Clear Urine pH (5-8) Ur Specific [place] (1.005-1.025) 1.012 Urine Protein (Neg-Trace) mg/dL Color Interference Urine Ketones (Negative) mg/dL Color Interference Urine Blood (Negative) Color Interference Urine Nitrite (Negative) Color Interference Urine Bilirubin (Negative) Color Interference Urine Urobilinogen (Up to 0.2) mg/dL Color Interference Ur Leukocyte Esterase (Negative) Color Interference Urine RBC (0-2) HPF 20-50 H Urine WBC (0-5) HPF 10-20 H Ur Epithelial Cells (Negative) HPF Rare Urine Crystals (Negative) HPF Negative Urine Bacteria (Negative) HPF Negative Urine Casts (Negative) LPF Negative Urine Mucus (Negative) Negative Urine Other (Negative) Rare Transitional Ur Culture Indicated? C&S Done As Ordered Urine Glucose (Negative) mg/dL Color Interference Medical Decision Making Emergent evaluation of dysuria. Patient is in the setting of recent radiation therapy to his pelvis for prostate cancer. Initial differential includes urinary tract infection, prostatitis patient does not have any concerning signs or symptoms of overwhelming infection or sepsis. He has benign abdomen. He is not having any excessive bleeding.. Urinalysis was obtained. And a postvoid residual was documented at 150. I do not suspect that he is having urinary retention. His urinalysis was obstructed secondary to the Pyridium, but the microscopic evaluation did not reveal any bacteria. A culture has been sent. Given his lack of associated symptoms, I do not feel that he needs antibiotics at this time. If his culture is positive, they can be started at that time. He was given strict return precautions including vomiting or fever. I will start oxybutynin to help with the spasms that he is having. Recommend close follow-up with urology for management of any further symptoms. Quality:SDOH Health Related Social Needs: No Data to Display [facility] All Active Problems (Updated 09/16/24 @ 14:45 by Barbra Moore MD) Status post radiation therapy (Acute) Dysuria (Acute) Gout of right ankle (Acute) Gout of right elbow (Acute) Prostate cancer (Chronic) Elevated PSA (Acute) Lower urinary tract symptoms (LUTS) (Acute) Gastroesophageal reflux disease (Chronic) Obesity (Chronic) Hx of adenomatous colonic polyps (Acute) Mitral valve disorder (Acute) BPH (benign prostatic hyperplasia) (Chronic) Preventative health care (Acute) Hx of syncope (Acute) Hypomagnesemia (Acute) Drinks alcohol (Acute) Erectile dysfunction (Acute) Heart murmur, aortic (Acute) Finger pain (Acute) Dizziness (Acute) Essential hypertension (Acute) Near syncope (Acute) Medical History (Updated 09/16/24 @ 14:45 by Barbra Moore MD) Tubular adenoma Hypertension Hyperlipidemia Hypercholesterolemia Surgical History (Updated 05/31/24 @ 07:41 by Jomar Hensley MD) Hx of transurethral resection of prostate Green Light laser vaporization 03/23/2024 Colonoscopy - MAC (08/14/17) Colonoscopy - IV Sedation Biopsy, Soft Tissue (06/17/17) gynecomastia Arthroplasty of knee right Family History Mother Heart disease Smoker Father Personal history of malignant neoplasm Lung Smoker Sister No problems noted. Sister No problems noted. Social History Smoking/Tobacco Use Status: Never Smoking risk assessment performed?: Yes Alcohol Intake: current Alcohol Intake frequency: 0-2 drinks per day Alcohol type: hard liquor Drug use: Never Current gender identity: male
== END 2024-09-16 15:09 | disposition home or self-care (01) ==
LOC: ER 15:14
PROVIDERS: Emergency Provider Emergency Medicine; PCP Nurse Practitioner Family
DX: R30.0 Dysuria (principal); I10 Essential (primary) hypertension; E78.5 Hyperlipidemia, unspecified; E78.00 Pure hypercholesterolemia, unspecified; Z85.46 Personal history of malignant neoplasm of prostate; Z92.3 Personal history of irradiation
CPT/HCPCS: 36415; 87426; 99284; 81003; 81015; 87086

== ENCOUNTER → 2024-09-27 10:25 | Outpatient (BNVA) | payer MEDICARE, SELFPAY | PROVIDERS: PCP Nurse Practitioner Family; Referring Provider Nurse Practitioner Family; Visit Provider Urology | DX: R30.0 Dysuria (principal) | CPT/HCPCS: 51798; 99214 ==

== ENCOUNTER → 2024-10-03 13:36 | Outpatient (BNVA) | payer MEDICARE, SELFPAY | PROVIDERS: PCP Nurse Practitioner Family; Referring Provider Nurse Practitioner Family; Visit Provider Urology | DX: R30.0 Dysuria (principal) | CPT/HCPCS: 99212 ==

== ENCOUNTER 2024-10-07 00:49 | Outpatient (CLI) | payer MEDICARE, SELFPAY ==
[2024-10-07 13:26] LABS: ALT 30 U/L (16-63); AST 12 U/L (15-37); Albumin 3.4 g/dL (3.4-5.0); Alkaline Phosphatase 79 U/L (46-116); Anion Gap 6.3 mmol/L (3-11); BUN 12 mg/dL (7-18); Bilirubin, Total 0.5 mg/dL (0.2-1.0); CO2 30.7 mmol/L (21.0-32.0); Calcium 9.3 mg/dL (8.5-10.1); Chloride 107 mmol/L (98-107); Estimated GFR 80.47 (mL/min/1.73m2); Glucose 93 mg/dL (74-106); Potassium 4.2 mmol/L (3.5-5.1); Sodium 144 mmol/L (136-145); Total Protein 6.7 g/dL (6.4-8.2); Uric Acid 5.4 mg/dL (3.5-7.2)
[2024-10-10 11:52] LABS: PSA, Ultrasensitive 4.1 ng/mL (<= 6.5)
== END 2024-10-07 00:50 | disposition home or self-care (01) ==
LOC: LBO 00:49
PROVIDERS: PCP Nurse Practitioner Family; Visit Provider Radiology Radiation Oncology
DX: C61 Malignant neoplasm of prostate (principal); M10.9 Gout, unspecified
CPT/HCPCS: 36415; 80053; 84153; 84550

== ENCOUNTER 2024-11-29 00:33 | Outpatient (CLI) | payer MEDICARE, SELFPAY ==
[2024-11-29 10:32] LABS: Anion Gap 5.6 mmol/L (3-11); BUN 18 mg/dL (7-18); CO2 31.4 mmol/L (21.0-32.0); Calcium 9.1 mg/dL (8.5-10.1); Chloride 106 mmol/L (98-107); Estimated GFR 80.47 (mL/min/1.73m2); Glucose 105 mg/dL (74-106); Potassium 3.9 mmol/L (3.5-5.1); Sodium 143 mmol/L (136-145); Uric Acid 5.9 mg/dL (3.5-7.2)
== END 2024-11-29 00:34 | disposition home or self-care (01) ==
LOC: LBO 00:33
PROVIDERS: PCP Nurse Practitioner Family; Visit Provider Nurse Practitioner Family
DX: M10.9 Gout, unspecified (principal)
CPT/HCPCS: 36415; 80048; 84550

== ENCOUNTER 2024-11-30 00:33 | Outpatient (CLI) | payer MEDICARE, SELFPAY ==
--- NOTE | 2024-11-30 07:15 | DI.RAD_ITS ---
Exam(s) XR ANKLE RT COMPLETE EXAM: XR ANKLE RT COMPLETE CLINICAL HISTORY: Right ankle pain,m79.671,m25.571. TECHNIQUE: 2D digital imaging was performed. Three views. COMPARISON: CR XR ANKLE RT COMPLETE from 05/11/2024 FINDINGS: BONES: No acute fracture is present. No bony destructive lesion is seen. A small lucency is again noted at the lateral corner of the talar dome. Spurring at malleoli. Prominent plantar calcaneal sp ur. Small enthesophyte at Achilles insertion. JOINTS: The ankle mortise is normally aligned. Mild narrowing of the medial tibiotalar joint and ta lofibular joint. SOFT TISSUE: Swelling around malleoli. IMPRESSION: Stable degenerative changes. Stable lucency at the lateral talar dome. DATA REPOSITORY: RADIATION DOSE DELIVERED:
--- NOTE | 2024-11-30 07:15 | DI.RAD_ITS ---
Exam(s) XR FOOT LT COMPLETE EXAM: XR FOOT LT COMPLETE CLINICAL HISTORY: Left foot pain,m79.672. TECHNIQUE: 2D digital imaging was performed of the left foot. Three images were obtained. AP, obli que and lateral views were obtained. COMPARISON: No exams were available for comparison FINDINGS: BONES: No acute fracture is present. No bony destructive lesion is seen. There is an enthesophyte at the posterior calcaneus. There is a large plantar calcaneal spur. JOINTS: No dislocation present. Degenerative changes are seen in the foot characterized by joint spac e narrowing and osteophytes. The findings are most prominent at the 1st MTP joint. SOFT TISSUE: Normal. IMPRESSION: Degenerative changes in the foot and calcaneal spurs. DATA REPOSITORY: RADIATION DOSE DELIVERED:
== END 2024-11-30 00:53 ==
LOC: DI 00:33
PROVIDERS: PCP Nurse Practitioner Family; Visit Provider Podiatrist
DX: M25.571 Pain in right ankle and joints of right foot; M10.9 Gout, unspecified; M77.42 Metatarsalgia, left foot; M20.42 Other hammer toe(s) (acquired), left foot; M25.572 Pain in left ankle and joints of left foot
CPT/HCPCS: 20600; 20605; 99203; J0702; J1100; 73610; 73630

== ENCOUNTER 2024-12-21 08:37 | Outpatient (CLI) | payer MEDICARE, SELFPAY ==
--- NOTE | 2024-12-21 07:45 | DI.RAD_ITS ---
Exam(s) XR KNEE LT 3V AP,LAT,SUKHDEEP EXAM: XR KNEE LT 3V AP,LAT,SUKHDEEP CLINICAL HISTORY: LEFT KNEE PAIN. TECHNIQUE: 2D digital imaging was performed of the left knee. Three images were obtained. Merchant ,AP and lateral views were obtained. COMPARISON: There are no priors for comparison. FINDINGS: BONES: No acute fracture is present. No bony destructive lesion is seen. There is a small enthesophy te at the superior patella. JOINTS: There is mild narrowing of the lateral femoral tibial joint. There does appear to be a small joint effusion. No loose body. SOFT TISSUE: Normal. IMPRESSION: Minimal degenerative changes seen in the left knee. DATA REPOSITORY: RADIATION DOSE DELIVERED:
== END 2024-12-21 08:38 | disposition home or self-care (01) ==
LOC: DIORS 08:37
PROVIDERS: PCP Nurse Practitioner Family; Referring Provider Nurse Practitioner Family; Visit Provider Student in an Organized Health Care Education/Training Program
DX: M25.562 Pain in left knee (principal); M17.12 Unilateral primary osteoarthritis, left knee
CPT/HCPCS: 20610; 73562; 99213; J1010

== ENCOUNTER 2025-01-13 01:45 | Outpatient (CLI) | payer MEDICARE, SELFPAY ==
[2025-01-13 11:33] LABS: ALT 32 U/L (16-63); AST 15 U/L (15-37); Albumin 3.4 g/dL (3.4-5.0); Alkaline Phosphatase 79 U/L (46-116); Anion Gap 6.4 mmol/L (3-11); BUN 16 mg/dL (7-18); Bilirubin, Total 0.5 mg/dL (0.2-1.0); CO2 31.6 mmol/L (21.0-32.0); CREATININE 1.1 mg/dL (0.70-1.30); Calcium 9.1 mg/dL (8.5-10.1); Chloride 104 mmol/L (98-107); Estimated GFR 71.77 (mL/min/1.73m2); Glucose 109 mg/dL (74-106); Potassium 3.5 mmol/L (3.5-5.1); Sodium 142 mmol/L (136-145); Total Protein 6.8 g/dL (6.4-8.2)
[2025-01-13 11:47] LABS: Uric Acid 4.9 mg/dL (3.5-7.2)
== END 2025-01-13 01:46 | disposition home or self-care (01) ==
PROVIDERS: PCP Nurse Practitioner Family; Visit Provider Nurse Practitioner Family
DX: M10.9 Gout, unspecified (principal)
CPT/HCPCS: 36415; 80053; 84550

== ENCOUNTER → 2025-02-23 08:10 | Outpatient (BNVA) | payer MEDICARE, SELFPAY | PROVIDERS: PCP Nurse Practitioner Family; Referring Provider Nurse Practitioner Family; Visit Provider Podiatrist | DX: S93.422A Sprain of deltoid ligament of left ankle, initial encounter (principal); M25.572 Pain in left ankle and joints of left foot; M25.472 Effusion, left ankle | CPT/HCPCS: 99213; 29580; 29850 ==

== ENCOUNTER 2025-03-02 01:56 | Outpatient (CLI) | payer MEDICARE, SELFPAY ==
--- NOTE | 2025-03-02 15:05 | DI.MRI_ITS ---
Exam(s) MR LOWER JOINT LT WO EXAM: MR LOWER JOINT LT WO CLINICAL HISTORY: L KNEE PAIN, arthritis lt knee, M17.12. TECHNIQUE: Multiplanar multisequence MRI was performed. COMPARISON: CR XR KNEE LT 3V AP,LAT,SUKHDEEP from 12/21/2024 FINDINGS: BONES: There is no fracture or contusion pattern. JOINTS: No joint effusion is present. Articular cartilage: Patellofemoral joint: Thinning of the cartilage over the medial patellar facet. Minimal high signal in the lateral patellar facet and apex. Medial femoral tibial joint: Large full-thickness cartilage defect of the medial femoral condyle approximately 5 millimeters transverse by 15 millimeters AP. Lateral femoral tibial joint: Thinning of the articular cartilage at the lateral femoral condyle lateral tibial plateau, extending down to bone. LIGAMENTS/TENDONS: Anterior Cruciate: Unremarkable. Posterior Cruciate: Unremarkable. Medial Collateral:Unremarkable. Lateral Collateral ligament complex: Unremarkable. Extensor mechanism: Unremarkable. Medial retinaculum: Unremarkable. Lateral retinaculum: Unremarkable. Popliteus: Unremarkable. MENISCI: The medial meniscus is peripherally displaced consistent with degenerative changes. There is horizontally oriented high signal in the body and longitudinally oriented signal in the posterior horn. The lateral meniscus shows horizontally oriented high signal as well as amorphous signal in the anterior horn. There is a large radially oriented tear of the posterior horn. There is severe blunting of the body. The meniscus is peripherally displaced, consistent with degenerative changes. MUSCLES: Unremarkable. SOFT TISSUES: Taylor's cyst measuring roughly 7.5 cm in length by 1.7 cm AP by 4 cm transverse. IMPRESSION: Advanced degenerative changes of the femoral tibial joints, lateral greater than medial. There is severe cartilage thinning extending down to bone laterally. There are degenerative changes as well as superimposed tears involving both menisci. Taylor's cyst. DATA REPOSITORY:
== END 2025-03-02 02:16 ==
LOC: DI 01:56
PROVIDERS: PCP Nurse Practitioner Family; Visit Provider Student in an Organized Health Care Education/Training Program
DX: M17.12 Unilateral primary osteoarthritis, left knee (principal)
CPT/HCPCS: 73721

== ENCOUNTER → 2025-03-08 13:56 | Outpatient (BNVA) | payer MEDICARE, SELFPAY | PROVIDERS: PCP Nurse Practitioner Family; Referring Provider Nurse Practitioner Family; Visit Provider Student in an Organized Health Care Education/Training Program | DX: M17.12 Unilateral primary osteoarthritis, left knee (principal) | CPT/HCPCS: 99213 ==

== ENCOUNTER 2025-03-23 00:19 | Outpatient (CLI) | payer MEDICARE, SELFPAY ==
--- NOTE | 2025-03-23 06:15 | DI.RAD_ITS ---
Exam(s) XR ANKLE LT COMPLETE EXAM: XR ANKLE LT COMPLETE CLINICAL HISTORY: Pain AND SWELLING LT ANKLE, M25.572, M25.472 EFFUSION LT ANKLE. TECHNIQUE: 2D digital imaging was performed. COMPARISON: No exams were available for comparison FINDINGS: 3 views No evidence of fracture or widening ankle mortise. There are mild degenerative changes in the tibiotalar-ankle joint. There is a prominent inferior calcaneal spur. There is also calcification at the insertional aspect of the distal Achilles tendon on the posterior calcaneus and there is also thickening of the insertional Achilles tendon evident. IMPRESSION: No fractures. Some degenerative changes in the tibiotalar-ankle joint. Prominent inferior calcaneal spur. Also thickening of the insertional Achilles tendon. Correlation with Achilles tendon symptomatology recommended DATA REPOSITORY: RADIATION DOSE DELIVERED:
== END 2025-03-23 00:39 ==
LOC: DI 00:19
PROVIDERS: PCP Nurse Practitioner Family; Visit Provider Podiatrist
DX: M25.572 Pain in left ankle and joints of left foot (principal); M25.472 Effusion, left ankle
CPT/HCPCS: 73610

== ENCOUNTER 2025-04-12 04:20 | Outpatient (CLI) | payer MEDICARE, SELFPAY | END 2025-04-12 04:21 | disposition home or self-care (01) | PROVIDERS: PCP Nurse Practitioner Family; Visit Provider Physician Assistant | DX: C61 Malignant neoplasm of prostate (principal) | CPT/HCPCS: 36415; 84153 ==

== ENCOUNTER 2025-04-21 13:35 | Outpatient (REF) | payer MEDICARE, SELFPAY ==
[2025-04-21 21:12] LABS: Abs Immature Grans 0.02 10^3/uL (0.0-0.06); HCT 46.5 % (40.0-50.0); HGB 15.6 g/dL (13.5-17.5); Immature Grans % 0.3 %; MCH 33.5 pg (27.0-33.0); MCHC 33.5 % (32.0-36.0); MCV 100 fL (80-95); MPV 10.8 fL (8.0-11.0); Platelet Count 233 10^3/uL (130-400); RBC 4.65 10^6/uL (4.36-5.78); RDW 13.1 % (11.8-14.1); RDW-SD 48.3 fL; WBC 7.58 10^3/uL (4.4-10.8)
[2025-04-21 21:28] LABS: Hemoglobin A1C 5.1 % (<5.7)
[2025-04-21 21:34] LABS: COMMENT (LAB VIEW ONLY) 33.28 mg/dL
[2025-04-21 21:37] LABS: Glucose Negative (Negative)
[2025-04-21 21:46] LABS: Microalb ug/mg Crea 125.3 ug/mg Cr
[2025-04-21 21:47] LABS: Magnesium 1.7 mg/dL (1.8-2.4); Vitamin B12 399 pg/mL (193-986)
[2025-04-21 21:50] LABS: C & S Indicated? No; RBC 0-2 HPF (0-2); WBC Negative HPF (0-5)
[2025-04-24 09:20] LABS: Folate 9.3 ng/mL (See Note)
== END 2025-04-21 13:36 | disposition home or self-care (01) ==
LOC: NCHCN 13:35
PROVIDERS: PCP Nurse Practitioner Family; Visit Provider Nurse Practitioner Family
DX: I10 Essential (primary) hypertension (principal)
CPT/HCPCS: 81003; 81015; 82043; 82570; 82607; 82746; 83036; 83735; 85025

== ENCOUNTER → 2025-05-01 11:27 | Outpatient (BNVA) | payer MEDICARE, SELFPAY | PROVIDERS: PCP Nurse Practitioner Family; Referring Provider Nurse Practitioner Family; Visit Provider Student in an Organized Health Care Education/Training Program | DX: Z12.11 Encounter for screening for malignant neoplasm of colon (principal); Z86.0109 Personal history of other colon polyps | CPT/HCPCS: S0285 ==

== ENCOUNTER 2025-05-17 06:17 | Day surgery (SDC) | payer MEDICARE, SELFPAY ==
[2025-05-17 06:25] VITALS: BP 178/80; PULSE 83; RESP 16; TEMP 36.5; O2SAT 97
[2025-05-17] MEDS: Lactated Ringers 1,000 ML 80 ML IV (07:05)
--- NOTE | 2025-05-17 07:07 | W.ANESPRE ---
General Info Date of Service Date Performed: 05/17/25 Height: 5 ft 9 in Weight: 102.3 kg Body Mass Index (BMI): 33.3 Surgical Procedure: Operation Date: 05/17/25 07:35 Proposed Procedure Side Surgeon p Colonoscopy Shandra Escalante MD Meds Allergies and Home Medications Allergies Allergy/AdvReac Type Severity Reaction Status Date / Time lisinopril Allergy Intermediate lip Verified 05/16/25 12:13 swelling terazosin Allergy Intermediate unknown Verified 05/16/25 12:13 losartan Allergy Mild Dizziness/L Verified 05/16/25 12:13 ighthead atenolol AdvReac bradycardia Verified 05/16/25 12:13 Home Medication ?Medication ?Instructions ?Recorded omeprazole 20 mg capsule,delayed 20 mg PO DAILY PRN 04/21/24 release valsartan 40 mg tablet 40 mg PO DAILY 05/11/24 allopurinol 100 mg tablet 100 mg PO DAILY 06/01/24 bisacodyl 5 mg tablet,delayed 5 mg PO ONCE colonscopy bowel prep 05/01/25 release (Dulcolax (bisacodyl)) #4 tabs polyethylene glycol 3350 17 238 g PO ONCE colonoscopy prep 05/01/25 gram/dose oral powder #238 grams cyanocobalamin (vitamin B-12) 1,000 mcg PO DAILY 05/16/25 1,000 mcg capsule magnesium 250 mg tablet 500 mg PO QHS 05/17/25 Current Visit Medications: Current Medications Generic Name Dose Route Start Last Admin Trade Name Freq PRN Reason Stop Dose Admin Ringer's Solution 1,000 mls @ 80 mls/hr 05/17/25 06:00 IV 05/17/25 23:59 INFUSION ANTONY IV Miscellaneous Supplies 1 each 05/17/25 06:00 Iv Access IV 05/17/25 23:59 DIRECTED ANTONY Sodium Chloride 0 ml 05/17/25 06:00 Normal Saline Flush 10 Ml Syr IV 05/17/25 23:59 PRN PRN Sodium Chloride 0 ml 05/17/25 06:00 Normal Saline 10 Ml Vial IJ 05/17/25 23:59 DIRECTED PRN Sterile Water 0 ml 05/17/25 06:00 Water,Injection,Sterile 10 Ml Vial IJ 05/17/25 23:59 DIRECTED PRN PFSH Active Problems Active Problems: Problem Status Onset Code Achilles tendinitis of left lower extremity Acute M76.62 Deltoid ligament ankle sprain Acute S93.429A Sprain of left medial ankle joint Acute S93.422A Pain and swelling of left ankle Acute M25.572, M25.472 Arthritis of knee, left Acute M17.12 Pain in joint, foot, left Acute M25.572 Hammertoe of left foot Acute M20.42 Metatarsalgia of left foot Acute M77.42 Sinus tarsi syndrome of right foot Acute M25.571 Gout of right ankle Acute M10.9 Gout of right elbow Acute M10.9 Prostate cancer Chronic C61 Elevated PSA Acute R97.20 Lower urinary tract symptoms (LUTS) Acute R39.9 Gastroesophageal reflux disease Chronic K21.9 Obesity Chronic E66.9 Hx of adenomatous colonic polyps Acute Z86.010 Mitral valve disorder Acute I05.9 BPH (benign prostatic hyperplasia) Chronic N40.0 Preventative health care Acute Z00.00 Hx of syncope Acute Z87.898 Hypomagnesemia Acute E83.42 Drinks alcohol Acute Z72.89 Erectile dysfunction Acute N52.9 Heart murmur, aortic Acute I35.8 Finger pain Acute M79.646 Near syncope Acute R55 Essential hypertension Acute I10 Dizziness Acute R42 Medical History Medical History Mitral valve prolapse [facility] [place] pt was told it was mild and this was decades ago Tubular adenoma Hypertension Hyperlipidemia Hypercholesterolemia Surgical History Surgical History (Updated 05/17/25 @ 06:52 by Dolly Baugh) Hx of transurethral resection of prostate [place] laser vaporization 03/23/2024 Colonoscopy - MAC (08/14/17) Colonoscopy - IV Sedation Biopsy, Soft Tissue (06/17/17) gynecomastia Arthroplasty of knee right; pt states arthroscopy Tobacco Smoking/Tobacco Use Status: Never Passive smoking exposure: No Alcohol Alcohol Intake: current Alcohol intake frequency: 0-2 drinks per day Alcohol type: hard liquor Substance Use Substance use: Never Substance use type: does not use Vital Signs and Lab Results Vital Signs Most Recent Vital Signs in EMR: Most Recent Vital Signs Temp Pulse Resp BP Pulse Ox 36.5 C 83 16 178/80 H 97 05/17/25 06:25 05/17/25 06:25 05/17/25 06:25 05/17/25 06:25 05/17/25 06:25 Lab Results Complete Blood Count: WBC, (4.4-10.8) 7.58 10^3/uL 04/21/25, 12:55 RBC, (4.36-5.78) 4.65 10^6/uL 04/21/25, 12:55 Hgb, (13.5-17.5) 15.6 g/dL 04/21/25, 12:55 Hct, (40.0-50.0) 46.5 % 04/21/25, 12:55 Plt Count, (130-400) 233 10^3/uL 04/21/25, 12:55 Complete Metabolic Panel: Magnesium, (1.8-2.4) 1.7 mg/dL L 04/21/25, 12:55 Hemoglobin A1c, (<5.7) 5.1 % 04/21/25, 12:55 Imaging and Studies Imaging and Studies Study information below may be from another EMR and interpreted by another provider. Please see original notes in EMR for more complete details. Stress Test Summary: 07/2015:Normal Echocardiogram Summary: 07/2015:Impressions: Normal study. Summary: 1. Left ventricle: The cavity size was normal. Wall thickness was increased in a pattern of mild LVH. Systolic function was normal. The estimated ejection fraction was 60-65%. Wall motion was normal; there were no regional wall motion abnormalities. 2. Right ventricle: The cavity size was normal. Wall thickness was normal. Systolic function was normal. Carotid Artery Summary:: 07/2015:Routine examination. There is mild calcific plaque seen bilaterally. No hemodynamically significant velocity elevations are seen. The vertebral arteries are antegrade in direction. IMPRESSION: No evidence of hemodynamically significant cervical carotid artery stenosis. Anesthesia Assessment and Plan Anesthesia History Personal History: No History of Anesthesia Complications Family History: No Family History of Anesthesia Complications Exercise Tolerance Exercise Tolerance: Metabolic Equivalents>4 Pertinent Negatives Pertinent Negatives: No Symptoms of GERD Cardiac & Pulmonary Exam Cardiac Exam: Normal S1/S2 Heart Sounds Pulmonary Exam: Clear Bilateral Breath Sounds Implantable Cardiac Device Does patient have a Pacemaker or an ICD?: No Airway Exam Known Difficult Airway: No Mallampati Class: 1 Mouth Opening: Normal (> 3cm) Thyromental Distance: Greater than 3 cm Neck Range of Motion: Full ROM Neck Circumference: Normal Teeth Condition: Normal Dentition ASA Classification ASA Score: ASA 2 Emergency Case?: No NPO Status NPO Status: NPO Clears >2 hours, Solids >8 hours Anesthesia Plan Resuscitation Status: Full Code Anesthesia Technique: General Anesthesia Airway Planned: Natural Airway Monitors Used: Standard Monitors
[2025-05-17 07:18] VITALS: BMI 33.3
--- NOTE | 2025-05-17 07:42 | BOWEL_PTH ---
PATIENT: Vincent Oswald LOC: [facility] U#:[id number] AGE/SX: 69/M ROOM: RE05/17/[address]: Shandra Escalante : 1955 BED: DIS: 05/17/2025 SPEC #: [id number] RECD: 05/17/25 12:40 STATUS: YAMILE RE #: [id number] ISABELL: 05/17/25 07:[address]: Shandra Escalante DEPT: Surgical Specimen RECD BY: Francy Weaver ENTERED: 05/17/25 12:41 SP TYPE: Bowel OTHR DR: Cristel Layne Tissues: 1 - BIOPSY BOWEL 2 - BIOPSY BOWEL 3 - BIOPSY BOWEL Procedures: GROSS AND MICRO LEVEL 4 Comments: [id number]
[2025-05-17 07:54] VITALS: BP 119/68; PULSE 59; RESP 16; TEMP 36.4; O2SAT 95
--- NOTE | 2025-05-17 07:59 | W.PM.DSUDISC ---
Date of service: 05/17/25 Discharge Plan Disposition Patient Disposition: Home Condition: Good Discharge Details Reason For Visit: screening colonoscopy Attending Provider: Shandra Escalante Primary Care Provider: Cristel Layne Home Meds and New Rx's Prescriptions: Continued valsartan 40 mg tablet 40 mg PO DAILY allopurinol 100 mg tablet 100 mg PO DAILY omeprazole 20 mg capsule,delayed release(DR/EC) 20 mg PO DAILY PRN cyanocobalamin (vitamin B-12) 1,000 mcg capsule 1,000 mcg PO DAILY magnesium 250 mg tablet 500 mg PO QHS Discontinued bisacodyl [Dulcolax (bisacodyl)] 5 mg tablet,delayed release (DR/EC) 5 mg PO ONCE Qty: 4 0RF Rx Instructions: take per colonoscopy instructions polyethylene glycol 3350 17 gram/dose powder 238 g PO ONCE Qty: 238 0RF Rx Instructions: take per colonoscopy instructions Discharge Instructions Instructions: Colon polyps, Diverticulosis Additional Instructions: Your colonoscopy went well today. You did have evidence of diverticulosis or little outpouchings on the colon. You also had 1 polyp which was removed today and will be sent to pathology. There was also evidence of radiation changes in the rectum which were biopsied. Once this pathology is back we will contact you regarding next steps and when to have a repeat colonoscopy. If you have any questions or concerns please contact the general surgery office. 1. If tolerated, consume a soft, low fiber diet for 1-2 days. [address] Do not drive, drink alcohol, operate machinery, make critical decisions, or do activities that require coordination or balance for 24 hours. 3. Because air was put into your colon during the procedure, expelling air from your rectum (passing gas or farting) is normal. 4. You may not have a bowel movement for 1-3 days because of the colonoscopy prep. This is normal. 5. Go directly to the emergency room if you notice any of the following: Develop chills (warm to touch), or if you have a thermometer and your temperature is above 101 Difficulty breathing or difficultly swallowing Persistent vomiting Severe abdominal pain, other than gas cramps Severe chest pain Black, tarry stools Any bleeding ? exceeding one tablespoon 6. Call your physician if the site where your intravenous was started becomes red, swollen, painful, and warm to touch. 7. Your physician has reviewed your pre-procedure medications. Please continue to take those medications as previously ordered. You will be given specific information/education regarding any changes to your medications before leaving. Stand Alone Forms: Anesthesia Discharge Inst., Colonoscopy Post Instructions, Ian Cummins (DSU) Activity:: Activity as Tolerated Diet:: As Tolerated Discharge Orders Discharge Orders: Discharge Order (Routine); Ordered 05/17/25 Ordered By: Shandra Escalante
--- NOTE | 2025-05-17 08:02 | COLE_ITS ---
Date of service: 05/17/25 Time of Service: 08:03 Colonoscopy Report Date of procedure: 05/17/25 Pre-op diagnosis general: Personal history of polyps Post-op diagnosis procedure note: same Procedure: Colonoscopy with polypectomy Surgeon: Shandra Escalante Anesthesia Type: General:No Airway Estimated blood loss (mL): 1 Pathology: other (Polyp at 80cm, Multiple rectal polyps, rectal biopsy ) Complications: None Disposition: PACU Indications: Patient is a 69-year-old male who presents for a repeat colonoscopy given personal history of polyps. He also has had prostate cancer status post radiation some symptoms concerning for radiation proctitis. Prep: Miralax/Dulcolax Procedure Start Time: 07:32 Procedure End Time: 07:50 Retraction Time: 13 Findings: Evidence of radiation changes in the rectum which were biopsied. Multiple small rectal biopsy polyps removed with cold forceps. Polypectomy performed to 80 cm with cold snare. Evidence of diverticulosis. Procedure Description: The patient was brought to the endoscopy suite and placed in the left lateral decubitus position. After induction of IV sedation, a digital rectal exam was performed.. Digital exam was normal. The colonoscope was then passed to the cecum without difficulty. Cecal intubation was confirmed by the identification of the appendiceal orifice and the ileocecal valve. Upon withdrawing the colonoscope, all mucosal surfaces were inspected. The prep was noted to be adequate. At 80cm there was a 5mm polyp, which was removed using a cold snare in its entirety. Specimen was retrieved for pathological analysis. There was also evidence of multiple small rectal polyps which were removed removed with cold forceps. The specimen was sent for pathologic analysis. In the rectum there was also findings of radiation changes which were biopsied and sent to pathology. Throughout the rectosigmoid colon there was also evidence of mild diverticulosis. There was no other evidence of mucosal abnormality, polyp or cancer. Retroflexion in the rectum was unremarkable. The patient tolerated the procedure well with no complications. Postoperatively, the patient was transferred to the recovery room in stable condition. [place] Bowel Prep [place] Bowel Prep Right Colon: 3 Left Colon: 3 Transverse Colon: 3 Total Score: 9
[2025-05-17 08:21] VITALS: BP 145/85; PULSE 50; RESP 16; TEMP 36.3; O2SAT 97
--- NOTE | 2025-05-17 08:27 | W.ANESPOSTOP ---
Postoperative Evaluation Date, Time and Location Date Performed: 05/17/25 Time Performed: 08:13 Patient Location: Day Surgery Unit Vital Signs Most Recent Imported Vital Signs: Most Recent Vital Signs Temp Pulse Resp BP Pulse Ox 36.4 C L 59 L 16 119/68 95 05/17/25 07:54 05/17/25 07:54 05/17/25 07:54 05/17/25 07:54 05/17/25 07:54 Pain Score Most Recent Pain Score: Most Recent Pain Score Pain Level 0 05/17/25 06:25 Assessment Mental Status: Awake (Alert & Oriented to Patient Baseline) Airway and Respiratory Function: Patent airway with normal (patient baseline) respiratory exam Cardiovascular Function: Hemodynamically Stable Hydration Status: Adequately Hydrated Nausea & Vomiting: No Nausea or Vomiting Pain: Pt. Denies Any Pain Peripheral Nerve Block: Patient did not receive a nerve block
== END 2025-05-17 08:35 | disposition home or self-care (01) ==
PROVIDERS: PCP Nurse Practitioner Family; Visit Provider Student in an Organized Health Care Education/Training Program
PROC: 0DJD8ZZ Inspection of Lower Intestinal Tract, Via Natural or Artificial Opening Endoscopic (ICD-10-PCS; CPT 45378; principal; 2025-05-17 07:30)
DX: Z12.11 Encounter for screening for malignant neoplasm of colon (principal); D12.4 Benign neoplasm of descending colon; K62.1 Rectal polyp; K57.30 Diverticulosis of large intestine without perforation or abscess without bleeding; I10 Essential (primary) hypertension
CPT/HCPCS: 45385; 45380; 88305; J2704

== ENCOUNTER → 2025-06-01 09:26 | Outpatient (BNVA) | payer MEDICARE, SELFPAY | PROVIDERS: PCP Nurse Practitioner Family; Referring Provider Nurse Practitioner Family; Visit Provider Student in an Organized Health Care Education/Training Program | DX: M17.12 Unilateral primary osteoarthritis, left knee (principal) | CPT/HCPCS: 99214 ==

== ENCOUNTER → 2025-07-17 07:58 | Outpatient (BNVA) | payer MEDICARE, SELFPAY | PROVIDERS: PCP Nurse Practitioner Family; Referring Provider Nurse Practitioner Family; Visit Provider Urology | DX: C61 Malignant neoplasm of prostate (principal); R39.15 Urgency of urination; R39.9 Unspecified symptoms and signs involving the genitourinary system | CPT/HCPCS: 99214; 51798 ==